=== PATIENT | male | born 1975 | race American Indian/Alaskan Native ===

== ENCOUNTER 2020-07-16 19:26 | Observation (INO) | payer SELFPAY ==
--- NOTE | 2020-07-16 20:34 | Event Note ---
ED Screening Note Date of service: 07/16/20 Time: 20:33 ED Screening Note: Complains of headaches x1 week + nausea Denies prior history of headaches or migraines History of hypertension and diabetes Blood pressure noted to be significantly elevated Rates current headache as a 5/10 in severity Denies being on blood thinners Denies weakness/numbness/tingling/vision changes/dizzy This initial assessment/diagnostic orders/clinical plan/treatment(s) is/are subject to change based on patients health status, clinical progression and re- assessment by fellow clinical providers in the ED. Further treatment and workup at subsequent clinical providers discretion. Patient/guardian urged not to elope from the ED as their condition may be serious if not clinically assessed and managed. Initial orders include: Labs CT head
--- NOTE | 2020-07-16 21:10 | Cat Scan Report ---
NONENHANCED CT SCAN OF THE HEAD: INDICATION / CLINICAL INFORMATION: 44 years Male; headaches x 1 week, no prior hx of HAs. TECHNIQUE: Routine CT head without contrast. All CT scans at this location are performed using CT dos e reduction for ALARA by means of automated exposure control. COMPARISON: None. FINDINGS: BRAIN / INTRACRANIAL CONTENTS: No acute hemorrhage, mass effect, midline shift, hydrocephalus, or acu te, large territorial infarct. No chronic infarct or focal atrophy. Normal brain volume and ventricul ar/sulcal size for age. Low-attenuation white matter lesions probably due to chronic small vessel dis ease CRANIOCERVICAL JUNCTION: No significant abnormality. ORBITS: No significant abnormality of visualized orbits. SINUSES / MASTOIDS: No significant abnormality of the visualized paranasal sinuses or mastoid air honorio ls. ADDITIONAL FINDINGS: None. IMPRESSION: No acute focal parenchymal lesion in the brain Signer Name: Henna Wayne MD Signed: 07/16/2020 9:06 PM Workstation Name: [id number]
[2020-07-16 21:22] LABS: Basophils # (Auto) 0.2 K/mm3 (0.0-0.1); Basophils % (Auto) 1.5 % (0.0-1.8); Eosinophils # (Auto) 0.2 K/mm3 (0.0-0.4); Eosinophils % (Auto) 1.1 % (0.0-4.3); Hematocrit 39.5 % (35.5-45.6); Hemoglobin 13.3 gm/dl (11.8-15.2); Lymphocytes # (Auto) 3.1 K/mm3 (1.2-5.4); Lymphocytes % (Auto) 21.4 % (13.4-35.0); Mean Corpuscular HGB Conc 34 % (32-34); Mean Corpuscular Volume 76 fl (84-94); Monocytes # (Auto) 1.1 K/mm3 (0.0-0.8); Monocytes % (Auto) 7.8 % (0.0-7.3); Platelet Count 358 K/mm3 (140-440); Red Blood Count 5.18 M/mm3 (3.65-5.03); Red Cell Distribution Width 14.4 % (13.2-15.2)
[2020-07-16 21:43] LABS: Albumin 4.1 g/dL (3.9-5)
[2020-07-17] MEDS ORDERED: HYDROcodone/ACETAMINOPHEN 5-325 MG TAB PO ONE (03:19)
[2020-07-17] MEDS ORDERED: ONDANSETRON 4 MG ODT TAB PO ONE (03:19)
[2020-07-17] MEDS ORDERED: ONDANSETRON 4 MG/2 ML INJ IV ONE (03:33)
--- NOTE | 2020-07-17 03:38 | Emergency Department Report ---
ED Headache HPI - General Chief Complaint: Headache Stated Complaint: MIGRAINE HEADACHES FOR A WEEK Time Seen by Provider: 07/16/20 20:32 Source: patient Exam Limitations: no limitations - History of Present Illness Initial Comments: CC: headache for one week HPI: This is a 44 yo male with hx of HTN kidney stones and DM who presents with headache for one week. He has pain in between eyes and forehead. Dull pressure sensation. Intermittent. Pain is absent now after taking Lisinopril this evening. He denies fever, cough, nasal congestion, chest pain. He was diagnosed with HTN and DM last summer. He has not been compliant with medications. His regimen includes Metformin and Lisinopril. Timing/Duration: 1 week Quality: mild, moderate Head Injury Location: frontal Recent Head Trauma: occasional headaches Associated Symptoms: denies symptoms Allergies/Adverse Reactions: Allergies shellfish derived Adverse Reaction (Verified 07/16/20 20:40) Itching Home Medications: Ambulatory Orders lisinopriL [Zestril TAB] 40 mg PO QDAY 07/17/20 metFORMIN [Glucophage] 500 mg PO BID 07/17/20 ED Review of Systems ROS: Stated complaint: MIGRAINE HEADACHES FOR A WEEK Other details as noted in HPI Comment: All other systems reviewed and negative Constitutional: denies: fever, malaise Respiratory: denies: cough, shortness of breath Cardiovascular: denies: chest pain Gastrointestinal: denies: abdominal pain, nausea, vomiting Neurological: headache. denies: numbness, paresthesias ED Past Medical Hx - Past Medical History Previous Medical History?: Yes Hx Hypertension: Yes Hx Diabetes: Yes - Surgical History Past Surgical History?: Yes Additional Surgical History: Left foot - Social History Smoking Status: Never Smoker Substance Use Type: Marijuana - Medications Home Medications: Home Medications Medication Instructions Recorded Confirmed Last Taken Type lisinopriL [Zestril TAB] 40 mg PO QDAY 07/17/20 07/17/20 Unknown History metFORMIN [Glucophage] 500 mg PO BID 07/17/20 07/17/20 Unknown History ED Physical Exam - General Limitations: No Limitations General appearance: alert, in no apparent distress - Head Head exam: Present: atraumatic, normocephalic - Eye Eye exam: Present: normal appearance - ENT ENT exam: Present: mucous membranes moist - Neck Neck exam: Present: normal inspection, full ROM - Respiratory Respiratory exam: Present: normal lung sounds bilaterally. Absent: respiratory distress, wheezes, rales, stridor - Cardiovascular Cardiovascular Exam: Present: regular rate, normal rhythm, normal heart sounds. Absent: systolic murmur, diastolic murmur, rubs, gallop - GI/Abdominal GI/Abdominal exam: Present: soft, normal bowel sounds. Absent: distended, tenderness, guarding, rebound - Rectal Rectal exam: Present: deferred - Extremities Exam Extremities exam: Present: normal inspection - Neurological Exam Neurological exam: Present: alert, oriented X3 - Psychiatric Psychiatric exam: Present: normal affect, normal mood - Skin Skin exam: Present: warm, dry, intact, normal color. Absent: rash ED Course Vital Signs 07/16/20 07/16/20 07/17/20 20:32 20:35 03:08 Temperature 99.2 F Pulse Rate 109 H 108 H Respiratory 18 18 Rate Blood Pressure 196/111 Blood Pressure 178/90 240/138 [Left] O2 Sat by Pulse 96 100 Oximetry 07/17/20 07/17/20 07/17/20 03:30 03:42 03:45 Temperature Pulse Rate 106 H 89 82 Respiratory 15 16 Rate Blood Pressure 225/131 231/146 176/102 Blood Pressure [Left] O2 Sat by Pulse 99 97 Oximetry 07/17/20 07/17/20 07/17/20 04:00 04:02 04:08 Temperature Pulse Rate 77 78 Respiratory 18 17 17 Rate Blood Pressure 176/102 Blood Pressure 165/111 [Left] O2 Sat by Pulse 97 97 98 Oximetry 07/17/20 07/17/20 07/17/20 04:16 04:30 04:33 Temperature Pulse Rate 77 70 78 Respiratory 16 16 18 Rate Blood Pressure 165/111 205/114 Blood Pressure 205/114 [Left] O2 Sat by Pulse 97 98 97 Oximetry 07/17/20 07/17/20 07/17/20 04:34 04:45 05:00 Temperature Pulse Rate 78 78 79 Respiratory 16 14 Rate Blood Pressure 205/114 189/115 180/106 Blood Pressure [Left] O2 Sat by Pulse 97 96 Oximetry ED Medical Decision Making - Lab Data Result diagrams: 07/16/20 20:43 07/16/20 20:43 - EKG Data -: EKG Interpreted by De EKG shows normal: axis, intervals Rate: normal - EKG Data Interpretation: LVH 07/17/20 04:40 EKG obtained 0426 EKG interpreted by me Normal sinus rhythm rate 80 bpm normal axis normal intervals no significant ST elevation nonspecific T wave pattern - Radiology Data Radiology results: report reviewed, image reviewed NONENHANCED CT SCAN OF THE HEAD: INDICATION / CLINICAL INFORMATION: 44 years Male; headaches x 1 week, no prior hx of HAs. TECHNIQUE: Routine CT head without contrast. All CT scans at this location are performed using CT dose reduction for ALARA by means of automated exposure control. COMPARISON: None. FINDINGS: BRAIN / INTRACRANIAL CONTENTS: No acute hemorrhage, mass effect, midline shift, hydrocephalus, or acute, large territorial infarct. No chronic infarct or focal atrophy. Normal brain volume and ventricular/sulcal size for age. Low-attenuation white matter lesions probably due to chronic small vessel disease CRANIOCERVICAL JUNCTION: No significant abnormality. ORBITS: No significant abnormality of visualized orbits. SINUSES / MASTOIDS: No significant abnormality of the visualized paranasal sinuses or mastoid air cells. ADDITIONAL FINDINGS: None. IMPRESSION: No acute focal parenchymal lesion in the brain - Medical Decision Making 1. Hypertensive emergency with evidence of kidney dysfunction. Admitted to the hospital service for further treatment and evaluation. CT imaging of the system did not obstructive uropathy. 2. Tension headache possibly due to malignant hypertension. No red flags such as fever trauma neurological findings. I do not suspect intracranial hemorrhage. Patient is currently pain-free. Critical care attestation.: If time is entered above; I have spent that time in minutes in the direct care of this critically ill patient, excluding procedure time. ED Disposition Clinical Impression: Hypertensive emergency, Acute kidney injury Disposition: OP ADMIT IP TO THIS HOSP Is pt being admited?: Yes Does the pt Need Aspirin: No Condition: Stable
[2020-07-17 04:55] LABS: Bacteria,Urine 1+ /HPF (Negative); Bilirubin,Urine NEG (Negative); Blood,Urine SM (Negative); Color,Urine Yellow (Yellow); Hyaline Casts,Urine 3 /LPF; Mucus,Urine 1+ /HPF; Urobilinogen,Urine < 2.0 mg/dL (<2.0)
[2020-07-17 05:02] LABS: Protein,Urine 300 mg/dL mg/dL (Negative)
[2020-07-17] MEDS ORDERED: SODIUM POLYSTYRENE 15 GM/60 ML ORAL LIQD PO ONE (05:27)
[2020-07-17] MEDS ORDERED: ACETAMINOPHEN 325 MG TAB PO PRN (05:30)
[2020-07-17] MEDS ORDERED: TEMAZEPAM 15 MG CAP PO PRN (05:31)
[2020-07-17] MEDS ORDERED: ONDANSETRON 4 MG/2 ML INJ IV PRN (05:34)
--- NOTE | 2020-07-17 05:42 | Cat Scan Report ---
CT ABDOMEN AND PELVIS WITHOUT CONTRAST HISTORY: Acute kidney injury. COMPARISON: None. TECHNIQUE: CT images of the abdomen and pelvis were obtained without administration of intravenous co ntrast. All CT scans at this location are performed using CT dose reduction for ALARA by means of au tomated exposure control. FINDINGS: Lungs/bones: Lung bases are clear. There are degenerative changes in the lower lumbar spine with no acute osseous abnormality. Abdomen/pelvis: There is punctate nonobstructive nephrolithiasis in both kidneys with no ureteral st one disease or hydronephrosis. No mass or cyst. There is a vague hypodensity measuring nearly 3 cm in the left lobe of the liver as seen on image 32 of series 2. Liver is otherwise unremarkable. The spleen, pancreas, adrenals, and proximal GI tract a ppear unremarkable. Urinary bladder and prostate are normal with no pelvic free fluid or acute colonic abnormality. The a ppendix and terminal ileum appear normal. IMPRESSION: 1. No acute abnormality identified. 2. Punctate nonobstructive nephrolithiasis in the kidneys. 3. Hepatic findings as above. Recommend nonemergent three-phase CT liver for more thorough evaluation . Signer Name: Mat Santiago MD Signed: 07/17/2020 5:38 AM Workstation Name: [id number]
--- NOTE | 2020-07-17 05:53 | History and Physical Report ---
History of Present Illness Date of examination: 07/17/20 Date of admission: 07/17/20 Chief complaint: Headache History of present illness: 44 year old male diagnosed with Hypertension and Diabetes Mellitus about a year ago presenting with headache going on for some days and located in the forehead and in between the eyes. Headache appears as dull ache and is not associated with dizziness, blurry vision , chest pain, shortness of breath or fever. patient is non compliant with his medication. Past History Past Medical History: diabetes, hypertension Past Surgical History: Other (LEFT FOOT SURGERY) Social history: no significant social history Family history: hypertension Medications and Allergies Allergies Allergy/AdvReac Type Severity Reaction Status Date / Time shellfish derived AdvReac Itching Verified 07/16/20 20:40 Active Meds: Active Medications Acetaminophen (Tylenol) 650 mg PO Q4H PRN PRN Reason: Headache Heparin Sodium (Porcine) (Heparin) 5,000 unit SUB-Q Q12HR JIMMY Hydrochlorothiazide (Hctz) 12.5 mg PO QDAY JIMMY Labetalol HCl (Labetalol) 10 mg IV Q8H PRN PRN Reason: Blood Pressure Ondansetron HCl (Zofran) 4 mg IV Q8H PRN PRN Reason: Nausea And Vomiting Temazepam (Restoril) 15 mg PO QHS PRN PRN Reason: Sleep Review of Systems Constitutional: no fever, no chills, no sweats, no night sweats, no weakness Eyes: bilateral: other (NO BILATERAL EYE WEAKNESS) Ears, nose, mouth and throat: no ear pain, no nose pain Cardiovascular: no chest pain, no palpitations, no rapid/irregular heart beat, no syncope, no lightheadedness, no shortness of breath Respiratory: no cough, no shortness of breath, no congestion, no wheezing Gastrointestinal: no nausea, no vomiting, no diarrhea Genitourinary Male: no hematuria, no flank pain Musculoskeletal: no neck stiffness, no neck pain, no shooting arm pain Integumentary: no redness, no sores, no wounds Neurological: headaches, no head injury, no paralysis, no weakness, no parathesias, no seizures, no syncope, no vertigo, no change in mentation, no confusion Psychiatric: no anxiety, no depression, no confusion Endocrine: no polydipsia, no polyuria, no nocturia Hematologic/Lymphatic: no easy bruising Exam - Constitutional Vitals: Temp Pulse Resp BP Pulse Ox 99.2 F 79 14 180/106 96 07/16/20 20:32 07/17/20 05:00 07/17/20 05:00 07/17/20 05:00 07/17/20 05:00 General appearance: Present: mild distress - EENT Eyes: Present: PERRL, EOM intact ENT: hearing intact, clear oral mucosa, dentition normal - Neck Neck: Present: supple, normal ROM - Respiratory Respiratory effort: normal - Cardiovascular Rhythm: regular Heart Sounds: Present: S1 & S2. Absent: gallop, systolic murmur, diastolic murmur, click - Extremities Extremities: no ischemia, No edema Peripheral Pulses: within normal limits - Abdominal General gastrointestinal: Present: soft, non-tender, non-distended. Absent: tender, distended, rigid, hepatomegaly, splenomegaly Male genitourinary: Present: deferred - Rectal Rectal Exam: deferred - Integumentary Integumentary: Present: clear, warm, dry. Absent: erythema - Musculoskeletal Musculoskeletal: strength equal bilaterally - Psychiatric Psychiatric: appropriate mood/affect HEART Score - HEART Score Risk factors: 1-2 risk factors Troponin: < normal limit - Critical Actions Critical Actions: 0-3 pts:0.9-1.7%risk of adverse cardiac event.Candidate for discharge Results - Labs CBC & Chem 7: 07/16/20 20:43 07/16/20 20:43 Labs: Laboratory Last Values WBC 14.6 K/mm3 (4.5-11.0) H 07/16/20 20:43 RBC 5.18 M/mm3 (3.65-5.03) H 07/16/20 20:43 Hgb 13.3 gm/dl (11.8-15.2) 07/16/20 20:43 Hct 39.5 % (35.5-45.6) 07/16/20 20:43 MCV 76 fl (84-94) L 07/16/20 20:43 MCH 26 pg (28-32) L 07/16/20 20:43 MCHC 34 % (32-34) 07/16/20 20:43 RDW 14.4 % (13.2-15.2) 07/16/20 20:43 Plt Count 358 K/mm3 (140-440) 07/16/20 20:43 Lymph % (Auto) 21.4 % (13.4-35.0) 07/16/20 20:43 [place] % (Auto) 7.8 % (0.0-7.3) H 07/16/20 20:43 Eos % (Auto) 1.1 % (0.0-4.3) 07/16/20 20:43 Baso % (Auto) 1.5 % (0.0-1.8) 07/16/20 20:43 Lymph # (Auto) 3.1 K/mm3 (1.2-5.4) 07/16/20 20:43 [place] # (Auto) 1.1 K/mm3 (0.0-0.8) H 07/16/20 20:43 Eos # (Auto) 0.2 K/mm3 (0.0-0.4) 07/16/20 20:43 Baso # (Auto) 0.2 K/mm3 (0.0-0.1) H 07/16/20 20:43 Seg Neutrophils % 68.2 % (40.0-70.0) 07/16/20 20:43 Seg Neutrophils # 10.0 K/mm3 (1.8-7.7) H 07/16/20 20:43 Sodium 136 mmol/L (137-145) L 07/16/20 20:43 Potassium 5.2 mmol/L (3.6-5.0) H 07/16/20 20:43 Chloride 101.8 mmol/L (98-107) 07/16/20 20:43 Carbon Dioxide 23 mmol/L (22-30) 07/16/20 20:43 Anion Gap 16 mmol/L 07/16/20 20:43 BUN 40 mg/dL (9-20) H 07/16/20 20:43 Creatinine 3.8 mg/dL (0.8-1.3) H 07/16/20 20:43 Estimated GFR 17 ml/min 07/16/20 20:43 BUN/Creatinine Ratio 11 % 07/16/20 20:43 Glucose 135 mg/dL (75-100) H 07/16/20 20:43 Calcium 10.0 mg/dL (8.4-10.2) 07/16/20 20:43 Total Bilirubin 0.30 mg/dL (0.1-1.2) 07/16/20 20:43 AST 15 units/L (5-40) 07/16/20 20:43 ALT 16 units/L (7-56) 07/16/20 20:43 Alkaline Phosphatase 86 units/L (35-129) 07/16/20 20:43 Total Protein 7.2 g/dL (6.3-8.2) 07/16/20 20:43 Albumin 4.1 g/dL (3.9-5) 07/16/20 20:43 Albumin/Globulin Ratio 1.3 % 07/16/20 20:43 Urine Color Yellow (Yellow) 07/17/20 04:13 Urine Turbidity Cloudy (Clear) 07/17/20 04:13 Urine pH 5.0 (5.0-7.0) 07/17/20 04:13 Ur Specific [place] 1.013 (1.003-1.030) 07/17/20 04:13 Urine Protein 300 mg/dl mg/dL (Negative) 07/17/20 04:13 Urine Glucose (UA) 50 mg/dL (Negative) 07/17/20 04:13 Urine Ketones Neg mg/dL (Negative) 07/17/20 04:13 Urine Blood Sm (Negative) 07/17/20 04:13 Urine Nitrite Neg (Negative) 07/17/20 04:13 Urine Bilirubin Neg (Negative) 07/17/20 04:13 Urine Urobilinogen < 2.0 mg/dL (<2.0) 07/17/20 04:13 Ur Leukocyte Esterase Neg (Negative) 07/17/20 04:13 Urine WBC (Auto) 7.0 /HPF (0.0-6.0) H 07/17/20 04:13 Urine RBC (Auto) 12.0 /HPF (0.0-6.0) 07/17/20 04:13 U Epithel Cells (Auto) 4.0 /HPF (0-13.0) 07/17/20 04:13 Urine Bacteria (Auto) 1+ /HPF (Negative) 07/17/20 04:13 Hyaline Casts 3 /LPF 07/17/20 04:13 Urine Mucus 1+ /HPF 07/17/20 04:13 Bates/IV: IV Catheter Type [Left Wrist] INT / Saline Lock Assessment and Plan - Patient Problems (1) Hypertensive crisis Current Visit: Yes Status: Acute Plan to address problem: 1 I.V LABETALOL PRN ELEVATED BLOOD PRESSURE 2. TABLET HYDROCHLOROTHIAZIDE (2) Acute kidney injury Current Visit: Yes Status: Acute Plan to address problem: 1. NEPHROLOGY CONSULT 2. BMP 3. I.V NORMAL SALINE 4 AVOID NEPHROTOXIC DRUGS (3) Hyperkalemia Current Visit: Yes Status: Acute Plan to address problem: 1. KASYEXELATE PO 2. BMP LEVEL
[2020-07-17 09:08] LABS: Calcium 9.8 mg/dL (8.4-10.2)
[2020-07-17] MEDS: HEPARIN 5,000 UNIT/1 ML VIAL SUB-Q SCH ×2 (09:30→22:54)
[2020-07-17] MEDS ORDERED: hydroCHLOROthiazide 12.5 MG CAP PO SCH (10:00)
--- NOTE | 2020-07-17 11:14 | Consultation ---
History of Present Illness - Reason for Consult Consult date: 07/17/20 acute renal failure - History of Present Illness patient with h/o DM and HTN was admitted for headache going on for some days and located in the forehead nut no dizziness, blurry vision , chest pain, shortness of breath or fever. he was found to have elevated BP and was started on labetalol and Amlodipine, renal consult was requested due to elevated Cr. he stated he had not done iany blood work for many years and is not aware of any kidney condition. Past History Past Medical History: diabetes, hypertension Past Surgical History: Other (LEFT FOOT SURGERY) Social history: no significant social history Family history: hypertension Medications and Allergies Allergies Allergy/AdvReac Type Severity Reaction Status Date / Time shellfish derived AdvReac Itching Verified 07/16/20 20:40 Home Medications Medication Instructions Recorded Confirmed Last Taken Type lisinopriL [Zestril TAB] 40 mg PO QDAY 07/17/20 07/17/20 Unknown History metFORMIN [Glucophage] 500 mg PO BID 07/17/20 07/17/20 Unknown History Active Meds: Active Medications Acetaminophen (Tylenol) 650 mg PO Q4H PRN PRN Reason: Headache Amlodipine Besylate (Amlodipine) 10 mg PO QDAY [facility] Cephalexin (Keflex) 500 mg PO Q12HR [facility] Heparin Sodium (Porcine) (Heparin) 5,000 unit SUB-Q Q12HR [facility] Last Admin: 07/17/20 09:30 Dose: 5,000 unit Documented by: Hydralazine HCl (Apresoline) 50 mg PO Q8HR [facility] Sodium Chloride (Nacl 0.9% 1000 Ml) 1,000 mls @ 75 mls/hr IV DIRECT JIMMY Labetalol HCl (Labetalol) 10 mg IV Q8H PRN PRN Reason: Blood Pressure Last Admin: 07/17/20 09:35 Dose: 10 mg Documented by: Ondansetron HCl (Zofran) 4 mg IV Q8H PRN PRN Reason: Nausea And Vomiting Temazepam (Restoril) 15 mg PO QHS PRN PRN Reason: Sleep Review of Systems All systems: negative (WHIT[place]KER) Exam - Vital Signs Vital signs: Vital Signs Temp Pulse Resp BP Pulse Ox 99.2 F 109 H 18 196/111 96 07/16/20 20:32 07/16/20 20:32 07/16/20 20:32 07/16/20 20:32 07/16/20 20:32 - General Appearance General appearance: well-developed, well-nourished, appears stated age EENT: ATNC, PERRL Neck: Present: neck supple Respiratory: Clear to Ascultation Heart: regular, S1S2 Gastrointestinal: Present: normoactive bowel sounds Integumentary: no rash, warm and dry Neurologic: no focal deficit, no asterixis, alert and oriented x3 Musculoskeletal: Present: other (no edema in BLE) Psychiatric: mood/affect appropriate, cooperative Results - Lab Results 07/16/20 20:43 07/17/20 08:24 Most recent lab results Calcium 9.8 mg/dL (8.4-10.2) 07/17/20 08:24 Assessment and Plan acute renal failure, unknots baseline, possible CKD secondary to HTN and DM Headaches HTN DM will check secondary GN and vasculitis work up will check urine studies CT AP negative for hydronpehosis will start gentle IV hydration NS 75 cc/h no indication for DOCUMENT CONTROL ASSISTANT renally dose meds strict I&O daily weights Warner vickers MD [phone]
[2020-07-17 12:03] LABS: Uric Acid 6.9 mg/dL (3.5-7.6)
[2020-07-17 12:54] LABS: Smear for Schistocytes None Seen
[2020-07-17] MEDS: amLODIPine 10 MG TAB PO SCH (12:54)
[2020-07-17] MEDS: cephALEXin 500 MG CAP PO SCH ×2 (12:54→22:54)
[2020-07-17] MEDS: SODIUM CHLORIDE 0.9% 1000 ML 1,000 ML IV SCH (12:55)
[2020-07-17] MEDS: hydrALAZINE 25 MG TAB PO SCH ×2 (13:21→22:53)
[2020-07-17 14:35] LABS: Bilirubin,Urine NEG (Negative); Blood,Urine SM (Negative); Color,Urine Straw (Yellow); Urobilinogen,Urine < 2.0 mg/dL (<2.0)
[2020-07-17 14:36] LABS: Protein,Urine >500 mg/dL (Negative)
[2020-07-17 14:39] LABS: Creatinine,Urine 83.4 mg/dL (0.1-20.0)
[2020-07-17 14:51] LABS: Protein/Creatinine Ratio,Urine 3.02
--- NOTE | 2020-07-17 19:29 | Event Note ---
Date: 07/17/20 Patient seen and examined clinically stable at this time. Blood pressure improving some. Some adjustments are made as patient has not been compliant with his blood pressure medications outpatient. Continue current antibiotics mild pyuria doubt acute cystitis. Leukocytosis may be reactive. Nephrology input appreciated. Patient has history of renal stones. But unsure of what his creatinine baseline is. We will try to obtain records from [place] where he has been cared for in the past. Anticipate discharge in the next 24 hours
[2020-07-18] MEDS: SODIUM CHLORIDE 0.9% 1000 ML 1,000 ML IV SCH (04:05)
[2020-07-18] MEDS: hydrALAZINE 25 MG TAB PO SCH (05:42)
[2020-07-18 06:24] LABS: Basophils # (Auto) 0.1 K/mm3 (0.0-0.1); Eosinophils # (Auto) 0.3 K/mm3 (0.0-0.4); Eosinophils % (Auto) 2.7 % (0.0-4.3); Hematocrit 34.4 % (35.5-45.6); Hemoglobin 11.4 gm/dl (11.8-15.2); Lymphocytes % (Auto) 24.7 % (13.4-35.0); Mean Corpuscular HGB Conc 33 % (32-34); Mean Corpuscular Volume 77 fl (84-94); Platelet Count 316 K/mm3 (140-440); Red Blood Count 4.49 M/mm3 (3.65-5.03); Red Cell Distribution Width 14.2 % (13.2-15.2)
[2020-07-18 08:27] VITALS: BP 178/96
[2020-07-18] MEDS ORDERED: hydrALAZINE 25 MG TAB PO SCH (09:43)
[2020-07-18] MEDS: amLODIPine 10 MG TAB PO SCH (10:03)
[2020-07-18] MEDS: HEPARIN 5,000 UNIT/1 ML VIAL SUB-Q SCH (10:03)
[2020-07-18] MEDS: cephALEXin 500 MG CAP PO SCH (10:03)
--- NOTE | 2020-07-18 10:43 | Discharge Summary ---
Providers - Providers Date of Admission: 07/17/20 04:17 Attending physician: LUCAS HILLIARD MD 07/17/20 05:36 Consult to Physician [CONS] Routine Comment: Consulting Provider: BHUMIKA COOPER Physician Instructions: Reason For Exam: FARZANA Primary care physician: MOTOR EXPRESS CLERK Hospitalization Reason for admission: Headache Condition: Stable Hospital course: 44 year old male diagnosed with Hypertension and Diabetes Mellitus about a year ago presenting with headache going on for some days and located in the forehead and in between the eyes. Headache appears as dull ache and is not associated with dizziness, blurry vision , chest pain, shortness of breath or fever. patient is non compliant with his medication. Patient clinically improved recalls that he does have underlying kidney disease but not sure of the severity. Creatinine has remained stable. He is with no difficulty urinating. I have discussed extensively with him the need to follow- up with film library clerk and also blood pressure control he will require new prescriptions for blood pressure we will hold lisinopril and Metformin at this point until history nephrology status is determined. He verbalized understanding to this point. No further headaches noted today he did have some nausea this morning but resolved and anticipate that he will be discharged this afternoon if no further nausea is noted. I did also discuss diet with the patient verbalized understanding on diabetic and renal diet. We will start him on glyburide while holding Metformin. Hypertensive urgency Headache secondary to hypertension with elevated blood pressure Acute on chronic kidney disease stage III with hypertensive renal disease Hyperkalemia Diabetes mellitus Disposition: DC-01 TO HOME OR SELFCARE Time spent for discharge: 35 minutes Exam - Physical Exam Narrative exam: VITAL SIGNS: Reviewed. GENERAL: The patient appears normally developed, Vital signs as documented. HEAD: No signs of head trauma. EYES: Pupils are equal. Extraocular motions intact. EARS: Hearing grossly intact. Bilateral ear piercing MOUTH: Oropharynx is normal. NECK: No adenopathy, no JVD. CHEST: Chest with clear breath sounds bilaterally. No wheezes, rales, or rhonchi. CARDIAC: Regular rate and rhythm. S1 and S2, without murmurs, gallops, or rubs. VASCULAR: No Edema. Peripheral pulses normal and equal in all extremities. ABDOMEN: Soft, non tender and non distended. No rebound or guarding, and no masses palpated. Bowel Sounds normal. MUSCULOSKELETAL: Good range of motion of all major joints. Extremities without clubbing, cyanosis or edema. NEUROLOGIC EXAM: Alert and oriented x 3 No focal sensory or strength deficits. Speech normal. Follows commands. PSYCHIATRIC: Mood normal. SKIN: detail exam as documented in skin assessment - Constitutional Vitals: Temp Pulse Resp BP Pulse Ox 98.4 F 90 18 178/96 95 07/18/20 08:27 07/18/20 08:27 07/18/20 08:27 07/18/20 08:27 07/18/20 08:27 Plan Activity: advance as tolerated, fall precautions Diet: diabetic, renal Special Instructions: record daily weights, record daily BP diary, record blood sugar diary Follow up with: PRIMARY CAREMD [Primary Care Provider] - 3-5 Days PANFILO FELIX MD [Staff Physician] - 7 Days Prescriptions: amLODIPine 10 mg PO QDAY #30 tablet hydrALAZINE [Apresoline TAB] 50 mg PO Q8HR #90 tablet glipiZIDE XL [Glucotrol Xl] 2.5 mg PO QAM #30 tab.er.24 cephALEXin [Keflex] 500 mg PO Q12HR #10 capsule Metoprolol [Lopressor TAB] 25 mg PO BID #60 tablet
[2020-07-18 11:19] LABS: INR 0.97 (0.87-1.13)
--- NOTE | 2020-07-18 12:12 | Progress Note ---
Assessment and Plan acute renal failure, unknots baseline, possible CKD secondary to HTN and DM Headaches HTN DM will check secondary GN and vasculitis work up, to be followed as an ooutpatient CT AP negative for hydronpehosis will d/c IVF no indication for [employer] renally dose meds strict I&O daily weights Warner vickers MD [phone] Subjective Date of service: 07/18/20 Principal diagnosis: CKD Interval history: ready to go home, denies acute issues Objective - Vital Signs Vital signs: Vital Signs - 12hr 07/18/20 07/18/20 07/18/20 05:00 05:42 05:47 Temperature 98.2 F Pulse Rate 89 89 82 Respiratory 18 Rate Blood Pressure 160/90 173/97 O2 Sat by Pulse 98 Oximetry 07/18/20 07/18/20 08:27 10:00 Temperature 98.4 F Pulse Rate 90 84 Respiratory 18 Rate Blood Pressure 178/96 O2 Sat by Pulse 95 Oximetry - General Appearance General appearance: well-developed, well-nourished EENT: mucous membranes moist Neck: no JVD Respiratory: Present: Clear to Ascultation. Absent: Rales, Ronchi Cardiology: regular Gastrointestinal: normoactive bowel sounds, no tenderness, no distended Integumentary: no rash, warm and dry Neurologic: no focal deficit, no asterixis, alert and oriented x3 Musculoskeletal: other (trace pitting edema in BLE) Psychiatric: cooperative - Lab 07/18/20 06:01 07/18/20 06:01 Most recent lab results Calcium 9.0 mg/dL (8.4-10.2) 07/18/20 06:01 Phosphorus 4.80 mg/dL (2.5-4.5) H 07/18/20 06:01 Magnesium 2.00 mg/dL (1.7-2.3) 07/18/20 05:31 Urine Creatinine 83.0 mg/dL (0.1-20.0) H 07/17/20 13:19 Urine Sodium 61 mmol/L 07/17/20 13:19 Urine Total Protein 252 mg/dL (5-11.8) H 07/17/20 13:00 Medications & Allergies - Medications Allergies/Adverse Reactions: Allergies shellfish derived Adverse Reaction (Verified 07/16/20 20:40) Itching Home Medications: Home Medications Medication Instructions Recorded Confirmed Last Taken Type Metoprolol [Lopressor TAB] 25 mg PO BID #60 tablet 07/18/20 Unknown Rx amLODIPine 10 mg PO QDAY #30 tablet 07/18/20 Unknown Rx cephALEXin [Keflex] 500 mg PO Q12HR #10 capsule 07/18/20 Unknown Rx glipiZIDE XL [Glucotrol Xl] 2.5 mg PO QAM #30 tab.er.24 07/18/20 Unknown Rx hydrALAZINE [Apresoline TAB] 50 mg PO Q8HR #90 tablet 07/18/20 Unknown Rx Active Medications: Generic Name Dose Route Start Last Admin Trade Name Freq PRN Reason Stop Dose Admin Acetaminophen 650 mg 07/17/20 05:30 Tylenol PO Q4H PRN Headache Amlodipine Besylate 10 mg 07/17/20 11:00 07/18/20 10:03 Amlodipine PO 10 mg QDAY JIMMY Administration Cephalexin 500 mg 07/17/20 11:00 07/18/20 10:03 Keflex PO 500 mg Q12HR JIMMY Administration Heparin Sodium (Porcine) 5,000 unit 07/17/20 10:00 07/18/20 10:03 Heparin SUB-Q 5,000 unit Q12HR JIMMY Administration Hydralazine HCl 100 mg 07/18/20 09:43 Apresoline PO Q8HR JIMMY Sodium Chloride 1,000 mls @ 75 mls/hr 07/17/20 11:15 07/18/20 04:05 Nacl 0.9% 1000 Ml IV 75 mls/hr DIRECT JIMMY Administration Labetalol HCl 10 mg 07/17/20 05:28 07/17/20 17:35 Labetalol IV 10 mg Q8H PRN Administration Blood Pressure Ondansetron HCl 4 mg 07/17/20 05:34 07/18/20 10:03 Zofran IV 4 mg Q8H PRN Administration Nausea And Vomiting Temazepam 15 mg 07/17/20 05:31 Restoril PO QHS PRN Sleep
[2020-07-21 23:49] LABS: Albumin 3.1 g/dL (3.8-4.8); Gamma Globulin 0.8 g/dL (0.8-1.7)
[2020-07-22 10:26] LABS: Myeloperoxidase Antibody <1.0 AI (<1.0)
[2020-07-23 00:53] LABS: ANA Screen, IFA Negative (Negative)
== END 2020-07-18 13:31 | disposition home or self-care (01) ==
LOC: ED 19:26 → 4A 07-17 04:17
PROVIDERS: ADMIT Internal Medicine; ATTEND Internal Medicine
DX: I16.0 Hypertensive urgency (principal); I12.9 Hypertensive chronic kidney disease with stage 1 through stage 4 chronic kidney disease, or unspecified chronic kidney disease; E11.22 Type 2 diabetes mellitus with diabetic chronic kidney disease; N18.30 Chronic kidney disease, stage 3 unspecified; N17.9 Acute kidney failure, unspecified; E87.5 Hyperkalemia; R51.9 Headache, unspecified; F17.200 Nicotine dependence, unspecified, uncomplicated; Z71.6 Tobacco abuse counseling; Z79.84 Long term (current) use of oral hypoglycemic drugs; Z79.899 Other long term (current) drug therapy; Z91.013 Allergy to seafood
CPT/HCPCS: 36415; 70450; 74176; 80048; 80053; 81001; 82550; 82570; 83520; 83615; 83735; 84100; 84156; 84165; 84300; 84520; 84550; 85025; 85610; 86021; 86038; 86160; 86706; 86803; 87806; 89050; 93005; 96361; 96372; 96374; 96375; 96376; 99285; 99406; G0378; J1644; J2405; J7030

== ENCOUNTER 2020-11-03 13:58 | Outpatient (CLI) | payer OTHER ==
[2020-11-03 14:22] LABS: Basophils # (Auto) 0.1 K/mm3 (0.0-0.1); Basophils % (Auto) 0.6 % (0.0-1.8); Eosinophils # (Auto) 0.3 K/mm3 (0.0-0.4); Eosinophils % (Auto) 2.3 % (0.0-4.3); Hematocrit 33.3 % (35.5-45.6); Hemoglobin 11.1 gm/dl (11.8-15.2); Lymphocytes # (Auto) 1.7 K/mm3 (1.2-5.4); Lymphocytes % (Auto) 15.5 % (13.4-35.0); Mean Corpuscular HGB Conc 33 % (32-34); Mean Corpuscular Volume 75 fl (84-94); Monocytes # (Auto) 0.8 K/mm3 (0.0-0.8); Monocytes % (Auto) 7.5 % (0.0-7.3); Platelet Count 349 K/mm3 (140-440); Red Blood Count 4.45 M/mm3 (3.65-5.03); Red Cell Distribution Width 14.3 % (13.2-15.2)
[2020-11-03 14:40] LABS: Creatinine,Urine 78.8 mg/dL (0.1-20.0)
[2020-11-03 14:45] LABS: Calcium 9.3 mg/dL (8.4-10.2)
[2020-11-03 14:57] LABS: Bilirubin,Urine NEG (Negative); Blood,Urine NEG (Negative); Color,Urine Straw (Yellow); Mucus,Urine FEW /HPF; Urobilinogen,Urine < 2.0 mg/dL (<2.0)
[2020-11-03 15:02] LABS: Protein/Creatinine Ratio,Urine 2.42
== END 2020-11-03 13:59 | disposition home or self-care (01) ==
LOC: LAB 13:58
PROVIDERS: ATTEND Internal Medicine Nephrology
DX: E11.22 Type 2 diabetes mellitus with diabetic chronic kidney disease (principal); N18.9 Chronic kidney disease, unspecified; N25.81 Secondary hyperparathyroidism of renal origin
CPT/HCPCS: 36415; 80048; 81001; 82570; 83036; 84156; 85025

== ENCOUNTER 2022-03-13 07:04 | Inpatient (IN) | payer SELFPAY ==
--- NOTE | 2022-03-13 08:03 | XRay Report ---
CHEST 2 VIEWS INDICATION / CLINICAL INFORMATION: sob. COMPARISON: None available. FINDINGS: SUPPORT DEVICES: None. HEART / MEDIASTINUM: The cardiac silhouette is mildly enlarged. LUNGS / PLEURA: There are bilateral pulmonary opacities, most notable along the right lower lobe. No significant pleural effusion. No pneumothorax. ADDITIONAL FINDINGS: No significant additional findings. IMPRESSION: 1. Nonspecific bilateral pulmonary opacities are favored to represent edema/atelectasis. 2. Mild cardiomegaly. Signer Name: Ephraim Salgado MD Signed: 03/13/2022 7:59 AM Workstation Name: [id number]
[2022-03-13] MEDS ORDERED: FUROSEMIDE 40 MG/4 ML INJ IV ONE (08:18)
--- NOTE | 2022-03-13 08:21 | Emergency Department Report ---
ED Shortness of Breath HPI - General Chief Complaint: Dyspnea/Respdistress Stated Complaint: TROUBLE BREATHING/KIDNEY DISEASE Time Seen by Provider: 03/13/22 08:11 Source: patient Mode of arrival: Ambulatory Limitations: No Limitations - History of Present Illness Initial Comments: Patient is a 46-year-old male presenting to ED with complaint of worsening shortness of breath over the past few days particularly at night when trying to lie down. He reports similar presentation last year and was told he had kidney disease at that time. He is not on dialysis. Denies fever or chills. He also notes swelling to both of his legs over the past week. Denies chest pain, cough or fever. - Related Data Home Medications Medication Instructions Recorded Confirmed Last Taken Labetalol HCl [Labetalol 300mg TAB] 300 mg PO BID 03/14/22 03/14/22 Unknown Torsemide [Demadex] 10 mg PO QDAY 03/14/22 03/14/22 Unknown Previous Rx's Medication Instructions Recorded Last Taken Type amLODIPine 10 mg PO QDAY #30 tablet 07/18/20 Unknown Rx glipiZIDE XL [Glucotrol Xl] 2.5 mg PO QAM #30 tab.er.24 07/18/20 Unknown Rx hydrALAZINE [Apresoline TAB] 50 mg PO Q8HR #90 tablet 07/18/20 1 Month Ago Rx ~02/11/22 Allergies Allergy/AdvReac Type Severity Reaction Status Date / Time shellfish derived AdvReac Anaphylaxis Verified 03/14/22 09:51 ED Review of Systems ROS: Stated complaint: TROUBLE BREATHING/KIDNEY DISEASE Other details as noted in HPI Constitutional: denies: chills, fever Respiratory: orthopnea, shortness of breath Cardiovascular: edema. denies: chest pain, palpitations Endocrine: no symptoms reported Gastrointestinal: denies: abdominal pain, nausea, vomiting Musculoskeletal: denies: back pain, joint swelling, arthralgia Skin: denies: rash, lesions Neurological: denies: headache, weakness, paresthesias Psychiatric: denies: anxiety, depression ED Past Medical Hx - Past Medical History Previous Medical History?: Yes Hx Hypertension: Yes Hx Diabetes: Yes Hx Headaches / Migraines: Yes - Surgical History Past Surgical History?: Yes Additional Surgical History: Left foot - Social History Smoking Status: Never Smoker Substance Use Type: Marijuana - Medications Home Medications: Home Medications Medication Instructions Recorded Confirmed Last Taken Type amLODIPine 10 mg PO QDAY #30 tablet 07/18/20 03/14/22 Unknown Rx glipiZIDE XL [Glucotrol Xl] 2.5 mg PO QAM #30 tab.er.24 07/18/20 03/14/22 Unknown Rx hydrALAZINE [Apresoline TAB] 50 mg PO Q8HR #90 tablet 07/18/20 03/14/22 1 Month Ago Rx ~02/11/22 Labetalol HCl [Labetalol 300mg TAB] 300 mg PO BID 03/14/22 03/14/22 Unknown History Torsemide [Demadex] 10 mg PO QDAY 03/14/22 03/14/22 Unknown History ED Physical Exam - General Limitations: No Limitations General appearance: alert, in no apparent distress, obese - Head Head exam: Present: atraumatic, normocephalic - Respiratory Respiratory exam: Present: normal lung sounds bilaterally. Absent: respiratory distress - Cardiovascular Cardiovascular Exam: Present: regular rate, normal rhythm, normal heart sounds - GI/Abdominal GI/Abdominal exam: Present: soft. Absent: distended, tenderness - Rectal Rectal exam: Present: deferred - Extremities Exam Extremities exam: Present: pedal edema (Pitting edema to both lower legs) - Neurological Exam Neurological exam: Present: alert, oriented X3 - Psychiatric Psychiatric exam: Present: normal affect, normal mood - Skin Skin exam: Present: warm, dry, intact, normal color ED Course Vital Signs 03/13/22 03/13/22 03/13/22 05:52 06:00 07:20 Temperature 97.7 F Pulse Rate 82 Respiratory 20 Rate Blood Pressure Blood Pressure 193/118 [Right] O2 Sat by Pulse 99 99 99 Oximetry 03/13/22 03/13/22 03/13/22 08:08 08:14 08:16 Temperature Pulse Rate 75 80 Respiratory 20 18 Rate Blood Pressure Blood Pressure [Right] O2 Sat by Pulse 100 98 99 Oximetry 03/13/22 03/13/22 03/13/22 08:30 08:41 09:00 Temperature Pulse Rate 75 80 86 Respiratory 24 18 19 Rate Blood Pressure 160/85 202/116 193/111 Blood Pressure [Right] O2 Sat by Pulse 98 99 99 Oximetry 03/13/22 03/13/22 03/13/22 09:16 09:30 09:46 Temperature Pulse Rate 76 67 58 L Respiratory 21 23 20 Rate Blood Pressure 183/113 183/113 187/114 Blood Pressure [Right] O2 Sat by Pulse 99 99 97 Oximetry 03/13/22 03/13/22 03/13/22 10:00 10:16 10:30 Temperature Pulse Rate 69 63 63 Respiratory 16 19 17 Rate Blood Pressure 187/114 193/106 193/106 Blood Pressure [Right] O2 Sat by Pulse 100 98 98 Oximetry 03/13/22 03/13/22 03/13/22 10:33 10:45 11:00 Temperature Pulse Rate 63 77 55 L Respiratory 20 17 17 Rate Blood Pressure 201/112 201/112 Blood Pressure 193/106 [Right] O2 Sat by Pulse 98 96 98 Oximetry 03/13/22 03/13/22 03/13/22 11:16 11:30 11:46 Temperature Pulse Rate 68 76 80 Respiratory 17 18 24 Rate Blood Pressure 182/99 182/99 182/99 Blood Pressure [Right] O2 Sat by Pulse 98 99 98 Oximetry 03/13/22 03/13/22 03/13/22 12:00 12:16 12:30 Temperature Pulse Rate 75 67 67 Respiratory 23 18 21 Rate Blood Pressure 182/99 182/99 182/99 Blood Pressure [Right] O2 Sat by Pulse 98 97 99 Oximetry 03/13/22 03/13/22 03/13/22 12:46 12:54 13:00 Temperature Pulse Rate 67 85 63 Respiratory 22 20 19 Rate Blood Pressure 184/127 184/127 Blood Pressure 195/118 [Right] O2 Sat by Pulse 97 99 98 Oximetry 03/13/22 03/13/22 03/13/22 15:24 15:27 15:39 Temperature Pulse Rate 84 Respiratory 20 Rate Blood Pressure 195/118 182/125 Blood Pressure 182/125 [Right] O2 Sat by Pulse 99 99 98 Oximetry 03/13/22 03/13/22 03/13/22 16:43 16:45 17:01 Temperature Pulse Rate Respiratory Rate Blood Pressure 182/125 189/123 189/123 Blood Pressure [Right] O2 Sat by Pulse 100 97 96 Oximetry 03/13/22 03/13/22 03/13/22 17:15 17:30 17:45 Temperature Pulse Rate Respiratory Rate Blood Pressure 189/123 182/125 196/126 Blood Pressure [Right] O2 Sat by Pulse 98 99 98 Oximetry 03/13/22 03/13/22 03/13/22 18:01 18:15 18:31 Temperature Pulse Rate Respiratory Rate Blood Pressure 188/122 188/122 188/105 Blood Pressure [Right] O2 Sat by Pulse 98 99 100 Oximetry 03/13/22 03/13/22 03/13/22 18:36 18:45 18:48 Temperature Pulse Rate Respiratory Rate Blood Pressure 188/122 188/122 188/105 Blood Pressure [Right] O2 Sat by Pulse 95 97 99 Oximetry 03/13/22 03/13/22 03/13/22 18:50 19:01 19:11 Temperature Pulse Rate Respiratory Rate Blood Pressure 188/105 215/103 215/103 Blood Pressure [Right] O2 Sat by Pulse 92 97 98 Oximetry 03/13/22 03/13/22 03/13/22 19:21 19:31 19:41 Temperature Pulse Rate Respiratory Rate Blood Pressure 197/109 197/109 188/105 Blood Pressure [Right] O2 Sat by Pulse 96 97 94 Oximetry 03/13/22 03/13/22 03/13/22 19:51 19:55 20:01 Temperature Pulse Rate 78 74 Respiratory 14 11 L Rate Blood Pressure 209/111 196/118 Blood Pressure 196/118 [Right] O2 Sat by Pulse 93 97 Oximetry ED Medical Decision Making - Lab Data Result diagrams: 03/17/22 04:43 03/17/22 04:43 - EKG Data -: EKG Interpreted by Ct EKG shows normal: sinus rhythm Rate: normal - EKG Data 03/13/22 08:20 Occasional PVCs - Medical Decision Making Chest x-ray shows bilateral pulmonary opacities favored to be edema. Discussed with nephrology. Will admit to hospitalist for dialysis. Critical care attestation.: If time is entered above; I have spent that time in minutes in the direct care of this critically ill patient, excluding procedure time. ED Disposition Clinical Impression: Nephrotic syndrome, Elevated brain natriuretic peptide (BNP) level, Pulmonary edema, Acute kidney injury superimposed on chronic kidney disease Disposition: 09 ADMITTED INPATIENT Is pt being admited?: Yes Condition: Stable
[2022-03-13 08:33] LABS: Albumin 3.7 g/dL (3.9-5); Calcium 7.7 mg/dL (8.4-10.2)
[2022-03-13 08:50] LABS: Hematocrit 32.4 % (35.5-45.6); Hemoglobin 10.6 gm/dl (11.8-15.2); Mean Corpuscular HGB Conc 33 % (32-34); Mean Corpuscular Volume 74 fl (84-94); Platelet Count 244 K/mm3 (140-440); Red Cell Distribution Width 15.9 % (13.2-15.2)
--- NOTE | 2022-03-13 10:43 | Electrocardiograph Report ---
[facility] Test Date: 2022-03-13 Test Time: 07:28:49 Pat Name: VISHNU SCOTT Department: Room: Gender: M Director Medical Affairs: Miguel OROPEZA RN : [id number] Requested By: GUANAKITO KUHN Order Number: [id number] Reading MD: Eladio Robison Measurements Intervals [place] Rate: 82 P: 51 MI: 152 QRS: 9 QRSD: 99 T: 102 QT: 424 QTc: 490 Interpretive Statements Sinus rhythm Multiple ventricular premature complexes Nonspecific T abnrm, anterolateral leads No previous ECG available for comparison Electronically Signed On 03-13-2022 10:43:16 EDT by Eladio Robison
--- NOTE | 2022-03-13 11:05 | Event Note ---
Date: 03/13/22 Patient was seen on previous hospitalization by Dr Sol, who had started GN/vasculitis workup at that time with instructions on discharge to follow up as outpatient. Discussed case with Lucien Benavides NP and their group will assume care at this time for nephrology needs. Will adjust consult to their group.
[2022-03-13 11:22] LABS: Anisocytosis 1+; Eosinophils % (Manual) 0 % (0.0-4.3); Hypochromasia 1+; Platelet Estimate Consistent w Auto; Target Cells 1+; Total Cells Counted 100
--- NOTE | 2022-03-13 12:05 | Consultation ---
History of Present Illness - Reason for Consult Consult date: 03/13/22 acute renal failure - History of Present Illness RFC: AFRZANA, CKD, Hyperkalemia HPI: 46 year old M with CKD comes with SHOB and BLE edema. He denies N/V, CP, belly pain, diarrhea, dysuria. He is making urine. He denies fever or chills. Per patient, he has seen Dr Sol in the clinic outpatient before. ROS: As in HPI otherwise 12 point review of systems -ve - Past Medical History Previous Medical History?: Yes Hx Hypertension: Yes Hx Diabetes: Yes Hx Headaches / Migraines: Yes - Surgical History Past Surgical History?: Yes Additional Surgical History: Left foot - Social History Smoking Status: Never Smoker Substance Use Type: Marijuana Medications and Allergies Allergies Allergy/AdvReac Type Severity Reaction Status Date / Time shellfish derived AdvReac Itching Verified 07/16/20 20:40 Home Medications Medication Instructions Recorded Confirmed Last Taken Type Metoprolol [Lopressor TAB] 25 mg PO BID #60 tablet 07/18/20 Unknown Rx amLODIPine 10 mg PO QDAY #30 tablet 07/18/20 Unknown Rx cephALEXin [Keflex] 500 mg PO Q12HR #10 capsule 07/18/20 Unknown Rx glipiZIDE XL [Glucotrol Xl] 2.5 mg PO QAM #30 tab.er.24 07/18/20 Unknown Rx hydrALAZINE [Apresoline TAB] 50 mg PO Q8HR #90 tablet 07/18/20 Unknown Rx Active Meds: Active Medications Sodium Polystyrene Sulfonate (Sodium Polystyrene 15 Gm/60 Ml Oral Liqd) 60 gm PO ONCE ONE Stop: 03/13/22 12:05 Exam - Vital Signs Vital signs: Vital Signs Pulse Ox 99 03/13/22 05:52 - Physical Exam Narrative exam: - General Limitations: No Limitations General appearance: alert, in no apparent distress, obese - Head Head exam: Present: atraumatic, normocephalic - Respiratory Respiratory exam: Present: normal lung sounds bilaterally. Absent: respiratory distress - Cardiovascular Cardiovascular Exam: Present: regular rate, normal rhythm, normal heart sounds - GI/Abdominal GI/Abdominal exam: Present: soft. Absent: distended, tenderness - Rectal Rectal exam: Present: deferred - Extremities Exam Extremities exam: Present: pedal edema (Pitting edema to both lower legs) - Neurological Exam Neurological exam: Present: alert, oriented X3 - Psychiatric Psychiatric exam: Present: normal affect, normal mood - Skin Skin exam: Present: warm, dry, intact, normal color Results - Lab Results 03/13/22 07:47 03/13/22 07:47 Most recent lab results Calcium 7.7 mg/dL (8.4-10.2) L 03/13/22 07:47 Assessment and Plan Acute renal failure on top of CKD vs CKD progression Hyperkalemia Volume overload HTN DM Kayxelate ordered for high K CXR congested, start lasix 80 mg TID IV diuresis Check TTE Check urine studies, CK level, Renal US In 2019, [facility], SPEP, C3/C4, ANCA, HIV, Hep panel were -ve If Cr does not imorove, may need dialysis initiation, no acute indication right now Nathaniel Lawrence MD [phone]
[2022-03-13] MEDS ORDERED: SODIUM POLYSTYRENE 15 GM/60 ML ORAL LIQD PO ONE (12:30)
[2022-03-13] MEDS: FUROSEMIDE 40 MG TAB PO SCH ×2 (15:24→22:15)
[2022-03-13 16:05] LABS: Bilirubin,Urine Negative (Negative); Blood,Urine 2+ (Negative); Color,Urine Straw (Yellow); Protein,Urine >500 mg/dL (Negative); Urobilinogen,Urine < 2.0 mg/dL (<2.0)
[2022-03-13 16:08] LABS: Creatinine,Urine 43.6 mg/dL (0.1-20.0)
[2022-03-13 16:45] LABS: Protein/Creatinine Ratio,Urine 5.78
[2022-03-13] MEDS ORDERED: HYDROmorphone 0.5 MG/0.5 ML INJ IV PRN (18:17)
[2022-03-13] MEDS ORDERED: MORPHINE 2 MG/1 ML INJ IV PRN (18:17)
[2022-03-13] MEDS ORDERED: METOCLOPRAMIDE 10 MG/2 ML INJ IV PRN (18:17)
--- NOTE | 2022-03-13 18:20 | History and Physical Report ---
History of Present Illness Date of examination: 03/13/22 Date of admission: 03/13/2022 Chief complaint: Increased swelling of both the legs and shortness of breath for couple of weeks History of present illness: 40-year-old -[place] male with history of hypertension and chronic kidney disease with apparent follow-up with nephrology comes in for increasing shortness of breath and worsening shortness swelling of both lower extremities. Orthopnea present. Shortness of breath on minimal exertion. Swelling of both the lower extremities. Patient had similar presentation last year with 2 elevated creatinine and has been following with nephrology. Patient has a history of hypertension and type 2 diabetes. No fever or chills. No exacerbating or relieving factors. - Past Medical History --Previous Medical History?: Yes --Hypertension: Yes --Diabetes: Yes --Headaches / Migraines: Yes - Surgical History --Past Surgical History?: Yes --Additional Surgical History: Left foot - Social History --Smoking Status: Never Smoker --Substance Use Type: Marijuana Family history --Htn - Medications Home Medications: Home Medications Medication Instructions Recorded Confirmed Last Taken Type Metoprolol [Lopressor TAB] 25 mg PO BID #60 tablet 07/18/20 Unknown Rx amLODIPine 10 mg PO QDAY #30 tablet 07/18/20 Unknown Rx cephALEXin [Keflex] 500 mg PO Q12HR #10 capsule 07/18/20 Unknown Rx glipiZIDE XL [Glucotrol Xl] 2.5 mg PO QAM #30 tab.er.24 07/18/20 Unknown Rx hydrALAZINE [Apresoline TAB] 50 mg PO Q8HR #90 tablet 07/18/20 Unknown Rx Review of Systems ROS: Stated complaint: TROUBLE BREATHING/KIDNEY DISEASE Other details as noted in HPI Constitutional: denies: chills, fever Respiratory: orthopnea, shortness of breath Cardiovascular: edema. denies: chest pain, palpitations Endocrine: no symptoms reported Gastrointestinal: denies: abdominal pain, nausea, vomiting Musculoskeletal: denies: back pain, joint swelling, arthralgia Skin: denies: rash, lesions Neurological: denies: headache, weakness, paresthesias Psychiatric: denies: anxiety, depression Medications and Allergies Allergies Allergy/AdvReac Type Severity Reaction Status Date / Time shellfish derived AdvReac Itching Verified 07/16/20 20:40 Home Medications Medication Instructions Recorded Confirmed Last Taken Type Metoprolol [Lopressor TAB] 25 mg PO BID #60 tablet 07/18/20 Unknown Rx amLODIPine 10 mg PO QDAY #30 tablet 07/18/20 Unknown Rx cephALEXin [Keflex] 500 mg PO Q12HR #10 capsule 07/18/20 Unknown Rx glipiZIDE XL [Glucotrol Xl] 2.5 mg PO QAM #30 tab.er.24 07/18/20 Unknown Rx hydrALAZINE [Apresoline TAB] 50 mg PO Q8HR #90 tablet 07/18/20 Unknown Rx Active Meds: Active Medications Furosemide (Furosemide 40 Mg Tab) 80 mg PO Q8H [facility] Last Admin: 03/13/22 15:24 Dose: 80 mg Exam - Constitutional Vitals: Temp Pulse Resp BP Pulse Ox 97.7 F 84 20 182/125 99 03/13/22 07:20 03/13/22 15:27 03/13/22 15:27 03/13/22 15:27 03/13/22 15:27 General appearance: Present: mild distress, well-nourished - EENT Eyes: Present: PERRL ENT: hearing intact, clear oral mucosa - Neck Neck: Present: supple, normal ROM - Respiratory Respiratory effort: normal Respiratory: bilateral: CTA - Cardiovascular Heart rate: 78 Rhythm: regular Heart Sounds: Present: S1 & S2. Absent: rub, click - Extremities Extremities: no ischemia, pulses symmetrical Extremity abnormal: edema (3+) Peripheral Pulses: within normal limits - Abdominal General gastrointestinal: Present: soft, non-tender, non-distended, normal bowel sounds Male genitourinary: Present: normal - Integumentary Integumentary: Present: clear, warm, dry - Musculoskeletal Musculoskeletal: gait normal, strength equal bilaterally - Psychiatric Psychiatric: appropriate mood/affect, intact judgment & insight - Neurologic Neurologic: CNII-XII intact, moves all extremities HEART Score - HEART Score Troponin: Troponin T 0.098 ng/mL (0.00-0.029) H 03/13/22 07:47 Results - Labs CBC & Chem 7: 03/14/22 05:11 03/13/22 16:09 Labs: Laboratory Last Values WBC 10.6 K/mm3 (4.5-11.0) 03/13/22 07:47 RBC 4.40 M/mm3 (3.65-5.03) 03/13/22 07:47 Hgb 10.6 gm/dl (11.8-15.2) L 03/13/22 07:47 Hct 32.4 % (35.5-45.6) L 03/13/22 07:47 MCV 74 fl (84-94) L 03/13/22 07:47 MCH 24 pg (28-32) L 03/13/22 07:47 MCHC 33 % (32-34) 03/13/22 07:47 RDW 15.9 % (13.2-15.2) H 03/13/22 07:47 Plt Count 244 K/mm3 (140-440) 03/13/22 07:47 Add Manual Diff Complete 03/13/22 07:47 Total Counted 100 03/13/22 07:47 Seg Neuts % (Manual) 88.0 % (40.0-70.0) H 03/13/22 07:47 Band Neutrophils % 0 % 03/13/22 07:47 Lymphocytes % (Manual) 8.0 % (13.4-35.0) L 03/13/22 07:47 Reactive Lymphs % (Man) 0 % 03/13/22 07:47 Monocytes % (Manual) 3.0 % (0.0-7.3) 03/13/22 07:47 Eosinophils % (Manual) 0 % (0.0-4.3) 03/13/22 07:47 Basophils % (Manual) 1.0 % (0.0-1.8) 03/13/22 07:47 Metamyelocytes % 0 % 03/13/22 07:47 Myelocytes % 0 % 03/13/22 07:47 Promyelocytes % 0 % 03/13/22 07:47 Blast Cells % 0 % 03/13/22 07:47 Nucleated RBC % Not Reportable 03/13/22 07:47 Seg Neutrophils # Man 9.3 K/mm3 (1.8-7.7) H 03/13/22 07:47 Band Neutrophils # 0.0 K/mm3 03/13/22 07:47 Lymphocytes # (Manual) 0.8 K/mm3 (1.2-5.4) L 03/13/22 07:47 Abs React Lymphs (Man) 0.0 K/mm3 03/13/22 07:47 Monocytes # (Manual) 0.3 K/mm3 (0.0-0.8) 03/13/22 07:47 Eosinophils # (Manual) 0.0 K/mm3 (0.0-0.4) 03/13/22 07:47 Basophils # (Manual) 0.1 K/mm3 (0.0-0.1) 03/13/22 07:47 Metamyelocytes # 0.0 K/mm3 03/13/22 07:47 Myelocytes # 0.0 K/mm3 03/13/22 07:47 Promyelocytes # 0.0 K/mm3 03/13/22 07:47 Blast Cells # 0.0 K/mm3 03/13/22 07:47 WBC Morphology Not Reportable 03/13/22 07:47 Hypersegmented Neuts Not Reportable 03/13/22 07:47 Hyposegmented Neuts Not Reportable 03/13/22 07:47 Hypogranular Neuts Not Reportable 03/13/22 07:47 Smudge Cells Not Reportable 03/13/22 07:47 Toxic Granulation Not Reportable 03/13/22 07:47 Toxic Vacuolation Not Reportable 03/13/22 07:47 Dohle Bodies Not Reportable 03/13/22 07:47 Pelger-Huet Anomaly Not Reportable 03/13/22 07:47 Tobi Rods Not Reportable 03/13/22 07:47 Platelet Estimate Consistent w auto 03/13/22 07:47 Clumped Platelets Not Reportable 03/13/22 07:47 Plt Clumps, EDTA Not Reportable 03/13/22 07:47 Large Platelets Not Reportable 03/13/22 07:47 Giant Platelets Not Reportable 03/13/22 07:47 Platelet Satelliting Not Reportable 03/13/22 07:47 Plt Morphology Comment Not Reportable 03/13/22 07:47 RBC Morphology Not Reportable 03/13/22 07:47 Dimorphic RBCs Not Reportable 03/13/22 07:47 Polychromasia 1+ 03/13/22 07:47 Hypochromasia 1+ 03/13/22 07:47 Poikilocytosis Not Reportable 03/13/22 07:47 Anisocytosis 1+ 03/13/22 07:47 Microcytosis Not Reportable 03/13/22 07:47 Macrocytosis Not Reportable 03/13/22 07:47 Spherocytes Not Reportable 03/13/22 07:47 Pappenheimer Bodies Not Reportable 03/13/22 07:47 Sickle Cells Not Reportable 03/13/22 07:47 Target Cells 1+ 03/13/22 07:47 Tear Drop Cells Not Reportable 03/13/22 07:47 Ovalocytes Not Reportable 03/13/22 07:47 Helmet Cells Not Reportable 03/13/22 07:47 [place] Bodies Not Reportable 03/13/22 07:47 [place] Rings Not Reportable 03/13/22 07:47 Khoi Cells Not Reportable 03/13/22 07:47 Bite Cells Not Reportable 03/13/22 07:47 Crenated Cell Not Reportable 03/13/22 07:47 Elliptocytes Not Reportable 03/13/22 07:47 Acanthocytes (Spur) Not Reportable 03/13/22 07:47 Rouleaux Not Reportable 03/13/22 07:47 Hemoglobin C Crystals Not Reportable 03/13/22 07:47 Schistocytes Not Reportable 03/13/22 07:47 Malaria parasites Not Reportable 03/13/22 07:47 Jorge Bodies Not Reportable 03/13/22 07:47 Hem Pathologist Commnt No 03/13/22 07:47 Sodium 141 mmol/L (137-145) 03/13/22 16:09 Potassium 5.0 mmol/L (3.6-5.0) 03/13/22 16:09 Chloride 109.0 mmol/L (98-107) H 03/13/22 16:09 Carbon Dioxide 20 mmol/L (22-30) L 03/13/22 16:09 Anion Gap 17 mmol/L 03/13/22 16:09 BUN 77 mg/dL (9-20) H 03/13/22 16:09 Creatinine 6.4 mg/dL (0.8-1.3) H 03/13/22 16:09 Estimated GFR 11 ml/min 03/13/22 16:09 BUN/Creatinine Ratio 12 % 03/13/22 16:09 Glucose 122 mg/dL (75-100) H 03/13/22 16:09 Calcium 8.0 mg/dL (8.4-10.2) L 03/13/22 16:09 Total Bilirubin 0.30 mg/dL (0.1-1.2) 03/13/22 07:47 AST 41 units/L (5-40) H 03/13/22 07:47 ALT 43 units/L (7-56) 03/13/22 07:47 Alkaline Phosphatase 113 units/L (35-129) 03/13/22 07:47 Total Creatine Kinase 1247 units/L (55-170) H 03/13/22 16:09 Troponin T 0.098 ng/mL (0.00-0.029) H 03/13/22 07:47 NT-Pro-B Natriuret Pep 82635 pg/mL (0-450) H 03/13/22 08:28 Total Protein 6.2 g/dL (6.3-8.2) L 03/13/22 07:47 Albumin 3.7 g/dL (3.9-5) L 03/13/22 07:47 Albumin/Globulin Ratio 1.5 % 03/13/22 07:47 Urine Color Straw (Yellow) 03/13/22 15:29 Urine Turbidity Clear (Clear) 03/13/22 15:29 Urine pH 6.0 (5.0-7.0) 03/13/22 15:29 Ur Specific [place] 1.010 (1.003-1.030) 03/13/22 15:29 Urine Protein >500 mg/dL (Negative) 03/13/22 15:29 Urine Glucose (UA) Negative mg/dL (Negative) 03/13/22 15:29 Urine Ketones 15 mg/dL (Negative) 03/13/22 15:29 Urine Blood 2+ (Negative) 03/13/22 15:29 Urine Nitrite Negative (Negative) 03/13/22 15:29 Ur Reducing Substances Not Reportable 03/13/22 15:29 Urine Bilirubin Negative (Negative) 03/13/22 15:29 Urine Ictotest Not Reportable 03/13/22 15:29 Urine Urobilinogen < 2.0 mg/dL (<2.0) 03/13/22 15:29 Ur Leukocyte Esterase Negative (Negative) 03/13/22 15:29 Urine WBC (Auto) 1.0 /HPF (0.0-6.0) 03/13/22 15:29 Urine RBC (Auto) 1.0 /HPF (0.0-6.0) 03/13/22 15:29 Urine Eosinophils None seen (None Seen) 03/13/22 15:29 Urine Creatinine 43.6 mg/dL (0.1-20.0) H 03/13/22 15:29 Protein/Creatinin Ratio 5.78 03/13/22 15:29 Urine Sodium 85 mmol/L 03/13/22 15:29 Urine Total Protein 252 mg/dL (5-11.8) H 03/13/22 15:29 Short CBC 03/13/22 03/14/22 Range/Units 07:47 05:11 WBC 10.6 11.2 H (4.5-11.0) K/mm3 Hgb 10.6 L 10.7 L (11.8-15.2) gm/dl Hct 32.4 L 31.8 L (35.5-45.6) % Plt Count 244 237 (140-440) K/mm3 BMP 03/13/22 03/13/22 07:47 16:09 Sodium 137 141 Potassium 5.5 H 5.0 Chloride 106.4 109.0 H Carbon Dioxide 18 L 20 L BUN 78 H 77 H Creatinine 6.4 H 6.4 H Glucose 112 H 122 H Calcium 7.7 L 8.0 L Cardiac Enzymes 03/13/22 03/13/22 Range/Units 07:47 16:09 Total Creatine Kinase 1247 H (55-170) units/L Troponin T 0.098 H (0.00-0.029) ng/mL Liver Function 03/13/22 Range/Units 07:47 Total Bilirubin 0.30 (0.1-1.2) mg/dL AST 41 H (5-40) units/L ALT 43 (7-56) units/L Alkaline Phosphatase 113 (35-129) units/L Albumin 3.7 L (3.9-5) g/dL Urine 03/13/22 Range/Units 15:29 Urine Color Straw (Yellow) Urine pH 6.0 (5.0-7.0) Ur Specific [place] 1.010 (1.003-1.030) Urine Protein >500 (Negative) mg/dL Urine Glucose (UA) Negative (Negative) mg/dL - Imaging and Cardiology Chest x-ray: report reviewed Imaging and Cardiology: Chest x-ray Nonspecific bilateral pulmonary opacities are favored to represent edema/atelectasis Mild cardiomegaly X-ray echocardiogram Sinus rhythm Heart rate of 82 Nonspecific T wave abnormalities No previous EKG available or available for interpretation Renal ultrasound No hydronephrosis No acute findings Assessment and Plan Advance Directives: Yes (Full code) VTE prophylaxis?: Chemical Plan of care discussed with patient/family: Yes - Patient Problems (1) Hypertensive emergency Current Visit: Yes Status: Acute Plan to address problem: Hydralazine initiated Carvedilol initiated Hydralazine 10 mg IV every 3 as needed (2) Nephrotic syndrome Current Visit: Yes Status: Acute Plan to address problem: Worsening kidney function over the last 12 months Patient follows with Dr. Sol Nephrology consult requested Patient has urine proteinuria of 252 May need 24-hour urine protein collection (3) Anemia Current Visit: Yes Status: Chronic Qualifiers: Anemia type: due to chronic kidney disease Chronic kidney disease stage: stage 5, not on chronic dialysis Qualified Code(s): N18.5 - Chronic kidney disease, stage 5; D63.1 - Anemia in chronic kidney disease Plan to address problem: Anemia secondary to chronic kidney disease (4) Hyperkalemia Current Visit: No Status: Acute Plan to address problem: Treated in the emergency room with Kayexalate and calcium gluconate and bicarb (5) Elevated brain natriuretic peptide (BNP) level Current Visit: Yes Status: Acute Plan to address problem: BNP of 16,035 Echocardiogram for ejection fraction, wall motion abnormalities and valve function IV Lasix in the meantime (6) DVT prophylaxis Current Visit: Yes Status: Acute Plan to address problem: On heparin GI prophylaxis (7) Advance care planning Current Visit: Yes Status: Acute Plan to address problem: Disease education conducted, care plan discussed, diagnosis discussed, and prognosis discussed. Patient acknowledged understanding with care plan. +30 minutes.
--- NOTE | 2022-03-13 19:33 | Ultrasound Report ---
Renal ultrasound INDICATION: Acute renal failure FINDINGS: The right kidney measures 12 cm in length and left kidney measures 13 cm in length. Slight increased renal cortical echogenicity bilaterally. No hydronephrosis. Urinary bladder is fluid disten ded. IMPRESSION: No hydronephrosis. No acute findings. Slight increased echogenicity of the cortices bilat erally could be seen with medical renal disease. Signer Name: Colby Clark MD Signed: 03/13/2022 7:29 PM Workstation Name: [email or web address]
[2022-03-13] MEDS ORDERED: hydrALAZINE 20 MG/1 ML INJ IV PRN (22:00)
[2022-03-14] MEDS: FUROSEMIDE 40 MG TAB PO SCH ×3 (05:59→21:18)
[2022-03-14 06:26] LABS: Basophils # (Auto) 0.1 K/mm3 (0.0-0.1); Basophils % (Auto) 0.5 % (0.0-1.8); Eosinophils # (Auto) 0.3 K/mm3 (0.0-0.4); Eosinophils % (Auto) 2.5 % (0.0-4.3); Hematocrit 31.8 % (35.5-45.6); Hemoglobin 10.7 gm/dl (11.8-15.2); Lymphocytes # (Auto) 0.6 K/mm3 (1.2-5.4); Lymphocytes % (Auto) 5.1 % (13.4-35.0); Mean Corpuscular HGB Conc 34 % (32-34); Mean Corpuscular Volume 73 fl (84-94); Monocytes # (Auto) 1.1 K/mm3 (0.0-0.8); Monocytes % (Auto) 9.8 % (0.0-7.3); Platelet Count 237 K/mm3 (140-440); Red Blood Count 4.38 M/mm3 (3.65-5.03); Red Cell Distribution Width 15.8 % (13.2-15.2)
[2022-03-14 06:48] LABS: Albumin 3.3 g/dL (3.9-5); Calcium 7.9 mg/dL (8.4-10.2)
[2022-03-14] MEDS ORDERED: POTASSIUM CHLORIDE ER 20 MEQ TAB PO ONE (06:52)
[2022-03-14] MEDS ORDERED: hydrALAZINE 25 MG TAB PO SCH (07:00)
--- NOTE | 2022-03-14 09:00 | Progress Note ---
Assessment and Plan Assessment and plan: 46-year-old -[place] male with history of hypertension, diabetes mellitus, tobacco use disorder and chronic kidney disease with apparent follow- up with nephrology comes in for increasing shortness of breath and worsening shortness swelling of both lower extremities for about a week. Orthopnea pr esent. Shortness of breath on minimal exertion. Swelling of both the lower extremities. Patient had similar presentation last year with 2 elevated creatinine and has been following with nephrology. Patient has a history of hypertension and type 2 diabetes. No fever or chills. No exacerbating or relieving factors. Patient reports that he has not been to the hospital since 2019 when he was last seen here. He unfortunately ran out of his medications about a week ago. He does not have a primary care physician. 03/14/22: On admission he was noted to have worsening bilateral pulmonary opacit ies which revealed edema versus atelectasis. EKG shows sinus rhythm. Renal ultrasound did not reveal any hydronephrosis or acute findings or laboratory evidence of renal failure was noted. -Hypertensive urgency -Acute on chronic kidney disease stage III with hypertensive renal disease -Hyperkalemia -Diabetes mellitus -Nephrotic syndrome patient with proteinuria of 252 with noted worsening kidney failure over the last 12 months. -Anemia of chronic disease -Hyperkalemia -Elevated proBNP 16,035 -Presumed congestive heart failure ?systolic versus diastolic -Tobacco use disorder -Obesity PLAN Very pleasant male unfortunately with worsening renal failure now possibly going into congestive heart failure. Presenting with acute respiratory distress secondary to volume overload and pulmonary edema which is not improving. Nephrology input noted Lasix was increased Blood pressure still elevated will increase hydralazine to 100 mg 3 times daily Further renal work-up deferred to renal team Echocardiogram ordered and pending we will also obtain cardiology consultation Extensive counseling for 15 minutes on tobacco cessation and also preventive care planning. Advance care discussion had patient will remain a full code per his request he also tells me that he has a 2-year-old daughter who he would like to live for. As a result he knows what to do. Encourage continued follow-up with primary care physician and [facility]. Discussed with the patient the very real possibility of hemodialysis he verbalized understanding Due to continued dyspnea on exertion and uncontrolled hypertension we will monitor for at least 24 hours prior to discharge if patient is improving. History Interval history: Patient seen and examined, resting comfortable, states breathing improved but not quite at baseline, still with orthopnea and dyspnea on exertion. He unfortunately continues to smoke and also had run out of his medications for about a week except his labetalol. Hospitalist Physical - Physical exam Narrative exam: VITAL SIGNS: Reviewed. GENERAL: The patient appears normally developed, mild respiratory distress with exertion vital signs as documented. HEAD: No signs of head trauma. EYES: Pupils are equal. Extraocular motions intact. EARS: Hearing grossly intact. MOUTH: Oropharynx is normal. NECK: No adenopathy, no JVD. CHEST: Chest with crackles breath sounds bilaterally. No wheezes, rales, or rhonchi. CARDIAC: Regular rate and rhythm. S1 and S2, without murmurs, gallops, or rubs. VASCULAR: No Edema. Peripheral pulses normal and equal in all extremities. ABDOMEN: Soft, non tender and non distended. No rebound or guarding, and no masses palpated. Bowel Sounds normal. MUSCULOSKELETAL: Good range of motion of all major joints. Extremities without clubbing, cyanosis or edema. NEUROLOGIC EXAM: Alert and oriented x 3 No focal sensory or strength deficits. Speech normal. Follows commands. PSYCHIATRIC: Mood normal. SKIN: detail exam as documented in skin assessment - Constitutional Vitals: Temp Pulse Resp BP Pulse Ox 98.7 F 70 18 192/108 100 03/14/22 08:24 03/14/22 08:24 03/14/22 08:24 03/14/22 08:24 03/14/22 08:24 General appearance: Present: mild distress, well-nourished HEART Score - HEART Score Troponin: Troponin T 0.098 ng/mL (0.00-0.029) H 03/13/22 07:47 Results - Labs CBC & Chem 7: 03/14/22 05:11 03/14/22 05:11 Labs: Laboratory Last Values WBC 11.2 K/mm3 (4.5-11.0) H 03/14/22 05:11 RBC 4.38 M/mm3 (3.65-5.03) 03/14/22 05:11 Hgb 10.7 gm/dl (11.8-15.2) L 03/14/22 05:11 Hct 31.8 % (35.5-45.6) L 03/14/22 05:11 MCV 73 fl (84-94) L 03/14/22 05:11 MCH 25 pg (28-32) L 03/14/22 05:11 MCHC 34 % (32-34) 03/14/22 05:11 RDW 15.8 % (13.2-15.2) H 03/14/22 05:11 Plt Count 237 K/mm3 (140-440) 03/14/22 05:11 Lymph % (Auto) 5.1 % (13.4-35.0) L 03/14/22 05:11 [place] % (Auto) 9.8 % (0.0-7.3) H 03/14/22 05:11 Eos % (Auto) 2.5 % (0.0-4.3) 03/14/22 05:11 Baso % (Auto) 0.5 % (0.0-1.8) 03/14/22 05:11 Lymph # (Auto) 0.6 K/mm3 (1.2-5.4) L 03/14/22 05:11 [place] # (Auto) 1.1 K/mm3 (0.0-0.8) H 03/14/22 05:11 Eos # (Auto) 0.3 K/mm3 (0.0-0.4) 03/14/22 05:11 Baso # (Auto) 0.1 K/mm3 (0.0-0.1) 03/14/22 05:11 Add Manual Diff Complete 03/13/22 07:47 Total Counted 100 03/13/22 07:47 Seg Neutrophils % 82.1 % (40.0-70.0) H 03/14/22 05:11 Seg Neuts % (Manual) 88.0 % (40.0-70.0) H 03/13/22 07:47 Band Neutrophils % 0 % 03/13/22 07:47 Lymphocytes % (Manual) 8.0 % (13.4-35.0) L 03/13/22 07:47 Reactive Lymphs % (Man) 0 % 03/13/22 07:47 Monocytes % (Manual) 3.0 % (0.0-7.3) 03/13/22 07:47 Eosinophils % (Manual) 0 % (0.0-4.3) 03/13/22 07:47 Basophils % (Manual) 1.0 % (0.0-1.8) 03/13/22 07:47 Metamyelocytes % 0 % 03/13/22 07:47 Myelocytes % 0 % 03/13/22 07:47 Promyelocytes % 0 % 03/13/22 07:47 Blast Cells % 0 % 03/13/22 07:47 Nucleated RBC % Not Reportable 03/13/22 07:47 Seg Neutrophils # 9.2 K/mm3 (1.8-7.7) H 03/14/22 05:11 Seg Neutrophils # Man 9.3 K/mm3 (1.8-7.7) H 03/13/22 07:47 Band Neutrophils # 0.0 K/mm3 03/13/22 07:47 Lymphocytes # (Manual) 0.8 K/mm3 (1.2-5.4) L 03/13/22 07:47 Abs React Lymphs (Man) 0.0 K/mm3 03/13/22 07:47 Monocytes # (Manual) 0.3 K/mm3 (0.0-0.8) 03/13/22 07:47 Eosinophils # (Manual) 0.0 K/mm3 (0.0-0.4) 03/13/22 07:47 Basophils # (Manual) 0.1 K/mm3 (0.0-0.1) 03/13/22 07:47 Metamyelocytes # 0.0 K/mm3 03/13/22 07:47 Myelocytes # 0.0 K/mm3 03/13/22 07:47 Promyelocytes # 0.0 K/mm3 03/13/22 07:47 Blast Cells # 0.0 K/mm3 03/13/22 07:47 WBC Morphology Not Reportable 03/13/22 07:47 Hypersegmented Neuts Not Reportable 03/13/22 07:47 Hyposegmented Neuts Not Reportable 03/13/22 07:47 Hypogranular Neuts Not Reportable 03/13/22 07:47 Smudge Cells Not Reportable 03/13/22 07:47 Toxic Granulation Not Reportable 03/13/22 07:47 Toxic Vacuolation Not Reportable 03/13/22 07:47 Dohle Bodies Not Reportable 03/13/22 07:47 Pelger-Huet Anomaly Not Reportable 03/13/22 07:47 Tobi Rods Not Reportable 03/13/22 07:47 Platelet Estimate Consistent w auto 03/13/22 07:47 Clumped Platelets Not Reportable 03/13/22 07:47 Plt Clumps, EDTA Not Reportable 03/13/22 07:47 Large Platelets Not Reportable 03/13/22 07:47 Giant Platelets Not Reportable 03/13/22 07:47 Platelet Satelliting Not Reportable 03/13/22 07:47 Plt Morphology Comment Not Reportable 03/13/22 07:47 RBC Morphology Not Reportable 03/13/22 07:47 Dimorphic RBCs Not Reportable 03/13/22 07:47 Polychromasia 1+ 03/13/22 07:47 Hypochromasia 1+ 03/13/22 07:47 Poikilocytosis Not Reportable 03/13/22 07:47 Anisocytosis 1+ 03/13/22 07:47 Microcytosis Not Reportable 03/13/22 07:47 Macrocytosis Not Reportable 03/13/22 07:47 Spherocytes Not Reportable 03/13/22 07:47 Pappenheimer Bodies Not Reportable 03/13/22 07:47 Sickle Cells Not Reportable 03/13/22 07:47 Target Cells 1+ 03/13/22 07:47 Tear Drop Cells Not Reportable 03/13/22 07:47 Ovalocytes Not Reportable 03/13/22 07:47 Helmet Cells Not Reportable 03/13/22 07:47 Kahn-Valliant Bodies Not Reportable 03/13/22 07:47 [place] Rings Not Reportable 03/13/22 07:47 Khoi Cells Not Reportable 03/13/22 07:47 Bite Cells Not Reportable 03/13/22 07:47 Crenated Cell Not Reportable 03/13/22 07:47 Elliptocytes Not Reportable 03/13/22 07:47 Acanthocytes (Spur) Not Reportable 03/13/22 07:47 Rouleaux Not Reportable 03/13/22 07:47 Hemoglobin C Crystals Not Reportable 03/13/22 07:47 Schistocytes Not Reportable 03/13/22 07:47 Malaria parasites Not Reportable 03/13/22 07:47 Jorge Bodies Not Reportable 03/13/22 07:47 Hem Pathologist Commnt No 03/13/22 07:47 Sodium 139 mmol/L (137-145) 03/14/22 05:11 Potassium 4.1 mmol/L (3.6-5.0) 03/14/22 05:11 Chloride 105.1 mmol/L (98-107) 03/14/22 05:11 Carbon Dioxide 19 mmol/L (22-30) L 03/14/22 05:11 Anion Gap 19 mmol/L 03/14/22 05:11 BUN 74 mg/dL (9-20) H 03/14/22 05:11 Creatinine 6.1 mg/dL (0.8-1.3) H 03/14/22 05:11 Estimated GFR 12 ml/min 03/14/22 05:11 BUN/Creatinine Ratio 12 % 03/14/22 05:11 Glucose 92 mg/dL (75-100) 03/14/22 05:11 Calcium 7.9 mg/dL (8.4-10.2) L 03/14/22 05:11 Total Bilirubin 0.60 mg/dL (0.1-1.2) 03/14/22 05:11 AST 23 units/L (5-40) 03/14/22 05:11 ALT 32 units/L (7-56) 03/14/22 05:11 Alkaline Phosphatase 112 units/L (35-129) 03/14/22 05:11 Total Creatine Kinase 1247 units/L (55-170) H 03/13/22 16:09 Troponin T 0.098 ng/mL (0.00-0.029) H 03/13/22 07:47 NT-Pro-B Natriuret Pep 00432 pg/mL (0-450) H 03/13/22 08:28 Total Protein 5.9 g/dL (6.3-8.2) L 03/14/22 05:11 Albumin 3.3 g/dL (3.9-5) L 03/14/22 05:11 Albumin/Globulin Ratio 1.3 % 03/14/22 05:11 Urine Color Straw (Yellow) 03/13/22 15:29 Urine Turbidity Clear (Clear) 03/13/22 15:29 Urine pH 6.0 (5.0-7.0) 03/13/22 15:29 Ur Specific [place] 1.010 (1.003-1.030) 03/13/22 15:29 Urine Protein >500 mg/dL (Negative) 03/13/22 15:29 Urine Glucose (UA) Negative mg/dL (Negative) 03/13/22 15:29 Urine Ketones 15 mg/dL (Negative) 03/13/22 15:29 Urine Blood 2+ (Negative) 03/13/22 15:29 Urine Nitrite Negative (Negative) 03/13/22 15:29 Ur Reducing Substances Not Reportable 03/13/22 15:29 Urine Bilirubin Negative (Negative) 03/13/22 15:29 Urine Ictotest Not Reportable 03/13/22 15:29 Urine Urobilinogen < 2.0 mg/dL (<2.0) 03/13/22 15:29 Ur Leukocyte Esterase Negative (Negative) 03/13/22 15:29 Urine WBC (Auto) 1.0 /HPF (0.0-6.0) 03/13/22 15:29 Urine RBC (Auto) 1.0 /HPF (0.0-6.0) 03/13/22 15:29 Urine Eosinophils None seen (None Seen) 03/13/22 15:29 Urine Creatinine 43.6 mg/dL (0.1-20.0) H 03/13/22 15:29 Protein/Creatinin Ratio 5.78 03/13/22 15:29 Urine Sodium 85 mmol/L 03/13/22 15:29 Urine Total Protein 252 mg/dL (5-11.8) H 03/13/22 15:29 Bates/IV: Voiding Method Toilet Active Medications - Current Medications Current Medications: Generic Name Dose Route Start Last Admin Trade Name Freq PRN Reason Stop Dose Admin Acetaminophen 650 mg 03/13/22 18:17 Acetaminophen 325 Mg Tab PO Q4H PRN Pain MILD(1-3)/Fever >100.5/WHIT[place]KER Amlodipine Besylate 10 mg 03/14/22 10:00 Amlodipine 10 Mg Tab PO QDAY [facility] Carvedilol 12.5 mg 03/14/22 10:00 Carvedilol 12.5 Mg Tab PO BID JIMMY Furosemide 80 mg 03/13/22 14:00 03/14/22 05:59 Furosemide 40 Mg Tab PO 80 mg Q8H JIMMY Administration Hydralazine HCl 10 mg 03/13/22 22:00 03/13/22 22:14 Hydralazine 20 Mg/1 Ml Inj IV 10 mg Q6HR PRN Administration SBP >/=160; DBP >/=100 Hydralazine HCl 100 mg 03/14/22 09:00 Hydralazine 100 Mg Tab PO Q8HR JIMMY Hydromorphone HCl 0.5 mg 03/13/22 18:17 Hydromorphone 0.5 Mg/0.5 Ml Inj IV Q3H PRN Pain , Severe (7-10) Metoclopramide HCl 10 mg 03/13/22 18:17 Metoclopramide 10 Mg/2 Ml Inj IV Q6H PRN Nausea And Vomiting Morphine Sulfate 2 mg 03/13/22 18:17 Morphine 2 Mg/1 Ml Inj IV Q4H PRN Pain, Moderate (4-6) Ondansetron HCl 4 mg 03/13/22 18:17 Ondansetron 4 Mg/2 Ml Inj IV Q8H PRN Nausea And Vomiting Oxycodone/Acetaminophen 1 tab 03/13/22 18:17 Oxycodone /Acetaminophen 5-325mg Tab PO Q6H PRN Pain, Moderate (4-6) Sodium Chloride 10 ml 03/13/22 22:00 03/13/22 22:15 Sodium Chloride 0.9% 10 Ml Flush Syringe IV 10 ml BID JIMMY Administration Sodium Chloride 10 ml 03/13/22 18:17 Sodium Chloride 0.9% 10 Ml Flush Syringe IV PRN PRN LINE FLUSH
[2022-03-14] MEDS: carvediloL 12.5 MG TAB PO SCH ×2 (09:50→21:17)
[2022-03-14] MEDS: hydrALAZINE 100 MG TAB PO SCH ×3 (09:50→21:17)
[2022-03-14] MEDS ORDERED: amLODIPine 10 MG TAB PO SCH (10:00)
--- NOTE | 2022-03-14 11:28 | Progress Note ---
Assessment and Plan Assessment and Plan Acute renal failure on top of CKD vs CKD progression Hyperkalemia Volume overload Hypertension DM Plan: Renal labs reviewed. Serum creatinine 6.1 today, yesterday's was 6.4. GFR is 12 ml/min. UOP 1400 ml Has known advanced CKD, followed by Dr. Sol in the office CXR congested, on Lasix 80 mg TID IV diuresis. Intake 240, UOP 1400 ml Renal ultrasound reviewed-No hydronephrosis. Medical renal disease. Urine studies showed known proteinuria, likely from DM In 2019, CHOCO, SPEP, C3/C4, ANCA, HIV, Hep panel were negative Obtain daily weights Monitor I/O's daily Avoid nephrotoxic agents Monitor renal function closely Discussed hemodialysis initation with patient today, discussed risks and benefits of hemodialysis and procedures involving perm-catheter placement. Answered all questions. Patient consented to hemodialysis if no significant improvement in renal function on a.m labs tomorrow morning. Plan of care reviewed by Dr. Fonseca Subjective Date of service: 03/14/22 Principal diagnosis: ARF on CKD Interval history: Patient seen lying in bed. Had long discussion about his renal labs with patient and that hemodialysis initiation is likely needed at this point. Answered all questions and reviewed risks and benefits of hemodialysis. Patient agreeable and would like to see how is numbers are tomorrow morning and if no improvement willing to proceed with HD tomorrow. Also states that if started on HD he will plan to move to [place] to be with his sister to get family support. States his brother was on hemodialysis and recently had a kidney transplant. Objective - Vital Signs Vital signs: Vital Signs - 12hr 03/13/22 03/14/22 03/14/22 23:35 05:00 05:12 Temperature 98.2 F 98.1 F Pulse Rate 84 78 67 Respiratory 18 16 Rate Blood Pressure 181/97 169/106 Blood Pressure [Right] O2 Sat by Pulse 96 99 Oximetry 03/14/22 03/14/22 03/14/22 08:21 08:24 09:50 Temperature 98.7 F Pulse Rate 70 70 Respiratory 18 18 Rate Blood Pressure 192/108 Blood Pressure 192/108 [Right] O2 Sat by Pulse 100 100 Oximetry 03/14/22 03/14/22 09:55 11:03 Temperature 98.2 F Pulse Rate 70 85 Respiratory 16 Rate Blood Pressure 192/108 Blood Pressure 186/111 [Right] O2 Sat by Pulse 95 Oximetry - General Appearance General appearance: well-developed, appears stated age EENT: ATNC, PERRL, hearing intact, vision intact Neck: no JVD, supple Respiratory: Present: Decreased Breath Sounds Cardiology: S1S2 Gastrointestinal: normoactive bowel sounds Integumentary: warm and dry Neurologic: alert and oriented x3 Musculoskeletal: joint swelling Psychiatric: cooperative - Lab 03/14/22 05:11 03/14/22 05:11 Most recent lab results Calcium 7.9 mg/dL (8.4-10.2) L 03/14/22 05:11 Urine Creatinine 43.6 mg/dL (0.1-20.0) H 03/13/22 15:29 Urine Sodium 85 mmol/L 03/13/22 15:29 Urine Total Protein 252 mg/dL (5-11.8) H 03/13/22 15:29 Medications & Allergies - Medications Allergies/Adverse Reactions: Allergies shellfish derived Adverse Reaction (Verified 03/14/22 09:51) Anaphylaxis patient says he gets "hives and can't breathe" Home Medications: Home Medications Medication Instructions Recorded Confirmed Last Taken Type amLODIPine 10 mg PO QDAY #30 tablet 07/18/20 03/14/22 Unknown Rx glipiZIDE XL [Glucotrol Xl] 2.5 mg PO QAM #30 tab.er.24 07/18/20 03/14/22 Unknown Rx hydrALAZINE [Apresoline TAB] 50 mg PO Q8HR #90 tablet 07/18/20 03/14/22 1 Month Ago Rx ~02/11/22 Labetalol HCl [Labetalol 300mg TAB] 300 mg PO BID 03/14/22 03/14/22 Unknown Hi story Torsemide [Demadex] 10 mg PO QDAY 03/14/22 03/14/22 Unknown History Active Medications: Generic Name Dose Route Start Last Admin Trade Name Freq PRN Reason Stop Dose Admin Acetaminophen 650 mg 03/13/22 18:17 Acetaminophen 325 Mg Tab PO Q4H PRN Pain MILD(1-3)/Fever >100.5/[place] Amlodipine Besylate 10 mg 03/14/22 10:00 03/14/22 09:55 Amlodipine 10 Mg Tab PO 10 mg QDAY JIMMY Administration Carvedilol 12.5 mg 03/14/22 10:00 03/14/22 09:50 Carvedilol 12.5 Mg Tab PO 12.5 mg BID JIMMY Administration Furosemide 80 mg 03/13/22 14:00 03/14/22 05:59 Furosemide 40 Mg Tab PO 80 mg Q8H JIMMY Administration Hydralazine HCl 10 mg 03/13/22 22:00 03/13/22 22:14 Hydralazine 20 Mg/1 Ml Inj IV 10 mg Q6HR PRN Administration SBP >/=160; DBP >/=100 Hydralazine HCl 100 mg 03/14/22 09:00 03/14/22 09:50 Hydralazine 100 Mg Tab PO 100 mg Q8HR JIMMY Administration Hydromorphone HCl 0.5 mg 03/13/22 18:17 Hydromorphone 0.5 Mg/0.5 Ml Inj IV Q3H PRN Pain , Severe (7-10) Metoclopramide HCl 10 mg 03/13/22 18:17 Metoclopramide 10 Mg/2 Ml Inj IV Q6H PRN Nausea And Vomiting Morphine Sulfate 2 mg 03/13/22 18:17 Morphine 2 Mg/1 Ml Inj IV Q4H PRN Pain, Moderate (4-6) Ondansetron HCl 4 mg 03/13/22 18:17 Ondansetron 4 Mg/2 Ml Inj IV Q8H PRN Nausea And Vomiting Oxycodone/Acetaminophen 1 tab 03/13/22 18:17 Oxycodone /Acetaminophen 5-325mg Tab PO Q6H PRN Pain, Moderate (4-6) Sodium Chloride 10 ml 03/13/22 22:00 03/14/22 09:52 Sodium Chloride 0.9% 10 Ml Flush Syringe IV 10 ml BID JIMMY Administration Sodium Chloride 10 ml 03/13/22 18:17 Sodium Chloride 0.9% 10 Ml Flush Syringe IV PRN PRN LINE FLUSH
[2022-03-14] MEDS: ACETAMINOPHEN 325 MG TAB PO PRN ×2 (13:36→23:51)
--- NOTE | 2022-03-14 14:45 | Consultation ---
History of Present Illness Consult date: 03/14/22 Consult reason: congestive heart failure History of present illness: The patient is a 46-year-old man with a history of chronic uncontrolled hypertension and chronic kidney disease. He reports that he is compliant with his medications for hypertension, but blood pressure has never been well controlled. His creatinine was 3.6 as recently as 6 months ago, on chronic routine follow-up with his acid tester. He reports no prior known cardiac history. He presents to the hospital at this time with complaints of 3 to 4 days of in creasing shortness of breath, exertional intolerance and lower extremity edema. Work-up in the hospital so far, ECG was normal sinus rhythm with nonspecific ST and T wave abnormalities. Chest x-ray revealed a moderate severity cardiomegaly, with mild diffuse interstitial edema. His laboratory exams show acute on chronic renal failure with creatinine currently at 6.4. Also notable, his systolic blood pressure on presentation was 180-200, and has remained persistently elevated despite treatment with amlodipine, carvedilol and hydralazine. The patient has no chest pain, no palpitations, and is unaware of any prior cardiac ischemic work-up. Past History Past Medical History: hypertension, renal failure Medications and Allergies Allergies Allergy/AdvReac Type Severity Reaction Status Date / Time shellfish derived AdvReac Anaphylaxis Verified 03/14/22 09:51 Home Medications Medication Instructions Recorded Confirmed Last Taken Type amLODIPine 10 mg PO QDAY #30 tablet 07/18/20 03/14/22 Unknown Rx glipiZIDE XL [Glucotrol Xl] 2.5 mg PO QAM #30 tab.er.24 07/18/20 03/14/22 Unknown Rx hydrALAZINE [Apresoline TAB] 50 mg PO Q8HR #90 tablet 07/18/20 03/14/22 1 Month Ago Rx ~02/11/22 Labetalol HCl [Labetalol 300mg TAB] 300 mg PO BID 03/14/22 03/14/22 Unknown History Torsemide [Demadex] 10 mg PO QDAY 03/14/22 03/14/22 Unknown History Active Meds: Active Medications Acetaminophen (Acetaminophen 325 Mg Tab) 650 mg PO Q4H PRN PRN Reason: Pain MILD(1-3)/Fever >100.5/[place]IT[place]KER Last Admin: 03/14/22 13:36 Dose: 650 mg Carvedilol (Carvedilol 12.5 Mg Tab) 12.5 mg PO BID [facility] Last Admin: 03/14/22 09:50 Dose: 12.5 mg Furosemide (Furosemide 40 Mg Tab) 80 mg PO Q8H [facility] Last Admin: 03/14/22 13:27 Dose: 80 mg Hydralazine HCl (Hydralazine 20 Mg/1 Ml Inj) 10 mg IV Q6HR PRN PRN Reason: SBP >/=160; DBP >/=100 Last Admin: 03/13/22 22:14 Dose: 10 mg Hydralazine HCl (Hydralazine 100 Mg Tab) 100 mg PO Q8HR [facility] Last Admin: 03/14/22 13:28 Dose: 100 mg Hydromorphone HCl (Hydromorphone 0.5 Mg/0.5 Ml Inj) 0.5 mg IV Q3H PRN PRN Reason: Pain , Severe (7-10) Metoclopramide HCl (Metoclopramide 10 Mg/2 Ml Inj) 10 mg IV Q6H PRN PRN Reason: Nausea And Vomiting Morphine Sulfate (Morphine 2 Mg/1 Ml Inj) 2 mg IV Q4H PRN PRN Reason: Pain, Moderate (4-6) Ondansetron HCl (Ondansetron 4 Mg/2 Ml Inj) 4 mg IV Q8H PRN PRN Reason: Nausea And Vomiting Oxycodone/Acetaminophen (Oxycodone /Acetaminophen 5-325mg Tab) 1 tab PO Q6H PRN PRN Reason: Pain, Moderate (4-6) Sodium Chloride (Sodium Chloride 0.9% 10 Ml Flush Syringe) 10 ml IV BID [facility] Last Admin: 03/14/22 09:52 Dose: 10 ml Sodium Chloride (Sodium Chloride 0.9% 10 Ml Flush Syringe) 10 ml IV PRN PRN PRN Reason: LINE FLUSH Review of Systems Cardiovascular: edema, shortness of breath, no chest pain, no orthopnea, no palpitations, no rapid/irregular heart beat, no syncope, no lightheadedness Physical Examination Vital Signs Pulse Ox 99 03/13/22 05:52 General appearance: no acute distress HEENT: Positive: PERRL Neck: Positive: neck supple Cardiac: Positive: Reg Rate and Rhythm Lungs: Positive: Decreased Breath Sounds Neuro: Positive: Grossly Intact Abdomen: Positive: Soft Male genitourinary: Positive: deferred Skin: Positive: Clear Extremities: Present: +1 Edema Results 03/14/22 05:11 03/14/22 05:11 Cardiac Enzymes 03/14/22 Range/Units 05:11 AST 23 (5-40) units/L CBC 03/14/22 Range/Units 05:11 WBC 11.2 H (4.5-11.0) K/mm3 RBC 4.38 (3.65-5.03) M/mm3 Hgb 10.7 L (11.8-15.2) gm/dl Hct 31.8 L (35.5-45.6) % Plt Count 237 (140-440) K/mm3 Lymph # (Auto) 0.6 L (1.2-5.4) K/mm3 [place] # (Auto) 1.1 H (0.0-0.8) K/mm3 Eos # (Auto) 0.3 (0.0-0.4) K/mm3 Baso # (Auto) 0.1 (0.0-0.1) K/mm3 Comprehensive Metabolic Panel 03/13/22 03/14/22 Range/Units 16:09 05:11 Sodium 141 139 (137-145) mmol/L Potassium 5.0 4.1 (3.6-5.0) mmol/L Chloride 109.0 H 105.1 (98-107) mmol/L Carbon Dioxide 20 L 19 L (22-30) mmol/L BUN 77 H 74 H (9-20) mg/dL Creatinine 6.4 H 6.1 H (0.8-1.3) mg/dL Glucose 122 H 92 (75-100) mg/dL Calcium 8.0 L 7.9 L (8.4-10.2) mg/dL AST 23 (5-40) units/L ALT 32 (7-56) units/L Alkaline Phosphatase 112 (35-129) units/L Total Protein 5.9 L (6.3-8.2) g/dL Albumin 3.3 L (3.9-5) g/dL EKG interpretations - Telemetry EKG Rhythm: Sinus Rhythm (With nonspecific ST and T wave abnormality) Assessment and Plan - Patient Problems (1) Pulmonary edema Current Visit: Yes Status: Acute Plan to address problem: 46-year-old man who presents with fluid overload and pulmonary edema. His heart failure exacerbation is multifactorial. There is chronic severe uncontrolled hypertension, there is worsening renal failure with a creatinine currently end- stage at 6.4. Echocardiogram today also shows the presence of a cardiomyopathy, with left vent ricular ejection fraction 25 to 30%. We will aggressively treat persistent hypertension, and add ordered guideline directed medical therapy as indicated for his systolic left ventricular dysfunction. Ultimately, may need renal replacement therapy for fluid and electrolyte management. We will order a predischarge Lexiscan thallium stress test for further evaluation of his left ventricular dysfunction.
[2022-03-14] MEDS: NIFEdipine XL 60 MG TAB PO SCH ×2 (15:40→21:18)
[2022-03-14] MEDS ORDERED: FUROSEMIDE 40 MG/4 ML INJ IV SCH (18:00)
[2022-03-15] MEDS: hydrALAZINE 100 MG TAB PO SCH ×3 (06:08→22:04)
[2022-03-15] MEDS: FUROSEMIDE 40 MG TAB PO SCH ×3 (06:08→22:04)
[2022-03-15 07:03] LABS: Calcium 8.2 mg/dL (8.4-10.2)
[2022-03-15] MEDS: NIFEdipine XL 60 MG TAB PO SCH ×2 (10:22→22:04)
[2022-03-15] MEDS: carvediloL 12.5 MG TAB PO SCH ×2 (10:22→22:05)
--- NOTE | 2022-03-15 10:41 | Progress Note ---
Assessment and Plan Assessment and plan: 46-year-old male with history of chronic uncontrolled hypertension and chronic kidney disease who presented through the emergency department with complaints of 3-4 days of increasing shortness of breath and lower extremity edema. EKG revealed normal sinus rhythm with normal ST-T wave changes. Chest x-ray revealed moderate severity cardiomegaly with diffuse interstitial edema. Laboratory findings reveal a creatinine of 6.0 with baseline creatinine of 3.5 previously. Patient also noted to have persistently elevated BP despite treatment with amlodipine, carvedilol and hydralazine. Acute on chronic systolic heart failure. Acute on chronic kidney disease Cardiomyopathy Accelerated hypertension. 03/15/2022. Echocardiogram revealed cardiomyopathy with left ventricular systolic function of 25-30%. Continue GDMT for heart failure per cardiology recommendations. BP is much better controlled. Continue aggressive diuresis with Lasix 80 mg 3 times daily. Renal ultrasound revealed no hydronephrosis but did reveal medical renal disease. Urine studies showed known proteinuria likely from DM. Nephrology reports patient consenting to hemodialysis if no significant improvement in renal function. Unfortunately, renal function appears to be about the same. Patient will need PermCath placement. Also, patient will likely need ischemic evaluation with stress test once hemodialysis initiated and renal issues stabilized History Interval history: No new issues overnight Hospitalist Physical - Constitutional Vitals: Temp Pulse Resp BP Pulse Ox 98.5 F 86 16 142/78 100 03/15/22 07:33 03/15/22 10:22 03/15/22 07:46 03/15/22 10:22 03/15/22 07:46 General appearance: Present: no acute distress - EENT Eyes: Present: PERRL, EOM intact ENT: hearing intact, clear oral mucosa, dentition normal - Neck Neck: Present: supple, normal ROM - Respiratory Respiratory effort: normal Respiratory: bilateral: CTA - Cardiovascular Rhythm: regular Heart Sounds: Present: S1 & S2. Absent: gallop, rub - Extremities Extremities: no ischemia, No edema, Full ROM - Abdominal General gastrointestinal: soft, non-tender, non-distended, normal bowel sounds - Integumentary Integumentary: Present: clear, warm, dry - Neurologic Neurologic: CNII-XII intact, moves all extremities HEART Score - HEART Score Troponin: Troponin T 0.098 ng/mL (0.00-0.029) H 03/13/22 07:47 Results - Labs CBC & Chem 7: 03/14/22 05:11 03/15/22 04:59 Labs: Laboratory Last Values WBC 11.2 K/mm3 (4.5-11.0) H 03/14/22 05:11 RBC 4.38 M/mm3 (3.65-5.03) 03/14/22 05:11 Hgb 10.7 gm/dl (11.8-15.2) L 03/14/22 05:11 Hct 31.8 % (35.5-45.6) L 03/14/22 05:11 MCV 73 fl (84-94) L 03/14/22 05:11 MCH 25 pg (28-32) L 03/14/22 05:11 MCHC 34 % (32-34) 03/14/22 05:11 RDW 15.8 % (13.2-15.2) H 03/14/22 05:11 Plt Count 237 K/mm3 (140-440) 03/14/22 05:11 Lymph % (Auto) 5.1 % (13.4-35.0) L 03/14/22 05:11 [place] % (Auto) 9.8 % (0.0-7.3) H 03/14/22 05:11 Eos % (Auto) 2.5 % (0.0-4.3) 03/14/22 05:11 Baso % (Auto) 0.5 % (0.0-1.8) 03/14/22 05:11 Lymph # (Auto) 0.6 K/mm3 (1.2-5.4) L 03/14/22 05:11 [place] # (Auto) 1.1 K/mm3 (0.0-0.8) H 03/14/22 05:11 Eos # (Auto) 0.3 K/mm3 (0.0-0.4) 03/14/22 05:11 Baso # (Auto) 0.1 K/mm3 (0.0-0.1) 03/14/22 05:11 Add Manual Diff Complete 03/13/22 07:47 Total Counted 100 03/13/22 07:47 Seg Neutrophils % 82.1 % (40.0-70.0) H 03/14/22 05:11 Seg Neuts % (Manual) 88.0 % (40.0-70.0) H 03/13/22 07:47 Band Neutrophils % 0 % 03/13/22 07:47 Lymphocytes % (Manual) 8.0 % (13.4-35.0) L 03/13/22 07:47 Reactive Lymphs % (Man) 0 % 03/13/22 07:47 Monocytes % (Manual) 3.0 % (0.0-7.3) 03/13/22 07:47 Eosinophils % (Manual) 0 % (0.0-4.3) 03/13/22 07:47 Basophils % (Manual) 1.0 % (0.0-1.8) 03/13/22 07:47 Metamyelocytes % 0 % 03/13/22 07:47 Myelocytes % 0 % 03/13/22 07:47 Promyelocytes % 0 % 03/13/22 07:47 Blast Cells % 0 % 03/13/22 07:47 Nucleated RBC % Not Reportable 03/13/22 07:47 Seg Neutrophils # 9.2 K/mm3 (1.8-7.7) H 03/14/22 05:11 Seg Neutrophils # Man 9.3 K/mm3 (1.8-7.7) H 03/13/22 07:47 Band Neutrophils # 0.0 K/mm3 03/13/22 07:47 Lymphocytes # (Manual) 0.8 K/mm3 (1.2-5.4) L 03/13/22 07:47 Abs React Lymphs (Man) 0.0 K/mm3 03/13/22 07:47 Monocytes # (Manual) 0.3 K/mm3 (0.0-0.8) 03/13/22 07:47 Eosinophils # (Manual) 0.0 K/mm3 (0.0-0.4) 03/13/22 07:47 Basophils # (Manual) 0.1 K/mm3 (0.0-0.1) 03/13/22 07:47 Metamyelocytes # 0.0 K/mm3 03/13/22 07:47 Myelocytes # 0.0 K/mm3 03/13/22 07:47 Promyelocytes # 0.0 K/mm3 03/13/22 07:47 Blast Cells # 0.0 K/mm3 03/13/22 07:47 WBC Morphology Not Reportable 03/13/22 07:47 Hypersegmented Neuts Not Reportable 03/13/22 07:47 Hyposegmented Neuts Not Reportable 03/13/22 07:47 Hypogranular Neuts Not Reportable 03/13/22 07:47 Smudge Cells Not Reportable 03/13/22 07:47 Toxic Granulation Not Reportable 03/13/22 07:47 Toxic Vacuolation Not Reportable 03/13/22 07:47 Dohle Bodies Not Reportable 03/13/22 07:47 Pelger-Huet Anomaly Not Reportable 03/13/22 07:47 Tobi Rods Not Reportable 03/13/22 07:47 Platelet Estimate Consistent w auto 03/13/22 07:47 Clumped Platelets Not Reportable 03/13/22 07:47 Plt Clumps, EDTA Not Reportable 03/13/22 07:47 Large Platelets Not Reportable 03/13/22 07:47 Giant Platelets Not Reportable 03/13/22 07:47 Platelet Satelliting Not Reportable 03/13/22 07:47 Plt Morphology Comment Not Reportable 03/13/22 07:47 RBC Morphology Not Reportable 03/13/22 07:47 Dimorphic RBCs Not Reportable 03/13/22 07:47 Polychromasia 1+ 03/13/22 07:47 Hypochromasia 1+ 03/13/22 07:47 Poikilocytosis Not Reportable 03/13/22 07:47 Anisocytosis 1+ 03/13/22 07:47 Microcytosis Not Reportable 03/13/22 07:47 Macrocytosis Not Reportable 03/13/22 07:47 Spherocytes Not Reportable 03/13/22 07:47 Pappenheimer Bodies Not Reportable 03/13/22 07:47 Sickle Cells Not Reportable 03/13/22 07:47 Target Cells 1+ 03/13/22 07:47 Tear Drop Cells Not Reportable 03/13/22 07:47 Ovalocytes Not Reportable 03/13/22 07:47 Helmet Cells Not Reportable 03/13/22 07:47 [place] Bodies Not Reportable 03/13/22 07:47 Gallion Rings Not Reportable 03/13/22 07:47 Khoi Cells Not Reportable 03/13/22 07:47 Bite Cells Not Reportable 03/13/22 07:47 Crenated Cell Not Reportable 03/13/22 07:47 Elliptocytes Not Reportable 03/13/22 07:47 Acanthocytes (Spur) Not Reportable 03/13/22 07:47 Rouleaux Not Reportable 03/13/22 07:47 Hemoglobin C Crystals Not Reportable 03/13/22 07:47 Schistocytes Not Reportable 03/13/22 07:47 Malaria parasites Not Reportable 03/13/22 07:47 Jorge Bodies Not Reportable 03/13/22 07:47 Hem Pathologist Commnt No 03/13/22 07:47 Sodium 140 mmol/L (137-145) 03/15/22 04:59 Potassium 4.0 mmol/L (3.6-5.0) 03/15/22 04:59 Chloride 102.9 mmol/L (98-107) 03/15/22 04:59 Carbon Dioxide 20 mmol/L (22-30) L 03/15/22 04:59 Anion Gap 21 mmol/L 03/15/22 04:59 BUN 67 mg/dL (9-20) H 03/15/22 04:59 Creatinine 5.9 mg/dL (0.8-1.3) H 03/15/22 04:59 Estimated GFR 13 ml/min 03/15/22 04:59 BUN/Creatinine Ratio 11 % 03/15/22 04:59 Glucose 115 mg/dL (75-100) H 03/15/22 04:59 POC Glucose 150 mg/dL (70-105) H 03/15/22 08:49 Calcium 8.2 mg/dL (8.4-10.2) L 03/15/22 04:59 Phosphorus 4.90 mg/dL (2.5-4.5) H 03/15/22 04:59 Total Bilirubin 0.60 mg/dL (0.1-1.2) 03/14/22 05:11 AST 23 units/L (5-40) 03/14/22 05:11 ALT 32 units/L (7-56) 03/14/22 05:11 Alkaline Phosphatase 112 units/L (35-129) 03/14/22 05:11 Total Creatine Kinase 1247 units/L (55-170) H 03/13/22 16:09 Troponin T 0.098 ng/mL (0.00-0.029) H 03/13/22 07:47 NT-Pro-B Natriuret Pep 28663 pg/mL (0-450) H 03/13/22 08:28 Total Protein 5.9 g/dL (6.3-8.2) L 03/14/22 05:11 Albumin 3.3 g/dL (3.9-5) L 03/14/22 05:11 Albumin/Globulin Ratio 1.3 % 03/14/22 05:11 Urine Color Straw (Yellow) 03/13/22 15:29 Urine Turbidity Clear (Clear) 03/13/22 15:29 Urine pH 6.0 (5.0-7.0) 03/13/22 15:29 Ur Specific [place] 1.010 (1.003-1.030) 03/13/22 15:29 Urine Protein >500 mg/dL (Negative) 03/13/22 15:29 Urine Glucose (UA) Negative mg/dL (Negative) 03/13/22 15:29 Urine Ketones 15 mg/dL (Negative) 03/13/22 15:29 Urine Blood 2+ (Negative) 03/13/22 15:29 Urine Nitrite Negative (Negative) 03/13/22 15:29 Ur Reducing Substances Not Reportable 03/13/22 15:29 Urine Bilirubin Negative (Negative) 03/13/22 15:29 Urine Ictotest Not Reportable 03/13/22 15:29 Urine Urobilinogen < 2.0 mg/dL (<2.0) 03/13/22 15:29 Ur Leukocyte Esterase Negative (Negative) 03/13/22 15:29 Urine WBC (Auto) 1.0 /HPF (0.0-6.0) 03/13/22 15:29 Urine RBC (Auto) 1.0 /HPF (0.0-6.0) 03/13/22 15:29 Urine Eosinophils None seen (None Seen) 03/13/22 15:29 Urine Creatinine 43.6 mg/dL (0.1-20.0) H 03/13/22 15:29 Protein/Creatinin Ratio 5.78 03/13/22 15:29 Urine Sodium 85 mmol/L 03/13/22 15:29 Urine Total Protein 252 mg/dL (5-11.8) H 03/13/22 15:29 Bates/IV: Voiding Method Toilet Active Medications - Current Medications Current Medications: Generic Name Dose Route Start Last Admin Trade Name Freq PRN Reason Stop Dose Admin Acetaminophen 650 mg 03/13/22 18:17 03/14/22 23:51 Acetaminophen 325 Mg Tab PO 650 mg Q4H PRN Administration Pain MILD(1-3)/Fever >100.5/WHITTAKER Carvedilol 12.5 mg 03/14/22 10:00 03/15/22 10:22 Carvedilol 12.5 Mg Tab PO 12.5 mg BID JIMMY Administration Furosemide 80 mg 03/13/22 14:00 03/15/22 06:08 Furosemide 40 Mg Tab PO 80 mg Q8H JIMMY Administration Hydralazine HCl 10 mg 03/13/22 22:00 03/13/22 22:14 Hydralazine 20 Mg/1 Ml Inj IV 10 mg Q6HR PRN Administration SBP >/=160; DBP >/=100 Hydralazine HCl 100 mg 03/14/22 09:00 03/15/22 06:08 Hydralazine 100 Mg Tab PO 100 mg Q8HR JIMMY Administration Hydromorphone HCl 0.5 mg 03/13/22 18:17 Hydromorphone 0.5 Mg/0.5 Ml Inj IV Q3H PRN Pain , Severe (7-10) Metoclopramide HCl 10 mg 03/13/22 18:17 Metoclopramide 10 Mg/2 Ml Inj IV Q6H PRN Nausea And Vomiting Morphine Sulfate 2 mg 03/13/22 18:17 Morphine 2 Mg/1 Ml Inj IV Q4H PRN Pain, Moderate (4-6) Nifedipine 60 mg 03/14/22 15:00 03/15/22 10:22 Nifedipine Xl 60 Mg Tab PO 60 mg Q12HR JIMMY Administration Ondansetron HCl 4 mg 03/13/22 18:17 Ondansetron 4 Mg/2 Ml Inj IV Q8H PRN Nausea And Vomiting Oxycodone/Acetaminophen 1 tab 03/13/22 18:17 Oxycodone /Acetaminophen 5-325mg Tab PO Q6H PRN Pain, Moderate (4-6) Sodium Chloride 10 ml 03/13/22 22:00 03/15/22 10:23 Sodium Chloride 0.9% 10 Ml Flush Syringe IV 10 ml BID JIMMY Administration Sodium Chloride 10 ml 03/13/22 18:17 Sodium Chloride 0.9% 10 Ml Flush Syringe IV PRN PRN LINE FLUSH
--- NOTE | 2022-03-15 11:06 | Progress Note ---
Assessment and Plan Assessment and Plan Acute renal failure on top of CKD vs CKD progression Hyperkalemia Volume overload Hypertension DM Plan: Renal labs reviewed. Serum creatinine 5.9 today, yesterday's was 6.1. GFR is 13 ml/min. Has known advanced CKD, followed by Dr. Sol in the office CXR congested, on Lasix 80 mg TID IV diuresis. Renal ultrasound reviewed-No hydronephrosis. Medical renal disease. Urine studies showed known proteinuria, likely from DM In 2019, CHOCO, SPEP, C3/C4, ANCA, HIV, Hep panel were negative Obtain daily weights Monitor I/O's daily: Intake 1700, UOP 1260 ml (-440 ml) Avoid nephrotoxic agents Given no significant improvement in renal function coupled with volume overload, discussed hemodialysis initiation with patient again today, discussed risks and benefits of hemodialysis and procedures involving perm-catheter placement. Answered all questions. Patient consented to hemodialysis today Consulted IR for perm-catheter placement Hemodialysis today after perm-catheter is placed Plan of care reviewed by Dr. Fonseca Subjective Date of service: 03/15/22 Principal diagnosis: ARF on CKD Interval history: Patient seen lying in bed. Had long discussion about his renal labs with patient and that hemodialysis initiation is needed at this point. Answered all questions and reviewed risks and benefits of hemodialysis. Patient agreeable to hemodialysis today. Patient's 2 brothers, Mr. Raymond and Max was at bedside present for conversation. Objective - Vital Signs Vital signs: Vital Signs - 12hr 03/14/22 03/15/22 03/15/22 23:43 03:43 05:00 Temperature 98.6 F 98.0 F Pulse Rate 81 85 96 H Respiratory 20 20 Rate Blood Pressure 150/83 142/82 O2 Sat by Pulse 95 94 Oximetry 03/15/22 03/15/22 03/15/22 07:33 07:46 10:22 Temperature 98.5 F Pulse Rate 86 86 Respiratory 18 16 Rate Blood Pressure 142/78 142/78 O2 Sat by Pulse 95 100 Oximetry - General Appearance General appearance: well-developed, appears stated age EENT: ATNC, hearing intact, vision intact Neck: no JVD, supple Respiratory: Present: Decreased Breath Sounds Cardiology: S1S2 Gastrointestinal: normoactive bowel sounds Integumentary: warm and dry Neurologic: alert and oriented x3 Musculoskeletal: other (positive edema) - Lab 03/14/22 05:11 03/15/22 04:59 Most recent lab results Calcium 8.2 mg/dL (8.4-10.2) L 03/15/22 04:59 Phosphorus 4.90 mg/dL (2.5-4.5) H 03/15/22 04:59 Urine Creatinine 43.6 mg/dL (0.1-20.0) H 03/13/22 15:29 Urine Sodium 85 mmol/L 03/13/22 15:29 Urine Total Protein 252 mg/dL (5-11.8) H 03/13/22 15:29 Medications & Allergies - Medications Allergies/Adverse Reactions: Allergies shellfish derived Adverse Reaction (Verified 03/14/22 09:51) Anaphylaxis patient says he gets "hives and can't breathe" Home Medications: Home Medications Medication Instructions Recorded Confirmed Last Taken Type amLODIPine 10 mg PO QDAY #30 tablet 07/18/20 03/14/22 Unknown Rx glipiZIDE XL [Glucotrol Xl] 2.5 mg PO QAM #30 tab.er.24 07/18/20 03/14/22 Unknown Rx hydrALAZINE [Apresoline TAB] 50 mg PO Q8HR #90 tablet 07/18/20 03/14/22 1 Month Ago Rx ~02/11/22 Labetalol HCl [Labetalol 300mg TAB] 300 mg PO BID 03/14/22 03/14/22 Unknown History Torsemide [Demadex] 10 mg PO QDAY 03/14/22 03/14/22 Unknown History Active Medications: Generic Name Dose Route Start Last Admin Trade Name Louisq PRN Reason Stop Dose Admin Acetaminophen 650 mg 03/13/22 18:17 03/14/22 23:51 Acetaminophen 325 Mg Tab PO 650 mg Q4H PRN Administration Pain MILD(1-3)/Fever >100.5/[place]ER Carvedilol 12.5 mg 03/14/22 10:00 03/15/22 10:22 Carvedilol 12.5 Mg Tab PO 12.5 mg BID JIMMY Administration Furosemide 80 mg 03/13/22 14:00 03/15/22 06:08 Furosemide 40 Mg Tab PO 80 mg Q8H JIMMY Administration Hydralazine HCl 10 mg 03/13/22 22:00 03/13/22 22:14 Hydralazine 20 Mg/1 Ml Inj IV 10 mg Q6HR PRN Administration SBP >/=160; DBP >/=100 Hydralazine HCl 100 mg 03/14/22 09:00 03/15/22 06:08 Hydralazine 100 Mg Tab PO 100 mg Q8HR JIMMY Administration Hydromorphone HCl 0.5 mg 03/13/22 18:17 Hydromorphone 0.5 Mg/0.5 Ml Inj IV Q3H PRN Pain , Severe (7-10) Metoclopramide HCl 10 mg 03/13/22 18:17 Metoclopramide 10 Mg/2 Ml Inj IV Q6H PRN Nausea And Vomiting Morphine Sulfate 2 mg 03/13/22 18:17 Morphine 2 Mg/1 Ml Inj IV Q4H PRN Pain, Moderate (4-6) Nifedipine 60 mg 03/14/22 15:00 03/15/22 10:22 Nifedipine Xl 60 Mg Tab PO 60 mg Q12HR JIMMY Administration Ondansetron HCl 4 mg 03/13/22 18:17 Ondansetron 4 Mg/2 Ml Inj IV Q8H PRN Nausea And Vomiting Oxycodone/Acetaminophen 1 tab 03/13/22 18:17 Oxycodone /Acetaminophen 5-325mg Tab PO Q6H PRN Pain, Moderate (4-6) Sodium Chloride 10 ml 03/13/22 22:00 03/15/22 10:23 Sodium Chloride 0.9% 10 Ml Flush Syringe IV 10 ml BID JIMMY Administration Sodium Chloride 10 ml 03/13/22 18:17 Sodium Chloride 0.9% 10 Ml Flush Syringe IV PRN PRN LINE FLUSH
--- NOTE | 2022-03-15 12:16 | Progress Note ---
Assessment and Plan - Patient Problems (1) Pulmonary edema Current Visit: Yes Status: Acute Plan to address problem: 46-year-old man who presents with fluid overload and pulmonary edema. His heart failure exacerbation is multifactorial. There is chronic severe uncontrolled hypertension, there is worsening renal failure with a creatinine currently end- stage at 6.4. Echocardiogram today also shows the presence of a cardiomyopathy, with left ventricular ejection fraction 25 to 30%. We will aggressively treat persistent hypertension, and add ordered guideline directed medical therapy as indicated for his systolic left ventricular dysfunction. Ultimately, may need renal replacement therapy for fluid and electrolyte management. We will order a predischarge Lexiscan thallium stress test when clinically stable with regards to volume overload. Subjective Date of service: 03/15/22 Principal diagnosis: Systolic heart failure Interval history: Patient is comfortable, no new cardiac complaints. Objective Vital Signs Temp Pulse Resp BP BP Pulse Ox 03/15/22 10:22 86 142/78 03/15/22 07:46 16 100 03/15/22 07:33 98.5 F 86 18 142/78 95 03/15/22 05:00 96 H 03/15/22 03:43 98.0 F 85 20 142/82 94 03/14/22 23:43 98.6 F 81 20 150/83 95 03/14/22 22:00 18 100 03/14/22 21:17 94 H 163/92 03/14/22 21:00 90 03/14/22 19:20 97.5 F L 94 H 18 163/92 99 03/14/22 17:30 154/98 98 03/14/22 15:39 97.7 F 86 18 169/84 96 03/14/22 13:00 80 170/98 - Physical Examination HEENT: Positive: PERRL Neck: Positive: neck supple Cardiac: Positive: Reg Rate and Rhythm Lungs: Positive: Decreased Breath Sounds Neuro: Positive: Grossly Intact Abdomen: Positive: Soft Skin: Positive: Clear Extremities: Present: +1 Edema - Labs and Meds Comprehensive Metabolic Panel 03/15/22 Range/Units 04:59 Sodium 140 (137-145) mmol/L Potassium 4.0 (3.6-5.0) mmol/L Chloride 102.9 (98-107) mmol/L Carbon Dioxide 20 L (22-30) mmol/L BUN 67 H (9-20) mg/dL Creatinine 5.9 H (0.8-1.3) mg/dL Glucose 115 H (75-100) mg/dL Calcium 8.2 L (8.4-10.2) mg/dL
--- NOTE | 2022-03-15 13:40 | Consultation ---
History of Present Illness - Reason for Consult Consult date: 03/15/22 Permacath Placement Requesting physician: BHUMIKA COOPER - History of Present Illness The patient is a 46-year-old male with a history of hypertension, diabetes, and chronic renal failure who presented with complaints of orthopnea. He was found to have acute on chronic renal failure with a previous creatinine of 3.6 approximately 6 months ago and 6.4 upon presentation. His GFR was 10 on admi ssion and he was found to have fluid overload with a BNP of greater than 16,000 and pulmonary edema on his x-ray. He also complains of progressively worsening edema of his bilateral lower extremities. Initially medical management was attempted and his orthopnea resolved however he has not returned to his baseline renal function and is in need of hemodialysis. He requires a permacath for the initiation of hemodialysis. The patient has no additional complaints at this time. Past History Past Medical History: diabetes, heart failure, hypertension, renal failure Past Surgical History: No surgical history Social history: no significant social history Family history: diabetes, hypertension, other (Renal failure with dialysis) Medications and Allergies Allergies Allergy/AdvReac Type Severity Reaction Status Date / Time shellfish derived AdvReac Anaphylaxis Verified 03/14/22 09:51 Home Medications Medication Instructions Recorded Confirmed Last Taken Type amLODIPine 10 mg PO QDAY #30 tablet 07/18/20 03/14/22 Unknown Rx glipiZIDE XL [Glucotrol Xl] 2.5 mg PO QAM #30 tab.er.24 07/18/20 03/14/22 Unknown Rx hydrALAZINE [Apresoline TAB] 50 mg PO Q8HR #90 tablet 07/18/20 03/14/22 1 Month Ago Rx ~02/11/22 Labetalol HCl [Labetalol 300mg TAB] 300 mg PO BID 03/14/22 03/14/22 Unknown History Torsemide [Demadex] 10 mg PO QDAY 03/14/22 03/14/22 Unknown History Active Meds: Active Medications Acetaminophen (Acetaminophen 325 Mg Tab) 650 mg PO Q4H PRN PRN Reason: Pain MILD(1-3)/Fever >100.5/[place]ER Last Admin: 03/14/22 23:51 Dose: 650 mg Carvedilol (Carvedilol 12.5 Mg Tab) 12.5 mg PO BID [facility] Last Admin: 03/15/22 10:22 Dose: 12.5 mg Furosemide (Furosemide 40 Mg Tab) 80 mg PO Q8H [facility] Last Admin: 03/15/22 06:08 Dose: 80 mg Hydralazine HCl (Hydralazine 20 Mg/1 Ml Inj) 10 mg IV Q6HR PRN PRN Reason: SBP >/=160; DBP >/=100 Last Admin: 03/13/22 22:14 Dose: 10 mg Hydralazine HCl (Hydralazine 100 Mg Tab) 100 mg PO Q8HR [facility] Last Admin: 03/15/22 06:08 Dose: 100 mg Hydromorphone HCl (Hydromorphone 0.5 Mg/0.5 Ml Inj) 0.5 mg IV Q3H PRN PRN Reason: Pain , Severe (7-10) Metoclopramide HCl (Metoclopramide 10 Mg/2 Ml Inj) 10 mg IV Q6H PRN PRN Reason: Nausea And Vomiting Morphine Sulfate (Morphine 2 Mg/1 Ml Inj) 2 mg IV Q4H PRN PRN Reason: Pain, Moderate (4-6) Nifedipine (Nifedipine Xl 60 Mg Tab) 60 mg PO Q12HR [facility] Last Admin: 03/15/22 10:22 Dose: 60 mg Ondansetron HCl (Ondansetron 4 Mg/2 Ml Inj) 4 mg IV Q8H PRN PRN Reason: Nausea And Vomiting Oxycodone/Acetaminophen (Oxycodone /Acetaminophen 5-325mg Tab) 1 tab PO Q6H PRN PRN Reason: Pain, Moderate (4-6) Sodium Chloride (Sodium Chloride 0.9% 10 Ml Flush Syringe) 10 ml IV BID [facility] Last Admin: 03/15/22 10:23 Dose: 10 ml Sodium Chloride (Sodium Chloride 0.9% 10 Ml Flush Syringe) 10 ml IV PRN PRN PRN Reason: LINE FLUSH Review of Systems All systems: negative Exam - Constitutional Vitals: Temp Pulse Resp BP Pulse Ox 97.7 F 83 22 147/90 98 03/15/22 13:08 03/15/22 13:08 03/15/22 13:08 03/15/22 13:08 03/15/22 13:08 General appearance: Present: no acute distress - EENT ENT: hearing intact - Neck Neck: Present: supple - Respiratory Respiratory effort: normal - Cardiovascular Rhythm: regular - Extremities Extremities: no ischemia, pulses intact (Pedal pulses intact) - Abdominal General gastrointestinal: Present: soft Results - Labs CBC & Chem 7: 03/14/22 05:11 03/15/22 04:59 Labs: Abnormal lab results 03/15/22 03/15/22 Range/Units 04:59 08:49 Carbon Dioxide 20 L (22-30) mmol/L BUN 67 H (9-20) mg/dL Creatinine 5.9 H (0.8-1.3) mg/dL Glucose 115 H (75-100) mg/dL POC Glucose 150 H (70-105) mg/dL Calcium 8.2 L (8.4-10.2) mg/dL Phosphorus 4.90 H (2.5-4.5) mg/dL Assessment and Plan The patient is a 46-year-old male who presented with acute on chronic renal insufficiency who now requires a permacath for hemodialysis. He was given the risk, benefits, and alternative procedures and has elected to proceed.
[2022-03-15 13:43] LABS: Hepatitis B Surface Antigen Non-Reactive (Negative); Hepatitis C Virus Antibody Non-Reactive (NonReactive)
[2022-03-15] MEDS ORDERED: LIDOCAINE (2%) 20 MG/1 ML VIAL 50 ML MDV INFILTRATI ONE ×2 (14:22→14:28)
[2022-03-15] MEDS ORDERED: HEPARIN/NS 5000 UNIT/500ML 500 ML IR ONE (14:24)
[2022-03-15] MEDS ORDERED: SODIUM CHLORIDE IRRI 500 ML 500 ML IR ONE (14:45)
[2022-03-15] MEDS ORDERED: SODIUM CHLORIDE 0.9% 500 ML 500 ML ONE (14:46)
[2022-03-15] MEDS ORDERED: fentaNYL 100 MCG/2 ML INJ ONE (15:04)
[2022-03-15] MEDS ORDERED: MIDAZOLAM 2 MG/2 ML INJ ONE (15:04)
[2022-03-15] MEDS ORDERED: HEPARIN 10,000 UNITS/10 ML VIAL ONE (15:10)
--- NOTE | 2022-03-15 15:43 | Operative Report ---
Operative Report Operative Report: Date of procedure: 03/15/2022 Pre-operative diagnosis: Acute on Chronic Renal Failure Post-operative diagnosis: Same Procedure(s): 1. Ultrasound-Guided Access Right Internal Vein 2. Placement of 23 cm GlidePath Permacath 3. Radiologic Supervision with Interpretation 4. Monitored Moderate Sedation (Total Anesthesia Time: 12 Minutes) Surgeon: Ihsan Velez MD Instructor Ground Services: None Anesthesia: Local/Monitored Moderate Sedation Total Anesthesia Time: 12 Minutes EBL: Minimal Counts: Correct Complications: None Condition: Stable Findings: Successful placement of right IJ permacath with the distal tip in the right atrium and no evidence of pneumothorax at the completion of the case. Specimen: None Indication: The patient is a 46-year-old male who presented with acute on chronic renal sufficiency and is in need of a permacath for the initiation of hemodialysis. He was given the risk, benefits, and alternative procedures and consented to the procedure. Description of Procedure: The patient was brought to the clinical laboratory scientist and laid in supine position and the right neck and chest were prepped and draped in normal sterile fashion. Ultrasound was used to identify the right internal jugular vein and the overlying skin and soft tissue was anesthetized with lidocaine. An 11 blade was used to make a small stab incision and a 21-gauge micropuncture needle was used with ultrasound guidance to enter the right internal jugular vein. A 0.018 micropuncture wire was advanced into the inferior vena cava under fluoroscopy and after removing the needle the micropuncture sheath was advanced into the internal jugular vein by Seldinger technique. The wire and inner cannula were removed and a 0.035 J-wire was advanced into the inferior vena cava under direct fluoroscopic visualization. The tract was serially dilated up to a 16 Kazakh peel-away safety sheath. An exit site on the chest was then chosen and the presumed tunnel was anesthetized with lidocaine. A small stab incision was made on the chest and then the permacath was connected to the tunneler and pulled antegrade through the tunnel. The J-wire and inner cannula were remove from the SafeSheath and the catheter was inserted into the safe sheath. The safe sheath was then peeled away while advancing the catheter. The catheter was positioned under fluoroscopy with the distal tip in the right atrium. Once in adequate position, both ports were aspirated, flushed, and primed with the appropriate amount of heparin. The neck incision was then closed with 4-0 Monocryl in interrupted subcuticular fashion and dressed with Dermabond. The permacath was secured in place with a 2-0 Ethilon in interrupted fashion and dressed with a sterile dressing. Final fluoroscopy demonstrated the catheter was in adequate position with the distal tip in the right atrium and no evidence of pneumothorax. The patient tolerated the procedure well. All sponge, needle, and instrument counts were correct. The patient was taken to recovery in stable condition.
[2022-03-15] MEDS: oxyCODONE /ACETAMINOPHEN 5-325MG TAB PO PRN (22:04)
[2022-03-16] MEDS: oxyCODONE /ACETAMINOPHEN 5-325MG TAB PO PRN (04:22)
[2022-03-16 05:51] LABS: Calcium 7.7 mg/dL (8.4-10.2)
[2022-03-16] MEDS: hydrALAZINE 100 MG TAB PO SCH ×3 (05:53→21:04)
[2022-03-16] MEDS: FUROSEMIDE 40 MG TAB PO SCH ×2 (05:56→21:04)
[2022-03-16] MEDS: NIFEdipine XL 60 MG TAB PO SCH ×2 (09:36→21:05)
[2022-03-16] MEDS: carvediloL 12.5 MG TAB PO SCH ×2 (09:36→21:04)
--- NOTE | 2022-03-16 10:17 | Progress Note ---
Assessment and Plan Assessment and plan: 46-year-old male with history of chronic uncontrolled hypertension and chronic kidney disease who presented through the emergency department with complaints of 3-4 days of increasing shortness of breath and lower extremity edema. EKG revealed normal sinus rhythm with normal ST-T wave changes. Chest x-ray revealed moderate severity cardiomegaly with diffuse interstitial edema. Laboratory findings reveal a creatinine of 6.0 with baseline creatinine of 3.5 previously. Patient also noted to have persistently elevated BP despite treatment with amlodipine, carvedilol and hydralazine. Acute on chronic systolic heart failure. Acute on chronic kidney disease Hypokalemia Cardiomyopathy Accelerated hypertension. Diabetes mellitus type 2 03/15/2022. Echocardiogram revealed cardiomyopathy with left ventricular systolic function of 25-30%. Continue GDMT for heart failure per cardiology recommen dations. BP is much better controlled. Continue aggressive diuresis with Lasix 80 mg 3 times daily. Renal ultrasound revealed no hydronephrosis but did reveal medical renal disease. Urine studies showed known proteinuria likely from DM. Nephrology reports patient consenting to hemodialysis if no significant improvement in renal function. Unfortunately, renal function appears to be about the same. Patient will need PermCath placement. Also, patient will likely need ischemic evaluation with stress test once hemodialysis initiated and renal issues stabilized 03/16/2022. Patient is s/p PermCath placement yesterday with the initiation of hemodialysis. We will discuss with case management plans for outpatient hemodialysis chair. Await cardiology plans for ischemic evaluation. Continue GDMT for systolic heart failure. Continue Accu-Cheks and sliding scale insulin. History Interval history: No new issues overnight Hospitalist Physical - Constitutional Vitals: Temp Pulse Resp BP Pulse Ox 97.9 F 89 18 129/79 94 03/16/22 08:36 03/16/22 08:36 03/16/22 08:36 03/16/22 08:36 03/16/22 08:36 General appearance: Present: no acute distress - EENT Eyes: Present: PERRL, EOM intact ENT: hearing intact, clear oral mucosa, dentition normal - Neck Neck: Present: supple, normal ROM - Respiratory Respiratory effort: normal Respiratory: bilateral: CTA - Cardiovascular Rhythm: regular Heart Sounds: Present: S1 & S2. Absent: gallop, rub - Extremities Extremities: no ischemia, No edema, Full ROM - Abdominal General gastrointestinal: soft, non-tender, non-distended, normal bowel sounds - Integumentary Integumentary: Present: clear, warm, dry - Neurologic Neurologic: CNII-XII intact, moves all extremities HEART Score - HEART Score Troponin: Troponin T 0.098 ng/mL (0.00-0.029) H 03/13/22 07:47 Results - Labs CBC & Chem 7: 03/14/22 05:11 03/16/22 04:54 Labs: Laboratory Last Values WBC 11.2 K/mm3 (4.5-11.0) H 03/14/22 05:11 RBC 4.38 M/mm3 (3.65-5.03) 03/14/22 05:11 Hgb 10.7 gm/dl (11.8-15.2) L 03/14/22 05:11 Hct 31.8 % (35.5-45.6) L 03/14/22 05:11 MCV 73 fl (84-94) L 03/14/22 05:11 MCH 25 pg (28-32) L 03/14/22 05:11 MCHC 34 % (32-34) 03/14/22 05:11 RDW 15.8 % (13.2-15.2) H 03/14/22 05:11 Plt Count 237 K/mm3 (140-440) 03/14/22 05:11 Lymph % (Auto) 5.1 % (13.4-35.0) L 03/14/22 05:11 [place] % (Auto) 9.8 % (0.0-7.3) H 03/14/22 05:11 Eos % (Auto) 2.5 % (0.0-4.3) 03/14/22 05:11 Baso % (Auto) 0.5 % (0.0-1.8) 03/14/22 05:11 Lymph # (Auto) 0.6 K/mm3 (1.2-5.4) L 03/14/22 05:11 [place] # (Auto) 1.1 K/mm3 (0.0-0.8) H 03/14/22 05:11 Eos # (Auto) 0.3 K/mm3 (0.0-0.4) 03/14/22 05:11 Baso # (Auto) 0.1 K/mm3 (0.0-0.1) 03/14/22 05:11 Add Manual Diff Complete 03/13/22 07:47 Total Counted 100 03/13/22 07:47 Seg Neutrophils % 82.1 % (40.0-70.0) H 03/14/22 05:11 Seg Neuts % (Manual) 88.0 % (40.0-70.0) H 03/13/22 07:47 Band Neutrophils % 0 % 03/13/22 07:47 Lymphocytes % (Manual) 8.0 % (13.4-35.0) L 03/13/22 07:47 Reactive Lymphs % (Man) 0 % 03/13/22 07:47 Monocytes % (Manual) 3.0 % (0.0-7.3) 03/13/22 07:47 Eosinophils % (Manual) 0 % (0.0-4.3) 03/13/22 07:47 Basophils % (Manual) 1.0 % (0.0-1.8) 03/13/22 07:47 Metamyelocytes % 0 % 03/13/22 07:47 Myelocytes % 0 % 03/13/22 07:47 Promyelocytes % 0 % 03/13/22 07:47 Blast Cells % 0 % 03/13/22 07:47 Nucleated RBC % Not Reportable 03/13/22 07:47 Seg Neutrophils # 9.2 K/mm3 (1.8-7.7) H 03/14/22 05:11 Seg Neutrophils # Man 9.3 K/mm3 (1.8-7.7) H 03/13/22 07:47 Band Neutrophils # 0.0 K/mm3 03/13/22 07:47 Lymphocytes # (Manual) 0.8 K/mm3 (1.2-5.4) L 03/13/22 07:47 Abs React Lymphs (Man) 0.0 K/mm3 03/13/22 07:47 Monocytes # (Manual) 0.3 K/mm3 (0.0-0.8) 03/13/22 07:47 Eosinophils # (Manual) 0.0 K/mm3 (0.0-0.4) 03/13/22 07:47 Basophils # (Manual) 0.1 K/mm3 (0.0-0.1) 03/13/22 07:47 Metamyelocytes # 0.0 K/mm3 03/13/22 07:47 Myelocytes # 0.0 K/mm3 03/13/22 07:47 Promyelocytes # 0.0 K/mm3 03/13/22 07:47 Blast Cells # 0.0 K/mm3 03/13/22 07:47 WBC Morphology Not Reportable 03/13/22 07:47 Hypersegmented Neuts Not Reportable 03/13/22 07:47 Hyposegmented Neuts Not Reportable 03/13/22 07:47 Hypogranular Neuts Not Reportable 03/13/22 07:47 Smudge Cells Not Reportable 03/13/22 07:47 Toxic Granulation Not Reportable 03/13/22 07:47 Toxic Vacuolation Not Reportable 03/13/22 07:47 Dohle Bodies Not Reportable 03/13/22 07:47 Pelger-Huet Anomaly Not Reportable 03/13/22 07:47 Tobi Rods Not Reportable 03/13/22 07:47 Platelet Estimate Consistent w auto 03/13/22 07:47 Clumped Platelets Not Reportable 03/13/22 07:47 Plt Clumps, EDTA Not Reportable 03/13/22 07:47 Large Platelets Not Reportable 03/13/22 07:47 Giant Platelets Not Reportable 03/13/22 07:47 Platelet Satelliting Not Reportable 03/13/22 07:47 Plt Morphology Comment Not Reportable 03/13/22 07:47 RBC Morphology Not Reportable 03/13/22 07:47 Dimorphic RBCs Not Reportable 03/13/22 07:47 Polychromasia 1+ 03/13/22 07:47 Hypochromasia 1+ 03/13/22 07:47 Poikilocytosis Not Reportable 03/13/22 07:47 Anisocytosis 1+ 03/13/22 07:47 Microcytosis Not Reportable 03/13/22 07:47 Macrocytosis Not Reportable 03/13/22 07:47 Spherocytes Not Reportable 03/13/22 07:47 Pappenheimer Bodies Not Reportable 03/13/22 07:47 Sickle Cells Not Reportable 03/13/22 07:47 Target Cells 1+ 03/13/22 07:47 Tear Drop Cells Not Reportable 03/13/22 07:47 Ovalocytes Not Reportable 03/13/22 07:47 Helmet Cells Not Reportable 03/13/22 07:47 [place] Bodies Not Reportable 03/13/22 07:47 Sumner Rings Not Reportable 03/13/22 07:47 Khoi Cells Not Reportable 03/13/22 07:47 Bite Cells Not Reportable 03/13/22 07:47 Crenated Cell Not Reportable 03/13/22 07:47 Elliptocytes Not Reportable 03/13/22 07:47 Acanthocytes (Spur) Not Reportable 03/13/22 07:47 Rouleaux Not Reportable 03/13/22 07:47 Hemoglobin C Crystals Not Reportable 03/13/22 07:47 Schistocytes Not Reportable 03/13/22 07:47 Malaria parasites Not Reportable 03/13/22 07:47 Jorge Bodies Not Reportable 03/13/22 07:47 Hem Pathologist Commnt No 03/13/22 07:47 Sodium 138 mmol/L (137-145) 03/16/22 04:54 Potassium 4.0 mmol/L (3.6-5.0) 03/16/22 04:54 Chloride 98.2 mmol/L (98-107) 03/16/22 04:54 Carbon Dioxide 25 mmol/L (22-30) 03/16/22 04:54 Anion Gap 19 mmol/L 03/16/22 04:54 BUN 39 mg/dL (9-20) H 03/16/22 04:54 Creatinine 4.7 mg/dL (0.8-1.3) H 03/16/22 04:54 Estimated GFR 16 ml/min 03/16/22 04:54 BUN/Creatinine Ratio 8 % 03/16/22 04:54 Glucose 113 mg/dL (75-100) H 03/16/22 04:54 POC Glucose 150 mg/dL (70-105) H 03/15/22 08:49 Calcium 7.7 mg/dL (8.4-10.2) L 03/16/22 04:54 Phosphorus 4.90 mg/dL (2.5-4.5) H 03/15/22 04:59 Total Bilirubin 0.60 mg/dL (0.1-1.2) 03/14/22 05:11 AST 23 units/L (5-40) 03/14/22 05:11 ALT 32 units/L (7-56) 03/14/22 05:11 Alkaline Phosphatase 112 units/L (35-129) 03/14/22 05:11 Total Creatine Kinase 1247 units/L (55-170) H 03/13/22 16:09 Troponin T 0.098 ng/mL (0.00-0.029) H 03/13/22 07:47 NT-Pro-B Natriuret Pep 79960 pg/mL (0-450) H 03/13/22 08:28 Total Protein 5.9 g/dL (6.3-8.2) L 03/14/22 05:11 Albumin 3.3 g/dL (3.9-5) L 03/14/22 05:11 Albumin/Globulin Ratio 1.3 % 03/14/22 05:11 Urine Color Straw (Yellow) 03/13/22 15:29 Urine Turbidity Clear (Clear) 03/13/22 15:29 Urine pH 6.0 (5.0-7.0) 03/13/22 15:29 Ur Specific Marshall 1.010 (1.003-1.030) 03/13/22 15:29 Urine Protein >500 mg/dL (Negative) 03/13/22 15:29 Urine Glucose (UA) Negative mg/dL (Negative) 03/13/22 15:29 Urine Ketones 15 mg/dL (Negative) 03/13/22 15:29 Urine Blood 2+ (Negative) 03/13/22 15:29 Urine Nitrite Negative (Negative) 03/13/22 15:29 Ur Reducing Substances Not Reportable 03/13/22 15:29 Urine Bilirubin Negative (Negative) 03/13/22 15:29 Urine Ictotest Not Reportable 03/13/22 15:29 Urine Urobilinogen < 2.0 mg/dL (<2.0) 03/13/22 15:29 Ur Leukocyte Esterase Negative (Negative) 03/13/22 15:29 Urine WBC (Auto) 1.0 /HPF (0.0-6.0) 03/13/22 15:29 Urine RBC (Auto) 1.0 /HPF (0.0-6.0) 03/13/22 15:29 Urine Eosinophils None seen (None Seen) 03/13/22 15:29 Urine Creatinine 43.6 mg/dL (0.1-20.0) H 03/13/22 15:29 Protein/Creatinin Ratio 5.78 03/13/22 15:29 Urine Sodium 85 mmol/L 03/13/22 15:29 Urine Total Protein 252 mg/dL (5-11.8) H 03/13/22 15:29 Hepatitis A IgM Ab Non-reactive (NonReactive) 03/15/22 12:37 Hep Bs Antigen Non-reactive (Negative) 03/15/22 12:37 Hep B Core IgM Ab Non-reactive (NonReactive) 03/15/22 12:37 Hepatitis C Antibody Non-reactive (NonReactive) 03/15/22 12:37 Bates/IV: Voiding Method Toilet Active Medications - Current Medications Current Medications: Generic Name Dose Route Start Last Admin Trade Name Freq PRN Reason Stop Dose Admin Acetaminophen 650 mg 03/13/22 18:17 03/14/22 23:51 Acetaminophen 325 Mg Tab PO 650 mg Q4H PRN Administration Pain MILD(1-3)/Fever >100.5/WHITTAKER Carvedilol 12.5 mg 03/14/22 10:00 03/16/22 09:36 Carvedilol 12.5 Mg Tab PO 12.5 mg BID JIMMY Administration Furosemide 80 mg 03/13/22 14:00 03/16/22 05:56 Furosemide 40 Mg Tab PO 80 mg Q8H JIMMY Administration Hydralazine HCl 10 mg 03/13/22 22:00 03/13/22 22:14 Hydralazine 20 Mg/1 Ml Inj IV 10 mg Q6HR PRN Administration SBP >/=160; DBP >/=100 Hydralazine HCl 100 mg 03/14/22 09:00 03/16/22 05:53 Hydralazine 100 Mg Tab PO 100 mg Q8HR JIMMY Administration Hydromorphone HCl 0.5 mg 03/13/22 18:17 Hydromorphone 0.5 Mg/0.5 Ml Inj IV Q3H PRN Pain , Severe (7-10) Metoclopramide HCl 10 mg 03/13/22 18:17 Metoclopramide 10 Mg/2 Ml Inj IV Q6H PRN Nausea And Vomiting Morphine Sulfate 2 mg 03/13/22 18:17 Morphine 2 Mg/1 Ml Inj IV Q4H PRN Pain, Moderate (4-6) Nifedipine 60 mg 03/14/22 15:00 03/16/22 09:36 Nifedipine Xl 60 Mg Tab PO 60 mg Q12HR JIMMY Administration Ondansetron HCl 4 mg 03/13/22 18:17 Ondansetron 4 Mg/2 Ml Inj IV Q8H PRN Nausea And Vomiting Oxycodone/Acetaminophen 1 tab 03/13/22 18:17 03/16/22 04:22 Oxycodone /Acetaminophen 5-325mg Tab PO 1 tab Q6H PRN Administration Pain, Moderate (4-6) Sodium Chloride 10 ml 03/13/22 22:00 03/16/22 09:36 Sodium Chloride 0.9% 10 Ml Flush Syringe IV 10 ml BID JIMMY Administration Sodium Chloride 10 ml 03/13/22 18:17 Sodium Chloride 0.9% 10 Ml Flush Syringe IV PRN PRN LINE FLUSH
--- NOTE | 2022-03-16 10:58 | Progress Note ---
Assessment and Plan Assessment and Plan Acute renal failure on top of CKD vs CKD progression S/P Hyperkalemia Volume overload Hypertension Diabetes Mellitus CHF Plan: Hemodialysis again today for UF and clearance S/P perm-catheter placement yesterday and also first HD treatment yesterday on 03/15/22 Has known advanced CKD, followed by Dr. Sol in the office CXR congested, on Lasix 80 mg po TID for diuresis, decrease Lasix to 40 mg po BID since now on HD Echo shows LVEF 25-30% as per Cardiology Renal ultrasound reviewed-No hydronephrosis. Medical renal disease. Urine studies showed known proteinuria, likely from DM In 2019, CHOCO, SPEP, C3/C4, ANCA, HIV, Hep panel were negative Obtain daily weights Monitor I/O's daily Avoid nephrotoxic agents Assess dialysis needs daily Monitor renal function closely CM onboard for outpatient HD arrangement Plan of care reviewed by Dr. Fonseca Subjective Date of service: 03/16/22 Principal diagnosis: Systolic heart failure Interval history: Patient seen in dialysis unit. Tolerating HD well. Objective - Vital Signs Vital signs: Vital Signs - 12hr 03/15/22 03/16/22 03/16/22 23:47 04:01 08:36 Temperature 98.4 F 97.8 F 97.9 F Pulse Rate 89 87 89 Respiratory 14 18 18 Rate Blood Pressure 140/79 136/82 129/79 O2 Sat by Pulse 97 94 94 Oximetry 03/16/22 10:00 Temperature Pulse Rate Respiratory Rate Blood Pressure O2 Sat by Pulse 98 Oximetry - General Appearance General appearance: well-developed, appears stated age EENT: ATNC, PERRL, hearing intact, vision intact Neck: no JVD, supple Respiratory: Present: Decreased Breath Sounds Cardiology: S1S2 Gastrointestinal: normoactive bowel sounds Integumentary: warm and dry Neurologic: alert and oriented x3 Musculoskeletal: other (positive edema) Psychiatric: cooperative - Lab 03/14/22 05:11 03/16/22 04:54 Most recent lab results Calcium 7.7 mg/dL (8.4-10.2) L 03/16/22 04:54 Phosphorus 4.90 mg/dL (2.5-4.5) H 03/15/22 04:59 Urine Creatinine 43.6 mg/dL (0.1-20.0) H 03/13/22 15:29 Urine Sodium 85 mmol/L 03/13/22 15:29 Urine Total Protein 252 mg/dL (5-11.8) H 03/13/22 15:29 Medications & Allergies - Medications Allergies/Adverse Reactions: Allergies shellfish derived Adverse Reaction (Verified 03/14/22 09:51) Anaphylaxis patient says he gets "hives and can't breathe" Home Medications: Home Medications Medication Instructions Recorded Confirmed Last Taken Type amLODIPine 10 mg PO QDAY #30 tablet 07/18/20 03/14/22 Unknown Rx glipiZIDE XL [Glucotrol Xl] 2.5 mg PO QAM #30 tab.er.24 07/18/20 03/14/22 Unknown Rx hydrALAZINE [Apresoline TAB] 50 mg PO Q8HR #90 tablet 07/18/20 03/14/22 1 Month Ago Rx ~02/11/22 Labetalol HCl [Labetalol 300mg TAB] 300 mg PO BID 03/14/22 03/14/22 Unknown History Torsemide [Demadex] 10 mg PO QDAY 03/14/22 03/14/22 Unknown History Active Medications: Generic Name Dose Route Start Last Admin Trade Name Freq PRN Reason Stop Dose Admin Acetaminophen 650 mg 03/13/22 18:17 03/14/22 23:51 Acetaminophen 325 Mg Tab PO 650 mg Q4H PRN Administration Pain MILD(1-3)/Fever >100.5/[place]IT[place]KER Carvedilol 12.5 mg 03/14/22 10:00 03/16/22 09:36 Carvedilol 12.5 Mg Tab PO 12.5 mg BID JIMMY Administration Furosemide 80 mg 03/13/22 14:00 03/16/22 05:56 Furosemide 40 Mg Tab PO 80 mg Q8H JIMMY Administration Hydralazine HCl 10 mg 03/13/22 22:00 03/13/22 22:14 Hydralazine 20 Mg/1 Ml Inj IV 10 mg Q6HR PRN Administration SBP >/=160; DBP >/=100 Hydralazine HCl 100 mg 03/14/22 09:00 03/16/22 05:53 Hydralazine 100 Mg Tab PO 100 mg Q8HR JIMMY Administration Hydromorphone HCl 0.5 mg 03/13/22 18:17 Hydromorphone 0.5 Mg/0.5 Ml Inj IV Q3H PRN Pain , Severe (7-10) Metoclopramide HCl 10 mg 03/13/22 18:17 Metoclopramide 10 Mg/2 Ml Inj IV Q6H PRN Nausea And Vomiting Morphine Sulfate 2 mg 03/13/22 18:17 Morphine 2 Mg/1 Ml Inj IV Q4H PRN Pain, Moderate (4-6) Nifedipine 60 mg 03/14/22 15:00 03/16/22 09:36 Nifedipine Xl 60 Mg Tab PO 60 mg Q12HR JIMMY Administration Ondansetron HCl 4 mg 03/13/22 18:17 Ondansetron 4 Mg/2 Ml Inj IV Q8H PRN Nausea And Vomiting Oxycodone/Acetaminophen 1 tab 03/13/22 18:17 03/16/22 04:22 Oxycodone /Acetaminophen 5-325mg Tab PO 1 tab Q6H PRN Administration Pain, Moderate (4-6) Sodium Chloride 10 ml 03/13/22 22:00 03/16/22 09:36 Sodium Chloride 0.9% 10 Ml Flush Syringe IV 10 ml BID JIMMY Administration Sodium Chloride 10 ml 03/13/22 18:17 Sodium Chloride 0.9% 10 Ml Flush Syringe IV PRN PRN LINE FLUSH
--- NOTE | 2022-03-16 13:37 | Progress Note ---
Assessment and Plan - Patient Problems (1) Pulmonary edema Current Visit: Yes Status: Acute Plan to address problem: 46-year-old man who presents with fluid overload and pulmonary edema. His heart failure exacerbation is multifactorial. There is chronic severe uncontrolled hypertension, there is worsening renal failure with a creatinine currently end- stage at 6.4. Echocardiogram shows the presence of a cardiomyopathy, with left ventricular ejection fraction 25 to 30%. Symptoms have improved with blood pressure control, diuresis and initiation of hemodialysis. Ultimately, will need a Lexiscan thallium stress test either predischarge or as outpatient. Subjective Date of service: 03/16/22 Principal diagnosis: Systolic heart failure Interval history: Patient has had a dialysis catheter inserted and dialysis initiated. No cardiac complaints, looks and feels better. Objective Vital Signs Temp Pulse Resp BP Pulse Ox Pulse Ox 03/16/22 13:15 83 145/59 03/16/22 13:00 80 126/69 03/16/22 12:45 86 114/70 03/16/22 12:30 83 139/60 03/16/22 12:15 78 125/70 03/16/22 12:00 81 131/74 03/16/22 11:45 80 151/70 03/16/22 11:30 97.8 F 80 16 151/70 100 03/16/22 11:22 98.0 F 85 18 136/83 93 03/16/22 10:00 98 03/16/22 08:36 97.9 F 89 18 129/79 94 03/16/22 04:01 97.8 F 87 18 136/82 94 03/15/22 23:47 98.4 F 89 14 140/79 97 03/15/22 22:05 117 H 03/15/22 22:00 16 98 03/15/22 21:00 103 H 03/15/22 19:30 98.0 F 93 H 12 148/89 98 03/15/22 19:20 98.8 F 83 20 151/85 97 03/15/22 19:00 86 146/83 03/15/22 18:45 83 150/80 03/15/22 18:30 79 123/64 03/15/22 18:15 71 126/82 03/15/22 18:00 80 143/68 03/15/22 17:45 80 141/71 03/15/22 17:30 80 146/69 03/15/22 17:15 76 140/81 03/15/22 17:00 79 137/69 03/15/22 16:45 56 L 136/74 03/15/22 16:30 77 147/69 03/15/22 16:15 79 144/84 03/15/22 16:00 79 144/84 03/15/22 15:50 98.2 F 79 18 151/85 97 - Physical Examination General: No Apparent Distress HEENT: Positive: PERRL Neck: Positive: neck supple Cardiac: Positive: Reg Rate and Rhythm Lungs: Positive: clear to auscultation Neuro: Positive: Grossly Intact Abdomen: Positive: Soft Skin: Positive: Clear Extremities: Present: +1 Edema - Labs and Meds Comprehensive Metabolic Panel 03/16/22 Range/Units 04:54 Sodium 138 (137-145) mmol/L Potassium 4.0 (3.6-5.0) mmol/L Chloride 98.2 (98-107) mmol/L Carbon Dioxide 25 (22-30) mmol/L BUN 39 H (9-20) mg/dL Creatinine 4.7 H (0.8-1.3) mg/dL Glucose 113 H (75-100) mg/dL Calcium 7.7 L (8.4-10.2) mg/dL
[2022-03-16] MEDS ORDERED: FUROSEMIDE 40 MG TAB PO SCH (22:00)
[2022-03-17] MEDS: hydrALAZINE 100 MG TAB PO SCH ×3 (06:20→21:22)
[2022-03-17 06:30] LABS: Hematocrit 40.8 % (35.5-45.6); Mean Corpuscular HGB Conc 32 % (32-34); Mean Corpuscular Volume 74 fl (84-94); Platelet Count 275 K/mm3 (140-440); Red Blood Count 5.55 M/mm3 (3.65-5.03); Red Cell Distribution Width 15.6 % (13.2-15.2)
[2022-03-17 06:42] LABS: Calcium 8.1 mg/dL (8.4-10.2)
[2022-03-17 08:58] LABS: Basophils % (Manual) 0 % (0.0-1.8); Myelocytes # (Manual) 0.1 K/mm3; Total Cells Counted 100
[2022-03-17 08:59] LABS: Target Cells 1+
[2022-03-17 09:00] LABS: Platelet Estimate Consistent w Auto
--- NOTE | 2022-03-17 09:03 | Progress Note ---
Assessment and Plan Acute renal failure on top of CKD vs CKD progression S/P Hyperkalemia Volume overload Hypertension Diabetes Mellitus CHF Plan: no indication for HD today S/P perm-catheter placement yesterday and also first HD treatment yesterday on 03/15/22 Echo shows LVEF 25-30% as per Cardiology Renal ultrasound reviewed-No hydronephrosis. Medical renal disease. Urine studies showed known proteinuria, likely from DM In 2019, CHOCO, SPEP, C3/C4, ANCA, HIV, Hep panel were negative Obtain daily weights Monitor I/O's daily Avoid nephrotoxic agents Assess dialysis needs daily Monitor renal function closely CM onboard for outpatient HD arrangement Subjective Date of service: 03/17/22 Principal diagnosis: Systolic heart failure Interval history: tolerated HD yesterday Objective - Vital Signs Vital signs: Vital Signs - 12hr 03/16/22 03/16/22 03/16/22 21:04 22:00 23:29 Temperature 98.2 F Pulse Rate 93 H 88 83 Respiratory 16 Rate Blood Pressure 150/94 125/78 O2 Sat by Pulse 98 97 Oximetry 03/17/22 03/17/22 03/17/22 03:48 07:41 07:44 Temperature 97.9 F 98.0 F Pulse Rate 85 64 Respiratory 12 18 Rate Blood Pressure 133/81 148/77 O2 Sat by Pulse 92 98 99 Oximetry - Lab 03/17/22 04:43 03/17/22 04:43 Most recent lab results Calcium 8.1 mg/dL (8.4-10.2) L 03/17/22 04:43 Phosphorus 4.90 mg/dL (2.5-4.5) H 03/15/22 04:59 Urine Creatinine 43.6 mg/dL (0.1-20.0) H 03/13/22 15:29 Urine Sodium 85 mmol/L 03/13/22 15:29 Urine Total Protein 252 mg/dL (5-11.8) H 03/13/22 15:29 Medications & Allergies - Medications Allergies/Adverse Reactions: Allergies shellfish derived Adverse Reaction (Verified 03/14/22 09:51) Anaphylaxis patient says he gets "hives and can't breathe" Home Medications: Home Medications Medication Instructions Recorded Confirmed Last Taken Type amLODIPine 10 mg PO QDAY #30 tablet 07/18/20 03/14/22 Unknown Rx glipiZIDE XL [Glucotrol Xl] 2.5 mg PO QAM #30 tab.er.24 07/18/20 03/14/22 U nknown Rx hydrALAZINE [Apresoline TAB] 50 mg PO Q8HR #90 tablet 07/18/20 03/14/22 1 Month Ago Rx ~02/11/22 Labetalol HCl [Labetalol 300mg TAB] 300 mg PO BID 03/14/22 03/14/22 Unknown History Torsemide [Demadex] 10 mg PO QDAY 03/14/22 03/14/22 Unknown History Active Medications: Generic Name Dose Route Start Last Admin Trade Name Freq PRN Reason Stop Dose Admin Acetaminophen 650 mg 03/13/22 18:17 03/14/22 23:51 Acetaminophen 325 Mg Tab PO 650 mg Q4H PRN Administration Pain MILD(1-3)/Fever >100.5/WHITTAKER Carvedilol 12.5 mg 03/14/22 10:00 03/16/22 21:04 Carvedilol 12.5 Mg Tab PO 12.5 mg BID JIMMY Administration Furosemide 40 mg 03/16/22 22:00 03/16/22 21:04 Furosemide 40 Mg Tab PO 40 mg BID JIMMY Administration Hydralazine HCl 10 mg 03/13/22 22:00 03/13/22 22:14 Hydralazine 20 Mg/1 Ml Inj IV 10 mg Q6HR PRN Administration SBP >/=160; DBP >/=100 Hydralazine HCl 100 mg 03/14/22 09:00 03/17/22 06:20 Hydralazine 100 Mg Tab PO 100 mg Q8HR JIMMY Administration Hydromorphone HCl 0.5 mg 03/13/22 18:17 Hydromorphone 0.5 Mg/0.5 Ml Inj IV Q3H PRN Pain , Severe (7-10) Metoclopramide HCl 10 mg 03/13/22 18:17 Metoclopramide 10 Mg/2 Ml Inj IV Q6H PRN Nausea And Vomiting Morphine Sulfate 2 mg 03/13/22 18:17 Morphine 2 Mg/1 Ml Inj IV Q4H PRN Pain, Moderate (4-6) Nifedipine 60 mg 03/14/22 15:00 03/16/22 21:05 Nifedipine Xl 60 Mg Tab PO 60 mg Q12HR JIMMY Administration Ondansetron HCl 4 mg 03/13/22 18:17 Ondansetron 4 Mg/2 Ml Inj IV Q8H PRN Nausea And Vomiting Oxycodone/Acetaminophen 1 tab 03/13/22 18:17 03/16/22 04:22 Oxycodone /Acetaminophen 5-325mg Tab PO 1 tab Q6H PRN Administration Pain, Moderate (4-6) Sodium Chloride 10 ml 03/13/22 22:00 03/16/22 21:06 Sodium Chloride 0.9% 10 Ml Flush Syringe IV 10 ml BID JIMMY Administration Sodium Chloride 10 ml 03/13/22 18:17 Sodium Chloride 0.9% 10 Ml Flush Syringe IV PRN PRN LINE FLUSH
[2022-03-17] MEDS: NIFEdipine XL 60 MG TAB PO SCH ×2 (09:31→21:22)
[2022-03-17] MEDS: carvediloL 12.5 MG TAB PO SCH ×2 (09:31→21:21)
[2022-03-17] MEDS: FUROSEMIDE 40 MG TAB PO SCH ×2 (09:32→21:22)
--- NOTE | 2022-03-17 10:31 | Progress Note ---
Assessment and Plan Assessment and plan: 46-year-old male with history of chronic uncontrolled hypertension and chronic kidney disease who presented through the emergency department with complaints of 3-4 days of increasing shortness of breath and lower extremity edema. EKG revealed normal sinus rhythm with normal ST-T wave changes. Chest x-ray revealed moderate severity cardiomegaly with diffuse interstitial edema. Laboratory findings reveal a creatinine of 6.0 with baseline creatinine of 3.5 previously. Patient also noted to have persistently elevated BP despite treatment with amlodipine, carvedilol and hydralazine. Acute on chronic systolic heart failure. Acute on chronic kidney disease Hypokalemia Cardiomyopathy Accelerated hypertension. Diabetes mellitus type 2 03/15/2022. Echocardiogram revealed cardiomyopathy with left ventricular systolic function of 25-30%. Continue GDMT for heart failure per cardiology recommen dations. BP is much better controlled. Continue aggressive diuresis with Lasix 80 mg 3 times daily. Renal ultrasound revealed no hydronephrosis but did reveal medical renal disease. Urine studies showed known proteinuria likely from DM. Nephrology reports patient consenting to hemodialysis if no significant improvement in renal function. Unfortunately, renal function appears to be about the same. Patient will need PermCath placement. Also, patient will likely need ischemic evaluation with stress test once hemodialysis initiated and renal issues stabilized 03/16/2022. Patient is s/p PermCath placement yesterday with the initiation of hemodialysis. We will discuss with case management plans for outpatient hemodialysis chair. Await cardiology plans for ischemic evaluation. Continue GDMT for systolic heart failure. Continue Accu-Cheks and sliding scale insulin. 03/17/2022. Patient initiated on hemodialysis on 03/15/2022. We are waiting for outpatient hemodialysis chair. Echocardiogram revealed cardiomyopathy with LVEF 25 to 30%. Continue tight blood pressure control, diuresis and hemodialysis. Cardiology reports patient will ultimately need stress test either predischarge or as an outpatient History Interval history: No new issues overnight Hospitalist Physical - Constitutional Vitals: Temp Pulse Resp BP Pulse Ox 98.0 F 64 18 148/77 99 03/17/22 07:44 03/17/22 07:44 03/17/22 07:44 03/17/22 07:44 03/17/22 07:44 General appearance: Present: no acute distress - EENT Eyes: Present: PERRL, EOM intact ENT: hearing intact, clear oral mucosa, dentition normal - Neck Neck: Present: supple, normal ROM - Respiratory Respiratory effort: normal Respiratory: bilateral: CTA - Cardiovascular Rhythm: regular Heart Sounds: Present: S1 & S2. Absent: gallop, rub - Extremities Extremities: no ischemia, No edema, Full ROM - Abdominal General gastrointestinal: soft, non-tender, non-distended, normal bowel sounds - Integumentary Integumentary: Present: clear, warm, dry - Neurologic Neurologic: CNII-XII intact, moves all extremities HEART Score - HEART Score Troponin: Troponin T 0.098 ng/mL (0.00-0.029) H 03/13/22 07:47 Results - Labs CBC & Chem 7: 03/17/22 04:43 03/17/22 04:43 Labs: Laboratory Last Values WBC 11.7 K/mm3 (4.5-11.0) H 03/17/22 04:43 RBC 5.55 M/mm3 (3.65-5.03) H 03/17/22 04:43 Hgb 13.0 gm/dl (11.8-15.2) 03/17/22 04:43 Hct 40.8 % (35.5-45.6) D 03/17/22 04:43 MCV 74 fl (84-94) L 03/17/22 04:43 MCH 24 pg (28-32) L 03/17/22 04:43 MCHC 32 % (32-34) 03/17/22 04:43 RDW 15.6 % (13.2-15.2) H 03/17/22 04:43 Plt Count 275 K/mm3 (140-440) 03/17/22 04:43 Lymph % (Auto) 5.1 % (13.4-35.0) L 03/14/22 05:11 Anderson % (Auto) 9.8 % (0.0-7.3) H 03/14/22 05:11 Eos % (Auto) 2.5 % (0.0-4.3) 03/14/22 05:11 Baso % (Auto) 0.5 % (0.0-1.8) 03/14/22 05:11 Lymph # (Auto) 0.6 K/mm3 (1.2-5.4) L 03/14/22 05:11 Anderson # (Auto) 1.1 K/mm3 (0.0-0.8) H 03/14/22 05:11 Eos # (Auto) 0.3 K/mm3 (0.0-0.4) 03/14/22 05:11 Baso # (Auto) 0.1 K/mm3 (0.0-0.1) 03/14/22 05:11 Add Manual Diff Complete 03/17/22 04:43 Total Counted 100 03/17/22 04:43 Seg Neutrophils % 82.1 % (40.0-70.0) H 03/14/22 05:11 Seg Neuts % (Manual) 77.0 % (40.0-70.0) H 03/17/22 04:43 Band Neutrophils % 0 % 03/17/22 04:43 Lymphocytes % (Manual) 14.0 % (13.4-35.0) 03/17/22 04:43 Reactive Lymphs % (Man) 3.0 % 03/17/22 04:43 Monocytes % (Manual) 2.0 % (0.0-7.3) 03/17/22 04:43 Eosinophils % (Manual) 3.0 % (0.0-4.3) 03/17/22 04:43 Basophils % (Manual) 0 % (0.0-1.8) 03/17/22 04:43 Metamyelocytes % 0 % 03/17/22 04:43 Myelocytes % 1.0 % 03/17/22 04:43 Promyelocytes % 0 % 03/17/22 04:43 Blast Cells % 0 % 03/17/22 04:43 Nucleated RBC % Not Reportable 03/17/22 04:43 Seg Neutrophils # 9.2 K/mm3 (1.8-7.7) H 03/14/22 05:11 Seg Neutrophils # Man 9.0 K/mm3 (1.8-7.7) H 03/17/22 04:43 Band Neutrophils # 0.0 K/mm3 03/17/22 04:43 Lymphocytes # (Manual) 1.6 K/mm3 (1.2-5.4) 03/17/22 04:43 Abs React Lymphs (Man) 0.4 K/mm3 03/17/22 04:43 Monocytes # (Manual) 0.2 K/mm3 (0.0-0.8) 03/17/22 04:43 Eosinophils # (Manual) 0.4 K/mm3 (0.0-0.4) 03/17/22 04:43 Basophils # (Manual) 0.0 K/mm3 (0.0-0.1) 03/17/22 04:43 Metamyelocytes # 0.0 K/mm3 03/17/22 04:43 Myelocytes # 0.1 K/mm3 03/17/22 04:43 Promyelocytes # 0.0 K/mm3 03/17/22 04:43 Blast Cells # 0.0 K/mm3 03/17/22 04:43 WBC Morphology Not Reportable 03/17/22 04:43 Hypersegmented Neuts Not Reportable 03/17/22 04:43 Hyposegmented Neuts Not Reportable 03/17/22 04:43 Hypogranular Neuts Not Reportable 03/17/22 04:43 Smudge Cells Not Reportable 03/17/22 04:43 Toxic Granulation Not Reportable 03/17/22 04:43 Toxic Vacuolation Not Reportable 03/17/22 04:43 Dohle Bodies Not Reportable 03/17/22 04:43 Pelger-Huet Anomaly Not Reportable 03/17/22 04:43 Tobi Rods Not Reportable 03/17/22 04:43 Platelet Estimate Consistent w auto 03/17/22 04:43 Clumped Platelets Not Reportable 03/17/22 04:43 Plt Clumps, EDTA Not Reportable 03/17/22 04:43 Large Platelets Not Reportable 03/17/22 04:43 Giant Platelets Not Reportable 03/17/22 04:43 Platelet Satelliting Not Reportable 03/17/22 04:43 Plt Morphology Comment Not Reportable 03/17/22 04:43 RBC Morphology Not Reportable 03/17/22 04:43 Dimorphic RBCs Not Reportable 03/17/22 04:43 Polychromasia Not Reportable 03/17/22 04:43 Hypochromasia Not Reportable 03/17/22 04:43 Poikilocytosis Not Reportable 03/17/22 04:43 Anisocytosis Not Reportable 03/17/22 04:43 Microcytosis Not Reportable 03/17/22 04:43 Macrocytosis Not Reportable 03/17/22 04:43 Spherocytes Not Reportable 03/17/22 04:43 Pappenheimer Bodies Not Reportable 03/17/22 04:43 Sickle Cells Not Reportable 03/17/22 04:43 Target Cells 1+ 03/17/22 04:43 Tear Drop Cells Not Reportable 03/17/22 04:43 Ovalocytes Not Reportable 03/17/22 04:43 Helmet Cells Not Reportable 03/17/22 04:43 Kahn-[place] Bodies Not Reportable 03/17/22 04:43 Sciota Rings Not Reportable 03/17/22 04:43 Khoi Cells Not Reportable 03/17/22 04:43 Bite Cells Not Reportable 03/17/22 04:43 Crenated Cell Not Reportable 03/17/22 04:43 Elliptocytes Not Reportable 03/17/22 04:43 Acanthocytes (Spur) Not Reportable 03/17/22 04:43 Rouleaux Not Reportable 03/17/22 04:43 Hemoglobin C Crystals Not Reportable 03/17/22 04:43 Schistocytes Not Reportable 03/17/22 04:43 Malaria parasites Not Reportable 03/17/22 04:43 Jorge Bodies Not Reportable 03/17/22 04:43 Hem Pathologist Commnt No 03/17/22 04:43 Sodium 137 mmol/L (137-145) 03/17/22 04:43 Potassium 3.9 mmol/L (3.6-5.0) 03/17/22 04:43 Chloride 96.4 mmol/L (98-107) L 03/17/22 04:43 Carbon Dioxide 24 mmol/L (22-30) 03/17/22 04:43 Anion Gap 21 mmol/L 03/17/22 04:43 BUN 34 mg/dL (9-20) H 03/17/22 04:43 Creatinine 4.8 mg/dL (0.8-1.3) H 03/17/22 04:43 Estimated GFR 16 ml/min 03/17/22 04:43 BUN/Creatinine Ratio 7 % 03/17/22 04:43 Glucose 114 mg/dL (75-100) H 03/17/22 04:43 POC Glucose 150 mg/dL (70-105) H 03/15/22 08:49 Calcium 8.1 mg/dL (8.4-10.2) L 03/17/22 04:43 Phosphorus 4.90 mg/dL (2.5-4.5) H 03/15/22 04:59 Total Bilirubin 0.60 mg/dL (0.1-1.2) 03/14/22 05:11 AST 23 units/L (5-40) 03/14/22 05:11 ALT 32 units/L (7-56) 03/14/22 05:11 Alkaline Phosphatase 112 units/L (35-129) 03/14/22 05:11 Total Creatine Kinase 1247 units/L (55-170) H 03/13/22 16:09 Troponin T 0.098 ng/mL (0.00-0.029) H 03/13/22 07:47 NT-Pro-B Natriuret Pep 97032 pg/mL (0-450) H 03/13/22 08:28 Total Protein 5.9 g/dL (6.3-8.2) L 03/14/22 05:11 Albumin 3.3 g/dL (3.9-5) L 03/14/22 05:11 Albumin/Globulin Ratio 1.3 % 03/14/22 05:11 Urine Color Straw (Yellow) 03/13/22 15:29 Urine Turbidity Clear (Clear) 03/13/22 15:29 Urine pH 6.0 (5.0-7.0) 03/13/22 15:29 Ur Specific [place] 1.010 (1.003-1.030) 03/13/22 15:29 Urine Protein >500 mg/dL (Negative) 03/13/22 15:29 Urine Glucose (UA) Negative mg/dL (Negative) 03/13/22 15:29 Urine Ketones 15 mg/dL (Negative) 03/13/22 15:29 Urine Blood 2+ (Negative) 03/13/22 15:29 Urine Nitrite Negative (Negative) 03/13/22 15:29 Ur Reducing Substances Not Reportable 03/13/22 15:29 Urine Bilirubin Negative (Negative) 03/13/22 15:29 Urine Ictotest Not Reportable 03/13/22 15:29 Urine Urobilinogen < 2.0 mg/dL (<2.0) 03/13/22 15:29 Ur Leukocyte Esterase Negative (Negative) 03/13/22 15:29 Urine WBC (Auto) 1.0 /HPF (0.0-6.0) 03/13/22 15:29 Urine RBC (Auto) 1.0 /HPF (0.0-6.0) 03/13/22 15:29 Urine Eosinophils None seen (None Seen) 03/13/22 15:29 Urine Creatinine 43.6 mg/dL (0.1-20.0) H 03/13/22 15:29 Protein/Creatinin Ratio 5.78 03/13/22 15:29 Urine Sodium 85 mmol/L 03/13/22 15:29 Urine Total Protein 252 mg/dL (5-11.8) H 03/13/22 15:29 Hepatitis A IgM Ab Non-reactive (NonReactive) 03/15/22 12:37 Hep Bs Antigen Non-reactive (Negative) 03/15/22 12:37 Hep B Core IgM Ab Non-reactive (NonReactive) 03/15/22 12:37 Hepatitis C Antibody Non-reactive (NonReactive) 03/15/22 12:37 Bates/IV: Voiding Method Toilet Active Medications - Current Medications Current Medications: Generic Name Dose Route Start Last Admin Trade Name Freq PRN Reason Stop Dose Admin Acetaminophen 650 mg 03/13/22 18:17 03/14/22 23:51 Acetaminophen 325 Mg Tab PO 650 mg Q4H PRN Administration Pain MILD(1-3)/Fever >100.5/WHITTAKER Carvedilol 12.5 mg 03/14/22 10:00 03/17/22 09:31 Carvedilol 12.5 Mg Tab PO 12.5 mg BID JIMMY Administration Furosemide 40 mg 03/16/22 22:00 03/17/22 09:32 Furosemide 40 Mg Tab PO 40 mg BID JIMMY Administration Hydralazine HCl 10 mg 03/13/22 22:00 03/13/22 22:14 Hydralazine 20 Mg/1 Ml Inj IV 10 mg Q6HR PRN Administration SBP >/=160; DBP >/=100 Hydralazine HCl 100 mg 03/14/22 09:00 03/17/22 06:20 Hydralazine 100 Mg Tab PO 100 mg Q8HR JIMMY Administration Hydromorphone HCl 0.5 mg 03/13/22 18:17 Hydromorphone 0.5 Mg/0.5 Ml Inj IV Q3H PRN Pain , Severe (7-10) Metoclopramide HCl 10 mg 03/13/22 18:17 Metoclopramide 10 Mg/2 Ml Inj IV Q6H PRN Nausea And Vomiting Morphine Sulfate 2 mg 03/13/22 18:17 Morphine 2 Mg/1 Ml Inj IV Q4H PRN Pain, Moderate (4-6) Nifedipine 60 mg 03/14/22 15:00 03/17/22 09:31 Nifedipine Xl 60 Mg Tab PO 60 mg Q12HR JIMMY Administration Ondansetron HCl 4 mg 03/13/22 18:17 Ondansetron 4 Mg/2 Ml Inj IV Q8H PRN Nausea And Vomiting Oxycodone/Acetaminophen 1 tab 03/13/22 18:17 03/16/22 04:22 Oxycodone /Acetaminophen 5-325mg Tab PO 1 tab Q6H PRN Administration Pain, Moderate (4-6) Sodium Chloride 10 ml 03/13/22 22:00 03/17/22 09:32 Sodium Chloride 0.9% 10 Ml Flush Syringe IV 10 ml BID JIMMY Administration Sodium Chloride 10 ml 03/13/22 18:17 Sodium Chloride 0.9% 10 Ml Flush Syringe IV PRN PRN LINE FLUSH
--- NOTE | 2022-03-17 13:10 | Progress Note ---
Assessment and Plan - Patient Problems (1) Pulmonary edema Current Visit: Yes Status: Acute Plan to address problem: 46-year-old man who presents with fluid overload and pulmonary edema. His heart failure exacerbation is multifactorial. There is chronic severe uncontrolled hypertension, there is worsening renal failure with a creatinine currently end- stage at 6.4. Echocardiogram shows the presence of a cardiomyopathy, with left ventricular ejection fraction 25 to 30%. Symptoms have improved with blood pressure control, diuresis and initiation of hemodialysis. Cardiac stable and asymptomatic. We will perform noninvasive ischemia assessment as indicated in the outpatient setting. Subjective Date of service: 03/17/22 Principal diagnosis: Systolic heart failure Interval history: Patient has had a dialysis catheter inserted and dialysis initiated. No cardiac complaints, looks and feels better. Objective Vital Signs Temp Pulse Resp BP Pulse Ox Pulse Ox 03/17/22 07:44 98.0 F 64 18 148/77 99 03/17/22 07:41 98 03/17/22 03:48 97.9 F 85 12 133/81 92 03/16/22 23:29 98.2 F 83 16 125/78 97 03/16/22 22:00 88 98 03/16/22 21:04 93 H 150/94 03/16/22 19:48 98.4 F 93 H 16 150/94 96 03/16/22 16:22 98.1 F 97 H 18 137/83 95 03/16/22 14:44 97.8 F 71 16 131/69 100 03/16/22 14:40 71 131/69 03/16/22 14:30 80 142/66 03/16/22 14:15 85 139/83 03/16/22 14:00 84 126/69 03/16/22 13:45 83 143/80 03/16/22 13:30 80 140/60 03/16/22 13:15 83 145/59 - Physical Examination General: No Apparent Distress HEENT: Positive: PERRL Neck: Positive: neck supple Cardiac: Positive: Reg Rate and Rhythm Lungs: Positive: Decreased Breath Sounds Neuro: Positive: Grossly Intact Abdomen: Positive: Soft Skin: Positive: Clear Extremities: Present: +1 Edema - Labs and Meds CBC 03/17/22 Range/Units 04:43 WBC 11.7 H (4.5-11.0) K/mm3 RBC 5.55 H (3.65-5.03) M/mm3 Hgb 13.0 (11.8-15.2) gm/dl Hct 40.8 D (35.5-45.6) % Plt Count 275 (140-440) K/mm3 Comprehensive Metabolic Panel 03/17/22 Range/Units 04:43 Sodium 137 (137-145) mmol/L Potassium 3.9 (3.6-5.0) mmol/L Chloride 96.4 L (98-107) mmol/L Carbon Dioxide 24 (22-30) mmol/L BUN 34 H (9-20) mg/dL Creatinine 4.8 H (0.8-1.3) mg/dL Glucose 114 H (75-100) mg/dL Calcium 8.1 L (8.4-10.2) mg/dL
[2022-03-17] MEDS ORDERED: METOCLOPRAMIDE 10 MG/2 ML INJ IV PRN (14:00)
--- NOTE | 2022-03-17 18:03 | Electrocardiograph Report ---
[facility] Test Date: 2022-03-14 Test Time: 09:52:44 Pat Name: VISHNU SCOTT Department: Room: A452 1 Gender: M [employer]sement[employer] Worker: AME : 1975 Requested By: GUANAKITO KUHN Order Number: [id number] Reading MD: Karen Ibanez Measurements Intervals [place] Rate: 78 P: 52 WV: 151 QRS: -7 QRSD: 90 T: 63 QT: 441 QTc: 505 Interpretive Statements Sinus rhythm Ventricular trigeminy Probable LVH with secondary repol abnrm Prolonged QT interval Compared to ECG 03/13/2022 07:28:49 No significant change Electronically Signed On 03-17-2022 18:02:26 EDT by Karen Ibanez
[2022-03-18] MEDS: hydrALAZINE 100 MG TAB PO SCH ×3 (05:08→21:27)
--- NOTE | 2022-03-18 09:14 | Progress Note ---
Assessment and Plan Acute renal failure on top of CKD vs CKD progression S/P Hyperkalemia Volume overload Hypertension Diabetes Mellitus CHF Plan: HD toay for clearance and volume removal, no UOP was recorded, will check bladder scan S/P perm-catheter placement yesterday and also first HD treatment yesterday on 03/15/22 Echo shows LVEF 25-30% as per Cardiology Renal ultrasound reviewed-No hydronephrosis. Medical renal disease. Urine studies showed known proteinuria, likely from DM In 2019, CHOCO, SPEP, C3/C4, ANCA, HIV, Hep panel were negative Obtain daily weights Monitor I/O's daily Avoid nephrotoxic agents Assess dialysis needs daily Monitor renal function closely CM onboard for outpatient HD arrangement Subjective Date of service: 03/18/22 Principal diagnosis: Systolic heart failure Interval history: no acute distress, no urine output recorded Objective - Vital Signs Vital signs: Vital Signs - 12hr 03/17/22 03/17/22 03/17/22 21:21 22:00 23:31 Temperature 98.5 F Pulse Rate 92 H 91 H 85 Respiratory 12 Rate Blood Pressure 145/93 135/72 O2 Sat by Pulse 98 95 Oximetry 03/18/22 03/18/22 03/18/22 04:02 07:04 07:50 Temperature 97.7 F 97.7 F Pulse Rate 83 47 L Respiratory 14 18 Rate Blood Pressure 151/85 144/79 O2 Sat by Pulse 93 98 96 Oximetry - Lab 03/17/22 04:43 03/17/22 04:43 Most recent lab results Calcium 8.1 mg/dL (8.4-10.2) L 03/17/22 04:43 Phosphorus 4.90 mg/dL (2.5-4.5) H 03/15/22 04:59 Urine Creatinine 43.6 mg/dL (0.1-20.0) H 03/13/22 15:29 Urine Sodium 85 mmol/L 03/13/22 15:29 Urine Total Protein 252 mg/dL (5-11.8) H 03/13/22 15:29 Medications & Allergies - Medications Allergies/Adverse Reactions: Allergies shellfish derived Adverse Reaction (Verified 03/14/22 09:51) Anaphylaxis patient says he gets "hives and can't breathe" Home Medications: Home Medications Medication Instructions Recorded Confirmed Last Taken Type amLODIPine 10 mg PO QDAY #30 tablet 07/18/20 03/14/22 Unknown Rx glipiZIDE XL [Glucotrol Xl] 2.5 mg PO QAM #30 tab.er.24 07/18/20 03/14/22 Unknown Rx hydrALAZINE [Apresoline TAB] 50 mg PO Q8HR #90 tablet 07/18/20 03/14/22 1 Month Ago Rx ~02/11/22 Labetalol HCl [Labetalol 300mg TAB] 300 mg PO BID 03/14/22 03/14/22 Unknown History Torsemide [Demadex] 10 mg PO QDAY 03/14/22 03/14/22 Unknown History Active Medications: Generic Name Dose Route Start Last Admin Trade Name Freq PRN Reason Stop Dose Admin Acetaminophen 650 mg 03/13/22 18:17 03/14/22 23:51 Acetaminophen 325 Mg Tab PO 650 mg Q4H PRN Administration Pain MILD(1-3)/Fever >100.5/WHIT[place]KER Carvedilol 12.5 mg 03/14/22 10:00 03/17/22 21:21 Carvedilol 12.5 Mg Tab PO 12.5 mg BID JIMMY Administration Furosemide 40 mg 03/16/22 22:00 03/17/22 21:22 Furosemide 40 Mg Tab PO 40 mg BID JIMMY Administration Hydralazine HCl 10 mg 03/13/22 22:00 03/13/22 22:14 Hydralazine 20 Mg/1 Ml Inj IV 10 mg Q6HR PRN Administration SBP >/=160; DBP >/=100 Hydralazine HCl 100 mg 03/14/22 09:00 03/18/22 05:08 Hydralazine 100 Mg Tab PO 100 mg Q8HR JIMMY Administration Hydromorphone HCl 0.5 mg 03/13/22 18:17 Hydromorphone 0.5 Mg/0.5 Ml Inj IV Q3H PRN Pain , Severe (7-10) Metoclopramide HCl 5 mg 03/17/22 14:00 Metoclopramide 10 Mg/2 Ml Inj IV Q6H PRN Nausea And Vomiting Morphine Sulfate 2 mg 03/13/22 18:17 Morphine 2 Mg/1 Ml Inj IV Q4H PRN Pain, Moderate (4-6) Nifedipine 60 mg 03/14/22 15:00 03/17/22 21:22 Nifedipine Xl 60 Mg Tab PO 60 mg Q12HR JIMMY Administration Ondansetron HCl 4 mg 03/13/22 18:17 Ondansetron 4 Mg/2 Ml Inj IV Q8H PRN Nausea And Vomiting Oxycodone/Acetaminophen 1 tab 03/13/22 18:17 03/16/22 04:22 Oxycodone /Acetaminophen 5-325mg Tab PO 1 tab Q6H PRN Administration Pain, Moderate (4-6) Sodium Chloride 10 ml 03/13/22 22:00 03/17/22 21:22 Sodium Chloride 0.9% 10 Ml Flush Syringe IV 10 ml BID JIMMY Administration Sodium Chloride 10 ml 03/13/22 18:17 Sodium Chloride 0.9% 10 Ml Flush Syringe IV PRN PRN LINE FLUSH
[2022-03-18] MEDS: NIFEdipine XL 60 MG TAB PO SCH ×2 (09:41→21:27)
[2022-03-18] MEDS: FUROSEMIDE 40 MG TAB PO SCH ×2 (09:41→21:27)
[2022-03-18] MEDS: carvediloL 12.5 MG TAB PO SCH ×2 (09:41→21:27)
--- NOTE | 2022-03-18 09:43 | Progress Note ---
Assessment and Plan Assessment and plan: 46-year-old male with history of chronic uncontrolled hypertension and chronic kidney disease who presented through the emergency department with complaints of 3-4 days of increasing shortness of breath and lower extremity edema. EKG revealed normal sinus rhythm with normal ST-T wave changes. Chest x-ray revealed moderate severity cardiomegaly with diffuse interstitial edema. Laboratory findings reveal a creatinine of 6.0 with baseline creatinine of 3.5 previously. Patient also noted to have persistently elevated BP despite treatment with amlodipine, carvedilol and hydralazine. Acute on chronic systolic heart failure. Acute on chronic kidney disease Hypokalemia Cardiomyopathy Accelerated hypertension. Diabetes mellitus type 2 03/15/2022. Echocardiogram revealed cardiomyopathy with left ventricular systolic function of 25-30%. Continue GDMT for heart failure per cardiology recommen dations. BP is much better controlled. Continue aggressive diuresis with Lasix 80 mg 3 times daily. Renal ultrasound revealed no hydronephrosis but did reveal medical renal disease. Urine studies showed known proteinuria likely from DM. Nephrology reports patient consenting to hemodialysis if no significant improvement in renal function. Unfortunately, renal function appears to be about the same. Patient will need PermCath placement. Also, patient will likely need ischemic evaluation with stress test once hemodialysis initiated and renal issues stabilized 03/16/2022. Patient is s/p PermCath placement yesterday with the initiation of hemodialysis. We will discuss with case management plans for outpatient hemodialysis chair. Await cardiology plans for ischemic evaluation. Continue GDMT for systolic heart failure. Continue Accu-Cheks and sliding scale insulin. 03/17/2022. Patient initiated on hemodialysis on 03/15/2022. We are waiting for outpatient hemodialysis chair. Echocardiogram revealed cardiomyopathy with LVEF 25 to 30%. Continue tight blood pressure control, diuresis and hemodialysis. Cardiology reports patient will ultimately need stress test either predischarge or as an outpatient 03/18/2022. Nephrology reports hemodialysis today for clearance and volume chase juan. Follow-up bladder scan. Ischemic evaluation per cardiology. History Interval history: No new issues overnight Hospitalist Physical - Constitutional Vitals: Temp Pulse Resp BP Pulse Ox 97.7 F 47 L 18 144/79 96 03/18/22 07:50 03/18/22 07:50 03/18/22 07:50 03/18/22 07:50 03/18/22 07:50 General appearance: Present: no acute distress - EENT Eyes: Present: PERRL, EOM intact ENT: hearing intact, clear oral mucosa, dentition normal - Neck Neck: Present: supple, normal ROM - Respiratory Respiratory effort: normal Respiratory: bilateral: CTA - Cardiovascular Rhythm: regular Heart Sounds: Present: S1 & S2. Absent: gallop, rub - Extremities Extremities: no ischemia, No edema, Full ROM - Abdominal General gastrointestinal: soft, non-tender, non-distended, normal bowel sounds - Integumentary Integumentary: Present: clear, warm, dry - Neurologic Neurologic: CNII-XII intact, moves all extremities HEART Score - HEART Score Troponin: Troponin T 0.098 ng/mL (0.00-0.029) H 03/13/22 07:47 Results - Labs CBC & Chem 7: 03/17/22 04:43 03/17/22 04:43 Labs: Laboratory Last Values WBC 11.7 K/mm3 (4.5-11.0) H 03/17/22 04:43 RBC 5.55 M/mm3 (3.65-5.03) H 03/17/22 04:43 Hgb 13.0 gm/dl (11.8-15.2) 03/17/22 04:43 Hct 40.8 % (35.5-45.6) D 03/17/22 04:43 MCV 74 fl (84-94) L 03/17/22 04:43 MCH 24 pg (28-32) L 03/17/22 04:43 MCHC 32 % (32-34) 03/17/22 04:43 RDW 15.6 % (13.2-15.2) H 03/17/22 04:43 Plt Count 275 K/mm3 (140-440) 03/17/22 04:43 Lymph % (Auto) 5.1 % (13.4-35.0) L 03/14/22 05:11 Lewis % (Auto) 9.8 % (0.0-7.3) H 03/14/22 05:11 Eos % (Auto) 2.5 % (0.0-4.3) 03/14/22 05:11 Baso % (Auto) 0.5 % (0.0-1.8) 03/14/22 05:11 Lymph # (Auto) 0.6 K/mm3 (1.2-5.4) L 03/14/22 05:11 Lewis # (Auto) 1.1 K/mm3 (0.0-0.8) H 03/14/22 05:11 Eos # (Auto) 0.3 K/mm3 (0.0-0.4) 03/14/22 05:11 Baso # (Auto) 0.1 K/mm3 (0.0-0.1) 03/14/22 05:11 Add Manual Diff Complete 03/17/22 04:43 Total Counted 100 03/17/22 04:43 Seg Neutrophils % 82.1 % (40.0-70.0) H 03/14/22 05:11 Seg Neuts % (Manual) 77.0 % (40.0-70.0) H 03/17/22 04:43 Band Neutrophils % 0 % 03/17/22 04:43 Lymphocytes % (Manual) 14.0 % (13.4-35.0) 03/17/22 04:43 Reactive Lymphs % (Man) 3.0 % 03/17/22 04:43 Monocytes % (Manual) 2.0 % (0.0-7.3) 03/17/22 04:43 Eosinophils % (Manual) 3.0 % (0.0-4.3) 03/17/22 04:43 Basophils % (Manual) 0 % (0.0-1.8) 03/17/22 04:43 Metamyelocytes % 0 % 03/17/22 04:43 Myelocytes % 1.0 % 03/17/22 04:43 Promyelocytes % 0 % 03/17/22 04:43 Blast Cells % 0 % 03/17/22 04:43 Nucleated RBC % Not Reportable 03/17/22 04:43 Seg Neutrophils # 9.2 K/mm3 (1.8-7.7) H 03/14/22 05:11 Seg Neutrophils # Man 9.0 K/mm3 (1.8-7.7) H 03/17/22 04:43 Band Neutrophils # 0.0 K/mm3 03/17/22 04:43 Lymphocytes # (Manual) 1.6 K/mm3 (1.2-5.4) 03/17/22 04:43 Abs React Lymphs (Man) 0.4 K/mm3 03/17/22 04:43 Monocytes # (Manual) 0.2 K/mm3 (0.0-0.8) 03/17/22 04:43 Eosinophils # (Manual) 0.4 K/mm3 (0.0-0.4) 03/17/22 04:43 Basophils # (Manual) 0.0 K/mm3 (0.0-0.1) 03/17/22 04:43 Metamyelocytes # 0.0 K/mm3 03/17/22 04:43 Myelocytes # 0.1 K/mm3 03/17/22 04:43 Promyelocytes # 0.0 K/mm3 03/17/22 04:43 Blast Cells # 0.0 K/mm3 03/17/22 04:43 WBC Morphology Not Reportable 03/17/22 04:43 Hypersegmented Neuts Not Reportable 03/17/22 04:43 Hyposegmented Neuts Not Reportable 03/17/22 04:43 Hypogranular Neuts Not Reportable 03/17/22 04:43 Smudge Cells Not Reportable 03/17/22 04:43 Toxic Granulation Not Reportable 03/17/22 04:43 Toxic Vacuolation Not Reportable 03/17/22 04:43 Dohle Bodies Not Reportable 03/17/22 04:43 Pelger-Huet Anomaly Not Reportable 03/17/22 04:43 Tobi Rods Not Reportable 03/17/22 04:43 Platelet Estimate Consistent w auto 03/17/22 04:43 Clumped Platelets Not Reportable 03/17/22 04:43 Plt Clumps, EDTA Not Reportable 03/17/22 04:43 Large Platelets Not Reportable 03/17/22 04:43 Giant Platelets Not Reportable 03/17/22 04:43 Platelet Satelliting Not Reportable 03/17/22 04:43 Plt Morphology Comment Not Reportable 03/17/22 04:43 RBC Morphology Not Reportable 03/17/22 04:43 Dimorphic RBCs Not Reportable 03/17/22 04:43 Polychromasia Not Reportable 03/17/22 04:43 Hypochromasia Not Reportable 03/17/22 04:43 Poikilocytosis Not Reportable 03/17/22 04:43 Anisocytosis Not Reportable 03/17/22 04:43 Microcytosis Not Reportable 03/17/22 04:43 Macrocytosis Not Reportable 03/17/22 04:43 Spherocytes Not Reportable 03/17/22 04:43 Pappenheimer Bodies Not Reportable 03/17/22 04:43 Sickle Cells Not Reportable 03/17/22 04:43 Target Cells 1+ 03/17/22 04:43 Tear Drop Cells Not Reportable 03/17/22 04:43 Ovalocytes Not Reportable 03/17/22 04:43 Helmet Cells Not Reportable 03/17/22 04:43 Kahn-Phenix Bodies Not Reportable 03/17/22 04:43 [place] Rings Not Reportable 03/17/22 04:43 [place] Cells Not Reportable 03/17/22 04:43 Bite Cells Not Reportable 03/17/22 04:43 Crenated Cell Not Reportable 03/17/22 04:43 Elliptocytes Not Reportable 03/17/22 04:43 Acanthocytes (Spur) Not Reportable 03/17/22 04:43 Rouleaux Not Reportable 03/17/22 04:43 Hemoglobin C Crystals Not Reportable 03/17/22 04:43 Schistocytes Not Reportable 03/17/22 04:43 Malaria parasites Not Reportable 03/17/22 04:43 Jorge Bodies Not Reportable 03/17/22 04:43 Hem Pathologist Commnt No 03/17/22 04:43 Sodium 137 mmol/L (137-145) 03/17/22 04:43 Potassium 3.9 mmol/L (3.6-5.0) 03/17/22 04:43 Chloride 96.4 mmol/L (98-107) L 03/17/22 04:43 Carbon Dioxide 24 mmol/L (22-30) 03/17/22 04:43 Anion Gap 21 mmol/L 03/17/22 04:43 BUN 34 mg/dL (9-20) H 03/17/22 04:43 Creatinine 4.8 mg/dL (0.8-1.3) H 03/17/22 04:43 Estimated GFR 16 ml/min 03/17/22 04:43 BUN/Creatinine Ratio 7 % 03/17/22 04:43 Glucose 114 mg/dL (75-100) H 03/17/22 04:43 POC Glucose 150 mg/dL (70-105) H 03/15/22 08:49 Calcium 8.1 mg/dL (8.4-10.2) L 03/17/22 04:43 Phosphorus 4.90 mg/dL (2.5-4.5) H 03/15/22 04:59 Total Bilirubin 0.60 mg/dL (0.1-1.2) 03/14/22 05:11 AST 23 units/L (5-40) 03/14/22 05:11 ALT 32 units/L (7-56) 03/14/22 05:11 Alkaline Phosphatase 112 units/L (35-129) 03/14/22 05:11 Total Creatine Kinase 1247 units/L (55-170) H 03/13/22 16:09 Troponin T 0.098 ng/mL (0.00-0.029) H 03/13/22 07:47 NT-Pro-B Natriuret Pep 83183 pg/mL (0-450) H 03/13/22 08:28 Total Protein 5.9 g/dL (6.3-8.2) L 03/14/22 05:11 Albumin 3.3 g/dL (3.9-5) L 03/14/22 05:11 Albumin/Globulin Ratio 1.3 % 03/14/22 05:11 Urine Color Straw (Yellow) 03/13/22 15:29 Urine Turbidity Clear (Clear) 03/13/22 15:29 Urine pH 6.0 (5.0-7.0) 03/13/22 15:29 Ur Specific [place] 1.010 (1.003-1.030) 03/13/22 15:29 Urine Protein >500 mg/dL (Negative) 03/13/22 15:29 Urine Glucose (UA) Negative mg/dL (Negative) 03/13/22 15:29 Urine Ketones 15 mg/dL (Negative) 03/13/22 15:29 Urine Blood 2+ (Negative) 03/13/22 15:29 Urine Nitrite Negative (Negative) 03/13/22 15:29 Ur Reducing Substances Not Reportable 03/13/22 15:29 Urine Bilirubin Negative (Negative) 03/13/22 15:29 Urine Ictotest Not Reportable 03/13/22 15:29 Urine Urobilinogen < 2.0 mg/dL (<2.0) 03/13/22 15:29 Ur Leukocyte Esterase Negative (Negative) 03/13/22 15:29 Urine WBC (Auto) 1.0 /HPF (0.0-6.0) 03/13/22 15:29 Urine RBC (Auto) 1.0 /HPF (0.0-6.0) 03/13/22 15:29 Urine Eosinophils None seen (None Seen) 03/13/22 15:29 Urine Creatinine 43.6 mg/dL (0.1-20.0) H 03/13/22 15:29 Protein/Creatinin Ratio 5.78 03/13/22 15:29 Urine Sodium 85 mmol/L 03/13/22 15:29 Urine Total Protein 252 mg/dL (5-11.8) H 03/13/22 15:29 SARS-CoV-2 (PCR) Negative (Negative) 03/17/22 10:58 Hepatitis A IgM Ab Non-reactive (NonReactive) 03/15/22 12:37 Hep Bs Antigen Non-reactive (Negative) 03/15/22 12:37 Hep B Core IgM Ab Non-reactive (NonReactive) 03/15/22 12:37 Hepatitis C Antibody Non-reactive (NonReactive) 03/15/22 12:37 Bates/IV: Voiding Method Toilet Active Medications - Current Medications Current Medications: Generic Name Dose Route Start Last Admin Trade Name Freq PRN Reason Stop Dose Admin Acetaminophen 650 mg 03/13/22 18:17 03/14/22 23:51 Acetaminophen 325 Mg Tab PO 650 mg Q4H PRN Administration Pain MILD(1-3)/Fever >100.5/WHITTAKER Carvedilol 12.5 mg 03/14/22 10:00 03/17/22 21:21 Carvedilol 12.5 Mg Tab PO 12.5 mg BID JIMMY Administration Furosemide 40 mg 03/16/22 22:00 03/17/22 21:22 Furosemide 40 Mg Tab PO 40 mg BID JIMMY Administration Hydralazine HCl 10 mg 03/13/22 22:00 03/13/22 22:14 Hydralazine 20 Mg/1 Ml Inj IV 10 mg Q6HR PRN Administration SBP >/=160; DBP >/=100 Hydralazine HCl 100 mg 03/14/22 09:00 03/18/22 05:08 Hydralazine 100 Mg Tab PO 100 mg Q8HR JIMMY Administration Hydromorphone HCl 0.5 mg 03/13/22 18:17 Hydromorphone 0.5 Mg/0.5 Ml Inj IV Q3H PRN Pain , Severe (7-10) Metoclopramide HCl 5 mg 03/17/22 14:00 Metoclopramide 10 Mg/2 Ml Inj IV Q6H PRN Nausea And Vomiting Morphine Sulfate 2 mg 03/13/22 18:17 Morphine 2 Mg/1 Ml Inj IV Q4H PRN Pain, Moderate (4-6) Nifedipine 60 mg 03/14/22 15:00 03/17/22 21:22 Nifedipine Xl 60 Mg Tab PO 60 mg Q12HR JIMMY Administration Ondansetron HCl 4 mg 03/13/22 18:17 Ondansetron 4 Mg/2 Ml Inj IV Q8H PRN Nausea And Vomiting Oxycodone/Acetaminophen 1 tab 03/13/22 18:17 03/16/22 04:22 Oxycodone /Acetaminophen 5-325mg Tab PO 1 tab Q6H PRN Administration Pain, Moderate (4-6) Sodium Chloride 10 ml 03/13/22 22:00 03/17/22 21:22 Sodium Chloride 0.9% 10 Ml Flush Syringe IV 10 ml BID JIMMY Administration Sodium Chloride 10 ml 03/13/22 18:17 Sodium Chloride 0.9% 10 Ml Flush Syringe IV PRN PRN LINE FLUSH
--- NOTE | 2022-03-18 14:05 | Progress Note ---
Assessment and Plan - Patient Problems (1) Pulmonary edema Current Visit: Yes Status: Acute Plan to address problem: 46-year-old man who presents with fluid overload and pulmonary edema. His heart failure exacerbation is multifactorial. There is chronic severe uncontrolled hypertension, there is worsening renal failure with a creatinine currently end- stage at 6.4. Echocardiogram shows the presence of a cardiomyopathy, with left ventricular ejection fraction 25 to 30%. Symptoms have improved with blood pressure control, diuresis and initiation of hemodialysis. Cardiac stable and asymptomatic. We will perform noninvasive ischemia assessment as indicated in the outpatient setting. Subjective Date of service: 03/18/22 Principal diagnosis: Systolic heart failure Interval history: Patient is comfortable. No cardiac complaints, looks and feels better. Dialysis is anticipated today. Objective Vital Signs Temp Pulse Resp BP BP Pulse Ox Pulse Ox 03/18/22 12:21 98.2 F 88 20 142/91 98 03/18/22 12:00 81 149/85 03/18/22 11:45 76 143/66 03/18/22 11:30 76 157/88 03/18/22 11:15 79 170/88 03/18/22 11:00 82 148/85 03/18/22 07:50 97.7 F 47 L 18 144/79 96 03/18/22 07:04 98 03/18/22 04:02 97.7 F 83 14 151/85 93 03/17/22 23:31 98.5 F 85 12 135/72 95 03/17/22 22:00 91 H 98 03/17/22 21:21 92 H 145/93 03/17/22 19:38 98.0 F 92 H 16 145/93 96 03/17/22 19:35 98.0 F 92 H 16 145/93 96 03/17/22 16:13 97.9 F 51 L 18 133/66 94 - Physical Examination General: No Apparent Distress HEENT: Positive: PERRL Neck: Positive: neck supple Cardiac: Positive: Reg Rate and Rhythm Lungs: Positive: clear to auscultation Neuro: Positive: Grossly Intact Abdomen: Positive: Soft Skin: Positive: Clear Extremities: Present: +1 Edema
[2022-03-19] MEDS: hydrALAZINE 100 MG TAB PO SCH ×3 (05:38→22:25)
[2022-03-19 06:42] LABS: Calcium 8.5 mg/dL (8.4-10.2)
[2022-03-19 06:47] LABS: Hematocrit 40.3 % (35.5-45.6); Hemoglobin 13.2 gm/dl (11.8-15.2); Mean Corpuscular HGB Conc 33 % (32-34); Mean Corpuscular Volume 74 fl (84-94); Platelet Count 272 K/mm3 (140-440); Red Blood Count 5.45 M/mm3 (3.65-5.03); Red Cell Distribution Width 15.6 % (13.2-15.2)
--- NOTE | 2022-03-19 07:50 | Progress Note ---
Assessment and Plan Acute kidney injury on top of CKD vs CKD progression Hyperkalemia Volume overload Hypertension Diabetes Mellitus type 2 CHF Plan: Renal function reviewed, SCr level was 5.2 today, yesterday's SCr level was 4.8 S/p HD yesterday for UF and clearance, UF removed 1L No acute indication for HD today Assess need for HD on daily basis S/p perm catheter placement and first HD treatment on 03/15/22 Echo shows LVEF 25-30% as per Cardiology Renal ultrasound reviewed showed No hydronephrosis. Medical renal disease. Urine studies showed proteinuria, likely from DM In 2019, CHOCO, SPEP, C3/C4, ANCA, HIV, Hep panel were negative Monitor I/O's daily CM on board for outpatient HD arrangement Renal plan reviewed by Dr Fonseca Subjective Date of service: 03/19/22 Principal diagnosis: Systolic heart failure Interval history: Pt seen in bed, c/o nausea this morning, denies vomiting, shortness of breath, or pain. Pt states HD treatments are going well. No acute distress, no family at bedside Objective - Vital Signs Vital signs: Vital Signs - 12hr 03/18/22 03/18/22 21:27 22:00 Pulse Rate 92 H 89 Blood Pressure 146/93 O2 Sat by Pulse 98 Oximetry - General Appearance General appearance: well-developed EENT: ATNC Neck: no JVD Respiratory: Present: Decreased Breath Sounds Cardiology: regular, S1S2, other (ACCESS: Right IJ Perm Catheter intact) Gastrointestinal: normoactive bowel sounds, no tenderness Integumentary: warm and dry Neurologic: alert and oriented x3 Musculoskeletal: other (trace edema to BLE) Psychiatric: cooperative - Lab 03/19/22 05:30 03/19/22 05:30 Most recent lab results Calcium 8.5 mg/dL (8.4-10.2) 03/19/22 05:30 Phosphorus 4.90 mg/dL (2.5-4.5) H 03/15/22 04:59 Urine Creatinine 43.6 mg/dL (0.1-20.0) H 03/13/22 15:29 Urine Sodium 85 mmol/L 03/13/22 15:29 Urine Total Protein 252 mg/dL (5-11.8) H 03/13/22 15:29 Medications & Allergies - Medications Allergies/Adverse Reactions: Allergies shellfish derived Adverse Reaction (Verified 03/14/22 09:51) Anaphylaxis patient says he gets "hives and can't breathe" Home Medications: Home Medications Medication Instructions Recorded Confirmed Last Taken Type amLODIPine 10 mg PO QDAY #30 tablet 07/18/20 03/14/22 Unknown Rx glipiZIDE XL [Glucotrol Xl] 2.5 mg PO QAM #30 tab.er.24 07/18/20 03/14/22 Unknow n Rx hydrALAZINE [Apresoline TAB] 50 mg PO Q8HR #90 tablet 07/18/20 03/14/22 1 Month Ago Rx ~02/11/22 Labetalol HCl [Labetalol 300mg TAB] 300 mg PO BID 03/14/22 03/14/22 Unknown History Torsemide [Demadex] 10 mg PO QDAY 03/14/22 03/14/22 Unknown History Active Medications: Generic Name Dose Route Start Last Admin Trade Name Freq PRN Reason Stop Dose Admin Acetaminophen 650 mg 03/13/22 18:17 03/14/22 23:51 Acetaminophen 325 Mg Tab PO 650 mg Q4H PRN Administration Pain MILD(1-3)/Fever >100.5/[place]ER Carvedilol 12.5 mg 03/14/22 10:00 03/18/22 21:27 Carvedilol 12.5 Mg Tab PO 12.5 mg BID JIMMY Administration Furosemide 40 mg 03/16/22 22:00 03/18/22 21:27 Furosemide 40 Mg Tab PO 40 mg BID JIMMY Administration Hydralazine HCl 10 mg 03/13/22 22:00 03/13/22 22:14 Hydralazine 20 Mg/1 Ml Inj IV 10 mg Q6HR PRN Administration SBP >/=160; DBP >/=100 Hydralazine HCl 100 mg 03/14/22 09:00 03/19/22 05:38 Hydralazine 100 Mg Tab PO 100 mg Q8HR JIMMY Administration Hydromorphone HCl 0.5 mg 03/13/22 18:17 Hydromorphone 0.5 Mg/0.5 Ml Inj IV Q3H PRN Pain , Severe (7-10) Metoclopramide HCl 5 mg 03/17/22 14:00 Metoclopramide 10 Mg/2 Ml Inj IV Q6H PRN Nausea And Vomiting Morphine Sulfate 2 mg 03/13/22 18:17 Morphine 2 Mg/1 Ml Inj IV Q4H PRN Pain, Moderate (4-6) Nifedipine 60 mg 03/14/22 15:00 03/18/22 21:27 Nifedipine Xl 60 Mg Tab PO 60 mg Q12HR JIMMY Administration Ondansetron HCl 4 mg 03/13/22 18:17 Ondansetron 4 Mg/2 Ml Inj IV Q8H PRN Nausea And Vomiting Oxycodone/Acetaminophen 1 tab 03/13/22 18:17 03/16/22 04:22 Oxycodone /Acetaminophen 5-325mg Tab PO 1 tab Q6H PRN Administration Pain, Moderate (4-6) Sodium Chloride 10 ml 03/13/22 22:00 03/18/22 21:27 Sodium Chloride 0.9% 10 Ml Flush Syringe IV 10 ml BID JIMMY Administration Sodium Chloride 10 ml 03/13/22 18:17 Sodium Chloride 0.9% 10 Ml Flush Syringe IV PRN PRN LINE FLUSH
[2022-03-19] MEDS: NIFEdipine XL 60 MG TAB PO SCH ×2 (09:01→22:25)
[2022-03-19] MEDS: FUROSEMIDE 40 MG TAB PO SCH ×2 (09:01→22:25)
[2022-03-19] MEDS: carvediloL 12.5 MG TAB PO SCH ×2 (09:01→22:24)
[2022-03-19] MEDS: ONDANSETRON 4 MG/2 ML INJ IV PRN (09:02)
[2022-03-19] MEDS: ACETAMINOPHEN 325 MG TAB PO PRN (09:03)
[2022-03-19 10:28] LABS: Total Cells Counted 100
[2022-03-19 10:29] LABS: Hypochromasia Few; Platelet Estimate Consistent w Auto; Spherocytes Few; Target Cells 1+
--- NOTE | 2022-03-19 11:01 | Progress Note ---
Assessment and Plan Assessment and plan: 46-year-old male with history of chronic uncontrolled hypertension and chronic kidney disease who presented through the emergency department with complaints of 3-4 days of increasing shortness of breath and lower extremity edema. EKG revealed normal sinus rhythm with normal ST-T wave changes. Chest x-ray revealed moderate severity cardiomegaly with diffuse interstitial edema. Laboratory findings reveal a creatinine of 6.0 with baseline creatinine of 3.5 previously. Patient also noted to have persistently elevated BP despite treatment with amlodipine, carvedilol and hydralazine. Acute on chronic systolic heart failure. Acute on chronic kidney disease Hypokalemia Cardiomyopathy Accelerated hypertension. Diabetes mellitus type 2 03/15/2022. Echocardiogram revealed cardiomyopathy with left ventricular systolic function of 25-30%. Continue GDMT for heart failure per cardiology recommen dations. BP is much better controlled. Continue aggressive diuresis with Lasix 80 mg 3 times daily. Renal ultrasound revealed no hydronephrosis but did reveal medical renal disease. Urine studies showed known proteinuria likely from DM. Nephrology reports patient consenting to hemodialysis if no significant improvement in renal function. Unfortunately, renal function appears to be about the same. Patient will need PermCath placement. Also, patient will likely need ischemic evaluation with stress test once hemodialysis initiated and renal issues stabilized 03/16/2022. Patient is s/p PermCath placement yesterday with the initiation of hemodialysis. We will discuss with case management plans for outpatient hemodialysis chair. Await cardiology plans for ischemic evaluation. Continue GDMT for systolic heart failure. Continue Accu-Cheks and sliding scale insulin. 03/17/2022. Patient initiated on hemodialysis on 03/15/2022. We are waiting for outpatient hemodialysis chair. Echocardiogram revealed cardiomyopathy with LVEF 25 to 30%. Continue tight blood pressure control, diuresis and hemodialysis. Cardiology reports patient will ultimately need stress test either predischarge or as an outpatient 03/18/2022. Nephrology reports hemodialysis today for clearance and volume chase juan. Follow-up bladder scan. Ischemic evaluation per cardiology. 03/19/2022. Continue hemodialysis per nephrology recommendations. Ischemic evaluation per cardiology. Monitor I/O's daily. CM on board for outpatient HD arrangement History Interval history: No new issues overnight Hospitalist Physical - Constitutional Vitals: Temp Pulse Resp BP Pulse Ox 97.9 F 89 18 141/82 95 03/19/22 07:23 08/06/22 07:23 03/19/22 07:23 03/19/22 07:23 03/19/22 07:23 General appearance: Present: no acute distress - EENT Eyes: Present: PERRL, EOM intact ENT: hearing intact, clear oral mucosa, dentition normal - Neck Neck: Present: supple, normal ROM - Respiratory Respiratory effort: normal Respiratory: bilateral: CTA - Cardiovascular Rhythm: regular Heart Sounds: Present: S1 & S2. Absent: gallop, rub - Extremities Extremities: no ischemia, No edema, Full ROM - Abdominal General gastrointestinal: soft, non-tender, non-distended, normal bowel sounds - Integumentary Integumentary: Present: clear, warm, dry - Neurologic Neurologic: CNII-XII intact, moves all extremities HEART Score - HEART Score Troponin: Troponin T 0.098 ng/mL (0.00-0.029) H 03/13/22 07:47 Results - Labs CBC & Chem 7: 03/19/22 05:30 03/19/22 05:30 Labs: Laboratory Last Values WBC 11.0 K/mm3 (4.5-11.0) 03/19/22 05:30 RBC 5.45 M/mm3 (3.65-5.03) H 03/19/22 05:30 Hgb 13.2 gm/dl (11.8-15.2) 03/19/22 05:30 Hct 40.3 % (35.5-45.6) 03/19/22 05:30 MCV 74 fl (84-94) L 03/19/22 05:30 MCH 24 pg (28-32) L 03/19/22 05:30 MCHC 33 % (32-34) 03/19/22 05:30 RDW 15.6 % (13.2-15.2) H 03/19/22 05:30 Plt Count 272 K/mm3 (140-440) 03/19/22 05:30 Lymph % (Auto) 5.1 % (13.4-35.0) L 03/14/22 05:11 [place] % (Auto) 9.8 % (0.0-7.3) H 03/14/22 05:11 Eos % (Auto) 2.5 % (0.0-4.3) 03/14/22 05:11 Baso % (Auto) 0.5 % (0.0-1.8) 03/14/22 05:11 Lymph # (Auto) 0.6 K/mm3 (1.2-5.4) L 03/14/22 05:11 [place] # (Auto) 1.1 K/mm3 (0.0-0.8) H 03/14/22 05:11 Eos # (Auto) 0.3 K/mm3 (0.0-0.4) 03/14/22 05:11 Baso # (Auto) 0.1 K/mm3 (0.0-0.1) 03/14/22 05:11 Add Manual Diff Complete 03/19/22 05:30 Total Counted 100 03/19/22 05:30 Seg Neutrophils % 82.1 % (40.0-70.0) H 03/14/22 05:11 Seg Neuts % (Manual) 75.0 % (40.0-70.0) H 03/19/22 05:30 Band Neutrophils % 0 % 03/19/22 05:30 Lymphocytes % (Manual) 15.0 % (13.4-35.0) 03/19/22 05:30 Reactive Lymphs % (Man) 0 % 03/19/22 05:30 Monocytes % (Manual) 6.0 % (0.0-7.3) 03/19/22 05:30 Eosinophils % (Manual) 3.0 % (0.0-4.3) 03/19/22 05:30 Basophils % (Manual) 1.0 % (0.0-1.8) 03/19/22 05:30 Metamyelocytes % 0 % 03/19/22 05:30 Myelocytes % 0 % 03/19/22 05:30 Promyelocytes % 0 % 03/19/22 05:30 Blast Cells % 0 % 03/19/22 05:30 Nucleated RBC % Not Reportable 03/19/22 05:30 Seg Neutrophils # 9.2 K/mm3 (1.8-7.7) H 03/14/22 05:11 Seg Neutrophils # Man 8.3 K/mm3 (1.8-7.7) H 03/19/22 05:30 Band Neutrophils # 0.0 K/mm3 03/19/22 05:30 Lymphocytes # (Manual) 1.7 K/mm3 (1.2-5.4) 03/19/22 05:30 Abs React Lymphs (Man) 0.0 K/mm3 03/19/22 05:30 Monocytes # (Manual) 0.7 K/mm3 (0.0-0.8) 03/19/22 05:30 Eosinophils # (Manual) 0.3 K/mm3 (0.0-0.4) 03/19/22 05:30 Basophils # (Manual) 0.1 K/mm3 (0.0-0.1) 03/19/22 05:30 Metamyelocytes # 0.0 K/mm3 03/19/22 05:30 Myelocytes # 0.0 K/mm3 03/19/22 05:30 Promyelocytes # 0.0 K/mm3 03/19/22 05:30 Blast Cells # 0.0 K/mm3 03/19/22 05:30 WBC Morphology Not Reportable 03/19/22 05:30 Hypersegmented Neuts Not Reportable 03/19/22 05:30 Hyposegmented Neuts Not Reportable 03/19/22 05:30 Hypogranular Neuts Not Reportable 03/19/22 05:30 Smudge Cells Not Reportable 03/19/22 05:30 Toxic Granulation Not Reportable 03/19/22 05:30 Toxic Vacuolation Not Reportable 03/19/22 05:30 Dohle Bodies Not Reportable 03/19/22 05:30 Pelger-Huet Anomaly Not Reportable 03/19/22 05:30 Tobi Rods Not Reportable 03/19/22 05:30 Platelet Estimate Consistent w auto 03/19/22 05:30 Clumped Platelets Not Reportable 03/19/22 05:30 Plt Clumps, EDTA Not Reportable 03/19/22 05:30 Large Platelets Not Reportable 03/19/22 05:30 Giant Platelets Not Reportable 03/19/22 05:30 Platelet Satelliting Not Reportable 03/19/22 05:30 Plt Morphology Comment Not Reportable 03/19/22 05:30 RBC Morphology Not Reportable 03/19/22 05:30 Dimorphic RBCs Not Reportable 03/19/22 05:30 Polychromasia Not Reportable 03/19/22 05:30 Hypochromasia Few 03/19/22 05:30 Poikilocytosis Not Reportable 03/19/22 05:30 Anisocytosis Not Reportable 03/19/22 05:30 Microcytosis Not Reportable 03/19/22 05:30 Macrocytosis Not Reportable 03/19/22 05:30 Spherocytes Few 03/19/22 05:30 Pappenheimer Bodies Not Reportable 03/19/22 05:30 Sickle Cells Not Reportable 03/19/22 05:30 Target Cells 1+ 03/19/22 05:30 Tear Drop Cells Not Reportable 03/19/22 05:30 Ovalocytes Not Reportable 03/19/22 05:30 Helmet Cells Not Reportable 03/19/22 05:30 [place] Bodies Not Reportable 03/19/22 05:30 [place] Rings Not Reportable 03/19/22 05:30 [place] Cells Not Reportable 03/19/22 05:30 Bite Cells Not Reportable 03/19/22 05:30 Crenated Cell Not Reportable 03/19/22 05:30 Elliptocytes Not Reportable 03/19/22 05:30 Acanthocytes (Spur) Not Reportable 03/19/22 05:30 Rouleaux Not Reportable 03/19/22 05:30 Hemoglobin C Crystals Not Reportable 03/19/22 05:30 Schistocytes Not Reportable 03/19/22 05:30 Malaria parasites Not Reportable 03/19/22 05:30 Jorge Bodies Not Reportable 03/19/22 05:30 Hem Pathologist Commnt No 03/19/22 05:30 Sodium 135 mmol/L (137-145) L 03/19/22 05:30 Potassium 4.3 mmol/L (3.6-5.0) 03/19/22 05:30 Chloride 96.0 mmol/L (98-107) L 03/19/22 05:30 Carbon Dioxide 29 mmol/L (22-30) 03/19/22 05:30 Anion Gap 14 mmol/L 03/19/22 05:30 BUN 33 mg/dL (9-20) H 03/19/22 05:30 Creatinine 5.2 mg/dL (0.8-1.3) H 03/19/22 05:30 Estimated GFR 15 ml/min 03/19/22 05:30 BUN/Creatinine Ratio 6 % 03/19/22 05:30 Glucose 128 mg/dL (75-100) H 03/19/22 05:30 POC Glucose 150 mg/dL (70-105) H 03/15/22 08:49 Calcium 8.5 mg/dL (8.4-10.2) 03/19/22 05:30 Phosphorus 4.90 mg/dL (2.5-4.5) H 03/15/22 04:59 Total Bilirubin 0.60 mg/dL (0.1-1.2) 03/14/22 05:11 AST 23 units/L (5-40) 03/14/22 05:11 ALT 32 units/L (7-56) 03/14/22 05:11 Alkaline Phosphatase 112 units/L (35-129) 03/14/22 05:11 Total Creatine Kinase 1247 units/L (55-170) H 03/13/22 16:09 Troponin T 0.098 ng/mL (0.00-0.029) H 03/13/22 07:47 NT-Pro-B Natriuret Pep 24428 pg/mL (0-450) H 03/13/22 08:28 Total Protein 5.9 g/dL (6.3-8.2) L 03/14/22 05:11 Albumin 3.3 g/dL (3.9-5) L 03/14/22 05:11 Albumin/Globulin Ratio 1.3 % 03/14/22 05:11 Urine Color Straw (Yellow) 03/13/22 15:29 Urine Turbidity Clear (Clear) 03/13/22 15:29 Urine pH 6.0 (5.0-7.0) 03/13/22 15:29 Ur Specific [place] 1.010 (1.003-1.030) 03/13/22 15:29 Urine Protein >500 mg/dL (Negative) 03/13/22 15:29 Urine Glucose (UA) Negative mg/dL (Negative) 03/13/22 15:29 Urine Ketones 15 mg/dL (Negative) 03/13/22 15:29 Urine Blood 2+ (Negative) 03/13/22 15:29 Urine Nitrite Negative (Negative) 03/13/22 15:29 Ur Reducing Substances Not Reportable 03/13/22 15:29 Urine Bilirubin Negative (Negative) 03/13/22 15:29 Urine Ictotest Not Reportable 03/13/22 15:29 Urine Urobilinogen < 2.0 mg/dL (<2.0) 03/13/22 15:29 Ur Leukocyte Esterase Negative (Negative) 03/13/22 15:29 Urine WBC (Auto) 1.0 /HPF (0.0-6.0) 03/13/22 15:29 Urine RBC (Auto) 1.0 /HPF (0.0-6.0) 03/13/22 15:29 Urine Eosinophils None seen (None Seen) 03/13/22 15:29 Urine Creatinine 43.6 mg/dL (0.1-20.0) H 03/13/22 15:29 Protein/Creatinin Ratio 5.78 03/13/22 15:29 Urine Sodium 85 mmol/L 03/13/22 15:29 Urine Total Protein 252 mg/dL (5-11.8) H 03/13/22 15:29 SARS-CoV-2 (PCR) Negative (Negative) 03/17/22 10:58 Hepatitis A IgM Ab Non-reactive (NonReactive) 03/15/22 12:37 Hep Bs Antigen Non-reactive (Negative) 03/15/22 12:37 Hep B Core IgM Ab Non-reactive (NonReactive) 03/15/22 12:37 Hepatitis C Antibody Non-reactive (NonReactive) 03/15/22 12:37 Bates/IV: Voiding Method Toilet Active Medications - Current Medications Current Medications: Generic Name Dose Route Start Last Admin Trade Name Freq PRN Reason Stop Dose Admin Acetaminophen 650 mg 03/13/22 18:17 03/19/22 09:03 Acetaminophen 325 Mg Tab PO 650 mg Q4H PRN Administration Pain MILD(1-3)/Fever >100.5/WHITTAKER Carvedilol 12.5 mg 03/14/22 10:00 03/19/22 09:01 Carvedilol 12.5 Mg Tab PO 12.5 mg BID JIMMY Administration Furosemide 40 mg 03/16/22 22:00 03/19/22 09:01 Furosemide 40 Mg Tab PO 40 mg BID JIMMY Administration Hydralazine HCl 10 mg 03/13/22 22:00 03/13/22 22:14 Hydralazine 20 Mg/1 Ml Inj IV 10 mg Q6HR PRN Administration SBP >/=160; DBP >/=100 Hydralazine HCl 100 mg 03/14/22 09:00 03/19/22 05:38 Hydralazine 100 Mg Tab PO 100 mg Q8HR JIMMY Administration Hydromorphone HCl 0.5 mg 03/13/22 18:17 Hydromorphone 0.5 Mg/0.5 Ml Inj IV Q3H PRN Pain , Severe (7-10) Metoclopramide HCl 5 mg 03/17/22 14:00 Metoclopramide 10 Mg/2 Ml Inj IV Q6H PRN Nausea And Vomiting Morphine Sulfate 2 mg 03/13/22 18:17 Morphine 2 Mg/1 Ml Inj IV Q4H PRN Pain, Moderate (4-6) Nifedipine 60 mg 03/14/22 15:00 03/19/22 09:01 Nifedipine Xl 60 Mg Tab PO 60 mg Q12HR JIMMY Administration Ondansetron HCl 4 mg 03/13/22 18:17 03/19/22 09:02 Ondansetron 4 Mg/2 Ml Inj IV 4 mg Q8H PRN Administration Nausea And Vomiting Oxycodone/Acetaminophen 1 tab 03/13/22 18:17 03/16/22 04:22 Oxycodone /Acetaminophen 5-325mg Tab PO 1 tab Q6H PRN Administration Pain, Moderate (4-6) Sodium Chloride 10 ml 03/13/22 22:00 03/19/22 09:01 Sodium Chloride 0.9% 10 Ml Flush Syringe IV 10 ml BID JIMMY Administration Sodium Chloride 10 ml 03/13/22 18:17 Sodium Chloride 0.9% 10 Ml Flush Syringe IV PRN PRN LINE FLUSH Nutrition/Malnutrition Assess - Dietary Evaluation Nutrition/Malnutrition Findings: Nutrition Notes Start: 03/18/22 14:19 Freq: Status: Active Protocol: Document 03/18/22 14:19 SYLVIA (Rec: 03/18/22 14:21 SYLVIA [id number]) Nutrition Notes Need for Assessment generated from: LOS Initial or Follow up Brief Note Current Diagnosis Acute Kidney Injury,CKD(stage I-IV),Diabetes,Heart Failure Other Pertinent Diagnosis Accelerated HTN Current Diet Cardiac Labs/Tests reviewed Pertinent Medications Lasix Weight Status Obese Subjective/Other Information Pt screened for LOS. No meal intakes documented since admission. Pt in HD at this time. Burn Absent Trauma Absent Minimum of two criteria No Nutrition Intervention Follow-Up By: 03/24/22 Additional Comments F/U: intakes
--- NOTE | 2022-03-19 11:05 | Progress Note ---
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 Add Bidil as tolerated. Volume management per nephrology. Recommend out-patient cardiology follow up for ischemic evaluation. If LVEF remains < 35% after at least 90 days GDMT, then may consider for primary prevention ICD implant. Compliance stressed with patient. Subjective Date of service: 03/19/22 Principal diagnosis: Systolic heart failure Interval history: No complaints. Denies CP/SOB. Tele - SR 86 Objective Vital Signs Temp Pulse Resp BP Pulse Ox Pulse Ox 03/19/22 07:23 97.9 F 89 18 141/82 95 03/19/22 04:51 97.8 F 84 18 152/81 92 03/18/22 23:51 98.3 F 89 20 138/86 93 03/18/22 22:00 89 98 03/18/22 21:27 92 H 146/93 03/18/22 19:15 97.4 F L 92 H 20 146/93 100 03/18/22 15:50 98.3 F 46 L 18 149/87 95 03/18/22 14:00 98.8 F 86 20 157/85 98 03/18/22 13:45 85 154/80 03/18/22 13:30 83 139/80 03/18/22 13:15 83 152/81 03/18/22 13:00 85 152/70 03/18/22 12:45 89 137/76 03/18/22 12:30 81 124/68 03/18/22 12:21 98.2 F 88 20 142/91 98 03/18/22 12:15 80 133/78 03/18/22 12:00 81 149/85 03/18/22 11:45 76 143/66 03/18/22 11:30 76 157/88 03/18/22 11:15 79 170/88 - Physical Examination General: No Apparent Distress HEENT: Positive: PERRL Neck: Positive: neck supple Cardiac: Positive: Reg Rate and Rhythm Lungs: Positive: clear to auscultation Neuro: Positive: Grossly Intact Abdomen: Positive: Soft Skin: Positive: Clear Extremities: Absent: edema - Labs and Meds CBC 03/19/22 Range/Units 05:30 WBC 11.0 (4.5-11.0) K/mm3 RBC 5.45 H (3.65-5.03) M/mm3 Hgb 13.2 (11.8-15.2) gm/dl Hct 40.3 (35.5-45.6) % Plt Count 272 (140-440) K/mm3 Comprehensive Metabolic Panel 03/19/22 Range/Units 05:30 Sodium 135 L (137-145) mmol/L Potassium 4.3 (3.6-5.0) mmol/L Chloride 96.0 L (98-107) mmol/L Carbon Dioxide 29 (22-30) mmol/L BUN 33 H (9-20) mg/dL Creatinine 5.2 H (0.8-1.3) mg/dL Glucose 128 H (75-100) mg/dL Calcium 8.5 (8.4-10.2) mg/dL
[2022-03-19] MEDS: carvediloL 25 MG TAB PO SCH (22:25)
[2022-03-20 06:34] LABS: Eosinophils % (Auto) 2.6 % (0.0-4.3); Hematocrit 37.4 % (35.5-45.6); Hemoglobin 12.3 gm/dl (11.8-15.2); Lymphocytes % (Auto) 19.9 % (13.4-35.0); Mean Corpuscular HGB Conc 33 % (32-34); Mean Corpuscular Volume 74 fl (84-94); Monocytes % (Auto) 9.6 % (0.0-7.3); Platelet Count 271 K/mm3 (140-440); Red Blood Count 5.08 M/mm3 (3.65-5.03); Red Cell Distribution Width 15.6 % (13.2-15.2)
[2022-03-20 06:35] LABS: Basophils # (Auto) 0.1 K/mm3 (0.0-0.1); Basophils % (Auto) 1.1 % (0.0-1.8); Eosinophils # (Auto) 0.3 K/mm3 (0.0-0.4)
[2022-03-20 06:39] LABS: Calcium 8.6 mg/dL (8.4-10.2)
[2022-03-20] MEDS: hydrALAZINE 100 MG TAB PO SCH ×3 (06:40→21:41)
--- NOTE | 2022-03-20 08:32 | Progress Note ---
Assessment and Plan Acute kidney injury on top of CKD vs CKD progression Hyperkalemia Volume overload Hypertension Diabetes Mellitus type 2 CHF Plan: Renal function reviewed, SCr level was 6.4 today, yesterday's SCr level was 5.2 No acute indication for HD today HD tomorrow for UF and clearance Assess need for HD on daily basis S/p perm catheter placement and first HD treatment on 03/15/22 Echo shows LVEF 25-30% as per Cardiology Renal ultrasound reviewed showed No hydronephrosis. Medical renal disease. Urine studies showed proteinuria, likely from DM In 2019, CHOCO, SPEP, C3/C4, ANCA, HIV, Hep panel were negative Monitor I/O's daily CM on board for outpatient HD arrangement Renal plan reviewed by Dr Fonseca Subjective Date of service: 03/20/22 Principal diagnosis: Systolic heart failure Interval history: Pt seen in bed, states has decreased appetite, denies shortness of breath, no acute distress Objective - Vital Signs Vital signs: Vital Signs - 12hr 03/19/22 03/19/22 03/19/22 22:00 22:24 22:25 Temperature Pulse Rate 80 85 85 Respiratory Rate Blood Pressure 153/90 153/90 O2 Sat by Pulse Oximetry 03/19/22 03/20/22 23:56 04:46 Temperature 98.0 F 98.3 F Pulse Rate 77 79 Respiratory 18 18 Rate Blood Pressure 135/70 134/77 O2 Sat by Pulse 92 95 Oximetry - General Appearance General appearance: well-developed EENT: ATNC Neck: no JVD Respiratory: Present: Decreased Breath Sounds Cardiology: regular, S1S2, other (ACCESS: Right IJ Perm Catheter intact) Gastrointestinal: normoactive bowel sounds, no tenderness Integumentary: warm and dry Neurologic: alert and oriented x3 Musculoskeletal: other (trace edema to BLE) Psychiatric: cooperative - Lab 03/20/22 04:19 03/20/22 04:19 Most recent lab results Calcium 8.6 mg/dL (8.4-10.2) 03/20/22 04:19 Phosphorus 4.90 mg/dL (2.5-4.5) H 03/15/22 04:59 Urine Creatinine 43.6 mg/dL (0.1-20.0) H 03/13/22 15:29 Urine Sodium 85 mmol/L 03/13/22 15:29 Urine Total Protein 252 mg/dL (5-11.8) H 03/13/22 15:29 Medications & Allergies - Medications Allergies/Adverse Reactions: Allergies shellfish derived Adverse Reaction (Verified 03/14/22 09:51) Anaphylaxis patient says he gets "hives and can't breathe" Home Medications: Home Medications Medication Instructions Recorded Confirmed Last Taken Type amLODIPine 10 mg PO QDAY #30 tablet 07/18/20 03/14/22 Unknown Rx glipiZIDE XL [Glucotrol Xl] 2.5 mg PO QAM #30 tab.er.24 07/18/20 03/14/22 Unknown Rx hydrALAZINE [Apresoline TAB] 50 mg PO Q8HR #90 tablet 07/18/20 03/14/22 1 Month Ago Rx ~02/11/22 Labetalol HCl [Labetalol 300mg TAB] 300 mg PO BID 03/14/22 03/14/22 Unknown History Torsemide [Demadex] 10 mg PO QDAY 03/14/22 03/14/22 Unknown History Active Medications: Generic Name Dose Route Start Last Admin Trade Name Freq PRN Reason Stop Dose Admin Acetaminophen 650 mg 03/13/22 18:17 03/19/22 09:03 Acetaminophen 325 Mg Tab PO 650 mg Q4H PRN Administration Pain MILD(1-3)/Fever >100.5/[place] Carvedilol 12.5 mg 03/14/22 10:00 03/19/22 22:24 Carvedilol 12.5 Mg Tab PO 12.5 mg BID JIMMY Administration Carvedilol 25 mg 03/19/22 22:00 03/19/22 22:25 Carvedilol 25 Mg Tab PO 25 mg BID JIMMY Administration Furosemide 40 mg 03/16/22 22:00 03/19/22 22:25 Furosemide 40 Mg Tab PO 40 mg BID JIMMY Administration Hydralazine HCl 10 mg 03/13/22 22:00 03/13/22 22:14 Hydralazine 20 Mg/1 Ml Inj IV 10 mg Q6HR PRN Administration SBP >/=160; DBP >/=100 Hydralazine HCl 100 mg 03/14/22 09:00 03/20/22 06:40 Hydralazine 100 Mg Tab PO 100 mg Q8HR JIMMY Administration Hydromorphone HCl 0.5 mg 03/13/22 18:17 Hydromorphone 0.5 Mg/0.5 Ml Inj IV Q3H PRN Pain , Severe (7-10) Metoclopramide HCl 5 mg 03/17/22 14:00 Metoclopramide 10 Mg/2 Ml Inj IV Q6H PRN Nausea And Vomiting Morphine Sulfate 2 mg 03/13/22 18:17 Morphine 2 Mg/1 Ml Inj IV Q4H PRN Pain, Moderate (4-6) Nifedipine 60 mg 03/14/22 15:00 03/19/22 22:25 Nifedipine Xl 60 Mg Tab PO 60 mg Q12HR JIMMY Administration Ondansetron HCl 4 mg 03/13/22 18:17 03/19/22 09:02 Ondansetron 4 Mg/2 Ml Inj IV 4 mg Q8H PRN Administration Nausea And Vomiting Oxycodone/Acetaminophen 1 tab 03/13/22 18:17 03/16/22 04:22 Oxycodone /Acetaminophen 5-325mg Tab PO 1 tab Q6H PRN Administration Pain, Moderate (4-6) Sodium Chloride 10 ml 03/13/22 22:00 03/19/22 22:27 Sodium Chloride 0.9% 10 Ml Flush Syringe IV 10 ml BID JIMMY Administration Sodium Chloride 10 ml 03/13/22 18:17 Sodium Chloride 0.9% 10 Ml Flush Syringe IV PRN PRN LINE FLUSH
--- NOTE | 2022-03-20 08:43 | Progress Note ---
Assessment and Plan Assessment and plan: 46-year-old male with history of chronic uncontrolled hypertension and chronic kidney disease who presented through the emergency department with complaints of 3-4 days of increasing shortness of breath and lower extremity edema. EKG revealed normal sinus rhythm with normal ST-T wave changes. Chest x-ray revealed moderate severity cardiomegaly with diffuse interstitial edema. Laboratory findings reveal a creatinine of 6.0 with baseline creatinine of 3.5 previously. Patient also noted to have persistently elevated BP despite treatment with amlodipine, carvedilol and hydralazine. Acute on chronic systolic heart failure. Acute on chronic kidney disease Hypokalemia Cardiomyopathy Accelerated hypertension. Diabetes mellitus type 2 03/15/2022. Echocardiogram revealed cardiomyopathy with left ventricular systolic function of 25-30%. Continue GDMT for heart failure per cardiology recommen dations. BP is much better controlled. Continue aggressive diuresis with Lasix 80 mg 3 times daily. Renal ultrasound revealed no hydronephrosis but did reveal medical renal disease. Urine studies showed known proteinuria likely from DM. Nephrology reports patient consenting to hemodialysis if no significant improvement in renal function. Unfortunately, renal function appears to be about the same. Patient will need PermCath placement. Also, patient will likely need ischemic evaluation with stress test once hemodialysis initiated and renal issues stabilized 03/16/2022. Patient is s/p PermCath placement yesterday with the initiation of hemodialysis. We will discuss with case management plans for outpatient hemodialysis chair. Await cardiology plans for ischemic evaluation. Continue GDMT for systolic heart failure. Continue Accu-Cheks and sliding scale insulin. 03/17/2022. Patient initiated on hemodialysis on 03/15/2022. We are waiting for outpatient hemodialysis chair. Echocardiogram revealed cardiomyopathy with LVEF 25 to 30%. Continue tight blood pressure control, diuresis and hemodialysis. Cardiology reports patient will ultimately need stress test either predischarge or as an outpatient 03/18/2022. Nephrology reports hemodialysis today for clearance and volume chase juan. Follow-up bladder scan. Ischemic evaluation per cardiology. 03/19/2022. Continue hemodialysis per nephrology recommendations. Ischemic evaluation per cardiology. Monitor I/O's daily. CM on board for outpatient HD arrangement 03/20/2022. Continue hemodialysis per nephrology recommendations. Ischemic evaluation per cardiology. Monitor I/O's daily. CM on board for outpatient HD arrangement History Interval history: No new issues overnight Hospitalist Physical - Constitutional Vitals: Temp Pulse Resp BP Pulse Ox 98.3 F 80 18 130/80 95 03/20/22 08:24 03/20/22 08:24 03/20/22 08:24 03/20/22 08:24 03/20/22 08:24 General appearance: Present: no acute distress - EENT Eyes: Present: PERRL, EOM intact ENT: hearing intact, clear oral mucosa, dentition normal - Neck Neck: Present: supple, normal ROM - Respiratory Respiratory effort: normal Respiratory: bilateral: CTA - Cardiovascular Rhythm: regular Heart Sounds: Present: S1 & S2. Absent: gallop, rub - Extremities Extremities: no ischemia, No edema, Full ROM - Abdominal General gastrointestinal: soft, non-tender, non-distended, normal bowel sounds - Integumentary Integumentary: Present: clear, warm, dry - Neurologic Neurologic: CNII-XII intact, moves all extremities HEART Score - HEART Score Troponin: Troponin T 0.098 ng/mL (0.00-0.029) H 03/13/22 07:47 Results - Labs CBC & Chem 7: 03/20/22 04:19 03/20/22 04:19 Labs: Laboratory Last Values WBC 10.0 K/mm3 (4.5-11.0) 03/20/22 04:19 RBC 5.08 M/mm3 (3.65-5.03) H 03/20/22 04:19 Hgb 12.3 gm/dl (11.8-15.2) 03/20/22 04:19 Hct 37.4 % (35.5-45.6) 03/20/22 04:19 MCV 74 fl (84-94) L 03/20/22 04:19 MCH 24 pg (28-32) L 03/20/22 04:19 MCHC 33 % (32-34) 03/20/22 04:19 RDW 15.6 % (13.2-15.2) H 03/20/22 04:19 Plt Count 271 K/mm3 (140-440) 03/20/22 04:19 Lymph % (Auto) 19.9 % (13.4-35.0) 03/20/22 04:19 [place] % (Auto) 9.6 % (0.0-7.3) H 03/20/22 04:19 Eos % (Auto) 2.6 % (0.0-4.3) 03/20/22 04:19 Baso % (Auto) 1.1 % (0.0-1.8) 03/20/22 04:19 Lymph # (Auto) 2.0 K/mm3 (1.2-5.4) 03/20/22 04:19 [place] # (Auto) 1.0 K/mm3 (0.0-0.8) H 03/20/22 04:19 Eos # (Auto) 0.3 K/mm3 (0.0-0.4) 03/20/22 04:19 Baso # (Auto) 0.1 K/mm3 (0.0-0.1) 03/20/22 04:19 Add Manual Diff Complete 03/19/22 05:30 Total Counted 100 03/19/22 05:30 Seg Neutrophils % 66.8 % (40.0-70.0) 03/20/22 04:19 Seg Neuts % (Manual) 75.0 % (40.0-70.0) H 03/19/22 05:30 Band Neutrophils % 0 % 03/19/22 05:30 Lymphocytes % (Manual) 15.0 % (13.4-35.0) 03/19/22 05:30 Reactive Lymphs % (Man) 0 % 03/19/22 05:30 Monocytes % (Manual) 6.0 % (0.0-7.3) 03/19/22 05:30 Eosinophils % (Manual) 3.0 % (0.0-4.3) 03/19/22 05:30 Basophils % (Manual) 1.0 % (0.0-1.8) 03/19/22 05:30 Metamyelocytes % 0 % 03/19/22 05:30 Myelocytes % 0 % 03/19/22 05:30 Promyelocytes % 0 % 03/19/22 05:30 Blast Cells % 0 % 03/19/22 05:30 Nucleated RBC % Not Reportable 03/19/22 05:30 Seg Neutrophils # 6.7 K/mm3 (1.8-7.7) 03/20/22 04:19 Seg Neutrophils # Man 8.3 K/mm3 (1.8-7.7) H 03/19/22 05:30 Band Neutrophils # 0.0 K/mm3 03/19/22 05:30 Lymphocytes # (Manual) 1.7 K/mm3 (1.2-5.4) 03/19/22 05:30 Abs React Lymphs (Man) 0.0 K/mm3 03/19/22 05:30 Monocytes # (Manual) 0.7 K/mm3 (0.0-0.8) 03/19/22 05:30 Eosinophils # (Manual) 0.3 K/mm3 (0.0-0.4) 03/19/22 05:30 Basophils # (Manual) 0.1 K/mm3 (0.0-0.1) 03/19/22 05:30 Metamyelocytes # 0.0 K/mm3 03/19/22 05:30 Myelocytes # 0.0 K/mm3 03/19/22 05:30 Promyelocytes # 0.0 K/mm3 03/19/22 05:30 Blast Cells # 0.0 K/mm3 03/19/22 05:30 WBC Morphology Not Reportable 03/19/22 05:30 Hypersegmented Neuts Not Reportable 03/19/22 05:30 Hyposegmented Neuts Not Reportable 03/19/22 05:30 Hypogranular Neuts Not Reportable 03/19/22 05:30 Smudge Cells Not Reportable 03/19/22 05:30 Toxic Granulation Not Reportable 03/19/22 05:30 Toxic Vacuolation Not Reportable 03/19/22 05:30 Dohle Bodies Not Reportable 03/19/22 05:30 Pelger-Huet Anomaly Not Reportable 03/19/22 05:30 Tobi Rods Not Reportable 03/19/22 05:30 Platelet Estimate Consistent w auto 03/19/22 05:30 Clumped Platelets Not Reportable 03/19/22 05:30 Plt Clumps, EDTA Not Reportable 03/19/22 05:30 Large Platelets Not Reportable 03/19/22 05:30 Giant Platelets Not Reportable 03/19/22 05:30 Platelet Satelliting Not Reportable 03/19/22 05:30 Plt Morphology Comment Not Reportable 03/19/22 05:30 RBC Morphology Not Reportable 03/19/22 05:30 Dimorphic RBCs Not Reportable 03/19/22 05:30 Polychromasia Not Reportable 03/19/22 05:30 Hypochromasia Few 03/19/22 05:30 Poikilocytosis Not Reportable 03/19/22 05:30 Anisocytosis Not Reportable 03/19/22 05:30 Microcytosis Not Reportable 03/19/22 05:30 Macrocytosis Not Reportable 03/19/22 05:30 Spherocytes Few 03/19/22 05:30 Pappenheimer Bodies Not Reportable 03/19/22 05:30 Sickle Cells Not Reportable 03/19/22 05:30 Target Cells 1+ 03/19/22 05:30 Tear Drop Cells Not Reportable 03/19/22 05:30 Ovalocytes Not Reportable 03/19/22 05:30 Helmet Cells Not Reportable 03/19/22 05:30 [place] Bodies Not Reportable 03/19/22 05:30 [place] Rings Not Reportable 03/19/22 05:30 [place] Cells Not Reportable 03/19/22 05:30 Bite Cells Not Reportable 03/19/22 05:30 Crenated Cell Not Reportable 03/19/22 05:30 Elliptocytes Not Reportable 03/19/22 05:30 Acanthocytes (Spur) Not Reportable 03/19/22 05:30 Rouleaux Not Reportable 03/19/22 05:30 Hemoglobin C Crystals Not Reportable 03/19/22 05:30 Schistocytes Not Reportable 03/19/22 05:30 Malaria parasites Not Reportable 03/19/22 05:30 Jorge Bodies Not Reportable 03/19/22 05:30 Hem Pathologist Commnt No 03/19/22 05:30 Sodium 138 mmol/L (137-145) 03/20/22 04:19 Potassium 4.4 mmol/L (3.6-5.0) 03/20/22 04:19 Chloride 98.5 mmol/L (98-107) 03/20/22 04:19 Carbon Dioxide 27 mmol/L (22-30) 03/20/22 04:19 Anion Gap 17 mmol/L 03/20/22 04:19 BUN 45 mg/dL (9-20) H 03/20/22 04:19 Creatinine 6.4 mg/dL (0.8-1.3) H 03/20/22 04:19 Estimated GFR 11 ml/min 03/20/22 04:19 BUN/Creatinine Ratio 7 % 03/20/22 04:19 Glucose 105 mg/dL (75-100) H 03/20/22 04:19 POC Glucose 169 mg/dL (70-105) H 03/19/22 20:17 Calcium 8.6 mg/dL (8.4-10.2) 03/20/22 04:19 Phosphorus 4.90 mg/dL (2.5-4.5) H 03/15/22 04:59 Total Bilirubin 0.60 mg/dL (0.1-1.2) 03/14/22 05:11 AST 23 units/L (5-40) 03/14/22 05:11 ALT 32 units/L (7-56) 03/14/22 05:11 Alkaline Phosphatase 112 units/L (35-129) 03/14/22 05:11 Total Creatine Kinase 1247 units/L (55-170) H 03/13/22 16:09 Troponin T 0.098 ng/mL (0.00-0.029) H 03/13/22 07:47 NT-Pro-B Natriuret Pep 64136 pg/mL (0-450) H 03/13/22 08:28 Total Protein 5.9 g/dL (6.3-8.2) L 03/14/22 05:11 Albumin 3.3 g/dL (3.9-5) L 03/14/22 05:11 Albumin/Globulin Ratio 1.3 % 03/14/22 05:11 Urine Color Straw (Yellow) 03/13/22 15:29 Urine Turbidity Clear (Clear) 03/13/22 15:29 Urine pH 6.0 (5.0-7.0) 03/13/22 15:29 Ur Specific [place] 1.010 (1.003-1.030) 03/13/22 15:29 Urine Protein >500 mg/dL (Negative) 03/13/22 15:29 Urine Glucose (UA) Negative mg/dL (Negative) 03/13/22 15:29 Urine Ketones 15 mg/dL (Negative) 03/13/22 15:29 Urine Blood 2+ (Negative) 03/13/22 15:29 Urine Nitrite Negative (Negative) 03/13/22 15:29 Ur Reducing Substances Not Reportable 03/13/22 15:29 Urine Bilirubin Negative (Negative) 03/13/22 15:29 Urine Ictotest Not Reportable 03/13/22 15:29 Urine Urobilinogen < 2.0 mg/dL (<2.0) 03/13/22 15:29 Ur Leukocyte Esterase Negative (Negative) 03/13/22 15:29 Urine WBC (Auto) 1.0 /HPF (0.0-6.0) 03/13/22 15:29 Urine RBC (Auto) 1.0 /HPF (0.0-6.0) 03/13/22 15:29 Urine Eosinophils None seen (None Seen) 03/13/22 15:29 Urine Creatinine 43.6 mg/dL (0.1-20.0) H 03/13/22 15:29 Protein/Creatinin Ratio 5.78 03/13/22 15:29 Urine Sodium 85 mmol/L 03/13/22 15:29 Urine Total Protein 252 mg/dL (5-11.8) H 03/13/22 15:29 SARS-CoV-2 (PCR) Negative (Negative) 03/17/22 10:58 Hepatitis A IgM Ab Non-reactive (NonReactive) 03/15/22 12:37 Hep Bs Antigen Non-reactive (Negative) 03/15/22 12:37 Hep B Core IgM Ab Non-reactive (NonReactive) 03/15/22 12:37 Hepatitis C Antibody Non-reactive (NonReactive) 03/15/22 12:37 Bates/IV: Voiding Method Toilet Active Medications - Current Medications Current Medications: Generic Name Dose Route Start Last Admin Trade Name Freq PRN Reason Stop Dose Admin Acetaminophen 650 mg 03/13/22 18:17 03/19/22 09:03 Acetaminophen 325 Mg Tab PO 650 mg Q4H PRN Administration Pain MILD(1-3)/Fever >100.5/[id number] Carvedilol 12.5 mg 03/14/22 10:00 03/19/22 22:24 Carvedilol 12.5 Mg Tab PO 12.5 mg BID JIMMY Administration Carvedilol 25 mg 03/19/22 22:00 03/19/22 22:25 Carvedilol 25 Mg Tab PO 25 mg BID JIMMY Administration Furosemide 40 mg 03/16/22 22:00 03/19/22 22:25 Furosemide 40 Mg Tab PO 40 mg BID JIMMY Administration Hydralazine HCl 10 mg 03/13/22 22:00 03/13/22 22:14 Hydralazine 20 Mg/1 Ml Inj IV 10 mg Q6HR PRN Administration SBP >/=160; DBP >/=100 Hydralazine HCl 100 mg 03/14/22 09:00 03/20/22 06:40 Hydralazine 100 Mg Tab PO 100 mg Q8HR JIMMY Administration Hydromorphone HCl 0.5 mg 03/13/22 18:17 Hydromorphone 0.5 Mg/0.5 Ml Inj IV Q3H PRN Pain , Severe (7-10) Metoclopramide HCl 5 mg 03/17/22 14:00 Metoclopramide 10 Mg/2 Ml Inj IV Q6H PRN Nausea And Vomiting Morphine Sulfate 2 mg 03/13/22 18:17 Morphine 2 Mg/1 Ml Inj IV Q4H PRN Pain, Moderate (4-6) Nifedipine 60 mg 03/14/22 15:00 03/19/22 22:25 Nifedipine Xl 60 Mg Tab PO 60 mg Q12HR JIMMY Administration Ondansetron HCl 4 mg 03/13/22 18:17 03/19/22 09:02 Ondansetron 4 Mg/2 Ml Inj IV 4 mg Q8H PRN Administration Nausea And Vomiting Oxycodone/Acetaminophen 1 tab 03/13/22 18:17 03/16/22 04:22 Oxycodone /Acetaminophen 5-325mg Tab PO 1 tab Q6H PRN Administration Pain, Moderate (4-6) Sodium Chloride 10 ml 03/13/22 22:00 03/19/22 22:27 Sodium Chloride 0.9% 10 Ml Flush Syringe IV 10 ml BID JIMMY Administration Sodium Chloride 10 ml 03/13/22 18:17 Sodium Chloride 0.9% 10 Ml Flush Syringe IV PRN PRN LINE FLUSH Nutrition/Malnutrition Assess - Dietary Evaluation Nutrition/Malnutrition Findings: Nutrition Notes Start: 03/18/22 14:19 Freq: Status: Active Protocol: Document 03/18/22 14:19 SYLVIA (Rec: 03/18/22 14:21 SYLVIA [id number]) Nutrition Notes Need for Assessment generated from: LOS Initial or Follow up Brief Note Current Diagnosis Acute Kidney Injury,CKD(stage I-IV),Diabetes,Heart Failure Other Pertinent Diagnosis Accelerated HTN Current Diet Cardiac Labs/Tests reviewed Pertinent Medications Lasix Weight Status Obese Subjective/Other Information Pt screened for LOS. No meal intakes documented since admission. Pt in HD at this time. Burn Absent Trauma Absent Minimum of two criteria No Nutrition Intervention Follow-Up By: 03/24/22 Additional Comments F/U: intakes
[2022-03-20] MEDS ORDERED: SODIUM CHLORIDE 0.9% 100 ML IV PRN (09:02)
[2022-03-20] MEDS: carvediloL 25 MG TAB PO SCH ×2 (09:08→21:41)
[2022-03-20] MEDS: FUROSEMIDE 40 MG TAB PO SCH ×2 (09:08→21:41)
[2022-03-20] MEDS: NIFEdipine XL 60 MG TAB PO SCH ×2 (09:08→21:41)
[2022-03-20] MEDS: carvediloL 12.5 MG TAB PO SCH (11:07)
--- NOTE | 2022-03-20 11:17 | Progress Note ---
Assessment and Plan #Cardiomyopathy - LVEF 25-30% per TTE 03/13/22 #Mod-sev pHTN on echo #ESRD on HD #HTN #DM Remains stable from cardiac stand point. Continue carvedilol. Add Bidil as tolerated. Volume management per nephrology. Recommend out-patient cardiology follow up for ischemic evaluation. If LVEF remains < 35% after at least 90 days GDMT, then may consider for primary prevention ICD implant. Compliance stressed with patient. Subjective Date of service: 03/20/22 Principal diagnosis: Systolic heart failure Interval history: No complaints. Denies CP/SOB. Tele - SR Objective Vital Signs Temp Pulse Resp BP Pulse Ox 03/20/22 10:00 77 03/20/22 08:24 98.3 F 80 18 130/80 95 03/20/22 04:46 98.3 F 79 18 134/77 95 03/19/22 23:56 98.0 F 77 18 135/70 92 03/19/22 22:25 85 153/90 03/19/22 22:24 85 153/90 03/19/22 22:00 80 03/19/22 20:27 95 03/19/22 19:36 83 153/90 94 03/19/22 17:06 98.7 F 83 18 146/85 94 03/19/22 11:57 98.2 F 66 18 140/82 94 - Physical Examination General: No Apparent Distress HEENT: Positive: PERRL Neck: Positive: neck supple Neuro: Positive: Grossly Intact Abdomen: Positive: Soft Skin: Positive: Clear Extremities: Present: edema (trace) - Labs and Meds CBC 03/20/22 Range/Units 04:19 WBC 10.0 (4.5-11.0) K/mm3 RBC 5.08 H (3.65-5.03) M/mm3 Hgb 12.3 (11.8-15.2) gm/dl Hct 37.4 (35.5-45.6) % Plt Count 271 (140-440) K/mm3 Lymph # (Auto) 2.0 (1.2-5.4) K/mm3 [place] # (Auto) 1.0 H (0.0-0.8) K/mm3 Eos # (Auto) 0.3 (0.0-0.4) K/mm3 Baso # (Auto) 0.1 (0.0-0.1) K/mm3 Comprehensive Metabolic Panel 03/20/22 Range/Units 04:19 Sodium 138 (137-145) mmol/L Potassium 4.4 (3.6-5.0) mmol/L Chloride 98.5 (98-107) mmol/L Carbon Dioxide 27 (22-30) mmol/L BUN 45 H (9-20) mg/dL Creatinine 6.4 H (0.8-1.3) mg/dL Glucose 105 H (75-100) mg/dL Calcium 8.6 (8.4-10.2) mg/dL
[2022-03-21 05:16] LABS: Hematocrit 36.9 % (35.5-45.6); Hemoglobin 12.5 gm/dl (11.8-15.2); Mean Corpuscular HGB Conc 34 % (32-34); Mean Corpuscular Volume 73 fl (84-94); Platelet Count 280 K/mm3 (140-440); Red Blood Count 5.08 M/mm3 (3.65-5.03); Red Cell Distribution Width 15.7 % (13.2-15.2)
[2022-03-21 05:27] LABS: Calcium 8.3 mg/dL (8.4-10.2)
[2022-03-21] MEDS: hydrALAZINE 100 MG TAB PO SCH ×3 (06:22→22:45)
[2022-03-21 07:38] LABS: Basophils % (Manual) 0 % (0.0-1.8); Total Cells Counted 100
[2022-03-21 07:39] LABS: Spherocytes 1+; Target Cells 1+
[2022-03-21 07:42] LABS: Platelet Estimate Consistent w Auto
--- NOTE | 2022-03-21 08:49 | Progress Note ---
Assessment and Plan Assessment and plan: 46-year-old male with history of chronic uncontrolled hypertension and chronic kidney disease who presented through the emergency department with complaints of 3-4 days of increasing shortness of breath and lower extremity edema. EKG revealed normal sinus rhythm with normal ST-T wave changes. Chest x-ray revealed moderate severity cardiomegaly with diffuse interstitial edema. Laboratory findings reveal a creatinine of 6.0 with baseline creatinine of 3.5 previously. Patient also noted to have persistently elevated BP despite treatment with amlodipine, carvedilol and hydralazine. Acute on chronic systolic heart failure. Acute on chronic kidney disease Hypokalemia Cardiomyopathy Accelerated hypertension. Diabetes mellitus type 2 03/15/2022. Echocardiogram revealed cardiomyopathy with left ventricular systolic function of 25-30%. Continue GDMT for heart failure per cardiology recommen dations. BP is much better controlled. Continue aggressive diuresis with Lasix 80 mg 3 times daily. Renal ultrasound revealed no hydronephrosis but did reveal medical renal disease. Urine studies showed known proteinuria likely from DM. Nephrology reports patient consenting to hemodialysis if no significant improvement in renal function. Unfortunately, renal function appears to be about the same. Patient will need PermCath placement. Also, patient will likely need ischemic evaluation with stress test once hemodialysis initiated and renal issues stabilized 03/16/2022. Patient is s/p PermCath placement yesterday with the initiation of hemodialysis. We will discuss with case management plans for outpatient hemodialysis chair. Await cardiology plans for ischemic evaluation. Continue GDMT for systolic heart failure. Continue Accu-Cheks and sliding scale insulin. 03/17/2022. Patient initiated on hemodialysis on 03/15/2022. We are waiting for outpatient hemodialysis chair. Echocardiogram revealed cardiomyopathy with LVEF 25 to 30%. Continue tight blood pressure control, diuresis and hemodialysis. Cardiology reports patient will ultimately need stress test either predischarge or as an outpatient 03/18/2022. Nephrology reports hemodialysis today for clearance and volume chase juan. Follow-up bladder scan. Ischemic evaluation per cardiology. 03/19/2022. Continue hemodialysis per nephrology recommendations. Ischemic evaluation per cardiology. Monitor I/O's daily. CM on board for outpatient HD arrangement 03/20/2022. Continue hemodialysis per nephrology recommendations. Ischemic evaluation per cardiology. Monitor I/O's daily. CM on board for outpatient HD arrangement 03/21/2022. Cardiology reports stability from their standpoint. LVEF 25-30% per TTE 03/13/22. Continue Coreg and Bidil. Cardiology recommends outpatient follow-up for ischemic evaluation. If LVEF remains < 35% after at least 90 days GDMT, then may consider for primary prevention ICD implant. Continue hemodialysis per nephrology recommendations. CM on board for outpatient HD arrangement History Interval history: No new issues overnight Hospitalist Physical - Constitutional Vitals: Temp Pulse Resp BP Pulse Ox 98.3 F 74 17 136/69 94 03/21/22 07:38 03/21/22 07:38 03/21/22 07:38 03/21/22 07:38 03/21/22 07:38 General appearance: Present: no acute distress - EENT Eyes: Present: PERRL, EOM intact ENT: hearing intact, clear oral mucosa, dentition normal - Neck Neck: Present: supple, normal ROM - Respiratory Respiratory effort: normal Respiratory: bilateral: CTA - Cardiovascular Rhythm: regular Heart Sounds: Present: S1 & S2. Absent: gallop, rub - Extremities Extremities: no ischemia, No edema, Full ROM - Abdominal General gastrointestinal: soft, non-tender, non-distended, normal bowel sounds - Integumentary Integumentary: Present: clear, warm, dry - Neurologic Neurologic: CNII-XII intact, moves all extremities HEART Score - HEART Score Troponin: Troponin T 0.098 ng/mL (0.00-0.029) H 03/13/22 07:47 Results - Labs CBC & Chem 7: 03/21/22 04:39 03/21/22 04:39 Labs: Laboratory Last Values WBC 10.7 K/mm3 (4.5-11.0) 03/21/22 04:39 RBC 5.08 M/mm3 (3.65-5.03) H 03/21/22 04:39 Hgb 12.5 gm/dl (11.8-15.2) 03/21/22 04:39 Hct 36.9 % (35.5-45.6) 03/21/22 04:39 MCV 73 fl (84-94) L 03/21/22 04:39 MCH 25 pg (28-32) L 03/21/22 04:39 MCHC 34 % (32-34) 03/21/22 04:39 RDW 15.7 % (13.2-15.2) H 03/21/22 04:39 Plt Count 280 K/mm3 (140-440) 03/21/22 04:39 Lymph % (Auto) 19.9 % (13.4-35.0) 03/20/22 04:19 [place] % (Auto) 9.6 % (0.0-7.3) H 03/20/22 04:19 Eos % (Auto) 2.6 % (0.0-4.3) 03/20/22 04:19 Baso % (Auto) 1.1 % (0.0-1.8) 03/20/22 04:19 Lymph # (Auto) 2.0 K/mm3 (1.2-5.4) 03/20/22 04:19 [place] # (Auto) 1.0 K/mm3 (0.0-0.8) H 03/20/22 04:19 Eos # (Auto) 0.3 K/mm3 (0.0-0.4) 03/20/22 04:19 Baso # (Auto) 0.1 K/mm3 (0.0-0.1) 03/20/22 04:19 Add Manual Diff Complete 03/21/22 04:39 Total Counted 100 03/21/22 04:39 Seg Neutrophils % 66.8 % (40.0-70.0) 03/20/22 04:19 Seg Neuts % (Manual) 73.0 % (40.0-70.0) H 03/21/22 04:39 Band Neutrophils % 0 % 03/21/22 04:39 Lymphocytes % (Manual) 15.0 % (13.4-35.0) 03/21/22 04:39 Reactive Lymphs % (Man) 0 % 03/21/22 04:39 Monocytes % (Manual) 4.0 % (0.0-7.3) 03/21/22 04:39 Eosinophils % (Manual) 8.0 % (0.0-4.3) H 03/21/22 04:39 Basophils % (Manual) 0 % (0.0-1.8) 03/21/22 04:39 Metamyelocytes % 0 % 03/21/22 04:39 Myelocytes % 0 % 03/21/22 04:39 Promyelocytes % 0 % 03/21/22 04:39 Blast Cells % 0 % 03/21/22 04:39 Nucleated RBC % Not Reportable 03/21/22 04:39 Seg Neutrophils # 6.7 K/mm3 (1.8-7.7) 03/20/22 04:19 Seg Neutrophils # Man 7.8 K/mm3 (1.8-7.7) H 03/21/22 04:39 Band Neutrophils # 0.0 K/mm3 03/21/22 04:39 Lymphocytes # (Manual) 1.6 K/mm3 (1.2-5.4) 03/21/22 04:39 Abs React Lymphs (Man) 0.0 K/mm3 03/21/22 04:39 Monocytes # (Manual) 0.4 K/mm3 (0.0-0.8) 03/21/22 04:39 Eosinophils # (Manual) 0.9 K/mm3 (0.0-0.4) H 03/21/22 04:39 Basophils # (Manual) 0.0 K/mm3 (0.0-0.1) 03/21/22 04:39 Metamyelocytes # 0.0 K/mm3 03/21/22 04:39 Myelocytes # 0.0 K/mm3 03/21/22 04:39 Promyelocytes # 0.0 K/mm3 03/21/22 04:39 Blast Cells # 0.0 K/mm3 03/21/22 04:39 WBC Morphology Not Reportable 03/21/22 04:39 Hypersegmented Neuts Not Reportable 03/21/22 04:39 Hyposegmented Neuts Not Reportable 03/21/22 04:39 Hypogranular Neuts Not Reportable 03/21/22 04:39 Smudge Cells Not Reportable 03/21/22 04:39 Toxic Granulation Not Reportable 03/21/22 04:39 Toxic Vacuolation Not Reportable 03/21/22 04:39 Dohle Bodies Not Reportable 03/21/22 04:39 Pelger-Huet Anomaly Not Reportable 03/21/22 04:39 Tobi Rods Not Reportable 03/21/22 04:39 Platelet Estimate Consistent w auto 03/21/22 04:39 Clumped Platelets Not Reportable 03/21/22 04:39 Plt Clumps, EDTA Not Reportable 03/21/22 04:39 Large Platelets Not Reportable 03/21/22 04:39 Giant Platelets Not Reportable 03/21/22 04:39 Platelet Satelliting Not Reportable 03/21/22 04:39 Plt Morphology Comment Not Reportable 03/21/22 04:39 RBC Morphology Not Reportable 03/21/22 04:39 Dimorphic RBCs Not Reportable 03/21/22 04:39 Polychromasia Not Reportable 03/21/22 04:39 Hypochromasia Not Reportable 03/21/22 04:39 Poikilocytosis Not Reportable 03/21/22 04:39 Anisocytosis Not Reportable 03/21/22 04:39 Microcytosis 1+ 03/21/22 04:39 Macrocytosis Not Reportable 03/21/22 04:39 Spherocytes 1+ 03/21/22 04:39 Pappenheimer Bodies Not Reportable 03/21/22 04:39 Sickle Cells Not Reportable 03/21/22 04:39 Target Cells 1+ 03/21/22 04:39 Tear Drop Cells Not Reportable 03/21/22 04:39 Ovalocytes Not Reportable 03/21/22 04:39 Helmet Cells Not Reportable 03/21/22 04:39 [place] Bodies Not Reportable 03/21/22 04:39 Star Rings Not Reportable 03/21/22 04:39 [place] Cells Not Reportable 03/21/22 04:39 Bite Cells Not Reportable 03/21/22 04:39 Crenated Cell Not Reportable 03/21/22 04:39 Elliptocytes Not Reportable 03/21/22 04:39 Acanthocytes (Spur) Not Reportable 03/21/22 04:39 Rouleaux Not Reportable 03/21/22 04:39 Hemoglobin C Crystals Not Reportable 03/21/22 04:39 Schistocytes Not Reportable 03/21/22 04:39 Malaria parasites Not Reportable 03/21/22 04:39 Jorge Bodies Not Reportable 03/21/22 04:39 Hem Pathologist Commnt No 03/21/22 04:39 Sodium 136 mmol/L (137-145) L 03/21/22 04:39 Potassium 4.6 mmol/L (3.6-5.0) 03/21/22 04:39 Chloride 95.6 mmol/L (98-107) L 03/21/22 04:39 Carbon Dioxide 25 mmol/L (22-30) 03/21/22 04:39 Anion Gap 20 mmol/L 03/21/22 04:39 BUN 61 mg/dL (9-20) H 03/21/22 04:39 Creatinine 7.1 mg/dL (0.8-1.3) H 03/21/22 04:39 Estimated GFR 10 ml/min 03/21/22 04:39 BUN/Creatinine Ratio 9 % 03/21/22 04:39 Glucose 125 mg/dL (75-100) H 03/21/22 04:39 POC Glucose 169 mg/dL (70-105) H 03/19/22 20:17 Calcium 8.3 mg/dL (8.4-10.2) L 03/21/22 04:39 Phosphorus 4.90 mg/dL (2.5-4.5) H 03/15/22 04:59 Total Bilirubin 0.60 mg/dL (0.1-1.2) 03/14/22 05:11 AST 23 units/L (5-40) 03/14/22 05:11 ALT 32 units/L (7-56) 03/14/22 05:11 Alkaline Phosphatase 112 units/L (35-129) 03/14/22 05:11 Total Creatine Kinase 1247 units/L (55-170) H 03/13/22 16:09 Troponin T 0.098 ng/mL (0.00-0.029) H 03/13/22 07:47 NT-Pro-B Natriuret Pep 59492 pg/mL (0-450) H 03/13/22 08:28 Total Protein 5.9 g/dL (6.3-8.2) L 03/14/22 05:11 Albumin 3.3 g/dL (3.9-5) L 03/14/22 05:11 Albumin/Globulin Ratio 1.3 % 03/14/22 05:11 Urine Color Straw (Yellow) 03/13/22 15:29 Urine Turbidity Clear (Clear) 03/13/22 15:29 Urine pH 6.0 (5.0-7.0) 03/13/22 15:29 Ur Specific [place] 1.010 (1.003-1.030) 03/13/22 15:29 Urine Protein >500 mg/dL (Negative) 03/13/22 15:29 Urine Glucose (UA) Negative mg/dL (Negative) 03/13/22 15:29 Urine Ketones 15 mg/dL (Negative) 03/13/22 15:29 Urine Blood 2+ (Negative) 03/13/22 15:29 Urine Nitrite Negative (Negative) 03/13/22 15:29 Ur Reducing Substances Not Reportable 03/13/22 15:29 Urine Bilirubin Negative (Negative) 03/13/22 15:29 Urine Ictotest Not Reportable 03/13/22 15:29 Urine Urobilinogen < 2.0 mg/dL (<2.0) 03/13/22 15:29 Ur Leukocyte Esterase Negative (Negative) 03/13/22 15:29 Urine WBC (Auto) 1.0 /HPF (0.0-6.0) 03/13/22 15:29 Urine RBC (Auto) 1.0 /HPF (0.0-6.0) 03/13/22 15:29 Urine Eosinophils None seen (None Seen) 03/13/22 15:29 Urine Creatinine 43.6 mg/dL (0.1-20.0) H 03/13/22 15:29 Protein/Creatinin Ratio 5.78 03/13/22 15:29 Urine Sodium 85 mmol/L 03/13/22 15:29 Urine Total Protein 252 mg/dL (5-11.8) H 03/13/22 15:29 SARS-CoV-2 (PCR) Negative (Negative) 03/17/22 10:58 Hepatitis A IgM Ab Non-reactive (NonReactive) 03/15/22 12:37 Hep Bs Antigen Non-reactive (Negative) 03/15/22 12:37 Hep B Core IgM Ab Non-reactive (NonReactive) 03/15/22 12:37 Hepatitis C Antibody Non-reactive (NonReactive) 03/15/22 12:37 Bates/IV: Voiding Method Toilet Active Medications - Current Medications Current Medications: Generic Name Dose Route Start Last Admin Trade Name Freq PRN Reason Stop Dose Admin Acetaminophen 650 mg 03/13/22 18:17 03/19/22 09:03 Acetaminophen 325 Mg Tab PO 650 mg Q4H PRN Administration Pain MILD(1-3)/Fever >100.5/WHITTAKER Carvedilol 25 mg 03/19/22 22:00 03/20/22 21:41 Carvedilol 25 Mg Tab PO 25 mg BID JIMMY Administration Furosemide 40 mg 03/16/22 22:00 03/20/22 21:41 Furosemide 40 Mg Tab PO 40 mg BID JIMMY Administration Hydralazine HCl 10 mg 03/13/22 22:00 03/13/22 22:14 Hydralazine 20 Mg/1 Ml Inj IV 10 mg Q6HR PRN Administration SBP >/=160; DBP >/=100 Hydralazine HCl 100 mg 03/14/22 09:00 03/21/22 06:22 Hydralazine 100 Mg Tab PO 100 mg Q8HR JIMMY Administration Hydromorphone HCl 0.5 mg 03/13/22 18:17 Hydromorphone 0.5 Mg/0.5 Ml Inj IV Q3H PRN Pain , Severe (7-10) Sodium Chloride 100 mls @ 999 mls/hr 03/20/22 09:02 Nacl 0.9% IV QIAN PRN Hypotension Metoclopramide HCl 5 mg 03/17/22 14:00 Metoclopramide 10 Mg/2 Ml Inj IV Q6H PRN Nausea And Vomiting Morphine Sulfate 2 mg 03/13/22 18:17 Morphine 2 Mg/1 Ml Inj IV Q4H PRN Pain, Moderate (4-6) Nifedipine 60 mg 03/14/22 15:00 03/20/22 21:41 Nifedipine Xl 60 Mg Tab PO 60 mg Q12HR JIMMY Administration Ondansetron HCl 4 mg 03/13/22 18:17 03/19/22 09:02 Ondansetron 4 Mg/2 Ml Inj IV 4 mg Q8H PRN Administration Nausea And Vomiting Oxycodone/Acetaminophen 1 tab 03/13/22 18:17 03/16/22 04:22 Oxycodone /Acetaminophen 5-325mg Tab PO 1 tab Q6H PRN Administration Pain, Moderate (4-6) Sodium Chloride 10 ml 03/13/22 22:00 03/20/22 21:42 Sodium Chloride 0.9% 10 Ml Flush Syringe IV 10 ml BID JIMMY Administration Sodium Chloride 10 ml 03/13/22 18:17 Sodium Chloride 0.9% 10 Ml Flush Syringe IV PRN PRN LINE FLUSH Nutrition/Malnutrition Assess - Dietary Evaluation Nutrition/Malnutrition Findings: Nutrition Notes Start: 03/18/22 14:19 Freq: Status: Active Protocol: Document 03/18/22 14:19 SYLVIA (Rec: 03/18/22 14:21 SYLVIA [id number]) Nutrition Notes Need for Assessment generated from: LOS Initial or Follow up Brief Note Current Diagnosis Acute Kidney Injury,CKD(stage I-IV),Diabetes,Heart Failure Other Pertinent Diagnosis Accelerated HTN Current Diet Cardiac Labs/Tests reviewed Pertinent Medications Lasix Weight Status Obese Subjective/Other Information Pt screened for LOS. No meal intakes documented since admission. Pt in HD at this time. Burn Absent Trauma Absent Minimum of two criteria No Nutrition Intervention Follow-Up By: 03/24/22 Additional Comments F/U: intakes
--- NOTE | 2022-03-21 12:25 | Progress Note ---
Assessment and Plan - Patient Problems (1) Pulmonary edema Current Visit: Yes Status: Acute Plan to address problem: 46-year-old man who presents with fluid overload and pulmonary edema. His heart failure exacerbation is multifactorial. There is chronic severe uncontrolled hypertension, there is worsening renal failure with a creatinine currently end- stage at 6.4. Echocardiogram shows the presence of a cardiomyopathy, with left ventricular ejection fraction 25 to 30%. Symptoms have improved with blood pressure control, diuresis and initiation of hemodialysis. Cardiac stable and asymptomatic. We will perform noninvasive ischemia assessment as indicated in the outpatient setting. Subjective Date of service: 03/21/22 Principal diagnosis: Systolic heart failure Interval history: Patient is planned for routine dialysis today, no new cardiac complaints, no cardiac events reported. Objective Vital Signs Temp Pulse Resp BP Pulse Ox Pulse Ox 03/21/22 11:00 69 161/84 03/21/22 10:45 71 152/85 03/21/22 10:30 47 L 131/78 03/21/22 10:15 57 L 138/62 03/21/22 10:00 68 147/81 03/21/22 09:45 51 L 137/72 03/21/22 09:40 98.2 F 72 18 141/73 98 03/21/22 07:38 98.3 F 74 17 136/69 94 03/21/22 04:17 98.0 F 80 14 132/75 95 03/21/22 00:09 98.1 F 74 14 130/78 90 03/20/22 22:00 71 03/20/22 20:11 98 03/20/22 19:47 98.1 F 78 12 151/81 95 03/20/22 16:17 98.1 F 75 18 141/78 97 - Physical Examination General: No Apparent Distress HEENT: Positive: PERRL Neck: Positive: neck supple Cardiac: Positive: Reg Rate and Rhythm Lungs: Positive: clear to auscultation Neuro: Positive: Grossly Intact Abdomen: Positive: Soft Skin: Positive: Clear Extremities: Present: edema (trace) - Labs and Meds CBC 03/21/22 Range/Units 04:39 WBC 10.7 (4.5-11.0) K/mm3 RBC 5.08 H (3.65-5.03) M/mm3 Hgb 12.5 (11.8-15.2) gm/dl Hct 36.9 (35.5-45.6) % Plt Count 280 (140-440) K/mm3 Comprehensive Metabolic Panel 03/21/22 Range/Units 04:39 Sodium 136 L (137-145) mmol/L Potassium 4.6 (3.6-5.0) mmol/L Chloride 95.6 L (98-107) mmol/L Carbon Dioxide 25 (22-30) mmol/L BUN 61 H (9-20) mg/dL Creatinine 7.1 H (0.8-1.3) mg/dL Glucose 125 H (75-100) mg/dL Calcium 8.3 L (8.4-10.2) mg/dL
--- NOTE | 2022-03-21 12:27 | Progress Note ---
Assessment and Plan Assessment and Plan End Stage Renal Disease now on hemodialysis S/P Hyperkalemia Volume overload Hypertension Diabetes Mellitus CHF Plan: Hemodialysis today for UF and clearance, will place on ,, schedule S/P perm-catheter placement yesterday and also first HD treatment yesterday on 03/15/22 No signs of renal recovery. Has known advanced CKD, followed by Dr. Sol in the office, now with ESRD Echo shows LVEF 25-30% as per Cardiology On Lasix to 40 mg po BID. UF with HD Renal ultrasound reviewed-No hydronephrosis. Medical renal disease. Urine studies showed known proteinuria, likely from DM In 2019, CHOCO, SPEP, C3/C4, ANCA, HIV, Hep panel were negative Obtain daily weights Monitor I/O's daily Avoid nephrotoxic agents Assess dialysis needs daily Monitor renal function closely CM onboard for outpatient HD arrangement Plan of care reviewed by Dr. Fonseca Subjective Date of service: 03/21/22 Principal diagnosis: Systolic heart failure Interval history: Patient seen in dialysis unit. Tolerating HD well. Reviewed renal labs. Objective - Vital Signs Vital signs: Vital Signs - 12hr 03/21/22 03/21/22 03/21/22 04:17 07:38 09:40 Temperature 98.0 F 98.3 F 98.2 F Pulse Rate 80 74 72 Respiratory 14 17 18 Rate Blood Pressure 132/75 136/69 141/73 O2 Sat by Pulse 95 94 Oximetry O2 Sat by Pulse 98 Oximetry [ Posterior Bilateral] 03/21/22 03/21/22 03/21/22 09:45 10:00 10:15 Temperature Pulse Rate 51 L 68 57 L Respiratory Rate Blood Pressure 137/72 147/81 138/62 O2 Sat by Pulse Oximetry O2 Sat by Pulse Oximetry [ Posterior Bilateral] 03/21/22 03/21/22 03/21/22 10:30 10:45 11:00 Temperature Pulse Rate 47 L 71 69 Respiratory Rate Blood Pressure 131/78 152/85 161/84 O2 Sat by Pulse Oximetry O2 Sat by Pulse Oximetry [ Posterior Bilateral] - General Appearance General appearance: well-developed, appears stated age EENT: ATNC, PERRL, hearing intact, vision intact Neck: no JVD, supple Respiratory: Present: Decreased Breath Sounds Cardiology: S1S2 Gastrointestinal: normoactive bowel sounds Integumentary: warm and dry Neurologic: alert and oriented x3 Musculoskeletal: joint swelling, other - Lab 03/21/22 04:39 03/21/22 04:39 Most recent lab results Calcium 8.3 mg/dL (8.4-10.2) L 03/21/22 04:39 Phosphorus 4.90 mg/dL (2.5-4.5) H 03/15/22 04:59 Urine Creatinine 43.6 mg/dL (0.1-20.0) H 03/13/22 15:29 Urine Sodium 85 mmol/L 03/13/22 15:29 Urine Total Protein 252 mg/dL (5-11.8) H 03/13/22 15:29 Medications & Allergies - Medications Allergies/Adverse Reactions: Allergies shellfish derived Adverse Reaction (Verified 03/14/22 09:51) Anaphylaxis patient says he gets "hives and can't breathe" Home Medications: Home Medications Medication Instructions Recorded Confirmed Last Taken Type amLODIPine 10 mg PO QDAY #30 tablet 07/18/20 03/14/22 Unknown Rx glipiZIDE XL [Glucotrol Xl] 2.5 mg PO QAM #30 tab.er.24 07/18/20 03/14/22 Unknown Rx hydrALAZINE [Apresoline TAB] 50 mg PO Q8HR #90 tablet 07/18/20 03/14/22 1 Month Ago Rx ~02/11/22 Labetalol HCl [Labetalol 300mg TAB] 300 mg PO BID 03/14/22 03/14/22 Unknown History Torsemide [Demadex] 10 mg PO QDAY 03/14/22 03/14/22 Unknown History Active Medications: Generic Name Dose Route Start Last Admin Trade Name Freq PRN Reason Stop Dose Admin Acetaminophen 650 mg 03/13/22 18:17 03/19/22 09:03 Acetaminophen 325 Mg Tab PO 650 mg Q4H PRN Administration Pain MILD(1-3)/Fever >100.5/[place]ER Carvedilol 25 mg 03/19/22 22:00 03/20/22 21:41 Carvedilol 25 Mg Tab PO 25 mg BID JIMMY Administration Furosemide 40 mg 03/16/22 22:00 03/20/22 21:41 Furosemide 40 Mg Tab PO 40 mg BID JIMMY Administration Hydralazine HCl 10 mg 03/13/22 22:00 03/13/22 22:14 Hydralazine 20 Mg/1 Ml Inj IV 10 mg Q6HR PRN Administration SBP >/=160; DBP >/=100 Hydralazine HCl 100 mg 03/14/22 09:00 03/21/22 06:22 Hydralazine 100 Mg Tab PO 100 mg Q8HR JIMMY Administration Hydromorphone HCl 0.5 mg 03/13/22 18:17 Hydromorphone 0.5 Mg/0.5 Ml Inj IV Q3H PRN Pain , Severe (7-10) Sodium Chloride 100 mls @ 999 mls/hr 03/20/22 09:02 Nacl 0.9% IV QIAN PRN Hypotension Metoclopramide HCl 5 mg 03/17/22 14:00 Metoclopramide 10 Mg/2 Ml Inj IV Q6H PRN Nausea And Vomiting Morphine Sulfate 2 mg 03/13/22 18:17 Morphine 2 Mg/1 Ml Inj IV Q4H PRN Pain, Moderate (4-6) Nifedipine 60 mg 03/14/22 15:00 03/20/22 21:41 Nifedipine Xl 60 Mg Tab PO 60 mg Q12HR JIMMY Administration Ondansetron HCl 4 mg 03/13/22 18:17 03/19/22 09:02 Ondansetron 4 Mg/2 Ml Inj IV 4 mg Q8H PRN Administration Nausea And Vomiting Oxycodone/Acetaminophen 1 tab 03/13/22 18:17 03/16/22 04:22 Oxycodone /Acetaminophen 5-325mg Tab PO 1 tab Q6H PRN Administration Pain, Moderate (4-6) Sodium Chloride 10 ml 03/13/22 22:00 03/20/22 21:42 Sodium Chloride 0.9% 10 Ml Flush Syringe IV 10 ml BID JIMMY Administration Sodium Chloride 10 ml 03/13/22 18:17 Sodium Chloride 0.9% 10 Ml Flush Syringe IV PRN PRN LINE FLUSH
[2022-03-21] MEDS: NIFEdipine XL 60 MG TAB PO SCH ×2 (13:03→22:46)
[2022-03-21] MEDS: FUROSEMIDE 40 MG TAB PO SCH ×2 (13:04→22:45)
[2022-03-21] MEDS: carvediloL 25 MG TAB PO SCH ×2 (13:04→22:45)
[2022-03-22 05:45] LABS: Basophils # (Auto) 0.1 K/mm3 (0.0-0.1); Basophils % (Auto) 1.1 % (0.0-1.8); Eosinophils # (Auto) 0.2 K/mm3 (0.0-0.4); Eosinophils % (Auto) 1.9 % (0.0-4.3); Hematocrit 37.1 % (35.5-45.6); Hemoglobin 12.1 gm/dl (11.8-15.2); Lymphocytes # (Auto) 2.1 K/mm3 (1.2-5.4); Mean Corpuscular HGB Conc 33 % (32-34); Mean Corpuscular Volume 74 fl (84-94); Monocytes % (Auto) 10.4 % (0.0-7.3); Platelet Count 284 K/mm3 (140-440); Red Blood Count 5.05 M/mm3 (3.65-5.03); Red Cell Distribution Width 15.2 % (13.2-15.2)
[2022-03-22 06:00] LABS: Calcium 8.8 mg/dL (8.4-10.2)
[2022-03-22] MEDS: hydrALAZINE 100 MG TAB PO SCH ×3 (06:50→21:50)
[2022-03-22] MEDS: FUROSEMIDE 40 MG TAB PO SCH ×2 (09:07→21:50)
[2022-03-22] MEDS: carvediloL 25 MG TAB PO SCH ×2 (09:07→21:50)
[2022-03-22] MEDS: NIFEdipine XL 60 MG TAB PO SCH ×2 (09:07→21:50)
--- NOTE | 2022-03-22 10:49 | Progress Note ---
Assessment and Plan Assessment and plan: 46-year-old male with history of chronic uncontrolled hypertension and chronic kidney disease who presented through the emergency department with complaints of 3-4 days of increasing shortness of breath and lower extremity edema. EKG revealed normal sinus rhythm with normal ST-T wave changes. Chest x-ray revealed moderate severity cardiomegaly with diffuse interstitial edema. Laboratory findings reveal a creatinine of 6.0 with baseline creatinine of 3.5 previously. Patient also noted to have persistently elevated BP despite treatment with amlodipine, carvedilol and hydralazine. #Acute on chronic systolic heart failureresolved #ESRD on hemodialysis #Hypokalemiaresolved #Cardiomyopathy #Uncontrolled hypertension #[id number] type 2 diabetes mellitus #Obesity #Weight loss counseling #Exercise counseling - BMI 33.6 - Counseled patient on the importance of weight loss, incorporating exercise, and dietary changes (lean meats, fresh fruits and vegetables, and water intake). Patient expresses understanding. - Time: +15 min #Advanced care planning -Disease education conducted, care plan discussed, diagnoses discussed, prognosi s discussed, and patient acknowledges understanding with care plan -Time: +30 min 03/15/2022. Echocardiogram revealed cardiomyopathy with left ventricular systolic function of 25-30%. Continue GDMT for heart failure per cardiology recommendations. BP is much better controlled. Continue aggressive diuresis with Lasix 80 mg 3 times daily. Renal ultrasound revealed no hydronephrosis but did reveal medical renal disease. Urine studies showed known proteinuria likely from DM. Nephrology reports patient consenting to hemodialysis if no significant improvement in renal function. Unfortunately, renal function appears to be about the same. Patient will need PermCath placement. Also, patient will likely need ischemic evaluation with stress test once hemodialysis initiated and renal issues stabilized 03/16/2022. Patient is s/p PermCath placement yesterday with the initiation of hemodialysis. We will discuss with case management plans for outpatient hemodialysis chair. Await cardiology plans for ischemic evaluation. Continue GDMT for systolic heart failure. Continue Accu-Cheks and sliding scale insulin. 03/17/2022. Patient initiated on hemodialysis on 03/15/2022. We are waiting for outpatient hemodialysis chair. Echocardiogram revealed cardiomyopathy with LVEF 25 to 30%. Continue tight blood pressure control, diuresis and hemodialysis. Cardiology reports patient will ultimately need stress test either predischarge or as an outpatient 03/18/2022. Nephrology reports hemodialysis today for clearance and volume removal. Follow-up bladder scan. Ischemic evaluation per cardiology. 03/19/2022. Continue hemodialysis per nephrology recommendations. Ischemic evaluation per cardiology. Monitor I/O's daily. CM on board for outpatient HD arrangement 03/20/2022. Continue hemodialysis per nephrology recommendations. Ischemic evaluation per cardiology. Monitor I/O's daily. CM on board for outpatient HD arrangement 03/21/2022. Cardiology reports stability from their standpoint. LVEF 25-30% per TTE 03/13/22. Continue Coreg and Bidil. Cardiology recommends outpatient follow-up for ischemic evaluation. If LVEF remains < 35% after at least 90 days GDMT, then may consider for primary prevention ICD implant. Continue hemodialysis per nephrology recommendations. CM on board for outpatient HD arrangement. 03/22/2022. Continue with current medical management. Pending hemodialysis chair for newly diagnosed ESRD. Patient will follow-up with ischemic work-up with c ardiology in outpatient setting. Disposition Plan: Pending hemodialysis chair Total Time Spent with Patient (Minutes): 30 minutes History Interval history: No acute events over night. The patient denies fevers, chills, nausea, vomiting, abdominal pain, chest pain/pressure, shortness of breath, urinary symptoms, weakness, or confusion. Hospitalist Physical - Constitutional Vitals: Temp Pulse Resp BP Pulse Ox 98.2 F 79 18 145/82 95 03/22/22 08:00 03/22/22 08:00 03/22/22 08:00 03/22/22 08:00 03/22/22 08:00 General appearance: Present: no acute distress, well-nourished, obese - EENT Eyes: Present: PERRL, EOM intact ENT: hearing intact, clear oral mucosa, dentition normal - Neck Neck: Present: supple, normal ROM, other (Permacath in right upper chest) - Respiratory Respiratory effort: normal Respiratory: bilateral: CTA - Cardiovascular Rhythm: regular Heart Sounds: Present: S1 & S2 - Extremities Extremities: no ischemia, pulses intact, pulses symmetrical, No edema, normal temperature, normal color, Full ROM Peripheral Pulses: within normal limits - Abdominal General gastrointestinal: soft, non-tender, non-distended, normal bowel sounds - Integumentary Integumentary: Present: clear, warm, dry - Psychiatric Psychiatric: appropriate mood/affect, intact judgment & insight, memory intact, cooperative - Neurologic Neurologic: CNII-XII intact, moves all extremities - Allied Health Allied health notes reviewed: nursing HEART Score - HEART Score Troponin: Troponin T 0.098 ng/mL (0.00-0.029) H 03/13/22 07:47 Results - Labs CBC & Chem 7: 03/22/22 04:32 03/22/22 04:32 Labs: Laboratory Last Values WBC 9.6 K/mm3 (4.5-11.0) 03/22/22 04:32 RBC 5.05 M/mm3 (3.65-5.03) H 03/22/22 04:32 Hgb 12.1 gm/dl (11.8-15.2) 03/22/22 04:32 Hct 37.1 % (35.5-45.6) 03/22/22 04:32 MCV 74 fl (84-94) L 03/22/22 04:32 MCH 24 pg (28-32) L 03/22/22 04:32 MCHC 33 % (32-34) 03/22/22 04:32 RDW 15.2 % (13.2-15.2) 03/22/22 04:32 Plt Count 284 K/mm3 (140-440) 03/22/22 04:32 Lymph % (Auto) 22.0 % (13.4-35.0) 03/22/22 04:32 [place] % (Auto) 10.4 % (0.0-7.3) H 03/22/22 04:32 Eos % (Auto) 1.9 % (0.0-4.3) 03/22/22 04:32 Baso % (Auto) 1.1 % (0.0-1.8) 03/22/22 04:32 Lymph # (Auto) 2.1 K/mm3 (1.2-5.4) 03/22/22 04:32 [place] # (Auto) 1.0 K/mm3 (0.0-0.8) H 03/22/22 04:32 Eos # (Auto) 0.2 K/mm3 (0.0-0.4) 03/22/22 04:32 Baso # (Auto) 0.1 K/mm3 (0.0-0.1) 03/22/22 04:32 Add Manual Diff Complete 03/21/22 04:39 Total Counted 100 03/21/22 04:39 Seg Neutrophils % 64.6 % (40.0-70.0) 03/22/22 04:32 Seg Neuts % (Manual) 73.0 % (40.0-70.0) H 03/21/22 04:39 Band Neutrophils % 0 % 03/21/22 04:39 Lymphocytes % (Manual) 15.0 % (13.4-35.0) 03/21/22 04:39 Reactive Lymphs % (Man) 0 % 03/21/22 04:39 Monocytes % (Manual) 4.0 % (0.0-7.3) 03/21/22 04:39 Eosinophils % (Manual) 8.0 % (0.0-4.3) H 03/21/22 04:39 Basophils % (Manual) 0 % (0.0-1.8) 03/21/22 04:39 Metamyelocytes % 0 % 03/21/22 04:39 Myelocytes % 0 % 03/21/22 04:39 Promyelocytes % 0 % 03/21/22 04:39 Blast Cells % 0 % 03/21/22 04:39 Nucleated RBC % Not Reportable 03/21/22 04:39 Seg Neutrophils # 6.2 K/mm3 (1.8-7.7) 03/22/22 04:32 Seg Neutrophils # Man 7.8 K/mm3 (1.8-7.7) H 03/21/22 04:39 Band Neutrophils # 0.0 K/mm3 03/21/22 04:39 Lymphocytes # (Manual) 1.6 K/mm3 (1.2-5.4) 03/21/22 04:39 Abs React Lymphs (Man) 0.0 K/mm3 03/21/22 04:39 Monocytes # (Manual) 0.4 K/mm3 (0.0-0.8) 03/21/22 04:39 Eosinophils # (Manual) 0.9 K/mm3 (0.0-0.4) H 03/21/22 04:39 Basophils # (Manual) 0.0 K/mm3 (0.0-0.1) 03/21/22 04:39 Metamyelocytes # 0.0 K/mm3 03/21/22 04:39 Myelocytes # 0.0 K/mm3 03/21/22 04:39 Promyelocytes # 0.0 K/mm3 03/21/22 04:39 Blast Cells # 0.0 K/mm3 03/21/22 04:39 WBC Morphology Not Reportable 03/21/22 04:39 Hypersegmented Neuts Not Reportable 03/21/22 04:39 Hyposegmented Neuts Not Reportable 03/21/22 04:39 Hypogranular Neuts Not Reportable 03/21/22 04:39 Smudge Cells Not Reportable 03/21/22 04:39 Toxic Granulation Not Reportable 03/21/22 04:39 Toxic Vacuolation Not Reportable 03/21/22 04:39 Dohle Bodies Not Reportable 03/21/22 04:39 Pelger-Huet Anomaly Not Reportable 03/21/22 04:39 Tobi Rods Not Reportable 03/21/22 04:39 Platelet Estimate Consistent w auto 03/21/22 04:39 Clumped Platelets Not Reportable 03/21/22 04:39 Plt Clumps, EDTA Not Reportable 03/21/22 04:39 Large Platelets Not Reportable 03/21/22 04:39 Giant Platelets Not Reportable 03/21/22 04:39 Platelet Satelliting Not Reportable 03/21/22 04:39 Plt Morphology Comment Not Reportable 03/21/22 04:39 RBC Morphology Not Reportable 03/21/22 04:39 Dimorphic RBCs Not Reportable 03/21/22 04:39 Polychromasia Not Reportable 03/21/22 04:39 Hypochromasia Not Reportable 03/21/22 04:39 Poikilocytosis Not Reportable 03/21/22 04:39 Anisocytosis Not Reportable 03/21/22 04:39 Microcytosis 1+ 03/21/22 04:39 Macrocytosis Not Reportable 03/21/22 04:39 Spherocytes 1+ 03/21/22 04:39 Pappenheimer Bodies Not Reportable 03/21/22 04:39 Sickle Cells Not Reportable 03/21/22 04:39 Target Cells 1+ 03/21/22 04:39 Tear Drop Cells Not Reportable 03/21/22 04:39 Ovalocytes Not Reportable 03/21/22 04:39 Helmet Cells Not Reportable 03/21/22 04:39 [place]ahn-[place] Bodies Not Reportable 03/21/22 04:39 [place] Rings Not Reportable 03/21/22 04:39 [place] Cells Not Reportable 03/21/22 04:39 Bite Cells Not Reportable 03/21/22 04:39 Crenated Cell Not Reportable 03/21/22 04:39 Elliptocytes Not Reportable 03/21/22 04:39 Acanthocytes (Spur) Not Reportable 03/21/22 04:39 Rouleaux Not Reportable 03/21/22 04:39 Hemoglobin C Crystals Not Reportable 03/21/22 04:39 Schistocytes Not Reportable 03/21/22 04:39 Malaria parasites Not Reportable 03/21/22 04:39 Jorge Bodies Not Reportable 03/21/22 04:39 Hem Pathologist Commnt No 03/21/22 04:39 Sodium 137 mmol/L (137-145) 03/22/22 04:32 Potassium 4.5 mmol/L (3.6-5.0) 03/22/22 04:32 Chloride 95.1 mmol/L (98-107) L 03/22/22 04:32 Carbon Dioxide 29 mmol/L (22-30) 03/22/22 04:32 Anion Gap 17 mmol/L 03/22/22 04:32 BUN 44 mg/dL (9-20) H 03/22/22 04:32 Creatinine 5.7 mg/dL (0.8-1.3) H 03/22/22 04:32 Estimated GFR 13 ml/min 03/22/22 04:32 BUN/Creatinine Ratio 8 % 03/22/22 04:32 Glucose 111 mg/dL (75-100) H 03/22/22 04:32 POC Glucose 230 mg/dL (70-105) H 03/21/22 17:49 Calcium 8.8 mg/dL (8.4-10.2) 03/22/22 04:32 Phosphorus 4.90 mg/dL (2.5-4.5) H 03/15/22 04:59 Total Bilirubin 0.60 mg/dL (0.1-1.2) 03/14/22 05:11 AST 23 units/L (5-40) 03/14/22 05:11 ALT 32 units/L (7-56) 03/14/22 05:11 Alkaline Phosphatase 112 units/L (35-129) 03/14/22 05:11 Total Creatine Kinase 1247 units/L (55-170) H 03/13/22 16:09 Troponin T 0.098 ng/mL (0.00-0.029) H 03/13/22 07:47 NT-Pro-B Natriuret Pep 54789 pg/mL (0-450) H 03/13/22 08:28 Total Protein 5.9 g/dL (6.3-8.2) L 03/14/22 05:11 Albumin 3.3 g/dL (3.9-5) L 03/14/22 05:11 Albumin/Globulin Ratio 1.3 % 03/14/22 05:11 Urine Color Straw (Yellow) 03/13/22 15:29 Urine Turbidity Clear (Clear) 03/13/22 15:29 Urine pH 6.0 (5.0-7.0) 03/13/22 15:29 Ur Specific [place] 1.010 (1.003-1.030) 03/13/22 15:29 Urine Protein >500 mg/dL (Negative) 03/13/22 15:29 Urine Glucose (UA) Negative mg/dL (Negative) 03/13/22 15:29 Urine Ketones 15 mg/dL (Negative) 03/13/22 15:29 Urine Blood 2+ (Negative) 03/13/22 15:29 Urine Nitrite Negative (Negative) 03/13/22 15:29 Ur Reducing Substances Not Reportable 03/13/22 15:29 Urine Bilirubin Negative (Negative) 03/13/22 15:29 Urine Ictotest Not Reportable 03/13/22 15:29 Urine Urobilinogen < 2.0 mg/dL (<2.0) 03/13/22 15:29 Ur Leukocyte Esterase Negative (Negative) 03/13/22 15:29 Urine WBC (Auto) 1.0 /HPF (0.0-6.0) 03/13/22 15:29 Urine RBC (Auto) 1.0 /HPF (0.0-6.0) 03/13/22 15:29 Urine Eosinophils None seen (None Seen) 03/13/22 15:29 Urine Creatinine 43.6 mg/dL (0.1-20.0) H 03/13/22 15:29 Protein/Creatinin Ratio 5.78 03/13/22 15:29 Urine Sodium 85 mmol/L 03/13/22 15:29 Urine Total Protein 252 mg/dL (5-11.8) H 03/13/22 15:29 SARS-CoV-2 (PCR) Negative (Negative) 03/17/22 10:58 Hepatitis A IgM Ab Non-reactive (NonReactive) 03/15/22 12:37 Hep Bs Antigen Non-reactive (Negative) 03/15/22 12:37 Hep B Core IgM Ab Non-reactive (NonReactive) 03/15/22 12:37 Hepatitis C Antibody Non-reactive (NonReactive) 03/15/22 12:37 Bates/IV: Voiding Method Toilet Active Medications - Current Medications Current Medications: Generic Name Dose Route Start Last Admin Trade Name Freq PRN Reason Stop Dose Admin Acetaminophen 650 mg 03/13/22 18:17 03/19/22 09:03 Acetaminophen 325 Mg Tab PO 650 mg Q4H PRN Administration Pain MILD(1-3)/Fever >100.5/WHITTAKER Carvedilol 25 mg 03/19/22 22:00 03/22/22 09:07 Carvedilol 25 Mg Tab PO 25 mg BID JIMMY Administration Furosemide 40 mg 03/16/22 22:00 03/22/22 09:07 Furosemide 40 Mg Tab PO 40 mg BID JIMMY Administration Hydralazine HCl 10 mg 03/13/22 22:00 03/13/22 22:14 Hydralazine 20 Mg/1 Ml Inj IV 10 mg Q6HR PRN Administration SBP >/=160; DBP >/=100 Hydralazine HCl 100 mg 03/14/22 09:00 03/22/22 06:50 Hydralazine 100 Mg Tab PO 100 mg Q8HR JIMMY Administration Hydromorphone HCl 0.5 mg 03/13/22 18:17 Hydromorphone 0.5 Mg/0.5 Ml Inj IV Q3H PRN Pain , Severe (7-10) Sodium Chloride 100 mls @ 999 mls/hr 03/20/22 09:02 Nacl 0.9% IV QIAN PRN Hypotension Metoclopramide HCl 5 mg 03/17/22 14:00 Metoclopramide 10 Mg/2 Ml Inj IV Q6H PRN Nausea And Vomiting Morphine Sulfate 2 mg 03/13/22 18:17 Morphine 2 Mg/1 Ml Inj IV Q4H PRN Pain, Moderate (4-6) Nifedipine 60 mg 03/14/22 15:00 03/22/22 09:07 Nifedipine Xl 60 Mg Tab PO 60 mg Q12HR JIMMY Administration Ondansetron HCl 4 mg 03/13/22 18:17 03/19/22 09:02 Ondansetron 4 Mg/2 Ml Inj IV 4 mg Q8H PRN Administration Nausea And Vomiting Oxycodone/Acetaminophen 1 tab 03/13/22 18:17 03/16/22 04:22 Oxycodone /Acetaminophen 5-325mg Tab PO 1 tab Q6H PRN Administration Pain, Moderate (4-6) Sodium Chloride 10 ml 03/13/22 22:00 03/22/22 09:07 Sodium Chloride 0.9% 10 Ml Flush Syringe IV 10 ml BID JIMMY Administration Sodium Chloride 10 ml 03/13/22 18:17 Sodium Chloride 0.9% 10 Ml Flush Syringe IV PRN PRN LINE FLUSH Nutrition/Malnutrition Assess - Dietary Evaluation Nutrition/Malnutrition Findings: Nutrition Notes Start: 03/18/22 14:19 Freq: Status: Active Protocol: Document 03/18/22 14:19 SYLVIA (Rec: 03/18/22 14:21 SYLVIA [id number]) Nutrition Notes Need for Assessment generated from: LOS Initial or Follow up Brief Note Current Diagnosis Acute Kidney Injury,CKD(stage I-IV),Diabetes,Heart Failure Other Pertinent Diagnosis Accelerated HTN Current Diet Cardiac Labs/Tests reviewed Pertinent Medications Lasix Weight Status Obese Subjective/Other Information Pt screened for LOS. No meal intakes documented since admission. Pt in HD at this time. Burn Absent Trauma Absent Minimum of two criteria No Nutrition Intervention Follow-Up By: 03/24/22 Additional Comments F/U: intakes
--- NOTE | 2022-03-22 11:24 | Progress Note ---
Assessment and Plan - Patient Problems (1) Pulmonary edema Current Visit: Yes Status: Acute Plan to address problem: 46-year-old man who presents with fluid overload and pulmonary edema. His heart failure exacerbation is multifactorial. There is chronic severe uncontrolled hypertension, there is worsening renal failure with a creatinine currently end- stage at 6.4. Echocardiogram shows the presence of a cardiomyopathy, with left ventricular ejection fraction 25 to 30%. Symptoms have improved with blood pressure control, diuresis and initiation of hemodialysis. Cardiac stable and asymptomatic. We will perform noninvasive ischemia assessment as indicated in the outpatient setting. Subjective Date of service: 03/22/22 Principal diagnosis: Systolic heart failure Interval history: Patient is comfortable, no cardiac complaints, no new cardiac events reported. On green plumber, there is a stable sinus rhythm at 80. Objective Vital Signs Temp Pulse Resp BP BP Pulse Ox Pulse Ox 03/22/22 08:00 98.2 F 79 18 145/82 95 03/22/22 07:39 99 03/22/22 03:31 98.0 F 49 L 14 145/75 95 03/22/22 02:16 76 20 138/78 92 03/22/22 00:00 98.1 F 79 16 59/30 100 03/21/22 22:45 70 117/71 03/21/22 22:00 77 03/21/22 21:49 99 03/21/22 19:39 98.1 F 70 18 117/71 99 03/21/22 16:06 52 L 17 116/78 93 03/21/22 12:25 98.2 F 76 20 157/87 98 03/21/22 12:15 75 150/89 03/21/22 12:00 78 143/86 03/21/22 11:45 63 153/72 03/21/22 11:30 78 155/80 - Physical Examination General: No Apparent Distress HEENT: Positive: PERRL Neck: Positive: neck supple Cardiac: Positive: Reg Rate and Rhythm Lungs: Positive: clear to auscultation Neuro: Positive: Grossly Intact Abdomen: Positive: Soft Skin: Positive: Clear Extremities: Present: edema (trace) - Labs and Meds CBC 03/22/22 Range/Units 04:32 WBC 9.6 (4.5-11.0) K/mm3 RBC 5.05 H (3.65-5.03) M/mm3 Hgb 12.1 (11.8-15.2) gm/dl Hct 37.1 (35.5-45.6) % Plt Count 284 (140-440) K/mm3 Lymph # (Auto) 2.1 (1.2-5.4) K/mm3 [place] # (Auto) 1.0 H (0.0-0.8) K/mm3 Eos # (Auto) 0.2 (0.0-0.4) K/mm3 Baso # (Auto) 0.1 (0.0-0.1) K/mm3 Comprehensive Metabolic Panel 03/22/22 Range/Units 04:32 Sodium 137 (137-145) mmol/L Potassium 4.5 (3.6-5.0) mmol/L Chloride 95.1 L (98-107) mmol/L Carbon Dioxide 29 (22-30) mmol/L BUN 44 H (9-20) mg/dL Creatinine 5.7 H (0.8-1.3) mg/dL Glucose 111 H (75-100) mg/dL Calcium 8.8 (8.4-10.2) mg/dL
--- NOTE | 2022-03-22 12:47 | Progress Note ---
Assessment and Plan Assessment and Plan End Stage Renal Disease now on hemodialysis S/P Hyperkalemia Volume overload Hypertension Diabetes Mellitus CHF Plan: Hemodialysis tomorrow for UF and clearance, on ,, schedule S/P perm-catheter placement yesterday and also first HD treatment yesterday on 03/15/22 No signs of renal recovery. Has known advanced CKD, followed by Dr. Sol in the office, now with ESRD Echo shows LVEF 25-30% as per Cardiology On Lasix to 40 mg po BID. UF with HD Renal ultrasound reviewed-No hydronephrosis. Medical renal disease. Urine studies showed known proteinuria, likely from DM In 2019, CHOCO, SPEP, C3/C4, ANCA, HIV, Hep panel were negative Obtain daily weights Monitor I/O's daily Avoid nephrotoxic agents Assess dialysis needs daily Monitor renal function closely Awaiting outpatient HD placement, CM onboard Plan of care reviewed by Dr. Fonseca Subjective Date of service: 03/22/22 Principal diagnosis: Systolic heart failure Interval history: Patient seen lying in bed. No new events noted. Objective - Vital Signs Vital signs: Vital Signs - 12hr 03/22/22 03/22/22 03/22/22 02:16 03:31 07:39 Temperature 98.0 F Pulse Rate 76 49 L Respiratory 20 14 Rate Blood Pressure 138/78 145/75 O2 Sat by Pulse 92 95 99 Oximetry 03/22/22 08:00 Temperature 98.2 F Pulse Rate 79 Respiratory 18 Rate Blood Pressure 145/82 O2 Sat by Pulse 95 Oximetry - General Appearance General appearance: well-developed, appears stated age EENT: ATNC, PERRL, hearing intact, vision intact Neck: no JVD, supple Respiratory: Present: Decreased Breath Sounds Cardiology: S1S2 Gastrointestinal: normoactive bowel sounds Integumentary: warm and dry Neurologic: alert and oriented x3 Musculoskeletal: other (No edema) - Lab 03/22/22 04:32 03/22/22 04:32 Most recent lab results Calcium 8.8 mg/dL (8.4-10.2) 03/22/22 04:32 Phosphorus 4.90 mg/dL (2.5-4.5) H 03/15/22 04:59 Urine Creatinine 43.6 mg/dL (0.1-20.0) H 03/13/22 15:29 Urine Sodium 85 mmol/L 03/13/22 15:29 Urine Total Protein 252 mg/dL (5-11.8) H 03/13/22 15:29 Medications & Allergies - Medications Allergies/Adverse Reactions: Allergies shellfish derived Adverse Reaction (Verified 03/14/22 09:51) Anaphylaxis patient says he gets "hives and can't breathe" Home Medications: Home Medications Medication Instructions Recorded Confirmed Last Taken Type amLODIPine 10 mg PO QDAY #30 tablet 07/18/20 03/14/22 Unknown Rx glipiZIDE XL [Glucotrol Xl] 2.5 mg PO QAM #30 tab.er.24 07/18/20 03/14/22 Unknown Rx hydrALAZINE [Apresoline TAB] 50 mg PO Q8HR #90 tablet 07/18/20 03/14/22 1 Month Ago Rx ~02/11/22 Labetalol HCl [Labetalol 300mg TAB] 300 mg PO BID 03/14/22 03/14/22 Unknown History Torsemide [Demadex] 10 mg PO QDAY 03/14/22 03/14/22 Unknown History Active Medications: Generic Name Dose Route Start Last Admin Trade Name Freq PRN Reason Stop Dose Admin Acetaminophen 650 mg 03/13/22 18:17 03/19/22 09:03 Acetaminophen 325 Mg Tab PO 650 mg Q4H PRN Administration Pain MILD(1-3)/Fever >100.5/WHIT[place]KER Carvedilol 25 mg 03/19/22 22:00 03/22/22 09:07 Carvedilol 25 Mg Tab PO 25 mg BID JIMMY Administration Furosemide 40 mg 03/16/22 22:00 03/22/22 09:07 Furosemide 40 Mg Tab PO 40 mg BID JIMMY Administration Glipizide 2.5 mg 03/22/22 11:30 Glipizide Xl 2.5 Mg Tab PO QAM JIMMY Hydralazine HCl 10 mg 03/13/22 22:00 03/13/22 22:14 Hydralazine 20 Mg/1 Ml Inj IV 10 mg Q6HR PRN Administration SBP >/=160; DBP >/=100 Hydralazine HCl 100 mg 03/14/22 09:00 03/22/22 06:50 Hydralazine 100 Mg Tab PO 100 mg Q8HR JIMMY Administration Hydromorphone HCl 0.5 mg 03/13/22 18:17 Hydromorphone 0.5 Mg/0.5 Ml Inj IV Q3H PRN Pain , Severe (7-10) Sodium Chloride 100 mls @ 999 mls/hr 03/20/22 09:02 Nacl 0.9% IV QIAN PRN Hypotension Metoclopramide HCl 5 mg 03/17/22 14:00 Metoclopramide 10 Mg/2 Ml Inj IV Q6H PRN Nausea And Vomiting Morphine Sulfate 2 mg 03/13/22 18:17 Morphine 2 Mg/1 Ml Inj IV Q4H PRN Pain, Moderate (4-6) Nifedipine 60 mg 03/14/22 15:00 03/22/22 09:07 Nifedipine Xl 60 Mg Tab PO 60 mg Q12HR JIMMY Administration Ondansetron HCl 4 mg 03/13/22 18:17 03/19/22 09:02 Ondansetron 4 Mg/2 Ml Inj IV 4 mg Q8H PRN Administration Nausea And Vomiting Oxycodone/Acetaminophen 1 tab 03/13/22 18:17 03/16/22 04:22 Oxycodone /Acetaminophen 5-325mg Tab PO 1 tab Q6H PRN Administration Pain, Moderate (4-6) Sodium Chloride 10 ml 03/13/22 22:00 03/22/22 09:07 Sodium Chloride 0.9% 10 Ml Flush Syringe IV 10 ml BID JIMMY Administration Sodium Chloride 10 ml 03/13/22 18:17 Sodium Chloride 0.9% 10 Ml Flush Syringe IV PRN PRN LINE FLUSH
[2022-03-23] MEDS: hydrALAZINE 100 MG TAB PO SCH ×3 (07:06→21:20)
[2022-03-23] MEDS: carvediloL 25 MG TAB PO SCH ×3 (09:17→21:21)
[2022-03-23] MEDS: NIFEdipine XL 60 MG TAB PO SCH ×3 (09:18→21:20)
[2022-03-23] MEDS: FUROSEMIDE 40 MG TAB PO SCH ×3 (09:18→21:21)
--- NOTE | 2022-03-23 10:59 | Electrocardiograph Report ---
[facility] Test Date: 2022-03-22 Test Time: 02:20:36 Pat Name: VISHNU SCOTT Department: Room: A452 1 Gender: M Sterile Preparation Technician: JOCELIN : 1975 Requested By: YAHAIRA EDWARDS Order Number: [id number] Reading MD: Banadr Clancy Measurements Intervals [place] Rate: 70 P: 47 DC: 143 QRS: 14 QRSD: 100 T: 133 QT: 425 QTc: 459 Interpretive Statements Sinus rhythm Ventricular trigeminy Abnormal T, consider ischemia, lateral leads Compared to ECG 03/14/2022 09:52:44 T-wave abnormality now present Possible ischemia now present Prolonged QT interval no longer present Electronically Signed On 03-23-2022 10:59:16 EDT by Bandar Clancy
--- NOTE | 2022-03-23 12:06 | Progress Note ---
Assessment and Plan Assessment and Plan End Stage Renal Disease now on hemodialysis S/P Hyperkalemia Volume overload Hypertension Diabetes Mellitus CHF Plan: Hemodialysis today for UF and clearance, on ,, schedule S/P perm-catheter placement yesterday and also first HD treatment yesterday on 03/15/22 No signs of renal recovery. Has known advanced CKD, followed by Dr. Sol in the office, now with ESRD Echo shows LVEF 25-30% as per Cardiology On Lasix to 40 mg po BID. UF with HD Renal ultrasound reviewed-No hydronephrosis. Medical renal disease. Urine studies showed known proteinuria, likely from DM In 2019, CHOCO, SPEP, C3/C4, ANCA, HIV, Hep panel were negative Obtain daily weights Monitor I/O's daily Avoid nephrotoxic agents Assess dialysis needs daily Monitor renal function closely Awaiting outpatient HD placement, CM onboard Plan of care reviewed by Dr. Fonseca Subjective Date of service: 03/23/22 Principal diagnosis: Systolic heart failure Interval history: Patient seen undergoing hemodialysis treatment. Tolerating HD well. Objective - Vital Signs Vital signs: Vital Signs - 12hr 03/23/22 03/23/22 03/23/22 04:44 08:28 09:00 Temperature 98.3 F 98.4 F 98.3 F Pulse Rate 53 L 76 74 Respiratory 18 18 16 Rate Blood Pressure 137/84 145/74 138/78 O2 Sat by Pulse 99 100 Oximetry O2 Sat by Pulse 98 Oximetry [ Posterior Bilateral] 03/23/22 03/23/22 03/23/22 09:19 09:30 09:45 Temperature Pulse Rate 46 L 68 69 Respiratory Rate Blood Pressure 127/74 124/64 149/78 O2 Sat by Pulse Oximetry O2 Sat by Pulse Oximetry [ Posterior Bilateral] 03/23/22 03/23/22 03/23/22 10:00 10:15 10:30 Temperature Pulse Rate 94 H 65 70 Respiratory Rate Blood Pressure 133/87 125/78 151/81 O2 Sat by Pulse Oximetry O2 Sat by Pulse Oximetry [ Posterior Bilateral] 03/23/22 03/23/22 03/23/22 10:45 11:00 11:15 Temperature Pulse Rate 68 69 70 Respiratory Rate Blood Pressure 140/90 127/89 151/92 O2 Sat by Pulse Oximetry O2 Sat by Pulse Oximetry [ Posterior Bilateral] 03/23/22 11:30 Temperature Pulse Rate 69 Respiratory Rate Blood Pressure 147/91 O2 Sat by Pulse Oximetry O2 Sat by Pulse Oximetry [ Posterior Bilateral] - General Appearance General appearance: well-developed, appears stated age EENT: ATNC, PERRL Neck: no JVD, supple Respiratory: Present: Decreased Breath Sounds Cardiology: S1S2 Gastrointestinal: normoactive bowel sounds Integumentary: warm and dry Neurologic: alert and oriented x3 Musculoskeletal: joint swelling - Lab 03/22/22 04:32 03/22/22 04:32 Most recent lab results Calcium 8.8 mg/dL (8.4-10.2) 03/22/22 04:32 Phosphorus 4.90 mg/dL (2.5-4.5) H 03/15/22 04:59 Urine Creatinine 43.6 mg/dL (0.1-20.0) H 03/13/22 15:29 Urine Sodium 85 mmol/L 03/13/22 15:29 Urine Total Protein 252 mg/dL (5-11.8) H 03/13/22 15:29 Medications & Allergies - Medications Allergies/Adverse Reactions: Allergies shellfish derived Adverse Reaction (Verified 03/14/22 09:51) Anaphylaxis patient says he gets "hives and can't breathe" Home Medications: Home Medications Medication Instructions Recorded Confirmed Last Taken Type amLODIPine 10 mg PO QDAY #30 tablet 07/18/20 03/14/22 Unknown Rx glipiZIDE XL [Glucotrol Xl] 2.5 mg PO QAM #30 tab.er.24 07/18/20 03/14/22 Unknown Rx hydrALAZINE [Apresoline TAB] 50 mg PO Q8HR #90 tablet 07/18/20 03/14/22 1 Month Ago Rx ~02/11/22 Labetalol HCl [Labetalol 300mg TAB] 300 mg PO BID 03/14/22 03/14/22 Unknown History Torsemide [Demadex] 10 mg PO QDAY 03/14/22 03/14/22 Unknown History Active Medications: Generic Name Dose Route Start Last Admin Trade Name Freq PRN Reason Stop Dose Admin Acetaminophen 650 mg 03/13/22 18:17 03/19/22 09:03 Acetaminophen 325 Mg Tab PO 650 mg Q4H PRN Administration Pain MILD(1-3)/Fever >100.5/WHITTAKRE Carvedilol 25 mg 03/19/22 22:00 03/23/22 09:17 Carvedilol 25 Mg Tab PO Not Given BID [facility] Furosemide 40 mg 03/16/22 22:00 03/23/22 09:18 Furosemide 40 Mg Tab PO Not Given BID [facility] Glipizide 2.5 mg 03/22/22 11:30 03/23/22 09:18 Glipizide Xl 2.5 Mg Tab PO Not Given QAM [facility] Hydralazine HCl 10 mg 03/13/22 22:00 03/13/22 22:14 Hydralazine 20 Mg/1 Ml Inj IV 10 mg Q6HR PRN Administration SBP >/=160; DBP >/=100 Hydralazine HCl 100 mg 03/14/22 09:00 03/23/22 07:06 Hydralazine 100 Mg Tab PO 100 mg Q8HR JIMMY Administration Hydromorphone HCl 0.5 mg 03/13/22 18:17 Hydromorphone 0.5 Mg/0.5 Ml Inj IV Q3H PRN Pain , Severe (7-10) Sodium Chloride 100 mls @ 999 mls/hr 03/20/22 09:02 Nacl 0.9% IV QIAN PRN Hypotension Metoclopramide HCl 5 mg 03/17/22 14:00 Metoclopramide 10 Mg/2 Ml Inj IV Q6H PRN Nausea And Vomiting Morphine Sulfate 2 mg 03/13/22 18:17 Morphine 2 Mg/1 Ml Inj IV Q4H PRN Pain, Moderate (4-6) Nifedipine 60 mg 03/14/22 15:00 03/23/22 09:18 Nifedipine Xl 60 Mg Tab PO Not Given Q12HR [facility] Ondansetron HCl 4 mg 03/13/22 18:17 03/19/22 09:02 Ondansetron 4 Mg/2 Ml Inj IV 4 mg Q8H PRN Administration Nausea And Vomiting Oxycodone/Acetaminophen 1 tab 03/13/22 18:17 03/16/22 04:22 Oxycodone /Acetaminophen 5-325mg Tab PO 1 tab Q6H PRN Administration Pain, Moderate (4-6) Sodium Chloride 10 ml 03/13/22 22:00 03/23/22 09:18 Sodium Chloride 0.9% 10 Ml Flush Syringe IV Not Given BID [facility] Sodium Chloride 10 ml 03/13/22 18:17 Sodium Chloride 0.9% 10 Ml Flush Syringe IV PRN PRN LINE FLUSH
--- NOTE | 2022-03-23 12:33 | Progress Note ---
Assessment and Plan Assessment and plan: 46-year-old male with history of chronic uncontrolled hypertension and chronic kidney disease who presented through the emergency department with complaints of 3-4 days of increasing shortness of breath and lower extremity edema. EKG revealed normal sinus rhythm with normal ST-T wave changes. Chest x-ray revealed moderate severity cardiomegaly with diffuse interstitial edema. Laboratory findings reveal a creatinine of 6.0 with baseline creatinine of 3.5 previously. Patient also noted to have persistently elevated BP despite treatment with amlodipine, carvedilol and hydralazine. #Acute on chronic systolic heart failureresolved #ESRD on hemodialysis #Hypokalemiaresolved #Cardiomyopathy #Uncontrolled hypertension #[id number] type 2 diabetes mellitus #Obesity #Weight loss counseling #Exercise counseling - BMI 33.6 - Counseled patient on the importance of weight loss, incorporating exercise, and dietary changes (lean meats, fresh fruits and vegetables, and water intake). Patient expresses understanding. - Time: +15 min #Advanced care planning -Disease education conducted, care plan discussed, diagnoses discussed, prognosi s discussed, and patient acknowledges understanding with care plan -Time: +30 min 03/15/2022. Echocardiogram revealed cardiomyopathy with left ventricular systolic function of 25-30%. Continue GDMT for heart failure per cardiology recommendations. BP is much better controlled. Continue aggressive diuresis with Lasix 80 mg 3 times daily. Renal ultrasound revealed no hydronephrosis but did reveal medical renal disease. Urine studies showed known proteinuria likely from DM. Nephrology reports patient consenting to hemodialysis if no significant improvement in renal function. Unfortunately, renal function appears to be about the same. Patient will need PermCath placement. Also, patient will likely need ischemic evaluation with stress test once hemodialysis initiated and renal issues stabilized 03/16/2022. Patient is s/p PermCath placement yesterday with the initiation of hemodialysis. We will discuss with case management plans for outpatient hemodialysis chair. Await cardiology plans for ischemic evaluation. Continue GDMT for systolic heart failure. Continue Accu-Cheks and sliding scale insulin. 03/17/2022. Patient initiated on hemodialysis on 03/15/2022. We are waiting for outpatient hemodialysis chair. Echocardiogram revealed cardiomyopathy with LVEF 25 to 30%. Continue tight blood pressure control, diuresis and hemodialysis. Cardiology reports patient will ultimately need stress test either predischarge or as an outpatient 03/18/2022. Nephrology reports hemodialysis today for clearance and volume removal. Follow-up bladder scan. Ischemic evaluation per cardiology. 03/19/2022. Continue hemodialysis per nephrology recommendations. Ischemic evaluation per cardiology. Monitor I/O's daily. CM on board for outpatient HD arrangement 03/20/2022. Continue hemodialysis per nephrology recommendations. Ischemic evaluation per cardiology. Monitor I/O's daily. CM on board for outpatient HD arrangement 03/21/2022. Cardiology reports stability from their standpoint. LVEF 25-30% per TTE 03/13/22. Continue Coreg and Bidil. Cardiology recommends outpatient follow-up for ischemic evaluation. If LVEF remains < 35% after at least 90 days GDMT, then may consider for primary prevention ICD implant. Continue hemodialysis per nephrology recommendations. CM on board for outpatient HD arrangement. 03/22/2022. Continue with current medical management. Pending hemodialysis chair for newly diagnosed ESRD. Patient will follow-up with ischemic work-up with c ardiology in outpatient setting. 03/23/2022. Continue with current medical management. Pending hemodialysis chair for newly diagnosed ESRD. Patient will follow-up with ischemic work-up with cardiology in outpatient setting. Disposition Plan: Pending hemodialysis chair Total Time Spent with Patient (Minutes): 30 min History Interval history: No acute events over night. The patient denies fevers, chills, nausea, vomiting, abdominal pain, chest pain/pressure, shortness of breath, urinary symptoms, weak ness, or confusion. Hospitalist Physical - Constitutional Vitals: Temp Pulse Resp BP Pulse Ox 98.3 F 73 16 156/95 98 03/23/22 09:00 03/23/22 12:00 03/23/22 09:00 03/23/22 12:00 03/23/22 09:00 General appearance: Present: no acute distress, well-nourished, obese - EENT Eyes: Present: PERRL, EOM intact ENT: hearing intact, clear oral mucosa, dentition normal - Neck Neck: Present: supple, normal ROM, other (Permacath and upper right chest) - Respiratory Respiratory effort: normal - Cardiovascular Rhythm: regular Heart Sounds: Present: S1 & S2 - Extremities Extremities: no ischemia, pulses intact, pulses symmetrical, No edema, normal temperature, normal color, Full ROM Peripheral Pulses: within normal limits - Abdominal General gastrointestinal: soft, non-tender, non-distended, normal bowel sounds - Integumentary Integumentary: Present: clear, warm, dry - Psychiatric Psychiatric: appropriate mood/affect, intact judgment & insight, memory intact, cooperative - Neurologic Neurologic: CNII-XII intact, moves all extremities - Allied Health Allied health notes reviewed: nursing HEART Score - HEART Score Troponin: Troponin T 0.098 ng/mL (0.00-0.029) H 03/13/22 07:47 Results - Labs CBC & Chem 7: 03/22/22 04:32 03/22/22 04:32 Labs: Laboratory Last Values WBC 9.6 K/mm3 (4.5-11.0) 03/22/22 04:32 RBC 5.05 M/mm3 (3.65-5.03) H 03/22/22 04:32 Hgb 12.1 gm/dl (11.8-15.2) 03/22/22 04:32 Hct 37.1 % (35.5-45.6) 03/22/22 04:32 MCV 74 fl (84-94) L 03/22/22 04:32 MCH 24 pg (28-32) L 03/22/22 04:32 MCHC 33 % (32-34) 03/22/22 04:32 RDW 15.2 % (13.2-15.2) 03/22/22 04:32 Plt Count 284 K/mm3 (140-440) 03/22/22 04:32 Lymph % (Auto) 22.0 % (13.4-35.0) 03/22/22 04:32 Henry % (Auto) 10.4 % (0.0-7.3) H 03/22/22 04:32 Eos % (Auto) 1.9 % (0.0-4.3) 03/22/22 04:32 Baso % (Auto) 1.1 % (0.0-1.8) 03/22/22 04:32 Lymph # (Auto) 2.1 K/mm3 (1.2-5.4) 03/22/22 04:32 Henry # (Auto) 1.0 K/mm3 (0.0-0.8) H 03/22/22 04:32 Eos # (Auto) 0.2 K/mm3 (0.0-0.4) 03/22/22 04:32 Baso # (Auto) 0.1 K/mm3 (0.0-0.1) 03/22/22 04:32 Add Manual Diff Complete 03/21/22 04:39 Total Counted 100 03/21/22 04:39 Seg Neutrophils % 64.6 % (40.0-70.0) 03/22/22 04:32 Seg Neuts % (Manual) 73.0 % (40.0-70.0) H 03/21/22 04:39 Band Neutrophils % 0 % 03/21/22 04:39 Lymphocytes % (Manual) 15.0 % (13.4-35.0) 03/21/22 04:39 Reactive Lymphs % (Man) 0 % 03/21/22 04:39 Monocytes % (Manual) 4.0 % (0.0-7.3) 03/21/22 04:39 Eosinophils % (Manual) 8.0 % (0.0-4.3) H 03/21/22 04:39 Basophils % (Manual) 0 % (0.0-1.8) 03/21/22 04:39 Metamyelocytes % 0 % 03/21/22 04:39 Myelocytes % 0 % 03/21/22 04:39 Promyelocytes % 0 % 03/21/22 04:39 Blast Cells % 0 % 03/21/22 04:39 Nucleated RBC % Not Reportable 03/21/22 04:39 Seg Neutrophils # 6.2 K/mm3 (1.8-7.7) 03/22/22 04:32 Seg Neutrophils # Man 7.8 K/mm3 (1.8-7.7) H 03/21/22 04:39 Band Neutrophils # 0.0 K/mm3 03/21/22 04:39 Lymphocytes # (Manual) 1.6 K/mm3 (1.2-5.4) 03/21/22 04:39 Abs React Lymphs (Man) 0.0 K/mm3 03/21/22 04:39 Monocytes # (Manual) 0.4 K/mm3 (0.0-0.8) 03/21/22 04:39 Eosinophils # (Manual) 0.9 K/mm3 (0.0-0.4) H 03/21/22 04:39 Basophils # (Manual) 0.0 K/mm3 (0.0-0.1) 03/21/22 04:39 Metamyelocytes # 0.0 K/mm3 03/21/22 04:39 Myelocytes # 0.0 K/mm3 03/21/22 04:39 Promyelocytes # 0.0 K/mm3 03/21/22 04:39 Blast Cells # 0.0 K/mm3 03/21/22 04:39 WBC Morphology Not Reportable 03/21/22 04:39 Hypersegmented Neuts Not Reportable 03/21/22 04:39 Hyposegmented Neuts Not Reportable 03/21/22 04:39 Hypogranular Neuts Not Reportable 03/21/22 04:39 Smudge Cells Not Reportable 03/21/22 04:39 Toxic Granulation Not Reportable 03/21/22 04:39 Toxic Vacuolation Not Reportable 03/21/22 04:39 Dohle Bodies Not Reportable 03/21/22 04:39 Pelger-Huet Anomaly Not Reportable 03/21/22 04:39 Tobi Rods Not Reportable 03/21/22 04:39 Platelet Estimate Consistent w auto 03/21/22 04:39 Clumped Platelets Not Reportable 03/21/22 04:39 Plt Clumps, EDTA Not Reportable 03/21/22 04:39 Large Platelets Not Reportable 03/21/22 04:39 Giant Platelets Not Reportable 03/21/22 04:39 Platelet Satelliting Not Reportable 03/21/22 04:39 Plt Morphology Comment Not Reportable 03/21/22 04:39 RBC Morphology Not Reportable 03/21/22 04:39 Dimorphic RBCs Not Reportable 03/21/22 04:39 Polychromasia Not Reportable 03/21/22 04:39 Hypochromasia Not Reportable 03/21/22 04:39 Poikilocytosis Not Reportable 03/21/22 04:39 Anisocytosis Not Reportable 03/21/22 04:39 Microcytosis 1+ 03/21/22 04:39 Macrocytosis Not Reportable 03/21/22 04:39 Spherocytes 1+ 03/21/22 04:39 Pappenheimer Bodies Not Reportable 03/21/22 04:39 Sickle Cells Not Reportable 03/21/22 04:39 Target Cells 1+ 08/08/22 04:39 Tear Drop Cells Not Reportable 03/21/22 04:39 Ovalocytes Not Reportable 03/21/22 04:39 Helmet Cells Not Reportable 03/21/22 04:39 Kahn-Antonito Bodies Not Reportable 03/21/22 04:39 Richford Rings Not Reportable 03/21/22 04:39 Khoi Cells Not Reportable 03/21/22 04:39 Bite Cells Not Reportable 03/21/22 04:39 Crenated Cell Not Reportable 03/21/22 04:39 Elliptocytes Not Reportable 03/21/22 04:39 Acanthocytes (Spur) Not Reportable 03/21/22 04:39 Rouleaux Not Reportable 03/21/22 04:39 Hemoglobin C Crystals Not Reportable 03/21/22 04:39 Schistocytes Not Reportable 03/21/22 04:39 Malaria parasites Not Reportable 03/21/22 04:39 Jorge Bodies Not Reportable 03/21/22 04:39 Hem Pathologist Commnt No 03/21/22 04:39 Sodium 137 mmol/L (137-145) 03/22/22 04:32 Potassium 4.5 mmol/L (3.6-5.0) 03/22/22 04:32 Chloride 95.1 mmol/L (98-107) L 03/22/22 04:32 Carbon Dioxide 29 mmol/L (22-30) 03/22/22 04:32 Anion Gap 17 mmol/L 03/22/22 04:32 BUN 44 mg/dL (9-20) H 03/22/22 04:32 Creatinine 5.7 mg/dL (0.8-1.3) H 03/22/22 04:32 Estimated GFR 13 ml/min 03/22/22 04:32 BUN/Creatinine Ratio 8 % 03/22/22 04:32 Glucose 111 mg/dL (75-100) H 03/22/22 04:32 POC Glucose 230 mg/dL (70-105) H 03/21/22 17:49 Calcium 8.8 mg/dL (8.4-10.2) 03/22/22 04:32 Phosphorus 4.90 mg/dL (2.5-4.5) H 03/15/22 04:59 Total Bilirubin 0.60 mg/dL (0.1-1.2) 03/14/22 05:11 AST 23 units/L (5-40) 03/14/22 05:11 ALT 32 units/L (7-56) 03/14/22 05:11 Alkaline Phosphatase 112 units/L (35-129) 03/14/22 05:11 Total Creatine Kinase 1247 units/L (55-170) H 03/13/22 16:09 Troponin T 0.098 ng/mL (0.00-0.029) H 03/13/22 07:47 NT-Pro-B Natriuret Pep 08298 pg/mL (0-450) H 03/13/22 08:28 Total Protein 5.9 g/dL (6.3-8.2) L 03/14/22 05:11 Albumin 3.3 g/dL (3.9-5) L 03/14/22 05:11 Albumin/Globulin Ratio 1.3 % 03/14/22 05:11 Urine Color Straw (Yellow) 03/13/22 15:29 Urine Turbidity Clear (Clear) 03/13/22 15:29 Urine pH 6.0 (5.0-7.0) 03/13/22 15:29 Ur Specific Allen 1.010 (1.003-1.030) 03/13/22 15:29 Urine Protein >500 mg/dL (Negative) 03/13/22 15:29 Urine Glucose (UA) Negative mg/dL (Negative) 03/13/22 15:29 Urine Ketones 15 mg/dL (Negative) 03/13/22 15:29 Urine Blood 2+ (Negative) 03/13/22 15:29 Urine Nitrite Negative (Negative) 03/13/22 15:29 Ur Reducing Substances Not Reportable 03/13/22 15:29 Urine Bilirubin Negative (Negative) 03/13/22 15:29 Urine Ictotest Not Reportable 03/13/22 15:29 Urine Urobilinogen < 2.0 mg/dL (<2.0) 03/13/22 15:29 Ur Leukocyte Esterase Negative (Negative) 03/13/22 15:29 Urine WBC (Auto) 1.0 /HPF (0.0-6.0) 03/13/22 15:29 Urine RBC (Auto) 1.0 /HPF (0.0-6.0) 03/13/22 15:29 Urine Eosinophils None seen (None Seen) 03/13/22 15:29 Urine Creatinine 43.6 mg/dL (0.1-20.0) H 03/13/22 15:29 Protein/Creatinin Ratio 5.78 03/13/22 15:29 Urine Sodium 85 mmol/L 03/13/22 15:29 Urine Total Protein 252 mg/dL (5-11.8) H 03/13/22 15:29 SARS-CoV-2 (PCR) Negative (Negative) 03/17/22 10:58 Hepatitis A IgM Ab Non-reactive (NonReactive) 03/15/22 12:37 Hep Bs Antigen Non-reactive (Negative) 03/15/22 12:37 Hep B Core IgM Ab Non-reactive (NonReactive) 03/15/22 12:37 Hepatitis C Antibody Non-reactive (NonReactive) 03/15/22 12:37 Bates/IV: Voiding Method Toilet Active Medications - Current Medications Current Medications: Generic Name Dose Route Start Last Admin Trade Name Freq PRN Reason Stop Dose Admin Acetaminophen 650 mg 03/13/22 18:17 03/19/22 09:03 Acetaminophen 325 Mg Tab PO 650 mg Q4H PRN Administration Pain MILD(1-3)/Fever >100.5/WHITTAKER Carvedilol 25 mg 03/19/22 22:00 03/23/22 09:17 Carvedilol 25 Mg Tab PO Not Given BID JIMMY Furosemide 40 mg 03/16/22 22:00 03/23/22 09:18 Furosemide 40 Mg Tab PO Not Given BID JIMMY Glipizide 2.5 mg 03/22/22 11:30 03/23/22 09:18 Glipizide Xl 2.5 Mg Tab PO Not Given QAM JIMMY Hydralazine HCl 10 mg 03/13/22 22:00 03/13/22 22:14 Hydralazine 20 Mg/1 Ml Inj IV 10 mg Q6HR PRN Administration SBP >/=160; DBP >/=100 Hydralazine HCl 100 mg 03/14/22 09:00 03/23/22 07:06 Hydralazine 100 Mg Tab PO 100 mg Q8HR JIMMY Administration Hydromorphone HCl 0.5 mg 03/13/22 18:17 Hydromorphone 0.5 Mg/0.5 Ml Inj IV Q3H PRN Pain , Severe (7-10) Sodium Chloride 100 mls @ 999 mls/hr 03/20/22 09:02 Nacl 0.9% IV QIAN PRN Hypotension Metoclopramide HCl 5 mg 03/17/22 14:00 Metoclopramide 10 Mg/2 Ml Inj IV Q6H PRN Nausea And Vomiting Morphine Sulfate 2 mg 03/13/22 18:17 Morphine 2 Mg/1 Ml Inj IV Q4H PRN Pain, Moderate (4-6) Nifedipine 60 mg 03/14/22 15:00 03/23/22 09:18 Nifedipine Xl 60 Mg Tab PO Not Given Q12HR JIMMY Ondansetron HCl 4 mg 03/13/22 18:17 03/19/22 09:02 Ondansetron 4 Mg/2 Ml Inj IV 4 mg Q8H PRN Administration Nausea And Vomiting Oxycodone/Acetaminophen 1 tab 03/13/22 18:17 03/16/22 04:22 Oxycodone /Acetaminophen 5-325mg Tab PO 1 tab Q6H PRN Administration Pain, Moderate (4-6) Sodium Chloride 10 ml 03/13/22 22:00 03/23/22 09:18 Sodium Chloride 0.9% 10 Ml Flush Syringe IV Not Given BID JIMMY Sodium Chloride 10 ml 03/13/22 18:17 Sodium Chloride 0.9% 10 Ml Flush Syringe IV PRN PRN LINE FLUSH Nutrition/Malnutrition Assess - Dietary Evaluation Nutrition/Malnutrition Findings: Nutrition Notes Start: 03/18/22 14:19 Freq: Status: Active Protocol: Document 03/18/22 14:19 SYLVIA (Rec: 03/18/22 14:21 [facility] [id number]) Nutrition Notes Need for Assessment generated from: LOS Initial or Follow up Brief Note Current Diagnosis Acute Kidney Injury,CKD(stage I-IV),Diabetes,Heart Failure Other Pertinent Diagnosis Accelerated HTN Current Diet Cardiac Labs/Tests reviewed Pertinent Medications Lasix Weight Status Obese Subjective/Other Information Pt screened for LOS. No meal intakes documented since admission. Pt in HD at this time. Burn Absent Trauma Absent Minimum of two criteria No Nutrition Intervention Follow-Up By: 03/24/22 Additional Comments F/U: intakes
[2022-03-23 13:38] LABS: Calcium 11.3 mg/dL (8.4-10.2)
--- NOTE | 2022-03-23 14:07 | Progress Note ---
Assessment and Plan - Patient Problems (1) Pulmonary edema Current Visit: Yes Status: Acute Plan to address problem: 46-year-old man who presents with fluid overload and pulmonary edema. His heart failure exacerbation is multifactorial. There is chronic severe uncontrolled hypertension, there is worsening renal failure with a creatinine currently end- stage at 6.4. Echocardiogram showed the presence of a cardiomyopathy, with left ventricular ejection fraction 25 to 30%. Symptoms have improved with blood pressure control, diuresis and initiation of hemodialysis. Cardiac stable and asymptomatic. Patient is awaiting dialysis placement, we will proceed with lexiscan thallium for assessment of CMP/systolic HF. Subjective Date of service: 03/23/22 Principal diagnosis: Systolic heart failure Interval history: Patient is comfortable, no cardiac complaints, no new cardiac events reported. Routine dialysis today. Objective Vital Signs Temp Pulse Resp BP Pulse Ox Pulse Ox 03/23/22 12:30 98.2 F 74 17 151/96 98 03/23/22 12:19 70 156/95 03/23/22 12:15 76 150/97 03/23/22 12:00 73 156/95 03/23/22 11:30 69 147/91 03/23/22 11:15 70 151/92 03/23/22 11:00 69 127/89 03/23/22 10:45 68 140/90 03/23/22 10:30 70 151/81 03/23/22 10:15 65 125/78 03/23/22 10:00 94 H 133/87 03/23/22 09:45 69 149/78 03/23/22 09:30 68 124/64 03/23/22 09:19 46 L 127/74 03/23/22 09:00 98.3 F 74 16 138/78 98 03/23/22 08:28 98.4 F 76 18 145/74 100 03/23/22 04:44 98.3 F 53 L 18 137/84 99 03/22/22 23:45 98.2 F 74 18 122/82 91 03/22/22 20:58 98.7 F 71 18 155/74 99 03/22/22 20:06 99 03/22/22 16:30 98.3 F 52 L 18 146/72 94 - Physical Examination General: No Apparent Distress HEENT: Positive: PERRL Neck: Positive: neck supple Cardiac: Positive: Reg Rate and Rhythm Lungs: Positive: clear to auscultation Neuro: Positive: Grossly Intact Abdomen: Positive: Soft Skin: Positive: Clear Extremities: Present: edema (trace) - Labs and Meds Comprehensive Metabolic Panel 03/23/22 Range/Units 12:55 Sodium 138 (137-145) mmol/L Potassium 5.0 (3.6-5.0) mmol/L Chloride 96.4 L (98-107) mmol/L Carbon Dioxide 31 H (22-30) mmol/L BUN 31 H (9-20) mg/dL Creatinine 4.3 H (0.8-1.3) mg/dL Glucose 150 H (75-100) mg/dL Calcium 11.3 H D (8.4-10.2) mg/dL
[2022-03-23] MEDS: ONDANSETRON 4 MG/2 ML INJ IV PRN (16:52)
[2022-03-24] MEDS: hydrALAZINE 100 MG TAB PO SCH ×3 (05:51→21:18)
--- NOTE | 2022-03-24 07:39 | Progress Note ---
Assessment and Plan Assessment and plan: 46-year-old male with history of chronic uncontrolled hypertension and chronic kidney disease who presented through the emergency department with complaints of 3-4 days of increasing shortness of breath and lower extremity edema. EKG revealed normal sinus rhythm with normal ST-T wave changes. Chest x-ray revealed moderate severity cardiomegaly with diffuse interstitial edema. Laboratory findings reveal a creatinine of 6.0 with baseline creatinine of 3.5 previously. Patient also noted to have persistently elevated BP despite treatment with amlodipine, carvedilol and hydralazine. #Acute on chronic systolic heart failureresolved #ESRD on hemodialysis #Hypokalemiaresolved #Cardiomyopathy #Uncontrolled hypertension #[id number] type 2 diabetes mellitus #Obesity #Weight loss counseling #Exercise counseling - BMI 33.6 - Counseled patient on the importance of weight loss, incorporating exercise, and dietary changes (lean meats, fresh fruits and vegetables, and water intake). Patient expresses understanding. - Time: +15 min #Advanced care planning -Disease education conducted, care plan discussed, diagnoses discussed, prognosi s discussed, and patient acknowledges understanding with care plan -Time: +30 min 03/15/2022. Echocardiogram revealed cardiomyopathy with left ventricular systolic function of 25-30%. Continue GDMT for heart failure per cardiology recommendations. BP is much better controlled. Continue aggressive diuresis with Lasix 80 mg 3 times daily. Renal ultrasound revealed no hydronephrosis but did reveal medical renal disease. Urine studies showed known proteinuria likely from DM. Nephrology reports patient consenting to hemodialysis if no significant improvement in renal function. Unfortunately, renal function appears to be about the same. Patient will need PermCath placement. Also, patient will likely need ischemic evaluation with stress test once hemodialysis initiated and renal issues stabilized 03/16/2022. Patient is s/p PermCath placement yesterday with the initiation of hemodialysis. We will discuss with case management plans for outpatient hemodialysis chair. Await cardiology plans for ischemic evaluation. Continue GDMT for systolic heart failure. Continue Accu-Cheks and sliding scale insulin. 03/17/2022. Patient initiated on hemodialysis on 03/15/2022. We are waiting for outpatient hemodialysis chair. Echocardiogram revealed cardiomyopathy with LVEF 25 to 30%. Continue tight blood pressure control, diuresis and hemodialysis. Cardiology reports patient will ultimately need stress test either predischarge or as an outpatient 03/18/2022. Nephrology reports hemodialysis today for clearance and volume removal. Follow-up bladder scan. Ischemic evaluation per cardiology. 03/19/2022. Continue hemodialysis per nephrology recommendations. Ischemic evaluation per cardiology. Monitor I/O's daily. CM on board for outpatient HD arrangement 03/20/2022. Continue hemodialysis per nephrology recommendations. Ischemic evaluation per cardiology. Monitor I/O's daily. CM on board for outpatient HD arrangement 03/21/2022. Cardiology reports stability from their standpoint. LVEF 25-30% per TTE 03/13/22. Continue Coreg and Bidil. Cardiology recommends outpatient follow-up for ischemic evaluation. If LVEF remains < 35% after at least 90 days GDMT, then may consider for primary prevention ICD implant. Continue hemodialysis per nephrology recommendations. CM on board for outpatient HD arrangement. 03/22/2022. Continue with current medical management. Pending hemodialysis chair for newly diagnosed ESRD. Patient will follow-up with ischemic work-up with c ardiology in outpatient setting. 03/23/2022. Continue with current medical management. Pending hemodialysis chair for newly diagnosed ESRD. Patient will follow-up with ischemic work-up with cardiology in outpatient setting. 03/24/2022. Continue with current medical management. Pending hemodialysis chair for newly diagnosed ESRD. Patient will follow-up with ischemic work-up with cardiology in outpatient setting. Disposition Plan: Pending hemodialysis chair Total Time Spent with Patient (Minutes): 30 min History Interval history: No acute events over night. The patient denies fevers, chills, nausea, vomiting, abdominal pain, chest pain/pressure, shortness of breath, urinary symptoms, weakness, or confusion. Hospitalist Physical - Constitutional Vitals: Temp Pulse Resp BP Pulse Ox 98.6 F 57 L 18 126/79 92 03/24/22 04:43 03/24/22 04:43 03/24/22 04:43 03/24/22 04:43 03/24/22 04:43 General appearance: Present: no acute distress, well-nourished, obese - EENT Eyes: Present: PERRL, EOM intact ENT: hearing intact, clear oral mucosa, dentition normal - Neck Neck: Present: supple, normal ROM, other (Permacath in upper R chest) - Respiratory Respiratory effort: normal Respiratory: bilateral: CTA - Cardiovascular Rhythm: regular Heart Sounds: Present: S1 & S2 - Extremities Extremities: no ischemia, pulses intact, pulses symmetrical, No edema, normal temperature, normal color, Full ROM Peripheral Pulses: within normal limits - Abdominal General gastrointestinal: soft, non-tender, non-distended, normal bowel sounds - Integumentary Integumentary: Present: clear, warm, dry - Psychiatric Psychiatric: appropriate mood/affect, intact judgment & insight, memory intact, cooperative - Neurologic Neurologic: CNII-XII intact, moves all extremities - Allied Health Allied health notes reviewed: nursing HEART Score - HEART Score Troponin: Troponin T 0.098 ng/mL (0.00-0.029) H 03/13/22 07:47 Results - Labs CBC & Chem 7: 03/22/22 04:32 03/23/22 12:55 Labs: Laboratory Last Values WBC 9.6 K/mm3 (4.5-11.0) 03/22/22 04:32 RBC 5.05 M/mm3 (3.65-5.03) H 03/22/22 04:32 Hgb 12.1 gm/dl (11.8-15.2) 03/22/22 04:32 Hct 37.1 % (35.5-45.6) 03/22/22 04:32 MCV 74 fl (84-94) L 03/22/22 04:32 MCH 24 pg (28-32) L 03/22/22 04:32 MCHC 33 % (32-34) 03/22/22 04:32 RDW 15.2 % (13.2-15.2) 03/22/22 04:32 Plt Count 284 K/mm3 (140-440) 03/22/22 04:32 Lymph % (Auto) 22.0 % (13.4-35.0) 03/22/22 04:32 [place] % (Auto) 10.4 % (0.0-7.3) H 03/22/22 04:32 Eos % (Auto) 1.9 % (0.0-4.3) 03/22/22 04:32 Baso % (Auto) 1.1 % (0.0-1.8) 03/22/22 04:32 Lymph # (Auto) 2.1 K/mm3 (1.2-5.4) 03/22/22 04:32 [place] # (Auto) 1.0 K/mm3 (0.0-0.8) H 03/22/22 04:32 Eos # (Auto) 0.2 K/mm3 (0.0-0.4) 03/22/22 04:32 Baso # (Auto) 0.1 K/mm3 (0.0-0.1) 03/22/22 04:32 Add Manual Diff Complete 03/21/22 04:39 Total Counted 100 03/21/22 04:39 Seg Neutrophils % 64.6 % (40.0-70.0) 03/22/22 04:32 Seg Neuts % (Manual) 73.0 % (40.0-70.0) H 03/21/22 04:39 Band Neutrophils % 0 % 03/21/22 04:39 Lymphocytes % (Manual) 15.0 % (13.4-35.0) 03/21/22 04:39 Reactive Lymphs % (Man) 0 % 03/21/22 04:39 Monocytes % (Manual) 4.0 % (0.0-7.3) 03/21/22 04:39 Eosinophils % (Manual) 8.0 % (0.0-4.3) H 03/21/22 04:39 Basophils % (Manual) 0 % (0.0-1.8) 03/21/22 04:39 Metamyelocytes % 0 % 03/21/22 04:39 Myelocytes % 0 % 03/21/22 04:39 Promyelocytes % 0 % 03/21/22 04:39 Blast Cells % 0 % 03/21/22 04:39 Nucleated RBC % Not Reportable 03/21/22 04:39 Seg Neutrophils # 6.2 K/mm3 (1.8-7.7) 03/22/22 04:32 Seg Neutrophils # Man 7.8 K/mm3 (1.8-7.7) H 03/21/22 04:39 Band Neutrophils # 0.0 K/mm3 03/21/22 04:39 Lymphocytes # (Manual) 1.6 K/mm3 (1.2-5.4) 03/21/22 04:39 Abs React Lymphs (Man) 0.0 K/mm3 03/21/22 04:39 Monocytes # (Manual) 0.4 K/mm3 (0.0-0.8) 03/21/22 04:39 Eosinophils # (Manual) 0.9 K/mm3 (0.0-0.4) H 03/21/22 04:39 Basophils # (Manual) 0.0 K/mm3 (0.0-0.1) 03/21/22 04:39 Metamyelocytes # 0.0 K/mm3 03/21/22 04:39 Myelocytes # 0.0 K/mm3 03/21/22 04:39 Promyelocytes # 0.0 K/mm3 03/21/22 04:39 Blast Cells # 0.0 K/mm3 03/21/22 04:39 WBC Morphology Not Reportable 03/21/22 04:39 Hypersegmented Neuts Not Reportable 03/21/22 04:39 Hyposegmented Neuts Not Reportable 03/21/22 04:39 Hypogranular Neuts Not Reportable 03/21/22 04:39 Smudge Cells Not Reportable 03/21/22 04:39 Toxic Granulation Not Reportable 03/21/22 04:39 Toxic Vacuolation Not Reportable 03/21/22 04:39 Dohle Bodies Not Reportable 03/21/22 04:39 Pelger-Huet Anomaly Not Reportable 03/21/22 04:39 Tobi Rods Not Reportable 03/21/22 04:39 Platelet Estimate Consistent w auto 03/21/22 04:39 Clumped Platelets Not Reportable 03/21/22 04:39 Plt Clumps, EDTA Not Reportable 03/21/22 04:39 Large Platelets Not Reportable 03/21/22 04:39 Giant Platelets Not Reportable 03/21/22 04:39 Platelet Satelliting Not Reportable 03/21/22 04:39 Plt Morphology Comment Not Reportable 03/21/22 04:39 RBC Morphology Not Reportable 03/21/22 04:39 Dimorphic RBCs Not Reportable 03/21/22 04:39 Polychromasia Not Reportable 03/21/22 04:39 Hypochromasia Not Reportable 03/21/22 04:39 Poikilocytosis Not Reportable 03/21/22 04:39 Anisocytosis Not Reportable 03/21/22 04:39 Microcytosis 1+ 03/21/22 04:39 Macrocytosis Not Reportable 03/21/22 04:39 Spherocytes 1+ 03/21/22 04:39 Pappenheimer Bodies Not Reportable 03/21/22 04:39 Sickle Cells Not Reportable 03/21/22 04:39 Target Cells 1+ 03/21/22 04:39 Tear Drop Cells Not Reportable 03/21/22 04:39 Ovalocytes Not Reportable 03/21/22 04:39 Helmet Cells Not Reportable 03/21/22 04:39 Kahn-[place] Roc Bodies Not Reportable 03/21/22 04:39 [place] Rings Not Reportable 03/21/22 04:39 Khoi Cells Not Reportable 03/21/22 04:39 Bite Cells Not Reportable 03/21/22 04:39 Crenated Cell Not Reportable 03/21/22 04:39 Elliptocytes Not Reportable 03/21/22 04:39 Acanthocytes (Spur) Not Reportable 03/21/22 04:39 Rouleaux Not Reportable 03/21/22 04:39 Hemoglobin C Crystals Not Reportable 03/21/22 04:39 Schistocytes Not Reportable 03/21/22 04:39 Malaria parasites Not Reportable 03/21/22 04:39 Jorge Bodies Not Reportable 03/21/22 04:39 Hem Pathologist Commnt No 03/21/22 04:39 Sodium 138 mmol/L (137-145) 03/23/22 12:55 Potassium 5.0 mmol/L (3.6-5.0) 03/23/22 12:55 Chloride 96.4 mmol/L (98-107) L 03/23/22 12:55 Carbon Dioxide 31 mmol/L (22-30) H 03/23/22 12:55 Anion Gap 16 mmol/L 03/23/22 12:55 BUN 31 mg/dL (9-20) H 03/23/22 12:55 Creatinine 4.3 mg/dL (0.8-1.3) H 03/23/22 12:55 Estimated GFR 18 ml/min 03/23/22 12:55 BUN/Creatinine Ratio 7 % 03/23/22 12:55 Glucose 150 mg/dL (75-100) H 03/23/22 12:55 POC Glucose 230 mg/dL (70-105) H 03/21/22 17:49 Calcium 11.3 mg/dL (8.4-10.2) H D 03/23/22 12:55 Phosphorus 4.90 mg/dL (2.5-4.5) H 03/15/22 04:59 Total Bilirubin 0.60 mg/dL (0.1-1.2) 03/14/22 05:11 AST 23 units/L (5-40) 03/14/22 05:11 ALT 32 units/L (7-56) 03/14/22 05:11 Alkaline Phosphatase 112 units/L (35-129) 03/14/22 05:11 Total Creatine Kinase 1247 units/L (55-170) H 03/13/22 16:09 Troponin T 0.098 ng/mL (0.00-0.029) H 03/13/22 07:47 NT-Pro-B Natriuret Pep 68900 pg/mL (0-450) H 03/13/22 08:28 Total Protein 5.9 g/dL (6.3-8.2) L 03/14/22 05:11 Albumin 3.3 g/dL (3.9-5) L 03/14/22 05:11 Albumin/Globulin Ratio 1.3 % 03/14/22 05:11 Urine Color Straw (Yellow) 03/13/22 15:29 Urine Turbidity Clear (Clear) 03/13/22 15:29 Urine pH 6.0 (5.0-7.0) 03/13/22 15:29 Ur Specific [place] 1.010 (1.003-1.030) 03/13/22 15:29 Urine Protein >500 mg/dL (Negative) 03/13/22 15:29 Urine Glucose (UA) Negative mg/dL (Negative) 03/13/22 15:29 Urine Ketones 15 mg/dL (Negative) 03/13/22 15:29 Urine Blood 2+ (Negative) 03/13/22 15:29 Urine Nitrite Negative (Negative) 03/13/22 15:29 Ur Reducing Substances Not Reportable 03/13/22 15:29 Urine Bilirubin Negative (Negative) 03/13/22 15:29 Urine Ictotest Not Reportable 03/13/22 15:29 Urine Urobilinogen < 2.0 mg/dL (<2.0) 03/13/22 15:29 Ur Leukocyte Esterase Negative (Negative) 03/13/22 15:29 Urine WBC (Auto) 1.0 /HPF (0.0-6.0) 03/13/22 15:29 Urine RBC (Auto) 1.0 /HPF (0.0-6.0) 03/13/22 15:29 Urine Eosinophils None seen (None Seen) 03/13/22 15:29 Urine Creatinine 43.6 mg/dL (0.1-20.0) H 03/13/22 15:29 Protein/Creatinin Ratio 5.78 03/13/22 15:29 Urine Sodium 85 mmol/L 03/13/22 15:29 Urine Total Protein 252 mg/dL (5-11.8) H 03/13/22 15:29 SARS-CoV-2 (PCR) Negative (Negative) 03/17/22 10:58 Hepatitis A IgM Ab Non-reactive (NonReactive) 03/15/22 12:37 Hep Bs Antigen Non-reactive (Negative) 03/15/22 12:37 Hep B Core IgM Ab Non-reactive (NonReactive) 03/15/22 12:37 Hepatitis C Antibody Non-reactive (NonReactive) 03/15/22 12:37 Bates/IV: Voiding Method Toilet Active Medications - Current Medications Current Medications: Generic Name Dose Route Start Last Admin Trade Name Freq PRN Reason Stop Dose Admin Acetaminophen 650 mg 03/13/22 18:17 03/19/22 09:03 Acetaminophen 325 Mg Tab PO 650 mg Q4H PRN Administration Pain MILD(1-3)/Fever >100.5/WHITTAKER Carvedilol 25 mg 03/19/22 22:00 03/23/22 21:21 Carvedilol 25 Mg Tab PO 25 mg BID JIMMY Administration Furosemide 40 mg 03/16/22 22:00 03/23/22 21:21 Furosemide 40 Mg Tab PO 40 mg BID JIMMY Administration Glipizide 2.5 mg 03/22/22 11:30 03/23/22 09:18 Glipizide Xl 2.5 Mg Tab PO Not Given [facility] [place] 10 mg 03/13/22 22:00 03/13/22 22:14 Hydralazine 20 Mg/1 Ml Inj IV 10 mg Q6HR PRN Administration SBP >/=160; DBP >/=100 Hydralazine HCl 100 mg 03/14/22 09:00 03/24/22 05:51 Hydralazine 100 Mg Tab PO 100 mg Q8HR JIMMY Administration Hydromorphone HCl 0.5 mg 03/13/22 18:17 Hydromorphone 0.5 Mg/0.5 Ml Inj IV Q3H PRN Pain , Severe (7-10) Sodium Chloride 100 mls @ 999 mls/hr 03/20/22 09:02 Nacl 0.9% IV QIAN PRN Hypotension Metoclopramide HCl 5 mg 03/17/22 14:00 Metoclopramide 10 Mg/2 Ml Inj IV Q6H PRN Nausea And Vomiting Morphine Sulfate 2 mg 03/13/22 18:17 Morphine 2 Mg/1 Ml Inj IV Q4H PRN Pain, Moderate (4-6) Nifedipine 60 mg 03/14/22 15:00 03/23/22 21:20 Nifedipine Xl 60 Mg Tab PO 60 mg Q12HR JIMMY Administration Ondansetron HCl 4 mg 03/13/22 18:17 03/23/22 16:52 Ondansetron 4 Mg/2 Ml Inj IV 4 mg Q8H PRN Administration Nausea And Vomiting Oxycodone/Acetaminophen 1 tab 03/13/22 18:17 03/16/22 04:22 Oxycodone /Acetaminophen 5-325mg Tab PO 1 tab Q6H PRN Administration Pain, Moderate (4-6) Sodium Chloride 10 ml 03/13/22 22:00 03/23/22 21:21 Sodium Chloride 0.9% 10 Ml Flush Syringe IV 10 ml BID JIMMY Administration Sodium Chloride 10 ml 03/13/22 18:17 Sodium Chloride 0.9% 10 Ml Flush Syringe IV PRN PRN LINE FLUSH Nutrition/Malnutrition Assess - Dietary Evaluation Nutrition/Malnutrition Findings: Nutrition Notes Start: 03/18/22 14:19 Freq: Status: Active Protocol: Document 03/18/22 14:19 SYLVIA (Rec: 03/18/22 14:21 SYLVIA [id number]) Nutrition Notes Need for Assessment generated from: LOS Initial or Follow up Brief Note Current Diagnosis Acute Kidney Injury,CKD(stage I-IV),Diabetes,Heart Failure Other Pertinent Diagnosis Accelerated HTN Current Diet Cardiac Labs/Tests reviewed Pertinent Medications Lasix Weight Status Obese Subjective/Other Information Pt screened for LOS. No meal intakes documented since admission. Pt in HD at this time. Burn Absent Trauma Absent Minimum of two criteria No Nutrition Intervention Follow-Up By: 03/24/22 Additional Comments F/U: intakes
[2022-03-24] MEDS ORDERED: REGADENOSON 0.4 MG/5 ML INJ IV ONE (08:13)
--- NOTE | 2022-03-24 08:28 | Progress Note ---
Assessment and Plan End Stage Renal Disease now on hemodialysis S/P Hyperkalemia Volume overload Hypertension Diabetes Mellitus CHF Plan: no indication for HD today Obtain daily weights Monitor I/O's daily Avoid nephrotoxic agents Assess dialysis needs daily Monitor renal function closely Awaiting outpatient HD placement, CM onboard Subjective Date of service: 03/24/22 Principal diagnosis: Systolic heart failure Interval history: tolerated HD yesterday Objective - Vital Signs Vital signs: Vital Signs - 12hr 03/23/22 03/24/22 03/24/22 22:00 00:18 02:00 Temperature 98.2 F Pulse Rate 76 74 Respiratory 18 Rate Blood Pressure 131/80 O2 Sat by Pulse 94 99 Oximetry 03/24/22 04:43 Temperature 98.6 F Pulse Rate 57 L Respiratory 18 Rate Blood Pressure 126/79 O2 Sat by Pulse 92 Oximetry - Lab 03/22/22 04:32 03/23/22 12:55 Most recent lab results Calcium 11.3 mg/dL (8.4-10.2) H D 03/23/22 12:55 Phosphorus 4.90 mg/dL (2.5-4.5) H 03/15/22 04:59 Urine Creatinine 43.6 mg/dL (0.1-20.0) H 03/13/22 15:29 Urine Sodium 85 mmol/L 03/13/22 15:29 Urine Total Protein 252 mg/dL (5-11.8) H 03/13/22 15:29 Medications & Allergies - Medications Allergies/Adverse Reactions: Allergies shellfish derived Adverse Reaction (Verified 03/14/22 09:51) Anaphylaxis patient says he gets "hives and can't breathe" Home Medications: Home Medications Medication Instructions Recorded Confirmed Last Taken Type amLODIPine 10 mg PO QDAY #30 tablet 07/18/20 03/14/22 Unknown Rx glipiZIDE XL [Glucotrol Xl] 2.5 mg PO QAM #30 tab.er.24 07/18/20 03/14/22 Unknown Rx hydrALAZINE [Apresoline TAB] 50 mg PO Q8HR #90 tablet 07/18/20 03/14/22 1 Month Ago Rx ~02/11/22 Labetalol HCl [Labetalol 300mg TAB] 300 mg PO BID 03/14/22 03/14/22 Unknown History Torsemide [Demadex] 10 mg PO QDAY 03/14/22 03/14/22 Unknown History Active Medications: Generic Name Dose Route Start Last Admin Trade Name Freq PRN Reason Stop Dose Admin Acetaminophen 650 mg 03/13/22 18:17 03/19/22 09:03 Acetaminophen 325 Mg Tab PO 650 mg Q4H PRN Administration Pain MILD(1-3)/Fever >100.5/[place] Carvedilol 25 mg 03/19/22 22:00 03/23/22 21:21 Carvedilol 25 Mg Tab PO 25 mg BID JIMMY Administration Furosemide 40 mg 03/16/22 22:00 03/23/22 21:21 Furosemide 40 Mg Tab PO 40 mg BID JIMMY Administration Glipizide 2.5 mg 03/22/22 11:30 03/23/22 09:18 Glipizide Xl 2.5 Mg Tab PO Not [facility] Hydralazine HCl 10 mg 03/13/22 22:00 03/13/22 22:14 Hydralazine 20 Mg/1 Ml Inj IV 10 mg Q6HR PRN Administration SBP >/=160; DBP >/=100 Hydralazine HCl 100 mg 03/14/22 09:00 03/24/22 05:51 Hydralazine 100 Mg Tab PO 100 mg Q8HR JIMMY Administration Hydromorphone HCl 0.5 mg 03/13/22 18:17 Hydromorphone 0.5 Mg/0.5 Ml Inj IV Q3H PRN Pain , Severe (7-10) Sodium Chloride 100 mls @ 999 mls/hr 03/20/22 09:02 Nacl 0.9% IV QIAN PRN Hypotension Metoclopramide HCl 5 mg 03/17/22 14:00 Metoclopramide 10 Mg/2 Ml Inj IV Q6H PRN Nausea And Vomiting Morphine Sulfate 2 mg 03/13/22 18:17 Morphine 2 Mg/1 Ml Inj IV Q4H PRN Pain, Moderate (4-6) Nifedipine 60 mg 03/14/22 15:00 03/23/22 21:20 Nifedipine Xl 60 Mg Tab PO 60 mg Q12HR JIMMY Administration Ondansetron HCl 4 mg 03/13/22 18:17 03/23/22 16:52 Ondansetron 4 Mg/2 Ml Inj IV 4 mg Q8H PRN Administration Nausea And Vomiting Oxycodone/Acetaminophen 1 tab 03/13/22 18:17 03/16/22 04:22 Oxycodone /Acetaminophen 5-325mg Tab PO 1 tab Q6H PRN Administration Pain, Moderate (4-6) Sodium Chloride 10 ml 03/13/22 22:00 03/23/22 21:21 Sodium Chloride 0.9% 10 Ml Flush Syringe IV 10 ml BID JIMMY Administration Sodium Chloride 10 ml 03/13/22 18:17 Sodium Chloride 0.9% 10 Ml Flush Syringe IV PRN PRN LINE FLUSH
[2022-03-24] MEDS: FUROSEMIDE 40 MG TAB PO SCH ×2 (10:36→21:18)
[2022-03-24] MEDS: NIFEdipine XL 60 MG TAB PO SCH ×2 (10:36→21:18)
[2022-03-24] MEDS: carvediloL 25 MG TAB PO SCH ×2 (10:36→21:18)
--- NOTE | 2022-03-24 11:29 | Progress Note ---
Assessment and Plan 46-year-old man who presents with fluid overload and pulmonary edema. His heart failure exacerbation is multifactorial. There is chronic severe uncontrolled hypertension, there is worsening renal failure with a creatinine currently end- stage at 6.4. Echocardiogram shows the presence of a cardiomyopathy, with left ventricular ejection fraction 25 to 30%. Symptoms have improved with blood pressure control, diuresis and initiation of hemodialysis. Cardiac stable and asymptomatic. Nuclear stress test performed today showed a subtle apical inferior defect on stress images which is probably related to the artifact, no further work-up needed at this time. If nephrology is okay we can switch nifedipine to lisinopril 20 mg p.o. daily which will be more cardioprotective given his LV dysfunction. We can titrate lisinopril up to 40 mg if the blood pressure tolerates it. - Patient Problems (1) CHF (congestive heart failure) Current Visit: Yes Status: Acute (2) Pulmonary edema Current Visit: Yes Status: Acute Subjective Date of service: 03/24/22 Principal diagnosis: Systolic heart failure Interval history: Patient doing well. No new complaints. Denies any chest pain shortness of breath orthopnea or PND. Objective Vital Signs Temp Pulse Resp BP Pulse Ox Pulse Ox 03/24/22 10:40 98.4 F 77 20 138/76 97 03/24/22 10:34 99 03/24/22 04:43 98.6 F 57 L 18 126/79 92 03/24/22 02:00 99 03/24/22 00:18 98.2 F 74 18 131/80 94 03/23/22 22:00 76 03/23/22 19:10 98.4 F 43 L 16 128/82 90 03/23/22 16:30 97.5 F L 65 18 137/83 93 03/23/22 14:00 96 03/23/22 12:30 98.2 F 74 17 151/96 98 03/23/22 12:19 70 156/95 03/23/22 12:15 76 150/97 03/23/22 12:00 73 156/95 03/23/22 11:30 69 147/91 - Physical Examination General: No Apparent Distress HEENT: Positive: PERRL Neck: Positive: neck supple Cardiac: Positive: Reg Rate and Rhythm, S1/S2 Lungs: Positive: clear to auscultation, No Wheeze, Rales, Rhonchi Neuro: Positive: Grossly Intact Abdomen: Positive: Soft Skin: Positive: Clear Extremities: Present: edema (trace) - Labs and Meds Comprehensive Metabolic Panel 03/23/22 Range/Units 12:55 Sodium 138 (137-145) mmol/L Potassium 5.0 (3.6-5.0) mmol/L Chloride 96.4 L (98-107) mmol/L Carbon Dioxide 31 H (22-30) mmol/L BUN 31 H (9-20) mg/dL Creatinine 4.3 H (0.8-1.3) mg/dL Glucose 150 H (75-100) mg/dL Calcium 11.3 H D (8.4-10.2) mg/dL
--- NOTE | 2022-03-24 12:49 | Nuclear Medicine Report ---
APPROVED REPORT Exam: Nuclear Stress Test Indication: Chest pain Patient Location: [address] [place] [address] Room #: A452 Ht: 6 ft 0 in Wt: 249 lbs BSA: 2.34 m2 HR: 72 bpmBP: 141/71 mmHgBMI: 33.76 Rhythm: Sinus Rhythm w/ PVC's Stress Test Details Stress Test: Pharmacologic stress testing performed using 0.4 mg of regadenoson per 5 mL given IV over 10 seconds. Reason for pharmacologic stress test: physical limitation. HR Resting HR: 68 bpm Max HR Achieved: 104 bpm Max Heart Rate (APMHR): 174 bpm Target HR (85% APMHR): 147 bpm % of APMHR: 59 Recovery HR: 70 bpm HR response to stress: Normal HR response to stress BP Resting BP: 114/64 mmHg Max BP: 141/86 mmHg Recovery BP: 123/71 mmHg BP response to stress: Normal blood pressure response to stress. ECG Resting ECG: Sinus Rhythm Stress ECG: Sinus Tachycardia Arrhythmia: Occasional VPC's Recovery ECG: Sinus Rhythm Recovery Arrhythmia: Occasional , VPC's Clinical Reason for Termination: Completed protocol Stress Symptoms: None NM EXAM: Myocardial Perfusion REST/STRESS Imaging Protocol: Rest Tc-99m/Stress Tc-99m 1 day Resting Data Rest SPECT myocardial perfusion imaging was performed in supine position 45 minutes following the intravenous injection of 10 mCi of Tc-99m Myoview. Time of rest injection: 0715 Pharmacologic Stress Pharmacologic stress test was performed by injecting Regadenoson 0.4 mg IV push followed by the intravenous injection of 28 mCi of Tc-99m Myoview. Time of stress injection: 0939 Gated Stress SPECT was performed 30 minutes after stress injection. The images were gated to evaluate regional wall motion and calculate left ventricular ejection fraction. Study Quality Study: Good Artifact: Mild Increased GI uptake in stress images only Lung Uptake: Normal Study Data At rest, the left ventricular ejection fraction was 43%.. TID = 1.10. Perfusion Wall Motion The rest and stress images show mild diffuse hypokinesis. Nuclear Conclusion ECG Findings: negative for ischemia Clinical Findings: negative for ischemia Nuclear Findings: negative for ischemia Exercise Capacity: not assessed Left Ventricular Function: abnormal Risk Study: low Rest images show normal perfusion. There is a small area of mildly reduced uptake in the apical segment of the inferior wall which is seen on the stress images. This area thickens and is most consistent with attenuation artifact from increased GI uptake. The left ventricular ejection fraction was 43%.. No prior study available for comparison.
[2022-03-24 13:04] LABS: Calcium 9.2 mg/dL (8.4-10.2)
[2022-03-25 06:04] LABS: Calcium 9.3 mg/dL (8.4-10.2)
[2022-03-25] MEDS: hydrALAZINE 100 MG TAB PO SCH (06:41)
--- NOTE | 2022-03-25 08:12 | Progress Note ---
Assessment and Plan Assessment and plan: 46-year-old male with history of chronic uncontrolled hypertension and chronic kidney disease who presented through the emergency department with complaints of 3-4 days of increasing shortness of breath and lower extremity edema. EKG revealed normal sinus rhythm with normal ST-T wave changes. Chest x-ray revealed moderate severity cardiomegaly with diffuse interstitial edema. Laboratory findings reveal a creatinine of 6.0 with baseline creatinine of 3.5 previously. Patient also noted to have persistently elevated BP despite treatment with amlodipine, carvedilol and hydralazine. #Acute on chronic systolic heart failureresolved #ESRD on hemodialysis #Hypokalemiaresolved #Cardiomyopathy #Uncontrolled hypertension #[id number] type 2 diabetes mellitus #Obesity #Weight loss counseling #Exercise counseling - BMI 33.6 - Counseled patient on the importance of weight loss, incorporating exercise, and dietary changes (lean meats, fresh fruits and vegetables, and water intake). Patient expresses understanding. - Time: +15 min #Advanced care planning -Disease education conducted, care plan discussed, diagnoses discussed, prognosi s discussed, and patient acknowledges understanding with care plan -Time: +30 min 03/15/2022. Echocardiogram revealed cardiomyopathy with left ventricular systolic function of 25-30%. Continue GDMT for heart failure per cardiology recommendations. BP is much better controlled. Continue aggressive diuresis with Lasix 80 mg 3 times daily. Renal ultrasound revealed no hydronephrosis but did reveal medical renal disease. Urine studies showed known proteinuria likely from DM. Nephrology reports patient consenting to hemodialysis if no significant improvement in renal function. Unfortunately, renal function appears to be about the same. Patient will need PermCath placement. Also, patient will likely need ischemic evaluation with stress test once hemodialysis initiated and renal issues stabilized 03/16/2022. Patient is s/p PermCath placement yesterday with the initiation of hemodialysis. We will discuss with case management plans for outpatient hemodialysis chair. Await cardiology plans for ischemic evaluation. Continue GDMT for systolic heart failure. Continue Accu-Cheks and sliding scale insulin. 03/17/2022. Patient initiated on hemodialysis on 03/15/2022. We are waiting for outpatient hemodialysis chair. Echocardiogram revealed cardiomyopathy with LVEF 25 to 30%. Continue tight blood pressure control, diuresis and hemodialysis. Cardiology reports patient will ultimately need stress test either predischarge or as an outpatient 03/18/2022. Nephrology reports hemodialysis today for clearance and volume removal. Follow-up bladder scan. Ischemic evaluation per cardiology. 03/19/2022. Continue hemodialysis per nephrology recommendations. Ischemic evaluation per cardiology. Monitor I/O's daily. CM on board for outpatient HD arrangement 03/20/2022. Continue hemodialysis per nephrology recommendations. Ischemic evaluation per cardiology. Monitor I/O's daily. CM on board for outpatient HD arrangement 03/21/2022. Cardiology reports stability from their standpoint. LVEF 25-30% per TTE 03/13/22. Continue Coreg and Bidil. Cardiology recommends outpatient follow-up for ischemic evaluation. If LVEF remains < 35% after at least 90 days GDMT, then may consider for primary prevention ICD implant. Continue hemodialysis per nephrology recommendations. CM on board for outpatient HD arrangement. 03/22/2022. Continue with current medical management. Pending hemodialysis chair for newly diagnosed ESRD. Patient will follow-up with ischemic work-up with c ardiology in outpatient setting. 03/23/2022. Continue with current medical management. Pending hemodialysis chair for newly diagnosed ESRD. Patient will follow-up with ischemic work-up with cardiology in outpatient setting. 03/24/2022. Continue with current medical management. Pending hemodialysis chair for newly diagnosed ESRD. Patient will follow-up with ischemic work-up with cardiology in outpatient setting. 03/25/2022. Myocardial SPECT (03/24/2022) revealing EF 43% with rest and stress images revealing mild diffuse hypokinesis; unremarkable for ischemia; small area of mildly reduced uptake in apical segment of the inferior wall which is seen on the stress imagesthis area thickens and is most consistent with attenuation artifact from increased GI uptake. Still pending hemodialysis chair for newly diagnosed ESRD. Patient having difficulty with obtaining a chair due to him being self-pay. Continuing further search for HD chair. Disposition Plan: Pending hemodialysis chair Total Time Spent with Patient (Minutes): 30 minutes History Interval history: No acute events overnight. Hospitalist Physical - Constitutional Vitals: Temp Pulse Resp BP Pulse Ox 98.4 F 87 20 126/80 94 03/25/22 04:35 03/25/22 04:35 03/25/22 04:35 03/25/22 04:35 03/25/22 04:35 General appearance: Present: no acute distress, well-nourished, obese - EENT Eyes: Present: PERRL, EOM intact ENT: hearing intact, clear oral mucosa, dentition normal - Neck Neck: Present: supple, normal ROM, other (Permacath in right upper chest) - Respiratory Respiratory effort: normal - Cardiovascular Rhythm: regular Heart Sounds: Present: S1 & S2 - Extremities Extremities: no ischemia, pulses intact, pulses symmetrical, No edema, normal temperature, normal color, Full ROM Peripheral Pulses: within normal limits - Abdominal General gastrointestinal: soft, non-tender, non-distended, normal bowel sounds - Integumentary Integumentary: Present: clear, warm, dry - Psychiatric Psychiatric: appropriate mood/affect, intact judgment & insight, memory intact, cooperative - Neurologic Neurologic: CNII-XII intact, moves all extremities - Allied Health Allied health notes reviewed: nursing, case management HEART Score - HEART Score Troponin: Troponin T 0.098 ng/mL (0.00-0.029) H 03/13/22 07:47 Results - Labs CBC & Chem 7: 03/22/22 04:32 03/25/22 04:34 Labs: Laboratory Last Values WBC 9.6 K/mm3 (4.5-11.0) 03/22/22 04:32 RBC 5.05 M/mm3 (3.65-5.03) H 03/22/22 04:32 Hgb 12.1 gm/dl (11.8-15.2) 03/22/22 04:32 Hct 37.1 % (35.5-45.6) 03/22/22 04:32 MCV 74 fl (84-94) L 03/22/22 04:32 MCH 24 pg (28-32) L 03/22/22 04:32 MCHC 33 % (32-34) 03/22/22 04:32 RDW 15.2 % (13.2-15.2) 03/22/22 04:32 Plt Count 284 K/mm3 (140-440) 03/22/22 04:32 Lymph % (Auto) 22.0 % (13.4-35.0) 03/22/22 04:32 [place] % (Auto) 10.4 % (0.0-7.3) H 03/22/22 04:32 Eos % (Auto) 1.9 % (0.0-4.3) 03/22/22 04:32 Baso % (Auto) 1.1 % (0.0-1.8) 03/22/22 04:32 Lymph # (Auto) 2.1 K/mm3 (1.2-5.4) 03/22/22 04:32 [place] # (Auto) 1.0 K/mm3 (0.0-0.8) H 03/22/22 04:32 Eos # (Auto) 0.2 K/mm3 (0.0-0.4) 03/22/22 04:32 Baso # (Auto) 0.1 K/mm3 (0.0-0.1) 03/22/22 04:32 Add Manual Diff Complete 03/21/22 04:39 Total Counted 100 03/21/22 04:39 Seg Neutrophils % 64.6 % (40.0-70.0) 03/22/22 04:32 Seg Neuts % (Manual) 73.0 % (40.0-70.0) H 03/21/22 04:39 Band Neutrophils % 0 % 03/21/22 04:39 Lymphocytes % (Manual) 15.0 % (13.4-35.0) 03/21/22 04:39 Reactive Lymphs % (Man) 0 % 03/21/22 04:39 Monocytes % (Manual) 4.0 % (0.0-7.3) 03/21/22 04:39 Eosinophils % (Manual) 8.0 % (0.0-4.3) H 03/21/22 04:39 Basophils % (Manual) 0 % (0.0-1.8) 03/21/22 04:39 Metamyelocytes % 0 % 03/21/22 04:39 Myelocytes % 0 % 03/21/22 04:39 Promyelocytes % 0 % 03/21/22 04:39 Blast Cells % 0 % 03/21/22 04:39 Nucleated RBC % Not Reportable 03/21/22 04:39 Seg Neutrophils # 6.2 K/mm3 (1.8-7.7) 03/22/22 04:32 Seg Neutrophils # Man 7.8 K/mm3 (1.8-7.7) H 03/21/22 04:39 Band Neutrophils # 0.0 K/mm3 03/21/22 04:39 Lymphocytes # (Manual) 1.6 K/mm3 (1.2-5.4) 03/21/22 04:39 Abs React Lymphs (Man) 0.0 K/mm3 03/21/22 04:39 Monocytes # (Manual) 0.4 K/mm3 (0.0-0.8) 03/21/22 04:39 Eosinophils # (Manual) 0.9 K/mm3 (0.0-0.4) H 03/21/22 04:39 Basophils # (Manual) 0.0 K/mm3 (0.0-0.1) 03/21/22 04:39 Metamyelocytes # 0.0 K/mm3 03/21/22 04:39 Myelocytes # 0.0 K/mm3 03/21/22 04:39 Promyelocytes # 0.0 K/mm3 03/21/22 04:39 Blast Cells # 0.0 K/mm3 03/21/22 04:39 WBC Morphology Not Reportable 03/21/22 04:39 Hypersegmented Neuts Not Reportable 03/21/22 04:39 Hyposegmented Neuts Not Reportable 03/21/22 04:39 Hypogranular Neuts Not Reportable 03/21/22 04:39 Smudge Cells Not Reportable 03/21/22 04:39 Toxic Granulation Not Reportable 03/21/22 04:39 Toxic Vacuolation Not Reportable 03/21/22 04:39 Dohle Bodies Not Reportable 03/21/22 04:39 Pelger-Huet Anomaly Not Reportable 03/21/22 04:39 Tobi Rods Not Reportable 03/21/22 04:39 Platelet Estimate Consistent w auto 03/21/22 04:39 Clumped Platelets Not Reportable 03/21/22 04:39 Plt Clumps, EDTA Not Reportable 03/21/22 04:39 Large Platelets Not Reportable 03/21/22 04:39 Giant Platelets Not Reportable 03/21/22 04:39 Platelet Satelliting Not Reportable 03/21/22 04:39 Plt Morphology Comment Not Reportable 03/21/22 04:39 RBC Morphology Not Reportable 03/21/22 04:39 Dimorphic RBCs Not Reportable 03/21/22 04:39 Polychromasia Not Reportable 03/21/22 04:39 Hypochromasia Not Reportable 03/21/22 04:39 Poikilocytosis Not Reportable 03/21/22 04:39 Anisocytosis Not Reportable 03/21/22 04:39 Microcytosis 1+ 03/21/22 04:39 Macrocytosis Not Reportable 03/21/22 04:39 Spherocytes 1+ 03/21/22 04:39 Pappenheimer Bodies Not Reportable 03/21/22 04:39 Sickle Cells Not Reportable 03/21/22 04:39 Target Cells 1+ 03/21/22 04:39 Tear Drop Cells Not Reportable 03/21/22 04:39 Ovalocytes Not Reportable 03/21/22 04:39 Helmet Cells Not Reportable 03/21/22 04:39 Kahn-Wells Bodies Not Reportable 03/21/22 04:39 Sabula Rings Not Reportable 03/21/22 04:39 [place] Cells Not Reportable 03/21/22 04:39 Bite Cells Not Reportable 03/21/22 04:39 Crenated Cell Not Reportable 03/21/22 04:39 Elliptocytes Not Reportable 03/21/22 04:39 Acanthocytes (Spur) Not Reportable 03/21/22 04:39 Rouleaux Not Reportable 03/21/22 04:39 Hemoglobin C Crystals Not Reportable 03/21/22 04:39 Schistocytes Not Reportable 03/21/22 04:39 Malaria parasites Not Reportable 03/21/22 04:39 Jorge Bodies Not Reportable 03/21/22 04:39 Hem Pathologist Commnt No 03/21/22 04:39 Sodium 135 mmol/L (137-145) L 03/25/22 04:34 Potassium 4.8 mmol/L (3.6-5.0) 03/25/22 04:34 Chloride 94.9 mmol/L (98-107) L 03/25/22 04:34 Carbon Dioxide 26 mmol/L (22-30) 03/25/22 04:34 Anion Gap 19 mmol/L 03/25/22 04:34 BUN 63 mg/dL (9-20) H 03/25/22 04:34 Creatinine 8.3 mg/dL (0.8-1.3) H 03/25/22 04:34 Estimated GFR 8 ml/min 03/25/22 04:34 BUN/Creatinine Ratio 8 % 03/25/22 04:34 Glucose 85 mg/dL (75-100) 03/25/22 04:34 POC Glucose 230 mg/dL (70-105) H 03/21/22 17:49 Calcium 9.3 mg/dL (8.4-10.2) 03/25/22 04:34 Phosphorus 4.90 mg/dL (2.5-4.5) H 03/15/22 04:59 Total Bilirubin 0.60 mg/dL (0.1-1.2) 03/14/22 05:11 AST 23 units/L (5-40) 03/14/22 05:11 ALT 32 units/L (7-56) 03/14/22 05:11 Alkaline Phosphatase 112 units/L (35-129) 03/14/22 05:11 Total Creatine Kinase 1247 units/L (55-170) H 03/13/22 16:09 Troponin T 0.098 ng/mL (0.00-0.029) H 03/13/22 07:47 NT-Pro-B Natriuret Pep 78241 pg/mL (0-450) H 03/13/22 08:28 Total Protein 5.9 g/dL (6.3-8.2) L 03/14/22 05:11 Albumin 3.3 g/dL (3.9-5) L 03/14/22 05:11 Albumin/Globulin Ratio 1.3 % 03/14/22 05:11 Urine Color Straw (Yellow) 03/13/22 15:29 Urine Turbidity Clear (Clear) 03/13/22 15:29 Urine pH 6.0 (5.0-7.0) 03/13/22 15:29 Ur Specific [place] 1.010 (1.003-1.030) 03/13/22 15:29 Urine Protein >500 mg/dL (Negative) 03/13/22 15:29 Urine Glucose (UA) Negative mg/dL (Negative) 03/13/22 15:29 Urine Ketones 15 mg/dL (Negative) 03/13/22 15:29 Urine Blood 2+ (Negative) 03/13/22 15:29 Urine Nitrite Negative (Negative) 03/13/22 15:29 Ur Reducing Substances Not Reportable 03/13/22 15:29 Urine Bilirubin Negative (Negative) 03/13/22 15:29 Urine Ictotest Not Reportable 03/13/22 15:29 Urine Urobilinogen < 2.0 mg/dL (<2.0) 03/13/22 15:29 Ur Leukocyte Esterase Negative (Negative) 03/13/22 15:29 Urine WBC (Auto) 1.0 /HPF (0.0-6.0) 03/13/22 15:29 Urine RBC (Auto) 1.0 /HPF (0.0-6.0) 03/13/22 15:29 Urine Eosinophils None seen (None Seen) 03/13/22 15:29 Urine Creatinine 43.6 mg/dL (0.1-20.0) H 03/13/22 15:29 Protein/Creatinin Ratio 5.78 03/13/22 15:29 Urine Sodium 85 mmol/L 03/13/22 15:29 Urine Total Protein 252 mg/dL (5-11.8) H 03/13/22 15:29 SARS-CoV-2 (PCR) Negative (Negative) 03/17/22 10:58 Hepatitis A IgM Ab Non-reactive (NonReactive) 03/15/22 12:37 Hep Bs Antigen Non-reactive (Negative) 03/15/22 12:37 Hep B Core IgM Ab Non-reactive (NonReactive) 03/15/22 12:37 Hepatitis C Antibody Non-reactive (NonReactive) 03/15/22 12:37 Bates/IV: Voiding Method Toilet Active Medications - Current Medications Current Medications: Generic Name Dose Route Start Last Admin Trade Name Freq PRN Reason Stop Dose Admin Acetaminophen 650 mg 03/13/22 18:17 03/19/22 09:03 Acetaminophen 325 Mg Tab PO 650 mg Q4H PRN Administration Pain MILD(1-3)/Fever >100.5/WHITTAKER Carvedilol 25 mg 03/19/22 22:00 03/24/22 21:18 Carvedilol 25 Mg Tab PO Not Given BID JIMMY Furosemide 40 mg 03/16/22 22:00 03/24/22 21:18 Furosemide 40 Mg Tab PO 40 mg BID JIMMY Administration Glipizide 2.5 mg 03/22/22 11:30 03/24/22 10:36 Glipizide Xl 2.5 Mg Tab PO 2.5 mg QAM JIMMY Administration Hydralazine HCl 10 mg 03/13/22 22:00 03/13/22 22:14 Hydralazine 20 Mg/1 Ml Inj IV 10 mg Q6HR PRN Administration SBP >/=160; DBP >/=100 Hydralazine HCl 100 mg 03/14/22 09:00 03/25/22 06:41 Hydralazine 100 Mg Tab PO 100 mg Q8HR JIMMY Administration Hydromorphone HCl 0.5 mg 03/13/22 18:17 Hydromorphone 0.5 Mg/0.5 Ml Inj IV Q3H PRN Pain , Severe (7-10) Sodium Chloride 100 mls @ 999 mls/hr 03/20/22 09:02 Nacl 0.9% IV QIAN PRN Hypotension Lisinopril 5 mg 03/25/22 10:00 Lisinopril 5 Mg Tab PO QDAY JIMMY Metoclopramide HCl 5 mg 03/17/22 14:00 Metoclopramide 10 Mg/2 Ml Inj IV Q6H PRN Nausea And Vomiting Morphine Sulfate 2 mg 03/13/22 18:17 Morphine 2 Mg/1 Ml Inj IV Q4H PRN Pain, Moderate (4-6) Nifedipine 60 mg 03/14/22 15:00 03/24/22 21:18 Nifedipine Xl 60 Mg Tab PO 60 mg Q12HR JIMMY Administration Ondansetron HCl 4 mg 03/13/22 18:17 03/23/22 16:52 Ondansetron 4 Mg/2 Ml Inj IV 4 mg Q8H PRN Administration Nausea And Vomiting Oxycodone/Acetaminophen 1 tab 03/13/22 18:17 03/16/22 04:22 Oxycodone /Acetaminophen 5-325mg Tab PO 1 tab Q6H PRN Administration Pain, Moderate (4-6) Sodium Chloride 10 ml 03/13/22 22:00 03/24/22 21:18 Sodium Chloride 0.9% 10 Ml Flush Syringe IV 10 ml BID JIMMY Administration Sodium Chloride 10 ml 03/13/22 18:17 Sodium Chloride 0.9% 10 Ml Flush Syringe IV PRN PRN LINE FLUSH Nutrition/Malnutrition Assess - Dietary Evaluation Nutrition/Malnutrition Findings: Nutrition Notes Start: 03/18/22 14:19 Freq: Status: Active Protocol: Document 03/24/22 10:45 MOISE (Rec: 03/24/22 11:09 MOISE [id number]) Nutrition Notes Initial or Follow up Assessment Current Diagnosis CKD (stage V CKD),Diabetes, Hypertension Other Pertinent Diagnosis ESRD+HD, Cardiomyopathy. Current Diet Cardiac -Renal- Diet (since D 03/24). Labs/Tests 03/24: Cl 96.4, CO2 31, BUN 31 , Crea 4.3, GLu 150, Ca 11.3. Pertinent Medications 03/24: Nutritionally unremarkable. 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 Weight Status Obese Subjective/Other Information RD consult for routine F/U on Dietary advancement. Diet continues as prescribed, Pt's PO intake of meals has been Good (75-100%) and well tolerated, according to ADL notes. I will prescribe Renal modificastion to current diet, to support Pt's CKD V condition. Pt is on Room Air, O2 saturation @ 99%, according to Physical Assessment History notes. Pt has missing teeth, according to Physical Assessment History notes. Pt presents bilateral-LE Pitting edema 2+, according to Physical Assessment History notes. Pt cleared for discharge, but waiting for HD chair for newly diagnosed ESRD, according to Progress notes. Percent of energy/protein needs met: Prescribed Cardiac -Renal- Diet provides for energy/ protein needs (2,230 Kcal/85 g ) during LOS. Burn Absent Trauma Absent GI Symptoms None Food Allergy Yes Skin Integrity/Comment Bilateral -LE Pitting Edema 2+ . Current % PO Good (75-100%) Minimum of two criteria No Fluid Accumulation Moderate to Severe (severe) Reduced Grails Web Application Developer Strength N/A (non-severe) Protein-Calorie Malnutrition N\A #1 Nutrition Diagnosis Altered nutrition-related laboratory values Etiology CKD V. As Evidenced by Signs and Symptoms 03/24: Cl 96.4, CO2 31, BUN 31 , Crea 4.3, GLu 150, Ca 11.3. Is patient on ventilator? No Is Patient Ambulatory and/or Out of Bed Yes REE-([place]-St. Jeor-ambulatory/OOB) [ 2627.300 [id number]] Kcal/Kg value to use for calculation 20 Approximate Energy Requirements Using 2206 kcal/Kg Calculation Used for Recommendations Kcal/kg Additional Notes Protein: >1.2 g/Kg AdjBW; >115 g/day. Fluids: 1 ml/Kcal, or as per MD. Nutrition Intervention Change Diet Order: Modifie Diet to Cardiac -Renal - Diet, continue as tolerated. Goal #1 Help reach and maintain acceptable chemistry lab values during LOS. Goal #2 Adjust the dietary intervention to better serve Pt's needs and clinical conditions during LOS. Follow-Up By: 03/31/22 Additional Comments Continue monitoring food tolerance, %PO intake of meals , and BM.
--- NOTE | 2022-03-25 08:53 | Progress Note ---
Assessment and Plan End Stage Renal Disease now on hemodialysis S/P Hyperkalemia Volume overload Hypertension Diabetes Mellitus CHF Plan: HD today for clearance and volume remova can be discharged from renal standpoint when outpatient dialysis is secured Obtain daily weights Monitor I/O's daily Avoid nephrotoxic agents Assess dialysis needs daily Monitor renal function closely Awaiting outpatient HD placement, CM onboard Subjective Date of service: 03/25/22 Principal diagnosis: Systolic heart failure Interval history: no events Objective - Vital Signs Vital signs: Vital Signs - 12hr 03/24/22 03/25/22 03/25/22 22:00 00:27 04:35 Temperature 98.1 F 98.4 F Pulse Rate 76 85 87 Respiratory 18 20 Rate Blood Pressure 124/73 126/80 O2 Sat by Pulse 95 94 Oximetry - Lab 03/22/22 04:32 03/25/22 04:34 Most recent lab results Calcium 9.3 mg/dL (8.4-10.2) 03/25/22 04:34 Phosphorus 4.90 mg/dL (2.5-4.5) H 03/15/22 04:59 Urine Creatinine 43.6 mg/dL (0.1-20.0) H 03/13/22 15:29 Urine Sodium 85 mmol/L 03/13/22 15:29 Urine Total Protein 252 mg/dL (5-11.8) H 03/13/22 15:29 Medications & Allergies - Medications Allergies/Adverse Reactions: Allergies shellfish derived Adverse Reaction (Verified 03/14/22 09:51) Anaphylaxis patient says he gets "hives and can't breathe" Home Medications: Home Medications Medication Instructions Recorded Confirmed Last Taken Type amLODIPine 10 mg PO QDAY #30 tablet 07/18/20 03/14/22 Unknown Rx glipiZIDE XL [Glucotrol Xl] 2.5 mg PO QAM #30 tab.er.24 07/18/20 03/14/22 Unknown Rx hydrALAZINE [Apresoline TAB] 50 mg PO Q8HR #90 tablet 07/18/20 03/14/22 1 Month Ago Rx ~02/11/22 Labetalol HCl [Labetalol 300mg TAB] 300 mg PO BID 03/14/22 03/14/22 Unknown History Torsemide [Demadex] 10 mg PO QDAY 03/14/22 03/14/22 Unknown History Active Medications: Generic Name Dose Route Start Last Admin Trade Name Freq PRN Reason Stop Dose Admin Acetaminophen 650 mg 03/13/22 18:17 03/19/22 09:03 Acetaminophen 325 Mg Tab PO 650 mg Q4H PRN Administration Pain MILD(1-3)/Fever >100.5/WHIT[place]KER Carvedilol 25 mg 03/19/22 22:00 03/24/22 21:18 Carvedilol 25 Mg Tab PO Not Given BID JIMMY Furosemide 40 mg 03/16/22 22:00 03/24/22 21:18 Furosemide 40 Mg Tab PO 40 mg BID JIMMY Administration Glipizide 2.5 mg 03/22/22 11:30 03/25/22 08:45 Glipizide Xl 2.5 Mg Tab PO 2.5 mg QAM JIMMY Administration Hydralazine HCl 10 mg 03/13/22 22:00 03/13/22 22:14 Hydralazine 20 Mg/1 Ml Inj IV 10 mg Q6HR PRN Administration SBP >/=160; DBP >/=100 Hydralazine HCl 100 mg 03/14/22 09:00 03/25/22 06:41 Hydralazine 100 Mg Tab PO 100 mg Q8HR JIMMY Administration Hydromorphone HCl 0.5 mg 03/13/22 18:17 Hydromorphone 0.5 Mg/0.5 Ml Inj IV Q3H PRN Pain , Severe (7-10) Sodium Chloride 100 mls @ 999 mls/hr 03/20/22 09:02 Nacl 0.9% IV QIAN PRN Hypotension Lisinopril 5 mg 03/25/22 10:00 Lisinopril 5 Mg Tab PO QDAY [facility] Metoclopramide HCl 5 mg 03/17/22 14:00 Metoclopramide 10 Mg/2 Ml Inj IV Q6H PRN Nausea And Vomiting Morphine Sulfate 2 mg 03/13/22 18:17 Morphine 2 Mg/1 Ml Inj IV Q4H PRN Pain, Moderate (4-6) Nifedipine 60 mg 03/14/22 15:00 03/24/22 21:18 Nifedipine Xl 60 Mg Tab PO 60 mg Q12HR JIMMY Administration Ondansetron HCl 4 mg 03/13/22 18:17 03/23/22 16:52 Ondansetron 4 Mg/2 Ml Inj IV 4 mg Q8H PRN Administration Nausea And Vomiting Oxycodone/Acetaminophen 1 tab 03/13/22 18:17 03/16/22 04:22 Oxycodone /Acetaminophen 5-325mg Tab PO 1 tab Q6H PRN Administration Pain, Moderate (4-6) Sodium Chloride 10 ml 03/13/22 22:00 03/24/22 21:18 Sodium Chloride 0.9% 10 Ml Flush Syringe IV 10 ml BID JIMMY Administration Sodium Chloride 10 ml 03/13/22 18:17 Sodium Chloride 0.9% 10 Ml Flush Syringe IV PRN PRN LINE FLUSH
--- NOTE | 2022-03-25 09:16 | Progress Note ---
Assessment and Plan 46-year-old man who presents with fluid overload and pulmonary edema. His heart failure exacerbation is multifactorial. There is chronic severe uncontrolled hypertension, there is worsening renal failure with a creatinine currently end- stage at 6.4. Echocardiogram shows the presence of a cardiomyopathy, with left ventricular ejection fraction 25 to 30%. Symptoms have improved with blood pressure control, diuresis and initiation of hemodialysis. Cardiac stable and asymptomatic. Nuclear stress test performed today showed a subtle apical inferior defect on stress images which is probably related to the artifact, no further work-up needed at this time. Initial plan was to switch nifedipine with lisinopril, since his blood pressure is controlled with nifedipine will continue it and add lisinopril for cardioprotective effects in LV dysfunction. - Patient Problems (1) CHF (congestive heart failure) Current Visit: Yes Status: Acute (2) Pulmonary edema Current Visit: Yes Status: Acute Subjective Principal diagnosis: Systolic heart failure Interval history: Patient doing well. No new complaints. Denies any chest pain shortness of breath orthopnea or PND. Objective Vital Signs Temp Pulse Resp BP BP Pulse Ox 03/25/22 04:35 98.4 F 87 20 126/80 94 03/25/22 00:27 98.1 F 85 18 124/73 95 03/24/22 22:00 76 03/24/22 20:06 97.7 F 52 L 16 131/76 94 03/24/22 19:41 99 03/24/22 11:58 65 18 135/60 97 03/24/22 10:40 98.4 F 77 20 138/76 97 03/24/22 10:34 99 03/24/22 09:48 124/78 03/24/22 09:46 123/73 03/24/22 09:45 121/76 03/24/22 09:44 123/67 03/24/22 09:43 114/71 03/24/22 09:41 131/64 03/24/22 09:40 132/87 03/24/22 09:38 131/86 03/24/22 09:23 141/71 03/24/22 09:18 65/35 - Physical Examination General: No Apparent Distress HEENT: Positive: PERRL Neck: Positive: neck supple Cardiac: Positive: Reg Rate and Rhythm, S1/S2. Negative: Audible Murmur Lungs: Positive: clear to auscultation, No Wheeze, Rales, Rhonchi Neuro: Positive: Grossly Intact Abdomen: Positive: Soft Skin: Positive: Clear Extremities: Present: edema (trace) - Labs and Meds Comprehensive Metabolic Panel 03/24/22 03/25/22 Range/Units 12:27 04:34 Sodium 132 L 135 L (137-145) mmol/L Potassium 5.0 4.8 (3.6-5.0) mmol/L Chloride 93.1 L 94.9 L (98-107) mmol/L Carbon Dioxide 25 26 (22-30) mmol/L BUN 50 H 63 H (9-20) mg/dL Creatinine 6.9 H D 8.3 H (0.8-1.3) mg/dL Glucose 259 H 85 (75-100) mg/dL Calcium 9.2 D 9.3 (8.4-10.2) mg/dL
[2022-03-25] MEDS ORDERED: LISINOPRIL 5 MG TAB PO SCH ×2 (10:00)
--- NOTE | 2022-03-25 12:46 | Discharge Summary ---
Providers - Providers Date of Admission: 03/13/22 18:17 Date of discharge: 03/25/22 Attending physician: YAHAIRA EDWARDS MD 03/13/22 Consult to Case Management [CONS] Routine Services Needed at Discharge: Home Health Services Notified:: case management 03/13/22 11:06 Consult to Physician [CONS] Routine Comment: Consulting Provider: PANFILO FELIX Physician Instructions: Reason For Exam: FARZANA 03/14/22 08:06 Consult to Physician [CONS] Routine Comment: Consulting Provider: DEL JACOBS Physician Instructions: Reason For Exam: chf 03/15/22 11:26 Consult to Interventional Radiology [CONS] Routine Consulting Provider: STEVEN SOTOMAYOR Reason For Exam: Perm-catheter placement Place consult to:: Dr. Sotomayor Notified:: Judi Knight Comment:: Dr. Ana Maria Velez is aware of consult 03/21/22 12:31 Consult to Case Management [CONS] Routine Services Needed at Discharge: Other Notified:: major case detective Comment:: Outpatient HD arrangement Additional Physician Instructions: Patient ESRD Primary care physician: KELSEA HANKINS Hospitalization Reason for admission: Acute on chronic systolic heart failure, FARZANA on CKD stage V Condition: Stable Pertinent studies: Reviewed. Procedures: Permacath placement Hospital course: Patient is a 46-year-old male with past medical history of uncontrolled hypertension, CKD stage V, eqb-zbolrye-dazzbayxa type 2 diabetes mellitus with hyperglycemia, and obesity who presented to the ED with complaints of worsening shortness of breath and bilateral lower extremity peripheral edema. Patient also endorsed having orthopnea and shortness of breath with minimal exertion. In the ED, the patient was found to be hemodynamically stable with an elevated blood pressure of 193/118. He had labs remarkable for WBCs 11.7, creatinine 4.8, BNP >16,000, and glucose of 114. Cardiology was consulted for management of presumed heart failure. Patient underwent TTE revealing EF 25-30% with moderately dilated LV, severely decreased LV systolic function, moderate concentric LVH, moderately dilated RV, mildly hypokinetic RV, moderately dilated LA, moderately dilated RA, moderate severe pulmonary hypertension, and RVSP of 55-60 mmHg. Patient underwent IV diuresis and goal-directed medical therapy for management of his acute systolic heart failure. Neurology was consulted for further management of his FARZANA on CKD stage V. Patient underwent renal ultrasound revealing no hydronephrosis and kidneys medical collections representative of chronic kidney disease. The patient agreed on initiation of hemodialysis, the patient had a permacath placed on 03/15/2022. Patient has since been initiated on hemodialysis and has been tolerating the procedure well. The patient has since been declared ESRD, and he has now obtained a hemodialysis chair in outpatient setting. The patient has been counseled at length about the importance of medication compliance, following up with his providers, fluid restriction (2 L/day), and salt restriction (<2000 mg/day). Patient is medically clear for discharge. Disposition: HOME / SELF CARE / HOMELESS Final Discharge Diagnosis (Prints w/discharge instructions): Acute on chronic systolic heart failure, ESRD on hemodialysis, hypokalemia, cardiomyopathy, uncontrolled hypertension, noninsulin-dependent type 2 diabetes mellitus, obesity. Time spent for discharge: 45 min Core Measure Documentation - Palliative Care Palliative Care/ Comfort Measures: Not Applicable - Core Measures Any of the following diagnoses?: heart failure - Heart Failure Discharge Requirements MANNY/ARB for LVSD if EF <40%: Yes Beta rafa at discharge: Yes Exam - Constitutional Vitals: Temp Pulse Resp BP Pulse Ox 98.4 F 47 L 18 156/85 98 03/25/22 10:07 03/25/22 11:30 03/25/22 10:07 03/25/22 11:30 03/25/22 10:07 General appearance: Present: no acute distress, well-nourished, obese - EENT Eyes: Present: PERRL, EOM intact ENT: hearing intact, clear oral mucosa, dentition normal - Neck Neck: Present: supple, normal ROM - Respiratory Respiratory effort: normal, other (Permacath in upper right chest) Respiratory: bilateral: CTA - Cardiovascular Rhythm: regular Heart Sounds: Present: S1 & S2 - Extremities Extremities: no ischemia, pulses intact, pulses symmetrical, No edema, normal temperature, normal color, Full ROM Peripheral Pulses: within normal limits - Abdominal General gastrointestinal: Present: soft, non-tender, non-distended, normal bowel sounds Male genitourinary: Present: deferred - Rectal Rectal Exam: deferred - Integumentary Integumentary: Present: clear, warm, dry - Musculoskeletal Musculoskeletal: strength equal bilaterally - Psychiatric Psychiatric: appropriate mood/affect, intact judgment & insight, memory intact, cooperative - Neurologic Neurologic: CNII-XII intact, moves all extremities - Allied Health Allied health notes reviewed: nursing Plan Activity: no restrictions Diet: low salt, diabetic Additional Instructions: Patient is a 46-year-old male with past medical history of uncontrolled hypertension, CKD stage V, alo-afeumgd-nnlydiemn type 2 diabetes mellitus with hyperglycemia, and obesity who presented to the ED with complaints of worsening shortness of breath and bilateral lower extremity peripheral edema. Patient also endorsed having orthopnea and shortness of breath with minimal exertion. In the ED, the patient was found to be hemodynamically stable with an elevated blood pressure of 193/118. He had labs remarkable for WBCs 11.7, creatinine 4.8, BNP >16,000, and glucose of 114. Cardiology was consulted for management of presumed heart failure. Patient underwent TTE revealing EF 25-30% with moderately dilated LV, severely decreased LV systolic function, moderate concentric LVH, moderately dilated RV, mildly hypokinetic RV, moderately dilated LA, moderately dilated RA, moderate severe pulmonary hypertension, and RVSP of 55-60 mmHg. Patient underwent IV diuresis and goal-directed medical therapy for management of his acute systolic heart failure. Neurology was consulted for further management of his FARZANA on CKD stage V. Patient underwent renal ultrasound revealing no hydronephrosis and kidneys medical collections representative of chronic kidney disease. The patient agreed on initiation of hemodialysis, the patient had a permacath placed on 03/15/2022. Patient has since been initiated on hemodialysis and has been tolerating the procedure well. The patient has since been declared ESRD, and he has now obtained a hemodialysis chair in outpatient setting. The patient has been counseled at length about the importance of medication compliance, following up with his providers, fluid restriction (2 L/day), and salt restriction (<2000 mg/day). Patient is medically clear for discharge. Care Plan Goals: Patient is medically cleared for discharge. Assessment: Patient is a 46-year-old male with past medical history of uncontrolled hypertension, CKD stage V, dgg-rzpxqor-daeukeule type 2 diabetes mellitus with hyperglycemia, and obesity who presented to the ED with complaints of worsening shortness of breath and bilateral lower extremity peripheral edema. Patient also endorsed having orthopnea and shortness of breath with minimal exertion. In the ED, the patient was found to be hemodynamically stable with an elevated blood pressure of 193/118. He had labs remarkable for WBCs 11.7, creatinine 4.8, BNP >16,000, and glucose of 114. Cardiology was consulted for management of presumed heart failure. Patient underwent TTE revealing EF 25-30% with moderately dilated LV, severely decreased LV systolic function, moderate concentric LVH, moderately dilated RV, mildly hypokinetic RV, moderately dilated LA, moderately dilated RA, moderate severe pulmonary hypertension, and RVSP of 55-60 mmHg. Patient underwent IV diuresis and goal-directed medical therapy for management of his acute systolic heart failure. Neurology was consulted for further management of his FARZANA on CKD stage V. Patient underwent renal ultrasound revealing no hydronephrosis and kidneys medical collections representative of chronic kidney disease. The patient agreed on initiation of hemodialysis, the patient had a permacath placed on 03/15/2022. Patient has since been initiated on hemod ialysis and has been tolerating the procedure well. The patient has since been declared ESRD, and he has now obtained a hemodialysis chair in outpatient setting. The patient has been counseled at length about the importance of medication compliance, following up with his providers, fluid restriction (2 L/day), and salt restriction (<2000 mg/day). Patient is medically clear for discharge. Follow up with: SARWAT EARLY MD [Staff Physician] - 14 Days Forms: Work/School Release Form Prescriptions: hydrALAZINE [Apresoline TAB] 100 mg PO Q8HR #90 tab carvediloL [Coreg] 25 mg PO BID #60 tablet glipiZIDE XL [Glucotrol Xl] 2.5 mg PO QAM #30 tab.er.24 Furosemide [Lasix TAB] 40 mg PO BID #60 tablet NIFEdipine XL [Procardia Xl] 60 mg PO Q12HR #60 tablet lisinopriL [Zestril TAB] 5 mg PO QDAY #30 tablet
[2022-03-25 14:00] VITALS: BP 135/86
== END 2022-03-25 16:23 | disposition home or self-care (01) | DRG 673 ==
LOC: ED 07:04 → 4A 18:17
PROVIDERS: ADMIT Internal Medicine; ATTEND Student in an Organized Health Care Education/Training Program
PROC: 0JH63XZ Insertion of Tunneled Vascular Access Device into Chest Subcutaneous Tissue and Fascia, Percutaneous Approach (ICD-10-PCS; principal; 2022-03-15)
PROC: 02H633Z Insertion of Infusion Device into Right Atrium, Percutaneous Approach (ICD-10-PCS; 2022-03-15)
PROC: B5181ZA Fluoroscopy of Superior Vena Cava using Low Osmolar Contrast, Guidance (ICD-10-PCS; 2022-03-15)
PROC: B548ZZA Ultrasonography of Superior Vena Cava, Guidance (ICD-10-PCS; 2022-03-15)
PROC: 5A1D70Z Performance of Urinary Filtration, Intermittent, Less than 6 Hours Per Day (ICD-10-PCS; 2022-03-15)
PROC: 5A1D70Z Performance of Urinary Filtration, Intermittent, Less than 6 Hours Per Day (ICD-10-PCS; 2022-03-16)
PROC: 5A1D70Z Performance of Urinary Filtration, Intermittent, Less than 6 Hours Per Day (ICD-10-PCS; 2022-03-18)
PROC: 5A1D70Z Performance of Urinary Filtration, Intermittent, Less than 6 Hours Per Day (ICD-10-PCS; 2022-03-21)
PROC: 5A1D70Z Performance of Urinary Filtration, Intermittent, Less than 6 Hours Per Day (ICD-10-PCS; 2022-03-23)
PROC: 5A1D70Z Performance of Urinary Filtration, Intermittent, Less than 6 Hours Per Day (ICD-10-PCS; 2022-03-25)
DX: N17.9 Acute kidney failure, unspecified (principal); I50.23 Acute on chronic systolic (congestive) heart failure; I13.2 Hypertensive heart and chronic kidney disease with heart failure and with stage 5 chronic kidney disease, or end stage renal disease; I16.1 Hypertensive emergency; I42.9 Cardiomyopathy, unspecified; Z20.822 Contact with and (suspected) exposure to COVID-19; N18.6 End stage renal disease; N04.9 Nephrotic syndrome with unspecified morphologic changes; G43.909 Migraine, unspecified, not intractable, without status migrainosus; E11.22 Type 2 diabetes mellitus with diabetic chronic kidney disease; E87.5 Hyperkalemia; D63.1 Anemia in chronic kidney disease; E66.9 Obesity, unspecified; Z68.31 Body mass index [BMI] 31.0-31.9, adult; F17.200 Nicotine dependence, unspecified, uncomplicated; E87.6 Hypokalemia; I27.20 Pulmonary hypertension, unspecified; Z71.3 Dietary counseling and surveillance; Z82.49 Family history of ischemic heart disease and other diseases of the circulatory system; Z83.3 Family history of diabetes mellitus; Z91.013 Allergy to seafood
CPT/HCPCS: 36415; 36558; 71046; 76770; 77001; 78452; 80048; 80053; 80074; 81001; 82550; 82570; 82962; 83880; 84100; 84156; 84300; 84484; 85007; 85025; 89050; 93005; 93017; 93306; G0378; J3490; A9502; C1750; C8929; J0360; J1644; J1940; J2250; J2405; J2785; J3010; J7040; U0003